=== PATIENT | female | born 2000 | race Caucasian/White ===

== ENCOUNTER 2024-05-23 12:17 | Emergency (ER) | payer SELFPAY ==
[2024-05-23 12:24] VITALS: BP 123/71; PULSE 77; TEMP 36.9; O2SAT 98; BMI 24.8
[2024-05-23 13:23] LABS: Basophils Percent Auto 0.3 % (0.2-2.0); Eosinophils Absolute Auto 0.2 10^3/uL (0.0-0.7); Hematocrit 39.1 % (36.0-48.0); Hemoglobin 13.4 g/dL (12.0-16.0); Immature Granulocytes Abs Auto 0.02 10^3/uL (0.00-0.03); Immature Granulocytes Pct Auto 0.3 % (0.0-0.5); Lymphocytes Absolute Auto 1.6 10^3/uL (1.2-3.8); Lymphocytes Percent Auto 20.7 % (20.5-60.0); Mean Corpuscular HGB Conc 34.3 g/dL (29.9-35.2); Mean Corpuscular Hemoglobin 30.7 pg (26.7-34.0); Mean Corpuscular Volume 89.5 fL (81.0-99.0); Mean Platelet Volume 8.7 fL (9.5-13.5); Monocytes Absolute Auto 0.4 10^3/uL (0.3-0.8); Monocytes Percent Auto 5.7 % (1.7-12.0); Neutrophils Absolute Auto 5.5 10^3/uL (1.4-6.5); Platelet Count 256 10^3/uL (150-450); Red Blood Count 4.37 10^6/uL (4.20-5.40); Red Cell Distribution Width 12.3 % (11.0-15.0); White Blood Count 7.7 10^3/uL (4.0-11.0)
[2024-05-23 13:38] LABS: Alanine Aminotransferase 37 U/L (14-59); Albumin Globulin Ratio 1.2; Alkaline Phosphatase 89 U/L (46-116); Anion Gap 13.3; Aspartate Amino Transferase 18 U/L (15-37); BUN Creatinine Ratio 14.7; Bilirubin Total 0.4 mg/dL (0.2-1.0); Calcium 9.1 mg/dL (8.5-10.1); Carbon Dioxide 26.5 mmol/L (21.0-32.0); Chloride 104 mmol/L (98-107); Estimated GFR (African America >60 (>=60); Estimated GFR (Non-African Ame >60 (>=60); Globulin 3.3 g/dL; Glucose 85 mg/dL (74-106); Potassium 3.8 mmol/L (3.5-5.1); Sodium 140 mmol/L (136-145); Total Protein 7.3 g/dL (6.4-8.2)
[2024-05-23 13:48] VITALS: BP 110/67; PULSE 61; O2SAT 100
[2024-05-23 14:00] LABS: HCG Quantitative 8 mIU/mL
--- NOTE | 2024-05-23 14:55 | ED_ITS ---
HPI - Female Genitourinary General Chief complaint: Vaginal Bleeding Stated complaint: VAGINAL BLEEDING Time Seen by Provider: 05/23/24 12:52 Source: patient Mode of arrival: walk-in History of Present Illness HPI Narrative: The patient is coming to us with vaginal bleeding with concern that she was , she had a test positive at home on Thursday which she 3 days ago and she started having menstrual bleeding today, patient mentioned that her menstrual bleeding is not more than usual, the patient was concerned because she had a positive on Thursday although her last menstruation was April 16 and she have almost 5 days menstrual bleeding. Patient have history of 1 that full-term. She denies any other complaints except for the suprapubic discomfort and cramping Related Data Home Medications ?Medication ?Instructions ?Recorded ?Confirmed No Known Home Medications 05/23/24 05/23/24 Allergies Allergy/AdvReac Type Severity Reaction Status Date / Time No Known Drug Allergies Allergy Verified 05/23/24 12:24 Review of Systems ROS Status of ROS 10 or more systems reviewed and unremark able except as noted in history and below Exam Narrative Exam Narrative: Nurses notes and vital signs reviewed and patient is not hypoxic. General: Well-appearing and in no apparent distress. Skin: Warm, dry, no pallor noted. No rash. Head: Normocephalic, atraumatic. Neck: Supple, non-tender. Eye: Pupils are equal, round and EOMI. No scleral icterus. Ears, Nose, Mouth, and Throat: TM are clear, no nasal mucosal hypertrophy. Oral mucosa is moist, no posterior oropharynx erythema, uvula is mid-line Cardiovascular: Regular Rate and Rhythm without murmur, gallop or rub. Respiratory: No accessory muscle use or respiratory distress. Lungs are clear to auscultation, no wheezing, rales or rhonchi Chest Wall: no tenderness Back: No midline thoracic or lumbar vertebral tenderness. No CVA tenderness Musculoskeletal: normal ROM, no calf or popliteal tenderness, no lower extremity edema/swelling GI: Abdomen is soft, non-distended. Normal bowel sounds. No masses appreciated. Suprapubic discomfort, no rebound, guarding, or rigidity noted. Neurological: A&O x4. No cranial nerve dysfunction observed. No truncal ataxia. Moves all extremities. Sensation intact. Psychiatric: Cooperative and interactive. Normal mood and affect. Constitutional Vital Signs, click to edit/add: Last Vital Signs Temp 98.4 F 05/23/24 12:24 Pulse 61 05/23/24 13:48 Resp 18 05/23/24 13:48 BP 110/67 05/23/24 13:48 Pulse Ox 100 05/23/24 13:48 Course Vital Signs Vital signs: Vital Signs Temperature 98.4 F 05/23/24 12:24 Pulse Rate 77 05/23/24 12:24 Respiratory Rate 18 05/23/24 12:24 Blood Pressure 123/71 05/23/24 12:24 Pulse Oximetry 98 05/23/24 12:24 Temperature 98.4 F 05/23/24 12:24 Pulse Rate 61 05/23/24 13:48 Respiratory Rate 18 05/23/24 13:48 Blood Pressure 110/67 05/23/24 13:48 Pulse Oximetry 100 05/23/24 13:48 MDM - Female Genitourinary MDM Narrative Medical decision making narrative: The patient CBC and chemistry showed no acute pathology and her hCG was 8 Right now I would question that the patient was actually her test is very low that could correlate with mostly a negative more than miscarriage But the patient right now will just follow-up with her [employer] doctor within the next week with the recommended the blood workup to be repeated after 2 to 3 days Patient to monitor her bleeding The patient is to follow up with primary care physician in next 2-3 days or to return to the emergency department should any of the signs or symptoms worsen or new symptoms develop. The patient agrees with the following Diagnosis and Treatment plan and the patient will be discharged home. Lab Data Labs: Lab Results 05/23/24 Range/Units 13:10 WBC 7.7 (4.0-11.0) 10^3/uL RBC 4.37 (4.20-5.40) 10^6/uL Hgb 13.4 (12.0-16.0) g/dL Hct 39.1 (36.0-48.0) % MCV 89.5 (81.0-99.0) fL MCH 30.7 (26.7-34.0) pg MCHC 34.3 (29.9-35.2) g/dL RDW 12.3 (11.0-15.0) % Plt Count 256 (150-450) 10^3/uL MPV 8.7 L (9.5-13.5) fL Neut % (Auto) 71.0 (43.0-75.0) % Lymph % (Auto) 20.7 (20.5-60.0) % [place] % (Auto) 5.7 (1.7-12.0) % Eos % (Auto) 2.0 (0.9-7.0) % Baso % (Auto) 0.3 (0.2-2.0) % Neut # (Auto) 5.5 (1.4-6.5) 10^3/uL Lymph # (Auto) 1.6 (1.2-3.8) 10^3/uL [place] # (Auto) 0.4 (0.3-0.8) 10^3/uL Eos # (Auto) 0.2 (0.0-0.7) 10^3/uL Baso # (Auto) 0.0 (0.0-0.1) 10^3/uL Abs Immat Gran (auto) 0.02 (0.00-0.03) 10^3/uL Imm/Tot Granulo (auto) 0.3 (0.0-0.5) % Sodium 140 (136-145) mmol/L Potassium 3.8 (3.5-5.1) mmol/L Chloride 104 (98-107) mmol/L Carbon Dioxide 26.5 (21.0-32.0) mmol/L Anion Gap 13.3 BUN 10.0 (7.0-18.0) mg/dL Creatinine 0.68 (0.55-1.02) mg/dL Est GFR ( Amer) >60 (>=60) Est GFR (Non-Af Amer) >60 (>=60) BUN/Creatinine Ratio 14.7 Glucose 85 (74-106) mg/dL Calcium 9.1 (8.5-10.1) mg/dL Total Bilirubin 0.4 (0.2-1.0) mg/dL AST 18 (15-37) U/L ALT 37 (14-59) U/L Alkaline Phosphatase 89 (46-116) U/L Total Protein 7.3 (6.4-8.2) g/dL Albumin 4.0 (3.4-5.0) g/dL Globulin 3.3 g/dL Albumin/Globulin Ratio 1.2 HCG, Quant 8 mIU/mL Blood Type A Positive Antibody Screen Negative Discharge Plan Discharge Stand Alone Forms: Work/School Release, Portal Instructions Chief Complaint: Vaginal Bleeding Clinical Impression: Vaginal bleeding Patient Disposition: Home, Self-Care Time of Disposition Decision: 14:44 Condition: Good Prescriptions / Home Meds: No Action No Known Home Medications Print Language: Sri [place] Instructions: Abnormal (Dysfunctional) Uterine Bleeding (ED), Non-Threatening First Trimester Vaginal Bleed (ED) Referrals: Davide Cruz DO [Physician] - 1 week Physician,Non-Staff, [Primary Care Provider] - 1 week Discharge Date/Time: 05/23/24 14:57
== END 2024-05-23 14:57 | disposition home or self-care (01) ==
PROVIDERS: Emergency Provider Emergency Medicine
DX: N93.9 Abnormal uterine and vaginal bleeding, unspecified (principal)
CPT/HCPCS: 36415; 80053; 84702; 85025; 86850; 86900; 86901; 99283

== ENCOUNTER 2024-05-24 15:38 | Outpatient (OUT) | payer SELFPAY ==
[2024-05-24 16:34] LABS: HCG Quantitative 5 mIU/mL
== END 2024-05-24 15:39 | disposition home or self-care (01) ==
LOC: LAB 15:40
PROVIDERS: Visit Provider Obstetrics & Gynecology
DX: O20.9 Hemorrhage in early pregnancy, unspecified (principal)
CPT/HCPCS: 36415; 84702

== ENCOUNTER 2024-05-26 15:34 | Outpatient (OUT) | payer SELFPAY ==
--- OUTSIDE RECORDS SUMMARY | 2024-05-26 15:42 | XMS_ITS | CCD ---
Author Organization [facility] Care Team Providers Care Education Director Name Role Phone AVERY ., DR OLIVAREZ Admitting Unavailable HOY ., DR OLIVAREZ Attending Unavailable MISC, DR CAGLE Primary Care Unavailable ARIA ., DR LOPEZ Admitting Unavailable ARIA ., DR LOPEZ Attending Unavailable MISC, DR CAGLE Primary Care Unavailable ARIA ., DR LOPEZ Consulting Unavailable ARIA ., DR LOPEZ Admitting Unavailable ARIA ., DR LOPEZ Attending Unavailable MISC, DR CAGLE Primary Care Unavailable ARIA ., DR LOPEZ Consulting Unavailable ARIA ., DR LOPEZ Admitting Unavailable ARIA ., DR LOPEZ Attending Unavailable MISC, DR CAGLE Primary Care Unavailable ARIA ., DR LOPEZ Consulting Unavailable OCONNOR, LISA Consulting Unavailable ARIA ., DR LOPEZ Admitting Unavailable ARIA ., DR LOPEZ Attending Unavailable REQUEST, DR HARPER LISTED Primary Care Unavaila ble ARIA ., DR LOPEZ Consulting Unavailable AGUBOSIM, EYAD Consulting Unavailable LONG, PRATIMA Consulting Unavailable ARIA ., DR LOPEZ Admitting Unavailable ARIA ., DR LOPEZ Attending Unavailable MISC, DR CAGLE Primary Care Unavailable Problems Active Problems Problem Classification Problem Date Documented Da te Episodic/Chronic Cancer of cervix (1 source) Atypical squamous cells of undetermined significance on cytologic smear of cervix (ASC-US); Translations: [ASC US ON CYTOLOGIC SMEAR OF CERVIX] Onset: 10-16-2022 Episodic Menstrual disorders (5 sources) Dysmenorrhea, unspecified; Translations: [DYSMENORRHEA UNSPECIFIED] Onset: 12-18-2021 Chronic Other female genital disorders (1 source) Unspecified dyspareunia; Translations: [UNSPECIFIED DYSPAREUNIA] Onset: 12-25-2021 Chronic Unclassified (1 source) CONTACT W/AND (SUSP) EXPOS COVID-19; Translations: [CONTACT W/AND (SUSP) EXPOS COVID-19] Onset: 12-18-2021 Past or Other Problems Problem Classification Problem Date Documented Date Episodic/Chronic Abdominal pain (1 source) Pelvic and perineal pain; Translations: [PELVIC AND PERINEAL PAIN] Onset: 12-25-2021 Episodic Other screening for suspected conditions (not mental disorders or infectious disease) (4 sources) Encounter for screening for malignant neoplasm of cervix; Translations: [ENC SCREENING MALIG NEOPLASM CERV] Onset: 02-12-2022 Episodic Screening and history of mental health and substance abuse codes (1 source) Personal history of nicotine dependence; Translations: [PERSONAL HISTORY OF NICOTINE DEPEND] Onset: 12-25-2021 Episodic Sexually transmitted infections (not HIV or hepatitis) (1 source) Cervical high risk human papillomavirus (HPV) DNA test positive; Translations: [CERVICAL HIGH RISK HPV DNA TEST POS] Onset: 02-13-2022 Episodic Results Test Name Value Interpretation Reference Range Facil ity Pap IG, rfx Aptima HPV, rfx 16/18,45on 10-22-2022 . . Normal [facility] Comment on above: Result Comment: Perf ormed at: WB Performed By: #### P APHR2A #### [facility] [address] [address] [address] Romero Freeman DIAGNOSIS: Comment Normal [facility] Comment on above: Result Comment: NEGA TIVE FOR INTRAEPITHELIAL LESION OR MALIGNANCY. Performed at: WB Performed By: #### P APHR2A #### [facility] [address] [address] [address] Romero Freeman HPV Aptima Positive Abnormal Negative [facility] Comment on above: Result Comment: This nucleic acid amplification test detects fourteen high-risk HPV types (16,18,31,33,35,39,45,51,52,56,58,59,66,68) without differentiation. Performed at: =G Performed By: #### P APHR2A #### [facility] [address] [address] [address] Romero Freeman HPV Genotype 16 Negative Normal Negative [facility] Comment on above: Performed By: #### P APHR2A #### [facility] [address] [place] [address] Dr. Romero Freeman HPV Genotype 18,45 Negative Normal Negative [facility] Comment on above: Performed By: #### P APHR2A #### [facility] [address] [place] [address] Dr. Romero Freeman HPV Genotype Reflex Comment Normal [facility] Comment on above: Result Comment: Roddy fitzgerald, see HPV Genotype results. Performed at: WB Performed By: #### P APHR2A #### [facility] [address] [place] [address] Dr. Romero Freeman Methodology: Comment Normal [facility] Comment on above: Result Comment: This liquid based ThinPrep(R) pap test was screened with the use of an image guided system. Performed at: WB Performed By: #### P APHR2A #### [facility] [address] [place] [address] Dr. Romero Freeman Note: Comment Normal [facility] Comment on above: Result Comment: The Pap smear is a screening test designed to aid in the detection of premalignant and malignant conditions of the uterine cervix. It is not a diagnostic procedure and should not be used as the sole means of detecting cervical cancer. Both false-positive and false-negative reports do occur. . Performed at: WB Performed By: #### P APHR2A #### [facility] [address] [place] [address] Dr. Romero Freeman Performed by: Comment Normal [facility] Comment on above: Result Comment: Wale Hauser Supervisor Road Administrator (ASCP) Performed at: WB Performed By: #### P APHR2A #### [facility] [address] [place] [address] Dr. Romero Freeman Specimen adequacy: Comment Normal [facility] Comment on above: Result Comment: Sati sfactory for evaluation. Endocervical and/or squamous metaplastic cells (endocervical component) are present. Performed at: WB Performed By: #### P APHR2A #### [facility] [address] [place] [address] Dr. Romero Freeman Pap IG,rfx Aptima HPV all pt hon 05-30-2022 . . Normal [facility] Comment on above: Result Comment: Perf ormed at: BA Performed By: #### P [id number] #### [facility] [address] [address] [address] Romero Freeman DIAGNOSIS: Comment Normal [facility] Comment on above: Result Comment: NEGA TIVE FOR INTRAEPITHELIAL LESION OR MALIGNANCY. Performed at: BA Performed By: #### P [id number] #### [facility] [address] [address] [address] Romero Freeman Methodology: Comment [facility] Comment on above: Result Comment: This liquid based ThinPrep(R) pap test was screened with the use of an image guided system. Performed at: WB Performed By: #### P [id number] #### [facility] [address] [place] [address] Dr. Romero Freeman Note: Comment Normal [facility] Comment on above: Result Comment: The Pap smear is a screening test designed to aid in the detection of premalignant and malignant conditions of the uterine cervix. It is not a diagnostic procedure and should not be used as the sole means of detecting cervical cancer. Both false-positive and false-negative reports do occur. . Performed at: WB Performed By: #### P [id number] #### [facility] [address] [place] [address] Dr. Romero Freeman Performed by: Comment Normal [facility] Comment on above: Result Comment: Marisabel Castro, Supervisor Road Administrator (ASCP) Performed at: BA Performed By: #### P [id number] #### [facility] [address] [place] [address] Dr. Romero Freeman Reflex Criteria: Comment [facility] Comment on above: Result Comment: The HPV DNA reflex criteria were not met with this specimen result therefore, no HPV testing was performed. . Performed at: BA Performed By: #### P [id number] #### [facility] [address] [place] [address] Dr. Romero Freeman Specimen adequacy: Comment Normal [facility] Comment on above: Result Comment: Sati sfactory for evaluation. Endocervical and/or squamous metaplastic cells (endocervical component) are present. Performed at: BA Performed By: #### P [id number] #### [facility] [address] [place] [address] Dr. Romero Freeman CBC AUTO DIFFon 12-20-2021 BASO # 0.1 103/ul Normal 0.0-0.1 [facility] Comment on above: Performed By: #### C BC #### [facility] [address] [place] [address] Dr. Romero Freeman Basophils/100 WBC (Bld) 0.6 % Normal 0.2-2.0 [facility] Comment on above: Performed By: #### C BC #### [facility] [address] [place] [address] Dr. Romero Freeman EO # 0.7 103/ul Normal 0.0-0.7 [facility] Comment on above: Performed By: #### C BC #### [facility] [address] [place] [address] Dr. Romero Freeman Eosinophils/100 WBC (Bld) 8.6 % Critically high 0.9-7.0 [facility] Comment on above: Performed By: #### C BC #### [facility] [address] [place] [address] Dr. Romero Freeman Erythrocyte distribution width (RBC) [Ratio] 13.2 % Normal 11.0-15.0 [facility] Comment on above: Performed By: #### C BC #### [facility] [address] [place] [address] Dr. Romero Freeman Hematocrit (Bld) [Volume fraction] 42.2 % Normal 36.0-48.0 [facility] Comment on above: Performed By: #### C BC #### [facility] [address] [place] [address] Dr. Romero Freeman Hemoglobin (Bld) [Mass/Vol] 14.3 g/dL Normal 12.0-16.0 [facility] Comment on above: Performed By: #### C BC #### [facility] [address] [place] [address] Dr. Romero Freeman IG # 0.01 10e3/ul Normal 0.00-0.03 [facility] Comment on above: Performed By: #### C BC #### [facility] [address] [place] [address] Dr. Romero Freeman IG % 0.1 % Normal 0.0-0.5 [facility] Comment on above: Performed By: #### C BC #### [facility] [address] [place] [address] Dr. Romero Freeman LYMPH # 3.3 103/ul Normal 1.2-3.8 [facility] Comment on above: Performed By: #### C BC #### [facility] [address] [place] [address] Dr. Romero Freeman Lymphocytes/100 WBC (Bld) 40.8 % Normal 20.5-60.0 [facility] Comment on above: Performed By: #### C BC #### [facility] [address] [place] [address] Dr. Romero Freeman MANUAL DIFF REQ NO Normal [facility] Comment on above: Performed By: #### C BC #### [facility] [address] [place] [address] Dr. Romero Freeman MCH (RBC) [Entitic mass] 30.2 pg Normal 26.7-34.0 [facility] Comment on above: Performed By: #### C BC #### [facility] [address] [place] [address] Dr. Romero Freeman MCHC (RBC) [Mass/Vol] 33.9 g/dL Normal 29.9-35.2 [facility] Comment on above: Performed By: #### C BC #### [facility] [address] [place] [address] Dr. Romero Freeman MCV (RBC) [Entitic vol] 89.2 fL Normal 81.0-99.0 [facility] Comment on above: Performed By: #### C BC #### [facility] [address] [place] [address] Dr. Romero Freeman MONO # 0.7 103/ul Normal 0.3-0.8 [facility] Comment on above: Performed By: #### C BC #### [facility] [address] [place] [address] Dr. Romero Freeman Monocytes/100 WBC (Bld) 9.0 % Normal 1.7-12.0 [facility] Comment on above: Performed By: #### C BC #### [facility] [address] [place] [address] Dr. Romero Freeman NEUT # 3.3 103/ul Normal 1.4-6.5 [facility] Comment on above: Performed By: #### C BC #### [facility] [address] [place] [address] Dr. Romero Freeman Neutrophils/100 WBC (Bld) 40.9 % Critically low 43.0-75.0 [facility] Comment on above: Performed By: #### C BC #### [facility] [address] [place] [address] Dr. Romero Freeman Platelet mean volume (Bld) [Entitic vol] 8.6 fL Critically low 9.5-13.5 [facility] Comment on above: Performed By: #### C BC #### [facility] [address] [place] [address] Dr. Romero Freeman PLT 289 103/ul Normal 150-450 [facility] Comment on above: Performed By: #### C BC #### [facility] [address] [place] [address] Dr. Romero Freeman RBC 4.73 106/ul Normal 4.20-5.40 [facility] Comment on above: Performed By: #### C BC #### [facility] [address] [place] [address] Dr. Romero Freeman WBC 8.1 103/ul Normal 4.0-11.0 [facility] Comment on above: Performed By: #### C BC #### [facility] [address] [place] [address] Dr. Romero Freeman PREG QUANT HCGon 12-20-2021 HCG QUANT <1 Normal [facility] Comment on above: Performed By: #### P REGQNT #### [facility] [address] [address] [address] Romero Freeman HCG RANGE SEE BELOW Normal [facility] Comment on above: Result Comment: 5-50 0-1 WEEK 40-300 1-2 WEEKS 100-1,000 2-3 WEEKS 500-6,000 3-4 WEEKS 5,000-200,000 1-2 MONTHS 10,000-100,000 2-3 MONTHS 3,000-50,000 2ND TRIMESTER 1,000-50,000 3RD TRIMESTER Performed By: #### P REGQNT #### [facility] [address] [address] [address] Romero Freeman Covid-19 PCR (CVDTBH)on 11-20 SARS-CoV-2 (COVID-19) RNA ABEBE+probe Ql (Unsp spec) Not detected Normal NOT DETECTED [facility] Comment on above: Result Comment: When diagnostic testing is negative, the possibility of a false negative should be considered in the context of a patient's recent exposures and the presence of clinical signs and symptoms consistent with SARS-CoV-2. This test is not yet approved or cleared by the [place] FDA. When there are no FDA-approved or cleared tests available, and other criteria are met, FDA can make tests available under an emergency access mechanism called an Emergency Use Authorization (EUA). The EUA for this test is supported by the Junior Buyer of Health and Human Service's declaration that circumstances exist to justify the emergency use of in vitro diagnostics for the detection and/or diagnosis of the virus that causes COVID-19. This EUA will remain in effect for the duration of the COVID-19 declaration justifying emergency of IVDs, unless it is terminated or revoked by the FDA (after which the test may no longer be used). Performed By: #### C VDTBH #### [facility] [address] [address] [address] Romero rFeeman Encounters Encounter Date Encounter Type Care Provider Facility Start: 10-16-2022 Encounter for cervic al smear to confirm findings of recent normal smear following initial abnormal smear DR JESSICA CRUZ . [facility] Start: 10-15-2022 End: 10-15-[address] JESSICA CRUZ . Facility:[facility] Start: 10-15-2022 End: 10-15-2022 Encounter for cervical smear to confirm findings of recent normal smear following initial abnormal smear DR JESSICA CRUZ . Facility:[facility] Start: 03-18-[address] SHER VARELA . Facili ty:[facility] Start: 02-12-2022 End: 02-12-[address] JESSICA CRUZ . Facility:[facility] Start: 12-20-2021 End: 12-20-[address] JESSICA CRUZ . Facility:[facility] Start: 12-18-2021 Encounter for prepro cedural laboratory examination DR JESSICA CRUZ . [facility] Start: 12-17-[address] JESSICA CRUZ . Facili ty:[facility] Start: 12-13-2021 End: 12-14-[address] JESSICA CRUZ . Facility:[facility] Start: 12-13-2021 End: 12-14-2021 Encounter for preprocedural laboratory examination DR JESSICA CRUZ . Facility:[facility] Payers Date Payer Category Payer Unknown [id number] 2.16.84 [id number] 1998 Unknown [id number] 2.16.84 [id number] 1998 Unknown [id number] 2.16.84 [id number] 1998 Unknown [id number] 2.16.84 [id number] 1998 Unknown [id number] 2.16.84 [id number] 1998 Unknown [id number] 2.16.84 [id number] 1959 Self-pay 1961 Unknown [id number] Clinical Note 12-20-2021 Note Date & Type Note Facility 12-20-2021 Note [facility] [place], [place] NAME: KAREEM CANNON DATE OF : [facility] REC#: [id number] DRILLING PLANT OPERATOR: [id number] [facility], TRANSADMIT DATE: 12/20/2021 06:55:00 RAILROAD MAINTENANCE CLERK DATE: 12/22/2021 01:00 DICTATING PHYSICIAN: JESSICA CRUZ DICTATION DATE: 12/20/2021 09:00 OPERATIVE NOTE PROCEDURE: Diagnostic laparoscopy. PREOPERATIVE DIAGNOSIS: Pelvic pain, dysmenorrhea, dyspareunia. POSTOPERATIVE DIAGNOSIS: Pelvic pain, dysmenorrhea, dyspareunia. ANESTHESIA: General. SURGEON: Jessica Cruz D.O. LEGAL EDITOR: TONI Arrington URINE OUTPUT: Yellow and clear. BLOOD LOSS: 5 mL. FINDINGS: Normal appearing ovaries, uterus and tubes. Normal appearing appendix. Please note, however, there was a slight dense adhesion of the bowel to the posterior side of the ovary, which could not be taken down. However, doubt this is the cause of her pain. SPECIMENS: None. PROCEDURE: The patient was taken back to the Operating Room where she was placed in dorsal lithotomy position after given general anesthesia. The patient was prepped and draped in normal sterile fashion. A sponge stick was placed into the patient's vagina. Attention was turned to the patient's abdomen, where a small umbilical incision was made. The fascia was tented using Susana clamps and the fascia was entered sharply. Confirmation of intraabdominal placement of the 10 mm port was confirmed under direct visualization using a laparoscope. The patient's abdomen was then insufflated using CO2 gas with approximately 4 liters. A second port was placed lt laterally, this was done under direct visualization with a 5 mm port. Survey of the patient's abdomen demonstrated normal liver and gallbladder. Survey of the patient's pelvic anatomy demonstrated normal appearing ovaries and tubes as well as normal appearing uterus. No endometrial implants could be noted, no evidence of any pelvic disease was seen, normal appearing pelvic cavity. Dense bowel adhesion to posterior side of lt ovary which could not easily be taken down. All instruments were removed from the patient's abdomen. The patient's abdomen was insufflated using CO2 gas. The patient tolerated the procedure well. Sponge stick was removed from the patient's vagina. The patient's infraumbilical fascia was closed using #0 Vicryl on a GI needle. The patient's skin was closed lt laterally and infraumbilically using 4-0 Vicryl. The patient tolerated the procedure well. Sponge, lap and needle counts were correct x 2. The patient taken to Recovery Room in stable condition. Electronically Authenticated and Edited by: Jessica Cruz DO on 01/12/2022 09:16 PM EDT IFC Signed and Approved by: DR JESSICA CRUZ . 01/12/2022 21:16:00 [facility] Summary Purpose Family History No Family History Records Found Advance Directives No Advanced Directives Records Found Additional Source Comments INFORMATION SOURCE (unrecogn ized section and content) DATE CREATED AUTHOR 12/04/2022 [facility] FOR RECORDS PERTAINING TO PATIENTS WHO ARE OR HAVE BEEN ENROLLED IN A CHEMICAL DEPENDENCY/SUBSTANCEABUSE PROGRAM, SOME INFORMATION MAY BE OMITTED. This clinical summary was aggregated from multiple sources. Caution should be exercised in using it in the provision of clinical care. This summary normalizes information from multiple sources, and as a consequence, information in this document may materially change the coding, format and clinical context of patient data. In addition, data may be omitted in some cases. CLINICAL DECISIONS SHOULD BE BASED ON THE PRIMARY CLINICAL RECORDS. [facility] [employer] [facility]. provides no warranty or guarantee of the accuracy or completeness of information in this document.
[2024-05-26 17:38] LABS: HCG Quantitative 3 mIU/mL
== END 2024-05-26 15:35 | disposition home or self-care (01) ==
LOC: LAB 15:36
PROVIDERS: Visit Provider Obstetrics & Gynecology
DX: O20.9 Hemorrhage in early pregnancy, unspecified (principal)
CPT/HCPCS: 36415; 84702

== ENCOUNTER 2025-03-22 08:26 | Outpatient (OUT) | payer OTHER, SELFPAY ==
--- OUTSIDE RECORDS SUMMARY | 2016-07-22 20:00 | XMS_ITS | Continuity of Care Document ---
Author Organization [facility] Address [address] [place] [address] Phone Care Team Providers Care Funder Name Role Phone Rosalindasara DO GUZMANJoel Unavailable Unavailable Procedures Procedure Date TB INTRADERMAL TEST Advance Directives Directive Yes / No Effective Date File Name No Information Encounters Encounter Description Practice Location Reason(s) For Visit Diagnoses Date Provider Providers Copied on Encounter [facility], [address] [place] [address], [id number], [place] tel:[phone] [facility] No Information Dayanara River. [address], [place], [id number], [place]. tel:[phone] [facility], [address] [place] [address], [id number], tel:[phone] [facility] No Information Dayanara River. [address] [place] [address], [id number], [place]. tel:[phone] Family History Family Member Type Diagnosis Age [...]
--- OUTSIDE RECORDS SUMMARY | 2025-03-22 08:32 | XMS_ITS | Encounter Summary ---
Author Organization [facility] Address [address] [place] [address] Care Team Providers Care Traveling Electrician Name Role Phone Burton Richardson MD Primary Care Provider [phone] Encounter Details Date Type Department Care Team (Latest Contact Info) Description 03/15/2025 Travel Social History Tobacco Use Types Packs/Day Years Used Date Smoking Tobacco: Never Assessed Comments Unknown Sex and Gender Information Value Date Recorded Sex Assigned at Not on file Legal Sex Female 7:23 PM EDT Gender Identity Not on file Sexual Orientation Not on file documented as of this encounter Plan of Treatment Upcoming Encounters Date Type Department Care Team (Late st Contact Info) Description 03/22/2025 9:00 AM EDT Initial [facility] [address] [place] [address] [place] [address] documented as of this encounter Visit Diagnoses Not on filedocumented in this encounter Care Teams Traveling Electrician Relationship Specialty Start Date End Date Burton Richardson MD PCP - General Family Medicine 04/02/23 documented as of this encounter
--- OUTSIDE RECORDS SUMMARY | 2025-03-22 08:32 | XMS_ITS | Encounter Summary ---
Author Organization [facility] Address [address] [place] [address] Care Team Providers Care Brand Ambassador Promotional Model Name Role Phone Burton Richardson MD Primary Care Provider [phone] Encounter Details Date Type Department Care Team (Late st Contact Info) Description 03/08/2025 Abstract [facility] [address] [place] [address] Davide Cruz, [address] Jostin [place], [place] [id number] Social History Tobacco Use Types Packs/Day Years [...] Description 03/22/2025 9:00 AM EDT Initial [facility] [address] [place] [address] documented as of this encounter Visit Diagnoses Not on filedocumented in this encounter Care Teams Brand Ambassador Promotional Model Relationship Specialty Start Date End Date Burton Richardson MD PCP - General Family Medicine 04/02/23 documented as of this encounter
--- OUTSIDE RECORDS SUMMARY | 2025-03-22 08:32 | XMS_ITS | Encounter Summary ---
Author Organization [facility] Address [address] [place] [address] Care Team Providers Care Sales Designer Name Role Phone Burton Richardson MD Primary Care Provider [phone] Encounter Details Date Type Department Care Team (Late Contact Info) Description 03/08/2025 Orders Only [facility] [address] [place] [address] Davide Cruz, DO [facility] Florin Dolan, [facility]11 Positive urine test ([facility]); Missed menses Social History Tobacco Use Types Packs/Day Years [...] 9:00 AM EDT Initial [facility] [address] [place] [address] Scheduled Orders Name Type Priority Associated Diagnoses Orde r Schedule US OB transvaginal Imaging Routine Positive urine test ([facility]) Missed menses Expected: 03/08/2025, Expires: 06/08/2025 documented as of this encounter Visit Diagnoses Diagnosis Positive urine test ([facility]) Missed menses documented in this encounter Care Teams Sales Designer Relationship Specialty Start Date End Date Burton Richardson MD PCP - General Family Medicine 04/02/23 documented as of this encounter
--- OUTSIDE RECORDS SUMMARY | 2025-03-22 08:32 | XMS_ITS | Clinical Summary ---
Author Organization [facility] Address [address] [place] [address] Care Team Providers Care Shoe Repairman Name Role Phone Burton Richardson MD Primary Care Provider [phone] Allergies No known active allergies Medications medroxyPROGESTE Zay (Depo-Provera) 150 MG/ML injectionIndica tions: control counseling Inject 1 mL (150 mg) into the shoulder, thigh, or buttocks every 3 (three) months. 1 mL 3 02/25/2023 Active Hospital, Clinic, or Other Facility Administered Medication Ordered Dose Route Frequency Start Date End Date Status medroxyPROGESTERone (Depo-Provera) injection 150 mgIndications:Depo-Provera contraceptive status 150 mg IM Once 04/02/2023 Acti ve Active Problems Problem Noted Date Diagnosed Date Positive urine test ([facility]) 03/08/20 25 Cervical motion tenderness 04/01/2023 Dysmenorrhea 04/01/2023 Encounters Date Type Department Care Team Description 03/16/2025 Orders Only [facility] [address] [place] [address] Shanika oCrmier LPN 03/15/2025 Travel 03/08/2025 Abstract [facility] [address] [place] [address] Davide Cruz DO 03/08/2025 Orders Only [facility] [address] [place] [address] Davide Cruz DO Positive urine test ([facility]); Missed menses from Last 3 Months Social History Tobacco Use Types Packs/Day Years Used Date Smoking Tobacco: Never Assessed Comments Unknown Sex and Gender Information Value Date Recorded Sex Assigned at Not on file Legal Sex Female 7:23 PM EDT Gender Identity Not on file Sexual Orientation Not on file Last Filed Vital Signs Vital Sign Reading Time Taken Comments Blood Pressure 118/70 04/02/2023 3:14 PM EDT Pulse - - Temperature - - Respiratory Rate - - Oxygen Saturation - - Inhaled Oxygen Concentration - - Weight 63 kg (139 lb) 04/02/2023 3:14 PM EDT Height 160 cm (5' 3 ) 04/02/2023 3:14 PM EDT Body Mass Index 24.62 04/02/2023 3:14 PM EDT Plan of Treatment Upcoming Encounters Date Type Department Care Team (Late st Contact Info) Description 03/22/2025 9:00 AM EDT Initial [facility] [address] [place] [id number] Insurance [facility] MEDICAID Care Teams Shoe Repairman Relationship Specialty Start Date End Date Burton Richardson MD PCP - General Family Medicine 04/02/23
--- OUTSIDE RECORDS SUMMARY | 2025-03-22 08:32 | XMS_ITS | Encounter Summary ---
Author Organization [facility] Address [address] [facility] [place] [address] Care Team Providers Care Basting Cleaner Name Role Phone Burton Richardson MD Primary Care Provider [phone] Encounter Details Date Type Department Care Team (Late st Contact Info) Description 03/16/2025 Orders Only [facility] [address] [place] [address] Shanika Cormier LPN [address] [place] [id number] Social History Tobacco Use Types Packs/Day Years [...] Description 03/22/2025 9:00 AM EDT Initial [facility] [address] [place] [address] documented as of this encounter Procedures Procedure Name Priority Date/Time Associated Diagnosis Comments PAP SMEAR Routine 10/15/2022 12:00 AM EST documented in this encounter Results * (ABNORMAL) Pap Smear (10/15/2022 12:00 AM EST) Swab Cervical swab / Unknown us Anthony Nurse [facility] CYTOLOGY ORDERABLES Final Result EXTERNAL LAB documented in this encounter Visit Diagnoses Not on filedocumented in this encounter Care Teams Basting Cleaner Relationship Specialty Start Date End Date Burton Richardson MD PCP - General Family Medicine 04/02/23 documented as of this encounter
--- OUTSIDE RECORDS SUMMARY | 2025-03-22 08:32 | XMS_ITS | Clinical Summary ---
Author Organization [facility] Address [id number] [address] [place] [address] Care Team Providers Care Sole Inker Name Role Phone Unavailable Primary Care Provider Unavailabl e Allergies No known active allergies Medications [id number] a-epa-fish oil ( GUMMY) 400 mcg-35 mg -25 mg-5 mg tablet,chewable Chew 1 tablet and swallow daily. Active Active Problems Problem Noted Date Diagnosed Date cardiac anomaly compli cating , antepartum, not applicable or unspecified fetus 09/30/2018 Abn chromsoml and genetic find on antenat screen of mother 09/30/2018 Family History Medical History Relation Name Comments Clotting disorder Maternal Grandfather Be rger disease Hypertension Maternal Grandfather Cancer Maternal Grandmother Hypertension Maternal Grandmother Clotting disorder Mother Pulmonary embolism Mother Asthma Neg Hx Diabetes Neg Hx Heart attack Neg Hx Heart defect Neg Hx High Cholesterol Neg Hx Seizures Neg Hx Stroke Neg Hx Sudden Neg Hx Thyroid Issues Neg Hx Relation Name Status Comments Maternal Grandfather Maternal Grandmother Mother Paternal Grandfather Social History Tobacco Use Types Packs/Day Years Used Date Smoking Tobacco: Former Cigarettes Smokeless Tobacco: Never Alcohol Use Standard Drinks/Week Comments No 0 (1 standard drink = 0.6 oz pur e alcohol) AUDIT-C Answer Date Recorded Frequency of Alcohol Consumption Never 08/17/2018 Average Number of Drinks Not on file 018 Frequency of Binge Drinking Not on file 07/23 Childcare Answer Date Recorded Childcare Unknown 03/02/2019 Employment Answer Date Recorded Employment Unknown 03/02/2019 Purpose - Life Answer Date Recorded Purpose and direction in life Unknown Comments No Sex and Gender Information Value Date Recorded Sex Assigned at Not on file Legal Sex Female 11:59 AM EDT Gender Identity Not on file Sexual Orientation Not on file Last Filed Vital Signs Vital Sign Reading Time Taken Comments Blood Pressure 122/69 11/17/2018 10:54 AM EST Pulse 88 11/17/2018 10:54 AM EST Temperature - - Respiratory Rate 18 08/31/2018 4:20 PM EST Oxygen Saturation 99% 10/19/2018 11: 15 AM EST Inhaled Oxygen Concentration - - Weight 72.5 kg (159 lb 13.3 oz) 019 10:54 AM EST Height 158.2 cm (5' 2.28 ) 11/17/2018 1 0:54 AM EST Body Mass Index 28.97 11/17/2018 10:54 AM EST Plan of Treatment Health Maintenance Due Date Last Done Comments Depression Screening 2010 Tobacco Screening 2010 Adult BMI Screening 2016 DTaP,Tdap and Td Vaccines (1 - Tdap) 2017 Pap Smear 2019 Influenza Vaccine 05/22/2025 Medical Devices Not on file Insurance [employer]
--- OUTSIDE RECORDS SUMMARY | 2025-03-22 08:32 | XMS_ITS | Encounter Summary ---
Author Organization [facility] Address [address] [place] [address] Care Team Providers Care Enameler Name Role Phone Burton Richardson MD Primary Care Provider [phone] Encounter Details Date Type Department Care Team (Late st Contact Info) Description 05/24/2024 Abstract [facility] [address] [place] [address] Davide Cruz, [address] [place], [place] [id number] Social History Tobacco Use Types Packs/Day Years [...] Description 03/22/2025 9:00 AM EDT Initial [facility] [address] [place] [address] documented as of this encounter Visit Diagnoses Not on filedocumented in this encounter Care Teams Enameler Relationship Specialty Start Date End Date Burton Richardson MD PCP - General Family Medicine 04/02/23 documented as of this encounter
--- NOTE | 2025-03-22 08:33 | US_ITS ---
The [address] [address] Patient Name: KAREEM CANNON MRN: [id number] date: 2000 Sex: F Assigned Patient Location: Current Patient Location: LAB Accession/Order Number: [id number] Exam Date: 03/22/2025 10:07 Report Date: 03/22/2025 10:11 At the request of: JESSICA KNAPP DO Procedure: US OB <= 14 weeks fetus FIRST TRIMESTER TRANSVAGINAL OB ULTRASOUND CLINICAL DATA: Positive test. COMPARISON: None A gestational sac is visualized within the uterus. The developing placenta is anterior. A fetus is present with heart rate of 150 bpm. The crown-rump length measurement of 6.6 cm correlates with an ultrasound age of 12 weeks 6 days +/- 1 week 1 day. The estimated date of delivery is September 2025. The cervix is closed with length of 4.6 cm. Both ovaries are visualized. The right measures 3.8 x 1.8 x 2.2 cm. The left ovary measures 5.7 x 3.7 x 2.7 cm. A corpus luteum is seen on the left measuring 1.8 x 1.4 x 2.0 cm. There is documentation of ovarian blood flow. No free fluid is seen. US/US OB <= 14 weeks fetus IMPRESSION: SINGLE LIVE INTRAUTERINE GESTATION WITH ULTRASOUND AGE OF 12 WEEKS 6 DAYS. Impression dictated by: Brooke Blevins M.D. 03/22/2025 10:11 AM Dictation Location: [place] [address] Electronically authenticated by: [id number] Y Date: 03/22/2025 10:11
--- OUTSIDE RECORDS SUMMARY | 2025-03-22 08:49 | XMS_ITS | CCD ---
Author Organization [facility] Care Team Providers Care Switchboard And Control Room Operator Name Role Phone DEBRA ., DR OLIVAREZ Admitting Unavailable HOY ., DR OLIVAREZ Attending Unavailable MISC, DR CAGLE Primary Care Unavailable ANTHONY ., DR LOPEZ Admitting Unavailable ANTHONY ., DR LOPEZ Attending Unavailable MISC, DR CAGLE Primary Care Unavailable ANTHONY ., DR LOPEZ Consulting Unavailable ANTHONY ., DR LOPEZ Admitting Unavailable ANTHONY ., DR LOPEZ Attending Unavailable MISC, DR CAGLE Primary Care Unavailable ANTHONY ., DR LOPEZ Consulting Unavailable ANTHONY ., DR LOPEZ Admitting Unavailable ANTHONY ., DR LOPEZ Attending Unavailable MISC, DR CAGLE Primary Care Unavailable ANTHONY ., DR LOPEZ Consulting Unavailable OCONNOR, LISA Consulting Unavailable ANTHONY ., DR LOPEZ Admitting Unavailable ANTHONY ., DR LOPEZ Attending Unavailable REQUEST, DR HARPER LISTED Primary Care Unavaila ble ANTHONY ., DR LOPEZ Consulting Unavailable AGUBOSIM, EYAD Consulting Unavailable LONG, PRATIMA Consulting Unavailable ANTHONY ., DR LOPEZ Admitting Unavailable ANTHONY ., DR LOPEZ Attending Unavailable MISC, DR CAGLE Primary Care Unavailable Debra SANCHEZ, [place] Primary Care Provider [phone] Medications Current Medications Medication Drug Class(es) Dates Sig (Normalized) Sig (Original) 1 ml medroxyPROGESTERone acetate 150 mg/ml injection (4 sources) Progestin Start: medroxyPROGESTERone (Depo-Provera) injection 150 mg Start: 02-25-2023 medroxyPROGEST ERone (Depo-Provera) 150 MG/ML injection Indications: control counseling Inject 1 mL (150 mg) into the shoulder, thigh, or buttocks every 3 (three) months. 1 mL 3 02/25/2023 Active Problems Active Problems Problem Classification Problem Date Documented Da te Episodic/Chronic Cancer of cervix (1 source) Atypical squamous cells of undetermined significance on cytologic smear of cervix (ASC-US); Translations: [ASC US ON CYTOLOGIC SMEAR OF CERVIX] Onset: 10-16-2022 Episodic Menstrual disorders (7 sources) Dysmenorrhea, unspecified; Translations: [Dysmenorrhea] Onset: 12-18-2021 Chronic Other female genital disorders (1 source) Unspecified dyspareunia; Translations: [UNSPECIFIED DYSPAREUNIA] Onset: 12-25-2021 Chronic Unclassified (1 source) CONTACT W/AND (SUSP) EXPOS COVID-19; Translations: [CONTACT W/AND (SUSP) EXPOS COVID-19] Onset: 12-18-2021 Past or Other Problems Problem Classification Problem Date Documented Date Episodic/Chronic Abdominal pain (1 source) Pelvic and perineal pain; Translations: [PELVIC AND PERINEAL PAIN] Onset: 12-25-2021 Episodic Other female genital disorders (2 sources) Pain on movement of cervix; Translations: [Unspecified condition associated with female genital organs and menstrual cycle] Onset: 04-01-2023 04-01-2023 Episodic Other screening for suspected conditions (not [...] Results Test Name Value Interpretation Reference Range Facility [facility] PREG QUANT HCGon 024 HCG QUANTITATIVE 3 mIU/mL [facility] Comment on above: 5-50 0.2-1 WEEK 50-500 1-2 WEEKS 100-5,000 2-3 WEEKS 500-10,000 3-4 WEEKS 1,000-50,000 4-5 WEEKS 10,000-100,000 5-6 WEEKS 15,000-200,000 6-8 WEEKS 10,000-100,000 2-3 MONTHS [facility] PREG QUANT HCGon 05-24- 024 HCG QUANTITATIVE 5 mIU/mL [facility] Comment on above: 5-50 0.2-1 WEEK 50-500 1-2 WEEKS 100-5,000 2-3 WEEKS 500-10,000 3-4 WEEKS 1,000-50,000 4-5 WEEKS 10,000-100,000 5-6 WEEKS 15,000-200,000 6-8 WEEKS 10,000-100,000 2-3 MONTHS [facility] Pap IG, rfx Aptima HPV, rfx 16/18,45on 10-22-2022 . . Normal [facility] Comment on above: Result Comment: Perf ormed at: WB Performed By: #### P APHR2A #### [facility] [address] [address] [address] Romero Freeman DIAGNOSIS: Comment Normal [facility] Comment on above: Result Comment: NEGA TIVE FOR INTRAEPITHELIAL LESION OR MALIGNANCY. Performed at: WB Performed By: #### P APHR2A #### [facility] [address] [address] [address] Romero Freeman HPV Aptima Positive Abnormal Negative [facility] Comment on above: Result Comment: This nucleic acid amplification test detects fourteen high-risk HPV types (16,18,31,33,35,39,45,51,52,56,58,59,66,68) without differentiation. Performed at: =G Performed By: #### P APHR2A #### [facility] [address] [address] [address] Romero Freeman HPV Genotype 16 Negative Normal Negative [facility] Comment on above: Performed By: #### P APHR2A #### [facility] [address] [address] [address] Romero Freeman HPV Genotype 18,45 Negative Normal Negative [facility] Comment on above: Performed By: #### P APHR2A #### [facility] [address] [address] [address] Romero Freeman HPV Genotype Reflex Comment Normal [facility] Comment on above: Result Comment: Roddy fitzgerald, see HPV Genotype results. Performed at: WB Performed By: #### P APHR2A #### [facility] [address] [place] [address] Dr. Romero Freeman Methodology: Comment [facility] Comment on above: Result Comment: This liquid based ThinPrep(R) pap test was screened with the use of an image guided system. Performed at: WB Performed By: #### P APHR2A #### [facility] [address] [place] [address] Dr. Romero Freeman Note: Comment [facility] Comment on above: Result Comment: The Pap [...] By: #### P APHR2A #### [facility] [address] [place] [address] Dr. Romero Freeman Performed by: Comment Normal [facility] Comment on above: Result Comment: Wale Hauser, Fire Management Specialist (ASCP) Performed at: WB Performed By: #### P APHR2A #### [facility] [address] [place] [address] Dr. Romero Freeman Specimen adequacy: Comment Normal [facility] Comment on above: Result Comment: Sati sfactory for evaluation. Endocervical and/or squamous metaplastic cells (endocervical component) are present. Performed at: WB Performed By: #### P APHR2A #### [facility] [address] [place] [address] Dr. Romero Freeman Pap IG,rfx Aptima HPV all pt hon 02-17-2022 . . Normal [facility] Comment on above: Result Comment: Perf ormed at: BA Performed By: #### P [id number] #### [facility] [address] [place] [address] Dr. Romero Freeman DIAGNOSIS: Comment [facility] Comment on above: Result Comment: NEGA TIVE FOR INTRAEPITHELIAL LESION OR MALIGNANCY. Performed at: BA Performed By: #### P [id number] #### [facility] [address] [place] [address] Dr. Romero Freeman Methodology: Comment [facility] Comment on above: Result Comment: This liquid based ThinPrep(R) pap test was screened with the use of an image guided system. Performed at: WB Performed By: #### P [id number] #### [facility] [address] [place] [address] Dr. Romero Freeman Note: Comment Normal [facility] Comment on above: Result Comment: The Pap [...] By: #### P [id number] #### [facility] [address] [place] [address] Dr. Romero Freeman Performed by: Comment Normal [facility] Comment on above: Result Comment: Marisabel Castro, Fire Management Specialist (ASCP) Performed at: BA Performed By: #### P [id number] #### [facility] [address] [place] [address] Dr. Romero Freeman Reflex Criteria: Comment Normal [facility] Comment on above: Result Comment: The HPV DNA reflex criteria were not met with this specimen result therefore, no HPV testing was performed. . Performed at: BA Performed By: #### P APH11A #### [facility] [address] [place] [address] Dr. Romero Freeman Specimen adequacy: Comment Normal [facility] Comment on above: Result Comment: Sati sfactory for evaluation. Endocervical and/or squamous metaplastic cells (endocervical component) are present. Performed at: BA Performed By: #### P [id number] #### [facility] [address] [place] [address] Dr. Romero Freeman CBC AUTO DIFFon 12-20-2021 BASO # 0.1 103/ul Normal 0.0-0.1 [facility] Comment on above: Performed By: #### C BC #### [facility] [address] [place] [address] Dr. Romero Freeman Basophils/100 WBC (Bld) 0.6 % Normal 0.2-2.0 [facility] Comment on above: Performed By: #### C BC #### [facility] [address] [place] [address] Dr. Romero Freeman EO # 0.7 103/ul Normal 0.0-0.7 The [facility] Comment on above: Performed By: #### C BC #### [facility] [address] [place] [address] Dr. Romero Freeman Eosinophils/100 WBC (Bld) 8.6 % Critically high 0.9-7.0 [facility] Comment on above: Performed By: #### C BC #### [facility] [address] [place] [address] Dr. Romero Freeman Erythrocyte distribution width (RBC) [Ratio] 13.2 % Normal 11.0-15.0 [facility] Comment on above: Performed By: #### C BC #### [facility] [address] [place] [address] Dr. Romero Freeman Hematocrit (Bld) [Volume fraction] 42.2 % Normal 36.0-48.0 [facility] Comment on above: Performed By: #### C BC #### [facility] [address] [place] [address] Dr. Romero Freeman Hemoglobin (Bld) [Mass/Vol] 14.3 g/dL Normal 12.0-16.0 [facility] Comment on above: Performed By: #### C BC #### [facility] [address] [place] [address] Dr. Romero Freeman IG # 0.01 10e3/ul Normal 0.00-0.03 [facility] Comment on above: Performed By: #### C BC #### [facility] [address] [place] [address] Dr. Romero Freeman IG % 0.1 % Normal 0.0-0.5 [facility] Comment on above: Performed By: #### C BC #### [facility] [address] [place] [address] Dr. Romero Freeman LYMPH # 3.3 103/ul Normal 1.2-3.8 [facility] Comment on above: Performed By: #### C BC #### [facility] [address] [place] [address] Dr. Romero Freeman Lymphocytes/100 WBC (Bld) 40.8 % Normal 20.5-60.0 [facility] Comment on above: Performed By: #### C BC #### [facility] [address] [place] [address] Dr. Romero Freeman MANUAL DIFF REQ NO Normal [facility] Comment on above: Performed By: #### C BC #### [facility] [address] [place] [address] Dr. Romero Freeman MCH (RBC) [Entitic mass] 30.2 pg Normal 26.7-34.0 [facility] Comment on above: Performed By: #### C BC #### [facility] [address] [place] [address] Dr. Romero Freeman MCHC (RBC) [Mass/Vol] 33.9 g/dL Normal 29.9-35.2 [facility] Comment on above: Performed By: #### C BC #### [facility] [address] [place] [address] Dr. Romero Freeman MCV (RBC) [Entitic vol] 89.2 fL Normal 81.0-99.0 [facility] Comment on above: Performed By: #### C BC #### [facility] [address] [place] [address] Dr. Romero Freeman MONO # 0.7 103/ul Normal 0.3-0.8 [facility] Comment on above: Performed By: #### C BC #### [facility] [address] [place] [address] Dr. Romero Freeman Monocytes/100 WBC (Bld) 9.0 % Normal 1.7-12.0 [facility] Comment on above: Performed By: #### C BC #### [facility] [address] [place] [address] Dr. Romero Freeman NEUT # 3.3 103/ul Normal 1.4-6.5 [facility] Comment on above: Performed By: #### C BC #### [facility] [address] [place] [address] Dr. Romero Freeman Neutrophils/100 WBC (Bld) 40.9 % Critically low 43.0-75.0 [facility] Comment on above: Performed By: #### C BC #### [facility] [address] [place] [address] Dr. Romero Freeman Platelet mean volume (Bld) [Entitic vol] 8.6 fL Critically low 9.5-13.5 [facility] Comment on above: Performed By: #### C BC #### [facility] [address] [place] [address] Dr. Romero Freeman PLT 289 103/ul Normal 150-450 [facility] Comment on above: Performed By: #### C BC #### [facility] [address] [place] [address] Dr. Romero Freeman RBC 4.73 106/ul Normal 4.20-5.40 [facility] Comment on above: Performed By: #### C BC #### [facility] [address] [place] [address] Dr. Romero Freeman WBC 8.1 103/ul Normal 4.0-11.0 [facility] Comment on above: Performed By: #### C BC #### [facility] [address] [place] [address] Dr. Romero Freeman PREG QUANT HCGon 12-20-2021 HCG QUANT <1 Normal [facility] Comment on above: Performed By: #### P REGQNT #### [facility] [address] [place] [address] Dr. Romero Freeman HCG RANGE SEE BELOW Normal [facility] Comment on above: Result Comment: 5-50 0-1 WEEK 40-300 1-2 WEEKS 100-1,000 2-3 WEEKS 500-6,000 3-4 WEEKS 5,000-200,000 1-2 MONTHS 10,000-100,000 2-3 MONTHS 3,000-50,000 2ND TRIMESTER 1,000-50,000 3RD TRIMESTER Performed By: #### P REGQNT #### [facility] [address] [place], [place] [id number] Dr. Romero Freeman Covid-19 PCR ([facility])on 11-20 SARS-CoV-2 (COVID-19) RNA ABEBE+probe Ql (Unsp spec) Not detected Normal NOT DETECTED [facility] Comment on above: Result Comment: When [...] for this test is supported by the [place] of Health and Human Service's declaration that [...] longer be used). Performed By: #### [facility] #### [facility] [address] [place] [id number] [address] Romero Freeman Encounters Encounter Date Encounter Type Care Provider Facility Start: 05-26-2024 End: 05-26-2024 Clinisync Result Encounter Jessica Anthony DO Work Phone: [facility] Unsolicited Start: 05-26-2024 End: 05-26-2024 [facility] Result Encounter Jessica Anthony DO Work Phone: [facility]solic[facility] Start: 05-24-2024 End: 05-24-2024 Cl[facility] Result Encounter Jessica Anthony DO Work Phone: [facility] Unsolic[facility] Start: 05-24-2024 End: 05-24-2024 [facility] Result Encounter Jessica Anthony DO Work Phone: [facility] Unsolicited Start: 10-16-2022 Encounter for cervic al smear to confirm findings of recent normal smear following initial abnormal smear DR JESSICA CRUZ . [facility] Start: 10-15-2022 End: 10-15-[address] JESSICA CRUZ . Facility:[facility] Start: 10-15-2022 End: 10-15-2022 Encounter for cervical smear to confirm findings of recent normal smear following initial abnormal smear DR JESSICA CRUZ . Facility:[facility] Start: 03-18-[address] SHER RICHARDSON . Facili ty:[facility] Start: 02-12-2022 End: 02-12-[address] JESSICA CRUZ . Facility:[facility] Start: 12-20-2021 End: 12-20-[address] JESSICA CRUZ . Facility:[facility] Start: 12-18-2021 Encounter for preprocedural laboratory examination DR JESSICA CRUZ . [facility] Start: 12-17-[address] JESSICA CRUZ . Facili ty:[facility] Start: 12-13-2021 End: 12-14-[address] JESSICA CRUZ . Facility:[facility] Start: 12-13-2021 End: 12-14-2021 Encounter for preprocedural laboratory examination DR JESSICA CRUZ . Facility: Procedures Date Procedure Procedure Detail Performing Clinician Start: 05-26-2024 [facility] PREG QUANT HCG Core y Anthony DO Work Phone: Start: 05-24-2024 [facility] PREG QUANT HCG Core y Anthony DO Work Phone: Payers Date Payer Category Payer Medicare [facility] [employer] [facility] [id number] 2022-Present [address] [place] [address] [id number] 1998 Unknown [id number] 1998 Unknown [id number] 1998 Unknown [id number] 1998 Unknown [id number] 1998 Unknown [id number] 1998 Unknown [id number] 1959 Self-pay 1961 Unknown [id number] Social History Date Type Detail Facility Tobacco smoking stat [facility] Tobacco smoking consumption unknown [facility] Start: 1998 Sex assigned at Not on file [facility] Gender identity Not [facility] file [facility] Clinical Note 12-20-2021 Note Date & Type Note Facility 12-20-2021 Note [facility] [place] [place] NAME: MIMI BYNUM DATE OF : MEDICAL REC#: [id number] [employer] EXECUTIVE PRODUCER: 160[facility], TRANSADMIT DATE: 12/20/2021 06:55:00 DELIVERY ASSISTANT DATE: 12/22/2021 01:00 DICTATING PHYSICIAN: JESSICA CRUZ DICTATION DATE: 12/20/2021 09:00 OPERATIVE NOTE PROCEDURE: Diagnostic laparoscopy. PREOPERATIVE DIAGNOSIS: Pelvic pain, dysmenorrhea, dyspareunia. POSTOPERATIVE DIAGNOSIS: Pelvic pain, dysmenorrhea, dyspareunia. ANESTHESIA: General. SURGEON: Jessica Cruz D.O. WEAPONS DESIGNER: TONI Arrington URINE OUTPUT: Yellow and clear. [...] by: DR JESSICA CRUZ . 01/12/2022 21:16:00 [facility] Summary Purpose Family History No Family History Records Found Advance Directives No Advanced Directives Records Found Additional Source Comments INFORMATION SOURCE (unrecogn ized section and content) DATE CREATED AUTHOR 12/04/2022 [facility] Teams (unrecognized sec tion and content) Switchboard And Control Room Operator Relationship Specialty Start Date End Date Sher Richardson MD [address] [place] [address] PCP - General Family Medicine 04/02/23 FOR RECORDS PERTAINING TO PATIENTS WHO ARE [...] BE BASED ON THE PRIMARY CLINICAL RECORDS. [facility] [employer] [facility]. provides no warranty or guarantee of the accuracy or completeness of information in this document.
== END 2025-03-22 08:27 | disposition home or self-care (01) ==
LOC: US 08:29
PROVIDERS: Visit Provider Obstetrics & Gynecology
DX: Z34.91 Encounter for supervision of normal pregnancy, unspecified, first trimester (principal); N92.6 Irregular menstruation, unspecified
CPT/HCPCS: 36415; 76801; 80307; 83036; 85025; 86592; 86762; 86803; 86850; 86900; 86901; 87086; 87340; 87389

== ENCOUNTER 2025-03-22 10:04 | Outpatient (OUT) | payer OTHER, SELFPAY ==
[2025-03-22 10:33] LABS: Hematocrit 35.4 % (36.0-48.0); Hemoglobin 12.3 g/dL (12.0-16.0); Immature Granulocytes Abs Auto 0.02 10^3/uL (0.00-0.03); Immature Granulocytes Pct Auto 0.2 % (0.0-0.5); Lymphocytes Absolute Auto 1.6 10^3/uL (1.2-3.8); Mean Corpuscular HGB Conc 34.7 g/dL (29.9-35.2); Mean Corpuscular Hemoglobin 30.8 pg (26.7-34.0); Mean Corpuscular Volume 88.7 fL (81.0-99.0); Platelet Count 242 10^3/uL (150-450); Red Blood Count 3.99 10^6/uL (4.20-5.40); White Blood Count 8.0 10^3/uL (4.0-11.0)
[2025-03-22 10:55] LABS: Cannabinoid Screen Urine NEGATIVE (NEGATIVE); Methamphetamines Screen Urine NEGATIVE (NEGATIVE); Tricyclic Antidepressant Urine NEGATIVE (NEGATIVE)
--- OUTSIDE RECORDS SUMMARY | 2025-03-22 12:42 | XMS_ITS | CCD ---
Author Organization [facility] Care Team Providers Care Residence Life Director Name Role Phone AVERY ., DR OLIVAREZ Admitting Unavailable HOY ., DR OLIVAREZ Attending Unavailable MISC, DR CAGLE Primary Care Unavailable ANTHONY ., DR LOPEZ Admitting Unavailable ANTHONY ., DR LOPEZ Attending Unavailable MISC, DR CALGE Primary Care Unavailable ANTHONY ., DR LOPEZ [...] Unavailable MISC, DR CAGLE Primary Care Unavailable Sher Richardson MD Primary Care Provider [phone] Sher Richardson MD Primary Care Provider [phone] Medications Current Medications Medication Drug Class(es) Dates Sig (Normalized) Sig (Original) Rsj-Zle-LF-Fish Oil ([facility]) 0.4-113.5 MG chewable tablet (2 sources) Cbp-Lir-GE-Fish Oil ([facility]) 0.4-113.5 MG chewable tablet Chew 1 tablet in the morning. Active Completed/Discontinued Medications Medication Drug Class(es) Dates Sig (Normalized) Sig (Original) 1 ml medroxyPROGESTERone acetate 150 mg/ml injection (6 sources) Progestin Start: 3 End: medroxyPROGESTERone (Depo-Provera) injection 150 mg Start: 02-25-2023 End: 03-22-2025 medroxyPROGESTERone (Depo-Pr overa) 150 MG/ML injection Indications: control counseling Inject 1 mL (150 mg) into the shoulder, thigh, or buttocks every 3 (three) months. 1 mL 3 02/25/2023 03/22/2025 Discontinued (Therapy completed) Problems Active Problems Problem Classification Problem Date Documented Da te Episodic/Chronic Cancer of cervix (1 source) Atypical squamous cells of undetermined significance on cytologic smear of cervix (ASC-US); Translations: [ASC US ON CYTOLOGIC SMEAR OF CERVIX] Onset: 10-16-2022 Episodic Menstrual disorders (10 sources) Dysmenorrhea, unspecified; Translations: [Dysmenorrhea] Onset: 12-18-2021 Chronic Other female genital disorders (1 source) Unspecified dyspareunia; Translations: [UNSPECIFIED DYSPAREUNIA] Onset: 12-25-2021 Chronic Other and delivery including normal (5 sources) Urine test positive; Translations: [Encounter for test, result positive] Onset: 03-08-2025 03-22-2025 Episodic Residual codes; unclassified (1 source) Gestation period, 12 weeks; Translations: [12 weeks gestation of ] 03-22-2025 Episodic Unclassified (1 source) CONTACT W/AND (SUSP) EXPOS COVID-19; Translations: [CONTACT W/AND (SUSP) EXPOS COVID-19] Onset: 12-18-2021 Past or Other Problems Problem Classification Problem Date Documented Date Episodic/Chronic Abdominal pain (1 source) Pelvic and perineal pain; Translations: [PELVIC AND PERINEAL PAIN] Onset: 12-25-2021 Episodic Other female genital disorders (4 sources) Pain on movement of cervix; Translations: [...] Test Name Value Interpretation Reference Range Facility HCG ( test) Ql (U)o n 03-22-2025 Interpretation and review of laboratory results Abnormal [facility] P[facility] Test, Ur Positive Negative [facility] Health care [facility] OB L= 14 [place] [address] Ultrasound Report Signed Patient: MIMI BYNUM MR#: [id number] : 2000 Acct:[id number] Age/Sex: 24 / F ADM Date: 03/22/25 Loc: US Attending Dr: Jessica Cruz D.O. Ordering Physician: Jessica Cruz D.O. Date of Service: 03/22/25 Procedure(s): US OB <= 14 weeks fetus Accession Number(s): [id number] cc: Jessica Cruz D.O.; Physician,Non-Staff MDiane The [place] [id number] Patient Name: MIMI BYNUM MRN: [id number] date: 2000 Sex: F Assigned Patient Location: US Current Patient Location: LAB Accession/Order Number: [id number] Exam Date: 03/22/2025 10:07 Report Date: 03/22/2025 10:11 At the request of: JESSICA CRUZ DO Procedure: US OB <= 14 weeks fetus FIRST TRIMESTER TRANSVAGINAL OB ULTRASOUND CLINICAL DATA: Positive test. COMPARISON: None A gestational sac is visualized within the uterus. The developing placenta is anterior. A fetus is present with heart rate of 150 bpm. The crown-rump length measurement of 6.6 cm correlates with an ultrasound age of 12 weeks 6 days +/- 1 week 1 day. The estimated date of delivery is September 2025. The cervix is closed with length of 4.6 cm. Both ovaries are visualized. The right measures 3.8 x 1.8 x 2.2 cm. The left ovary measures 5.7 x 3.7 x 2.7 cm. A corpus luteum is seen on the left measuring 1.8 x 1.4 x 2.0 cm. There is documentation of ovarian blood flow. No free fluid is seen. US/US OB <= 14 weeks fetus IMPRESSION: SINGLE LIVE INTRAUTERINE GESTATION WITH ULTRASOUND AGE OF 12 WEEKS 6 DAYS. Impression dictated by: Brooke Blevins M.D. 03/22/2025 10:11 AM Dictation Location: [place] [address] Electronically authenticated by: [id number] Y Date: 03/22/2025 10:11 Dictated By: Brooke Blevins M.D. Signed By: 03/22/25 1013 DD/ 1011 TD/TT: Furnace Loader: [facility] Radiology, Radiologist, MD - 03/22/2025 [place] [address] Ultrasound Report Signed Patient: MIMI BYNUM MR#: [id number] : 2000 Acct:[id number] Age/Sex: 24 / F ADM Date: 03/22/25 Loc: US Attending Dr: Jessica Cruz D.O. Ordering Physician: Jessica Cruz D.O. Date of Service: 03/22/25 Procedure(s): US OB <= 14 weeks fetus Accession Number(s): [id number] cc: Jessica Cruz D.O.; Physician,Non-Staff [place] The [address] [address] Patient Name: MIMI BYNUM MRN: [facility]:[id number] date: 2000 Sex: F Assigned Patient Location: US Current Patient Location: LAB Accession/Order Number: [id number] Exam Date: 03/22/2025 10:07 Report Date: 03/22/2025 10:11 At the request of: JESSICA CRUZ DO Procedure: US OB <= 14 weeks fetus FIRST TRIMESTER TRANSVAGINAL OB ULTRASOUND CLINICAL DATA: Positive test. COMPARISON: None A gestational sac is visualized within the uterus. The developing placenta is anterior. A fetus is present with heart rate of 150 bpm. The crown-rump length measurement of 6.6 cm correlates with an ultrasound age of 12 weeks 6 days +/- 1 week 1 day. The estimated date of delivery is September 2025. The cervix is closed with length of 4.6 cm. Both ovaries are visualized. The right measures 3.8 x 1.8 x 2.2 cm. The left ovary measures 5.7 x 3.7 x 2.7 cm. A corpus luteum is seen on the left measuring 1.8 x 1.4 x 2.0 cm. There is documentation of ovarian blood flow. No free fluid is seen. US/US OB <= 14 weeks fetus IMPRESSION: SINGLE LIVE INTRAUTERINE GESTATION WITH ULTRASOUND AGE OF 12 WEEKS 6 DAYS. Impression dictated by: Brooke Blevins M.D. 03/22/2025 10:11 AM Dictation Location: [place] [address] Electronically authenticated by: [id number] Y Date: 03/22/2025 10:11 Dictated By: Brooke Blevins M.D. Signed By: 03/22/25 1013 DD/ 1011 TD/TT: Furnace Loader: [facility] Radiology Study observation (narrative) [facility] US OB L= 14 WEEKS FETUSOrder ed By: Radiologist Radiology on 03-22-2025 [facility] [employer] Work Phone: Urinalysis macro (dipstick) panel (U)on 03-22-2025 Bilirubin, UA Negative Negative - 4(70) +++ mg/dL [facility] Blood, UA Positive Negative - 50 Tim/mcL [facility] Comment on above: trace Clarity, UA Clear [facility] [employer] Color, UA Yellow [facility] [employer] [employer] Glucose, UA Negative Negative - 2000(110) ++++ mg/dL [facility] Interpretation and review of laboratory results Abnormal [facility] [employer] Ketones, UA Negative Negative - 160(16) ++++ mg/dL [facility] Leukocytes, UA Positive Negative - 500+++ Genoveva/mcL [facility] Comment on above: large Nitrite, UA Negative Negative - Positive [facility] pH, UA 7 5 - 9 [facility] e Protein, UA Negative Negative - 1999(20) ++++ mg/dL [facility] Spec Grav, UA 1.01 1 - 1.03 [facility] Urobilinogen, UA 0.2 0.2 - 12 mg/dL [facility] PREG QUANT HCGon 024 HCG QUANTITATIVE 3 mIU/mL [facility] ltare Comment on above: 5-50 0.2-1 WEEK 50-500 1-2 WEEKS 100-5,000 2-3 WEEKS 500-10,000 3-4 WEEKS 1,000-50,000 4-5 WEEKS 10,000-100,000 5-6 WEEKS 15,000-200,000 6-8 WEEKS 10,000-100,000 2-[facility] P[facility]ANT HCGon 024 HCG QUANTITATIVE 5 mIU/mL [facility] Comment on above: 5-50 0.2-1 WEEK 50-500 1-2 WEEKS 100-5,000 2-3 WEEKS 500-10,000 3-4 WEEKS 1,000-50,000 4-5 WEEKS 10,000-100,000 5-6 WEEKS 15,000-200,000 6-8 WEEKS 10,000-100,000 2-3 [facility] Pap IG, rfx Aptima HPV, rfx 16/18,45on 10-22-2022 . . Normal [facility] Comment on above: Result Comment: Perf ormed at: WB Performed By: #### P APHR2A #### [facility] [address] [place] [address] [address] Romero Freeman DIAGNOSIS: Comment Normal [facility] Comment on above: Result Comment: NEGA TIVE FOR INTRAEPITHELIAL LESION OR MALIGNANCY. Performed at: WB Performed By: #### P APHR2A #### [facility] [address] [place] [address] [address] Romero Freeman HPV Aptima Positive Abnormal Negative [facility] Comment on above: Result Comment: This nucleic acid amplification test detects fourteen high-risk HPV types (16,18,31,33,35,39,45,51,52,56,58,59,66,68) without differentiation. Performed at: =G Performed By: #### P APHR2A #### [facility] [address] [place] [address] [address] Romero Freeman HPV Genotype 16 Negative Normal Negative [facility] Comment on above: Performed By: #### P APHR2A #### [facility] [address] [place] [address] [address] Romero Freeman HPV Genotype 18,45 Negative Normal Negative [facility] Comment on above: Performed By: #### P APHR2A #### [facility] [address] [address] [address] Romero Freeman HPV Genotype Reflex Comment Normal [facility] Comment on above: Result Comment: Roddy fitzgerald, see HPV Genotype results. Performed at: WB Performed By: #### P APHR2A #### [facility] [address] [address] [address] Romero Freeman Methodology: Comment Normal [facility] Comment on above: Result Comment: This liquid based ThinPrep(R) pap test was screened with the use of an image guided system. Performed at: WB Performed By: #### P APHR2A #### [facility] [address] [address] [address] Romero Freeman Note: Comment Normal [facility] Comment on above: Result Comment: The Pap [...] By: #### P APHR2A #### [facility] [address] [address] [address] Romero Freeman Performed by: Comment Normal [facility] Comment on above: Result Comment: Wale Hauser, Solution Manager (ASCP) Performed at: WB Performed By: #### P APHR2A #### [facility] [address] [place] [address] Dr. Romero Freeman Specimen adequacy: Comment Normal [facility] Comment on above: Result Comment: Sati sfactory for evaluation. Endocervical and/or squamous metaplastic cells (endocervical component) are present. Performed at: WB Performed By: #### P APHR2A #### [facility] [address] [place] [address] Dr. Romero Freeman Pap IG,rfx Aptima HPV all pt hon 02-17-2022 . . Normal [facility] Comment on above: Result Comment: Perf ormed at: BA Performed By: #### P APH11A #### [facility] [address] [place] [address] Dr. Romero Freeman DIAGNOSIS: Comment [facility] Comment on above: Result Comment: NEGA TIVE FOR INTRAEPITHELIAL LESION OR MALIGNANCY. Performed at: BA Performed By: #### P APH11A #### [facility] [address] [place] [address] Dr. Romero Freeman Methodology: Comment [facility] Comment on above: Result Comment: This liquid based ThinPrep(R) pap test was screened with the use of an image guided system. Performed at: WB Performed By: #### P APH11A #### [place] [address] Dr. Romero Freeman Note: Comment [facility] Comment on above: Result Comment: The Pap [...] By: #### P APH11A #### [facility] [address] [place] [address] Dr. Romero Freeman Performed by: Comment Normal [facility] Comment on above: Result Comment: Marisabel Castro, Solution Manager (ASCP) Performed at: BA Performed By: #### P APH11A #### [facility] [address] [place] [address] Dr. Romero Freeman Reflex Criteria: Comment Normal [facility] Comment on above: Result Comment: The HPV DNA reflex criteria were not met with this specimen result therefore, no HPV testing was performed. . Performed at: BA Performed By: #### P APH11A #### [facility] [address] [place] [address] Dr. Romero Freeman Specimen adequacy: Comment Normal [facility] Comment on above: Result Comment: Sati sfactory for evaluation. Endocervical and/or squamous metaplastic cells (endocervical component) are present. Performed at: BA Performed By: #### P APH11A #### [facility] [address] [place] [address] Dr. Romero Freeman CBC AUTO DIFFon 12-20-2021 BASO # 0.1 103/ul Normal 0.0-0.[address] [facility] Comment on above: Performed By: #### C BC #### [facility] [address] [place] [address] Dr. Romero Freeman Basophils/100 WBC (Bld) 0.6 % Normal 0.2-2.[address] [facility] Comment on above: Performed By: #### C BC #### [facility] [address] [place] [address] Dr. Romero Freeman EO # 0.7 103/ul Normal 0.0-0.[address] [facility] Comment on above: Performed By: #### C BC #### [facility] [address] [place] [address] Dr. Romero Freeman Eosinophils/100 WBC (Bld) 8.6 % Critically high 0.9-7.[address] [facility] Comment on above: Performed By: #### C BC #### [facility] [address] [place] [address] Dr. Romero Freeman Erythrocyte distribution width (RBC) [Ratio] 13.2 % Normal 11.0-15.[address] [facility] Comment on above: Performed By: #### C BC #### [facility] [address] [place] [address] Dr. Romero Freeman Hematocrit (Bld) [Volume fraction] 42.2 % Normal 36.0-48.[address] [facility] Comment on above: Performed By: #### C BC #### [facility] [address] [place] [address] Dr. Romero Freeman Hemoglobin (Bld) [Mass/Vol] 14.3 g/dL Normal 12.0-16.[address] [facility] Comment on above: Performed By: #### C BC #### [facility] [address] [place] [address] Dr. Romero Freeman IG # 0.01 10e3/ul Normal 0.00-0.[address] [facility] Comment on above: Performed By: #### C BC #### [facility] [address] [place] [address] Dr. Romero Freeman IG % 0.1 % Normal 0.0-0.[address] [facility] Comment on above: Performed By: #### C BC #### [facility] [address] [place] [address] Dr. Romero Freeman LYMPH # 3.3 103/ul Normal 1.2-3.[address] [facility] Comment on above: Performed By: #### C BC #### [facility] [address] [place] [address] Dr. Romero Freeman Lymphocytes/100 WBC (Bld) 40.8 % Normal 20.5-60.[address] [facility] Comment on above: Performed By: #### C BC #### [facility] [address] [place] [address] Dr. Romero Freeman MANUAL DIFF REQ NO Normal [facility] Comment on above: Performed By: #### C BC #### [facility] [address] [place] [address] Dr. Romero Freeman MCH (RBC) [Entitic mass] 30.2 pg Normal 26.7-34.[address] [facility] Comment on above: Performed By: #### C BC #### [facility] [address] [place] [address] Dr. Romero Freeman MCHC (RBC) [Mass/Vol] 33.9 g/dL Normal 29.9-35.[address] [facility] Comment on above: Performed By: #### C BC #### [facility] [address] [place] [address] [address] Romero Freeman MCV (RBC) [Entitic vol] 89.2 fL Normal 81.0-99.[address] [facility] Comment on above: Performed By: #### C BC #### [facility] [address] [place] [address] [address] Romero Freeman MONO # 0.7 103/ul Normal 0.3-0.[address] [facility] Comment on above: Performed By: #### C BC #### [facility] [address] [place] [address] Dr. Romero Freeman Monocytes/100 WBC (Bld) 9.0 % Normal 1.7-12.[address] [facility] Comment on above: Performed By: #### C BC #### [facility] [address] [place] [address] Dr. Romero Freeman NEUT # 3.3 103/ul Normal 1.4-6.[address] [facility] Comment on above: Performed By: #### C BC #### [facility] [address] [place] [address] Dr. Romero Freeman Neutrophils/100 WBC (Bld) 40.9 % Critically low 43.0-75.[address] [facility] Comment on above: Performed By: #### C BC #### [facility] [address] [place] [address] Dr. Romero Freeman Platelet mean volume (Bld) [Entitic vol] 8.6 fL Critically low 9.5-13.5 [facility] Comment on above: Performed By: #### C BC #### [facility] [address] [place] [address] Dr. Romero Freeman PLT 289 103/ul Normal 150-450 [facility] Comment on above: Performed By: #### C BC #### [facility] [address] [place] [address] Dr. Romero Freeman RBC 4.73 106/ul Normal 4.20-5.40 [facility] Comment on above: Performed By: #### C BC #### [facility] [address] [place] [address] [address] Romero Freeman WBC 8.1 103/ul Normal 4.0-11.[address] [facility] Comment on above: Performed By: #### C BC #### [facility] [address] [address] [address] Romero Freeman PREG QUANT HCGon 12-20-2021 HCG QUANT <1 Normal [facility] Comment on above: Performed By: #### P REGQNT #### [facility] [address] [place] [address] [address] Romero Freeman HCG RANGE SEE BELOW Normal [facility] Comment on above: Result Comment: 5-50 0-1 WEEK 40-300 1-2 WEEKS 100-1,000 2-3 WEEKS 500-6,000 3-4 WEEKS 5,000-200,000 1-2 MONTHS 10,000-100,000 2-3 MONTHS 3,000-50,000 2ND TRIMESTER 1,000-50,000 3RD TRIMESTER Performed By: #### P REGQNT #### [facility] [address] [place] [address] Dr. Romero Freeman Covid-19 PCR ([facility])on 11-20 SARS-CoV-2 (COVID-19) RNA ABEBE+probe Ql (Unsp spec) Not detected Normal NOT DETECTED [facility] Comment on above: Result Comment: When diagnostic [...] for this test is supported by the [place] of [employer] and Human Service's declaration that [...] longer be used). Performed By: #### C VDTB #### [facility] [address] [place] [address] Dr. Romero Freeman Vital Signs Date Time Vital Sign Value Performing Clinician Charlie gary 03-22-2025 09:45-0400 Body mass index (BMI) [Ratio] 25.51 kg/m2 Anthony Ob [facility] 03-22-2025 09:45-0400 Body weight 65.32 kg Anthony Ob [facility] 03-22-2025 09:45-0400 Diastolic blood pressure 70 mm[Hg] Anthony Ob [facility] 03-22-2025 09:45-0400 Systolic blood pressure 118 mm[Hg] Anthony Ob [facility] Encounters Encounter Date Encounter Type Care Provider Facility Start: 03-22-2025 End: 03-22-2025 Clinisync Result Encounter Jessica Anthony DO Work Phone: [facility] Unsolicited Start: 03-22-2025 End: 03-22-2025 Clinisync Result Encounter Jessica Anthony DO Work Phone: [facility] Unsolicited Start: 03-22-2025 End: 03-22-2025 Office outpatient visit 5 minutes Anthony Nurse [facility] Comment on above: GA: 12w6d Start: 05-26-2024 End: 05-26-2024 Clinisync Result Encounter [...] DR JESSICA CRUZ . [facility] Start: 10-15-2022 End: 10-15-[address] JESSICA [...] DR JESSICA CRUZ . [facility] Start: 12-17-[address] JESSICA CRUZ . Facili ty:[facility] Start: 12-13-2021 End: 12-14-[address] JESSICA CRUZ . Facility:[facility] Start: 12-13-2021 End: 12-14-2021 Encounter for preprocedural laboratory examination DR JESSICA CRUZ . Facility: Procedures Date Procedure Procedure Detail Performing Clinician Start: 03-22-2025 US OB L= 14 WEEKS FETUS Jessica Cruz DO Work Phone: Start: 03-22-2025 Urnls dip stick/tabl et rgnt non-auto w/o micrscp Jessica Cruz DO Work Phone: Start: 05-26-2024 [facility] PREG QUANT HCG Core y Anthony DO Work Phone: Start: 05-24-2024 [facility] PREG QUANT HCG Core y Anthony DO Work Phone: Plan of Treatment Date Care Activity Detail Author Start: 04-13-2025 End: 04-13-2025 Patient encounter procedure 04/13/2025 8:30 AM EDT Routine [facility] [address] [place] [id number] Jessica Cruz [address] [place] [address] [facility] OB Start: 03-22-2025 End: 03-22-2026 ABO/Rh ABO/Rh Lab Routine Missed menses , unspecified gestational age ([facility]) Expected: 03/22/2025 (Approximate), Expires: 03/22/2026 [facility] Comment on above: Expected: 03/22/2025 (Approximate), Expires: 03/22/2026 Start: 03-22-2025 End: 03-22-2026 Blood type and Indirect antibody screen panel - Blood Type and screen Lab Routine Missed menses , unspecified gestational age ([facility]) Expected: 03/22/2025 (Approximate), Expires: 03/22/2026 [facility] Comment on above: Expected: 03/22/2025 (Approximate), Expires: 03/22/2026 Start: 03-22-2025 End: 03-22-2026 Drugs of abuse panel - Urine by Screen method Rapid drug screen, urine Lab Routine , unspecified gestational age ([facility]) Encounter for supervision of normal first in first trimester ([facility]) Expected: 03/22/2025 (Approximate), Expires: 03/22/2026 [facility] Comment on above: Expected: 03/22/2025 (Approximate), Expires: 03/22/2026 Start: 03-22-2025 End: 06-22-2025 US for US OB less than 14 weeks early Imaging Routine Missed menses Positive urine test ([facility]) Expected: 03/22/2025, Expires: 06/22/2025 [facility] Work Phone: Comment on above: Expected: 03/22/2025 , Expires: 06/22/2025 Bacteria identified in Urine by Culture Urine culture Microbiology Routine Missed menses Ordered: 03/22/2025 [facility] Comment on above: Ordered: 03/22/2025 CBC W Auto Different ial panel - Blood CBC and differential Lab Routine Missed menses , unspecified gestational age ([facility]) Ordered: 03/22/2025 [facility] Comment on above: Ordered: 03/22/2025 Hemoglobin A1c/Hemoglobin.total in Blood Hemoglobin A1c Lab Routine Missed menses , unspecified gestational age ([facility]) Ordered: 03/22/2025 [facility] Comment on above: Ordered: 03/22/2025 Hepatitis B virus surface Ag [Presence] in Serum or Plasma by Immunoassay Hepatitis B surface antigen Lab Routine Missed menses , unspecified gestational age ([facility]) Ordered: 03/22/2025 [facility] Comment on above: Ordered: 03/22/2025 Hepatitis C virus Ab [Presence] in Serum or Plasma by Immunoassay Hepatitis C antibody Lab Routine Missed menses , unspecified gestational age ([facility]) Ordered: 03/22/2025 [facility] Comment on above: Ordered: 03/22/2025 HIV-1/HIV-2 antigen/antibody combination immunoassay HIV-1 and HIV-2 antibodies Lab Routine Missed menses , unspecified gestational age ([facility]) Ordered: 03/22/2025 [facility] Comment on above: Ordered: 03/22/2025 Reagin Ab [Presence] in Serum by RPR RPR Lab Routine Missed menses , unspecified gestational age ([facility]) Ordered: 03/22/2025 [facility] Comment on above: Ordered: 03/22/2025 Rubella antibody, IgG Rubella an tibody, IgG Lab Routine Missed menses , unspecified gestational age ([facility]) Ordered: 03/22/2025 [facility] Comment on above: Ordered: 03/22/2025 Payers Date Payer Category Payer Private Health Insurance [facility] MEDICAID [id number] 2022 Medicare [employer] [facility] [place] [id number] 2022-Present [address] [place] [address] [id number] 1998 Unknown [id number] 1998 Unknown [id number] 2000 Unknown [id number] 1998 Unknown [id number] 1998 Unknown [id number] 1998 Unknown [id number] 1959 Self-pay 1959 Unknown [id number] Social History Date Type Detail Facility Tobacco smoking stat [facility] Tobacco smoking consumption unknown [facility] Start: 1998 Sex assigned at Not [facility] file [facility] Gender identity Not [facility] Start: 01-05-2025 [facility] History of Present illness Narrative 03-22-2025 Katrin Momin MA - 03/22/2025 9:00 AM EDT Note Date & Type Note Facility 03-22-2025 History of Presen t illness Narrative Reason for Appointment: Patient ID: Mimi Bynum is a 24 y.o. female who presents for Amenorrhea Patient presents today for a Nurse OB Intake appointment. Patient is 12w6d with a Estimated Date of Delivery: 09/28/25. OB History Para Term AB Living 2 1 1 1 SAB IAB Ectopic Multiple Live Births 1 # Outcome Date GA Lbr Alurent/2nd Weight Sex Type Anes PTL Lv 2 Current 1 12/13/18 36w0d 7 lb 10 oz M Vag-Spont Y DELMA Obstetric Comments G1 born w/Down syndrome Current Medications: has a current medication list which includes the following prescription(s): [facility]. Medical History: Active Ambulatory Problems Diagnosis Date Noted Cervical motion tenderness 04/01/2023 Dysmenorrhea 04/01/2023 Positive urine test ([facility]) 03/08/2025 Resolved Ambulatory Problems Diagnosis Date Noted No Resolved Ambulatory Problems No Additional Past Medical History No family history on file. Social History Tobacco Use Smoking status: Not on file Smokeless tobacco: Not on file Substance Use Topics Alcohol use: Not on file Drug use: Not on file History reviewed. No pertinent surgical history. No Known Allergies Vitals: Estimated body mass index is 25.51 kg/m as calculated from the following: Height as of 04/02/23: 5' 3 . Weight as of this encounter: 144 lb. BP: 118/70 Patient's last menstrual period was 01/06/2025. Assessment/Plan Diagnoses and all orders for this visit: Missed menses - US OB less than 14 weeks early; Future - Type and screen; Future - ABO/Rh; Future - CBC and differential - Hemoglobin A1c - RPR - Rubella antibody, IgG - Hepatitis B surface antigen - Hepatitis C antibody - HIV-1 and HIV-2 antibodies - Urine culture - POCT , urine manually resulted - POCT urinalysis dipstick manually resulted Positive urine test ([facility]) - US OB less than 14 weeks early; Future , unspecified gestational age ([facility]) - Type and screen; Future - ABO/Rh; Future - CBC and differential - Hemoglobin A1c - RPR - Rubella antibody, IgG - Hepatitis B surface antigen - Hepatitis C antibody - HIV-1 and HIV-2 antibodies - Rapid drug screen, urine; Future Encounter for supervision of normal first in first trimester ([facility]) - Rapid drug screen, urine; Future 12 weeks gestation of ([facility]) Nurse Note: Pt desires to have [place] to one. Pt first born baby was delivered at 36 weeks and born w/down syndrome. Pt stated she was not aware of it until she was called by M to meet. Pt is wanting to be prepared with this baby. Pt was advised to have both the labs and [place] done at the same time. PVU and having it drawn after nurse visit. Pt is currently 12 weeks and 6 days today and was escorted to the front to schedule for 2-[address] Cruz. Follow Up: Patient is to have labs drawn at directed and return to office for initial OB appointment with provider. Patient may call office as needed with any concerns or questions. Nurse Visit Completed by: Katrin Momin MA documented in this encounter [facility] Clinical Note 12-20-2021 Note Date & Type Note Facility 12-20-2021 Note [facility] [place], [place] NAME: MIMI BYNUM DATE OF : MEDICAL REC#: [id number] FITTER UP: [address], TRANSADMIT DATE: 12/20/2021 06:55:00 CINDER CRANE OPERATOR DATE: 12/22/2021 01:00 DICTATING PHYSICIAN: JESSICA CRUZ DICTATION DATE: 12/20/2021 09:00 OPERATIVE NOTE PROCEDURE: Diagnostic laparoscopy. PREOPERATIVE DIAGNOSIS: Pelvic pain, dysmenorrhea, dyspareunia. POSTOPERATIVE DIAGNOSIS: Pelvic pain, dysmenorrhea, dyspareunia. ANESTHESIA: General. SURGEON: Jessica Cruz D.O. CORPORATE SERVICES MANAGER: TONI Arrington URINE OUTPUT: Yellow and clear. [...] CRUZ . 01/12/2022 21:16:00 [facility] Evaluation note Note Date & Type Note Facility Evaluation note Diagnosis Missed menses Positive urine test ([facility]) , unspecified gestational age ([facility]) Encounter for supervision of normal first in first trimester ([facility]) 12 weeks gestation of ([facility]) documented in this encounter [facility] Summary Purpose Family History No Family History Records Found Advance Directives No Advanced Directives Records Found Additional Source Comments INFORMATION SOURCE (unrecogn ized section and content) DATE CREATED AUTHOR 12/04/2022 [facility] Care Teams (unrecognized sec tion and content) Residence Life Director Relationship Specialty Start Date End Date Sher Richardson MD [address] [place] [address] PCP - General Family Medicine 04/02/23 Residence Life Director Relationship Specialty Start Date End Date Sher Richardson MD [address] [place] [address] PCP - General Family Medicine 04/02/23 Residence Life Director Relationship Specialty Start Date End Date Sher Richardson MD [address] [place] [address] PCP - General Family Medicine 04/02/23 Reason for Visit (unrecogniz ed section and content) Reason Comments Amenorrhea FOR RECORDS PERTAINING TO PATIENTS WHO ARE [...] BE BASED ON THE PRIMARY CLINICAL RECORDS. [facility]. provides no warranty or guarantee of the accuracy or completeness of information in this document.
[2025-03-23 06:08] LABS: Rubella Antibodies, IgG 10.20 index (Immune >0.99)
[2025-03-23 12:09] LABS: Rapid Plasma Reagin, Quant Non Reactive titer (NonRea<1:1)
== END 2025-03-22 10:05 | disposition home or self-care (01) ==
LOC: LAB 10:04
PROVIDERS: Visit Provider Obstetrics & Gynecology
DX: Z34.90 Encounter for supervision of normal pregnancy, unspecified, unspecified trimester (principal); N92.6 Irregular menstruation, unspecified
CPT/HCPCS: 36415; 80307; 83036; 85025; 86592; 86762; 86803; 86850; 86900; 86901; 87086; 87340; 87389

== ENCOUNTER 2025-04-13 09:17 | Outpatient (OUT) | payer OTHER, SELFPAY ==
--- OUTSIDE RECORDS SUMMARY | 2016-07-22 20:00 | XMS_ITS | Continuity of Care Document ---
Author Organization [facility] Address [address] [place] [address] Phone Care Team Providers Care Price Checker Name Role Phone Dayanara SNOWJoel Unavailable Unavailable Procedures Procedure Date TB INTRADERMAL TEST Advance Directives Directive Yes / No Effective Date File Name No Information Encounters Encounter Description Practice Location Reason(s) For Visit Diagnoses Date Provider Providers Copied on Encounter [facility], [address] [place] [address], [id number], [place] tel:[phone] [facility] No Information Dayanara Joel. [address], [place], [id number], [place]. tel:[phone] [facility], [address] [place] [address], [id number], tel:[phone] [facility] No Information Dayanara River. [address] [place] [address], [id number], [place]. tel:[phone] Family History Family Member Type Diagnosis Age At Onset No Information Payers Payer name Insurance type Covered republican ID Authoriza tion(s) No Information Social History Type Description Quantity Date Captured Comments Sex Female Smoking Status No Information Chief Complaint And Reason For Visit No Information Reason For Referral Reason For Referral No Information History Of Present Illness Encounter Date Complaint History Of Prese nt Illness No Information Functional Status Date Functional Assessmen t No Information Instructions Date Instruction Additional Infor mation No Information Assessments Type Assessment Date No Information Patient Care Teams Name Effective Dates (start - stop) Status Members No Information
--- OUTSIDE RECORDS SUMMARY | 2025-04-13 08:30 | XMS_ITS | Encounter Summary ---
Author Organization [facility] Address [address] [place] [address] Care Team Providers Care Log Sorter Name Role Phone Burton Richardson MD Primary Care Provider [phone] Reason for Visit * Reason Comments Routine Visit Encounter Details Date Type Department Care Team (Late Contact Info) Description 04/13/2025 8:30 AM EDT Routine [facility] [address] [place] [place] [id number] Davide Cruz, DO [address] [place] [address] Dr Jost[address] [place], [place] [id number] 16 weeks gestation of ([facility]); Second trimester ([facility]); Screening, , for anatomic survey ([facility]) Social History Tobacco Use Types Packs/Day Years Used Date Smoking Tobacco: Never Assessed Estimated Date of Delivery Comme nts Yes 09/28/2025 Based on Ultraso und Sex and Gender Information Value Date Recorded Sex Assigned at Not on file Legal Sex Female 7:23 PM EDT Gender Identity Not on file Sexual Orientation Not on file documented as of this encounter Last Filed Vital Signs Vital Sign Reading Time Taken Comments Blood Pressure 120/64 04/13/2025 8:27 AM EDT Pulse - - Temperature - - Respiratory Rate - - Oxygen Saturation - - Inhaled Oxygen Concentration - - Weight 67.3 kg (148 lb 6.4 oz) 04/13/2025 8:27 A M EDT Height - - Body Mass Index 26.29 04/02/2023 3:14 PM EDT documented in this encounter Plan of Treatment Upcoming Encounters Date Type Department Care Team (Late st Contact Info) Description 05/15/2025 9:00 AM EDT Ancillary Procedure [facility] [address] [facility] [address] [place] [address] 05/15/2025 10:00 AM EDT Routine [facility] [address] [facility] [place] [address] Jaz Tobin PA [address] [place] [address] Scheduled Orders Name Type Priority Associated Diagnoses Orde r Schedule Alpha fetoprotein, maternal Lab Routine 16 weeks gestation of ([facility]) Second trimester ([facility]) Expected: 04/13/2025 (Approximate), Expires: 06/14/2025 OB 14+ weeks anatomy scan Imaging Routine 16 weeks gestation of ([facility]) Second trimester ([facility]) Screening, , for anatomic survey ([facility]) Expected: 04/13/2025, Expires: 07/14/2025 documented as of this encounter Procedures Procedure Name Priority Date/Time Associated Diagnosis Comments POCT URINALYSIS DIPSTICK Routine 04/13/2025 8:35 AM EDT 16 weeks gestation of ([facility]) Second trimester ([facility]) documented in this encounter Results * (ABNORMAL) POCT urinalysis dipstick manually resulted (04/13/2025 8:35 AM EDT) Color, UA Yellow Clarity, UA Clear Glucose, UA Negative Negative - 1999(110) ++++ mg/dL Bilirubin, UA Negative Negative - 4(70) +++ mg/dL Ketones, UA Negative Negative - 160(16) ++++ mg/dL Spec Grav, UA 1.020 1 - 1.03 Blood, UA Negative Negative - 50 Tim/mcL pH, UA 6.0 5 - 9 Protein, UA Trace Negative - 1999(20) ++++ mg/dL Urobilinogen, UA 1.0 0.2 - 12 mg/dL Leukocytes, UA Moderate Negative - 500+++ Genoveva/mcL Nitrite, UA Negative Negative - Positive Urine 04/13/2025 8:35 AM EDT [facility] POINT OF CARE TEST ENTER/EDIT OR DERABLES Final Result documented in this encounter Visit Diagnoses Diagnosis 16 weeks gestation of ([facility]) Second trimester ([facility]) state, incidental Screening, , for anatomic survey ([facility]) Encounter for anatomic survey documented in this encounter Care Teams Log Sorter Relationship Specialty Start Date End Date Burton Richardson MD [address] [place] [address] PCP - General Family Medicine 04/02/23 documented as of this encounter
--- OUTSIDE RECORDS SUMMARY | 2025-04-13 09:20 | XMS_ITS | Encounter Summary ---
Author Organization [facility] Address [address] [place] [address] Care Team Providers Care Pizza Delivery Name Role Phone Burton Richardson MD Primary Care Provider [phone] Encounter Details Date Type Department Care Team (Late st Contact Info) Description 03/29/2025 Abstract [facility] [address] [place] [address] Nikki Rayo MA Social History Tobacco Use Types Packs/Day Years [...] 05/15/2025 9:00 AM EDT Ancillary Procedure [facility] [place] [address] 05/15/2025 10:00 AM EDT Routine [facility] [address] [place] [address] Jaz Tobin PA [address] [facility] [place] documented as of this encounter Visit Diagnoses Not on filedocumented in this encounter Care Teams Pizza Delivery Relationship Specialty Start Date End Date Burton Richardson MD [address] [place] [phone] PCP - General Family Medicine 04/02/23 documented as of this encounter
--- OUTSIDE RECORDS SUMMARY | 2025-04-13 09:20 | XMS_ITS | Encounter Summary ---
Author Organization [facility] Address [address] [place] [address] Care Team Providers Care Drier Attendant Name Role Phone Burton Richardson MD Primary Care Provider [phone] Encounter Details Date Type Department Care Team (Late st Contact Info) Description 03/08/2025 Orders Only [facility] [address] [place] [address] Davide Cruz DO [address] [place] [address] [address] Jost[address] [place], [place] [id number] Positive urine test ([facility]); Missed menses Social History Tobacco Use Types [...] AM EDT Ancillary Procedure [facility] [address] [place] [address] 05/15/2025 10:00 AM EDT Routine [facility] [address] [place] [address] Jaz Tobin PA [address] [place] [address] Scheduled Orders Name Type Priority Associated Diagnoses Orde r Schedule US OB transvaginal Imaging Routine Positive urine test ([facility]) Missed menses Expected: 03/08/2025, Expires: 06/08/2025 documented as of this encounter Visit Diagnoses Diagnosis Positive urine test ([facility]) Missed menses documented in this encounter Care Teams Drier Attendant Relationship Specialty Start Date End Date Burton Richardson MD [address] [place] [address] PCP - General Family Medicine 04/02/23 documented as of this encounter
--- OUTSIDE RECORDS SUMMARY | 2025-04-13 09:20 | XMS_ITS | Encounter Summary ---
Author Organization [facility] Address [address] [place] [address] Care Team Providers Care Chief Service Dispatcher Name Role Phone Burton Richardson MD Primary Care Provider [phone] Encounter Details Date Type Department Care Team (Late st Contact Info) Description 03/16/2025 Orders Only [facility] [address] [place] [address] Shanika Cormier LPN [address] [id number] Social History Tobacco Use Types Packs/Day Years [...] AM EDT Ancillary Procedure [facility] [address] [place] [address] [place] [address] 05/15/2025 10:00 AM EDT Routine [facility] [address] [place] [address] [place] [address] Jaz Tobin PA [address] [facility] [place] [address] documented as of this encounter Procedures Procedure [...] on filedocumented in this encounter Care Teams Chief Service Dispatcher Relationship Specialty Start Date End Date Burton Richardson MD [address] [place] [address] PCP - General Family Medicine 04/02/23 documented as of this encounter
--- OUTSIDE RECORDS SUMMARY | 2025-04-13 09:20 | XMS_ITS | Clinical Summary ---
Author Organization [facility] Address [address] [place] [address] Care Team Providers Care Oil Painter Name Role Phone Burton Richardson MD Primary Care Provider [phone] Allergies No known active allergies Medications Sxi-Vcy-LT-Fish Oil ([facility] Gummy) 0.4-113.5 MG chewable tablet Chew 1 tablet in the morning. Active medroxyPROGESTE Zay (Depo-Provera) 150 MG/ML injectionIndica tions: control counseling Inject 1 mL (150 mg) into the shoulder, thigh, or buttocks every 3 (three) months. 1 mL 3 3 03/22/20 25 Discontinu ed(Therapy completed) Hospital, Clinic, or Other Facility Administered Medication Ordered Dose Route Frequency Start Date End Date Status medroxyPROGESTERone (Depo-Provera) injection 150 mgIndications:Depo-Pr overa contraceptive status 150 mg IM Once 04/02/2023 03/22/2025 Discontinued Active Problems Problem Noted Date Diagnosed Date Positive urine test ([facility]) 03/08/20 25 Cervical motion tenderness 04/01/2023 Dysmenorrhea 04/01/2023 Estimated Date of Delivery Comme nts Yes 09/28/2025 Based on Ultraso und Encounters Date Type Department Care Team Description 04/13/2025 8:30 AM EDT Routine [facility] [address] [place] [address] [place] [address] Jessica Cruz DO 16 weeks gestation of ([facility]); Second trimester ([facility]); Screening, , for anatomic survey ([facility]) 04/13/2025 Bamboo flowsheet [facility] [address] [place] [address] Jessica Cruz, 04/06/2025 Travel 03/30/2025 Abstract [facility] [address] [place] [address] Nikki Rayo [place] 03/29/2025 Abstract [facility] OB [address] [place] [address] [place] [address] Nikki Rayo, [place] 03/22/2025 9:00 AM EDT Initial [facility] [address] [place] [address] [place]: 12w6d 03/22/2025 Clinisync Result Encounter [facility] External Department Unsolicited Jessica Cruz, 03/16/2025 Orders Only [facility] [address] [place] [address] Shanika Cormier LPN 03/15/2025 Travel 03/08/2025 Abstract [facility] [address] [place] [address] Jessica Cruz, 03/08/2025 Orders Only [facility] [address] [place] [address] Jessica Cruz, Positive urine test ([facility]); Missed menses from Last 3 Months Social [...] oz) 04/13/2025 8:27 A M EDT Height 160 cm (5' 3 ) 04/02/2023 3:14 PM EDT Body Mass Index 26.29 04/02/2023 3:14 PM EDT Plan of Treatment Upcoming Encounters Date Type Department Care Team (Late st Contact Info) Description 05/15/2025 9:00 AM EDT Ancillary Procedure [facility] [address] [facility] [place] [address] 05/15/2025 10:00 AM EDT Routine [facility] OB [address] [facility] [place] [address] Jaz Tobin PA [address] [facility] [address] [place], [place] [id number] Procedures Procedure Name Priority Date/Time Associated Diagnosis Comments POCT URINALYSIS DIPSTICK Routine 04/13/2025 8:35 AM EDT 16 weeks gestation of ([facility]) Second trimester ([facility]) CULTURE, URINE, ROUTINE Routine 04/10/2025 8:34 AM EDT Missed menses HBSAG SCREEN Routine 03/22/2025 10:16 AM EDT RAPID PLASMA REAGIN, QUANT Routine 03/22/2025 10:16 AM EDT HCV ANTIBODY RFX TO QUANT PCR Routine 03/22/2025 10:16 AM EDT ALL RUBELLA IGG AB Routine 03/22/2025 10 :16 AM EDT HIV AB/P24 AG WITH REFLEX Routine 03/22/2025 10:16 AM EDT ALL TYPE AND SCREEN Routine 03/22/2025 1 0:16 AM EDT MLR HEMOGLOBIN A1C Routine 03/22/2025 10 :16 AM EDT ALL CBC WITH AUTO DIFF Routine 03/22/2025 10:16 AM EDT BOX TEST Routine 03/22/2025 10:16 AM EDT US OB L= 14 WEEKS FETUS 03/22/2025 10:11 AM EDT TB[facility] DRUG SCREEN RAPID (URINE) Routine 03/22/2025 10:01 AM EDT POCT URINALYSIS DIPSTICK Routine 03/22/2025 9:52 AM EDT Missed menses POCT , URINE Routine 03/22/2025 9:52 AM EDT Missed menses from Last 3 Months Results * (ABNORMAL) POCT urinalysis dipstick manually resulted (04/13/2025 8:35 AM EDT) Only the most recent of2 resultswithin the time period is included. Color, UA Yellow Clarity, UA Clear Glucose, UA Negative Negative - 2000(110) ++++ mg/dL Bilirubin, UA Negative Negative - 4(70) +++ mg/dL Ketones, UA Negative Negative - 160(16) ++++ mg/dL Spec Grav, UA 1.020 1 - 1.03 Blood, UA Negative Negative - 50 Tim/mcL pH, UA 6.0 5 - 9 Protein, UA Trace Negative - 2000(20) ++++ mg/dL Urobilinogen, UA 1.0 0.2 - 12 mg/dL Leukocytes, UA Moderate Negative - 500+++ Genoveva/mcL Nitrite, UA Negative Negative - Positive Urine 04/13/2025 8:35 AM EDT Jessica Cruz DO POINT OF CARE TEST ENTER/EDIT OR DERABLES Final Result * Urine culture (04/10/2025 8:34 AM EDT) Urine Urine specimen obtained by clean catch procedure / Unknown Jessica Anthony DO LAB MICROBIOLOGY - GENERAL ORDER SHAHNAZ Final Result Performing Organization Address City/[facility]/ZIP Co de Phone Number EXTERNAL LAB * BOX TEST (03/22/2025 10:16 AM EDT) Pathologist [facility] BOX TEST SENT OUT [facility] [address]1 [facility] [address]2 03/22/25 [facility] 03/22/2025 10:1 6 AM EDT 03/22/2025 10:24 AM EDT Narrative CLINISYAZ - 03/22/2025 10:32 AM EDT [facility] LAB BLOOD ORDERABLES Final Resul t Performing Organization Address [facility] de Phone Number [facility] * HBSAG SCREEN (03/22/2025 10:16 AM EDT) Pathologist [facility] HBSAG SCREEN Negative Negative [facility] Comment: Performed at: [facility] Lab[address] [id number] Steam Power[employer] Supervisor: Willis Diane PhD, Phone: [phone] 03/22/2025 10:1 6 AM EDT 03/22/2025 10:24 AM EDT Narrative CLINISYAZ - 03/23/2025 12:09 PM EDT [facility] BLOOD ORDERABLES Final Resul t Performing Organization Address [facility] Co de Phone Number [facility] * RAPID PLASMA REAGIN, QUANT (03/22/2025 10:16 AM EDT) [facility] RAPID PLASMA REAGIN, QUANT Non Reactive NonRea<1: 1 titer [facility] Comment: Please Note: This test does not meet current guidelines for screening and diagnosis of syphilis. This test is intended for following treatment response in patients being treated for syphilis infection. To screen for syphilis infection, a reflex cascade that includes both RPR and a treponema-specific assay should be utilized, such as Treponema pallidum (Syphilis) Screening Archer (380369) or Rapid Plasma Reagin (RPR) Test With Reflex to Quantitative RPR and Confirmatory Treponema pallidum Antibodies (599286). Performed at: [address] [id number] [employer] Supervisor: Willis Diane PhD, Phone: [phone] 03/22/2025 10:1 6 AM EDT 03/22/2025 10:24 AM EDT Narrative CLINISYNC - 03/23/2025 12:09 PM EDT Kihon Anthony DO LAB BLOOD ORDERABLES Final Resul t Performing Organization Address [facility] Co de Phone Number [facility] * HIV AB/P24 AG WITH REFLEX (03/22/2025 10:16 AM EDT) Pathologist [facility] HIV AB/P24 AG SCREEN Non Reactive Non Reactive [facility] Comment: HIV-1/HIV-2 antibodies and HIV-1 p24 antigen were NOT detected. There is no laboratory evidence of HIV infection. HIV Negative Performed at: [address] [id number] [employer] Supervisor: Willis Diane PhD, Phone: [phone] 03/22/2025 10:1 6 AM EDT 03/22/2025 10:24 AM EDT Narrative CLINISYNC - 03/23/2025 5:08 AM EDT us Anygmao DO LAB BLOOD ORDERABLES Final Resul t Performing Organization Address [facility]/ZIP Co de Phone Number [facility] * HCV ANTIBODY RFX TO QUANT PCR (03/22/2025 10:16 AM EDT) Pathologist [facility] HCV AB Non Reactive Non Reactive [facility] INTERPRETATION: Comment . TB Comment: Not infected with HCV unless early or acute infection is suspected (which may be delayed in an immunocompromised individual), or other evidence exists to indicate HCV infection. 03/22/2025 10:1 6 AM EDT 03/22/2025 10:24 AM EDT Narrative CLINISYNC - 03/23/2025 6:08 AM EDT [facility] Anthony DO LAB BLOOD ORDERABLES Final Resul t Performing Organization Address [facility] Co de Phone Number [facility] * MLR HEMOGLOBIN A1C (03/22/2025 10:16 AM EDT) [facility] GLYCOHEMOGLOBIN A1C 5.2 4.5 - 6.2 % [facility] Comment: ADA RECOMMENDED LIMIT 4.0 - 6.0 ADA THERAPEUTIC TARGET < 7.0 ACTION SUGGESTED > 7.0 ESTIMATED AVERAGE GLUCOSE 103 mg/dL TB 03/22/2025 10:1 6 AM EDT 03/22/2025 10:24 AM EDT Narrative CLINISYNC - 03/22/2025 11:01 AM EDT [facility] Anthony DO CLINISYNC Final Result Performing Organization Address [facility] de Phone Number [facility] * ALL TYPE AND SCREEN (03/22/2025 10:16 AM EDT) [facility] BLOOD TYPE A Positive [facility] ANTIBODY SCREEN NEGATIVE TB 03/22/2025 10:1 6 AM EDT 03/22/2025 10:24 AM EDT Narrative CLINISYNC - 03/22/2025 11:28 AM EDT [facility] , Jessica Anthony DO CLINISYNC Final Result Performing Organization Address [facility] de Phone Number [facility] * ALL RUBELLA IGG AB (03/22/2025 10:16 AM EDT) [facility] RUBELLA ANTIBODIES, IGG 10.20 Immune >0.99 index [facility] Comment: Non-immune <0.90 Equivocal 0.90 - 0.99 Immune >0.99 Performed at: - Lab[address] [id number] [employer] Supervisor: Willis Diane PhD, Phone: [phone] 03/22/2025 10:1 6 AM EDT 03/22/2025 10:24 AM EDT Narrative CURRYISYNC - 03/23/2025 6:08 AM EDT us Jessica Anthony DO CLINISYNC Final Result CLINISYNC TB * (ABNORMAL) ALL CBC WITH AUTO DIFF (03/22/2025 10:16 AM EDT) TB WBC 8.0 4.0 - 11.0 10 3/uL TBH TBH RBC 3.99(L) 4.20 - 5.40 10 6/uL TBH TBH HGB 12.3 12.0 - 16.0 g/dL TBH TBH HCT 35.4(L) 36.0 - 48.0 % TBH TBH MCV 88.7 81.0 - 99.0 fL TBH TBH MCH 30.8 26.7 - 34.0 pg TBH TBH MCHC 34.7 29.9 - 35.2 g/dL TBH TBH RDW 12.6 11.0 - 15.0 % TBH TBH PLT 242 150 - 450 10 3/uL TBH TBH MPV 8.7(L) 9.5 - 13.5 fL TBH NEUTROPHILS PERCENT AUTO 71.0 43.0 - 75.0 % TBH LYMPHOCYTES PERCENT AUTO 19.4(L) 20.5 - 60.0 % TBH MONOCYTES PERCENT AUTO 6.7 1.7 - 12.0 % TBH TBH EO % 2.5 0.9 - 7.0 % TBH BASOPHILS PERCENT AUTO 0.2 0.2 - 2.0 % TBH IMMATURE GRANULOCYTES PCT AUTO 0.2 0.0 - 0.5 % TBH NEUTROPHILS ABSOLUTE AUTO 5.7 1.4 - 6.5 10 3/uL TBH LYMPHOCYTES ABSOLUTE AUTO 1.6 1.2 - 3.8 10 3/uL TBH MONOCYTES ABSOLUTE AUTO 0.5 0.3 - 0.8 10 3/uL TBH TBH EO # 0.2 0.0 - 0.7 10 3/uL TBH BASOPHILS ABSOLUTE AUTO 0.0 0.0 - 0.1 10 3/uL TBH IMMATURE GRANULOCYTES ABS AUTO 0.02 0.00 - 0.03 10 3/uL TBH 03/22/2025 10:1 6 AM EDT 03/22/2025 10:24 AM EDT Narrative CLINISYNC - 03/22/2025 10:37 AM EDT us Jessica Cruz DO CLINISYNC Final Result [facility] * US OB L= 14 WEEKS FETUS (03/22/2025 10:11 AM EDT) Anatomical Region Laterality Modality Other 03/22/2025 10:1 1 AM EDT Narrative 03/22/2025 10:13 [place] [address] Ultrasound Report Signed Patient: MIMI CANNON MR#: [id number] : 2000 Acct:[id number] Age/Sex: 24 / F ADM Date: 03/22/25 Loc: US Attending Dr: Jessica Cruz D.O. Ordering Physician: Jessica Cruz D.O. Date of Service: 03/22/25 Procedure(s): US OB <= 14 weeks fetus Accession Number(s): [id number] cc: Jessica Cruz D.O.; Physician,Non-Staff M.DTanisha [address] [address] Patient Name: MIMI CANNON MRN: TBH:[id number] date: 2000 Sex: F Assigned Patient Location: US Current Patient Location: LAB Accession/Order Number: [id number] Exam Date: 03/22/2025 10:07 Report Date: 03/22/2025 [...] Blevins M.D. 03/22/2025 10:11 AM Dictation Location: [place] [address] Electronically authenticated by: [id number] Y Date: 03/22/2025 10:11 Dictated By: Brooke Blevins M.D. Signed By: 03/22/25 1013 DD/ 1011 TD/TT: Tong Setter: Procedure Note Radiology, Radiologist, - 03/22/2025 [place] [address] Ultrasound Report Signed Patient: MIMI CANNON [facility]#: [id number] : 2000Acct:[id number] Age/Sex: 24 / FADM Date: 03/22/25 Loc: US Attending Dr: Jessica Cruz D.O. Ordering Physician: Jessica Cruz D.O. Date of Service: 03/22/25 Procedure(s): US OB <= 14 weeks fetus Accession Number(s): [id number] cc: Jessica Cruz D.O.; Physician,Non-Staff [place] [address] Patient Name: MIMI CANNON MRN: [facility]:[id number] date: 2000 Sex: F Assigned Patient Location: Current Patient Location: LAB Accession/Order Number: [id number] Exam Date: 03/22/2025 10:07 Report Date: 03/22/2025 10:11 At the request of: JESSICA CRUZ DO Procedure: US OB <= 14 weeks fetus FIRST TRIMESTER TRANSVAGINAL OB ULTRASOUND CLINICAL DATA: Positive test. COMPARISON: None A gestational sac is visualized within the uterus. The developingplacenta is anterior. A fetus is present with heart rate of 150 bpm. The crown-rump length measurement of 6.6 cm correlates with an ultrasound ageof 12 weeks 6 days +/- 1 week 1 day. The estimated date of delivery isSeptember 2025. The cervix is closed with length of 4.6 cm. Both ovaries are visualized. The right measures 3.8 x 1.8 x 2.2 cm. Theleft ovary measures 5.7 x 3.7 x 2.7 cm. A corpus luteum is seen on the left measuring 1.8 x 1.4 x 2.0 cm. There is documentation of ovarian bloodflow. No free fluid is seen. US/US OB <= 14 weeks fetus IMPRESSION: SINGLE LIVE INTRAUTERINE GESTATION WITH ULTRASOUND AGE OF 12 WEEKS 6 DAYS. Impression dictated by: Brooke Blevins M.D. 03/22/2025 10:11 AM Dictation Location: [place] [address] Electronically authenticated by: [id number] Y Date: 0:11 Dictated By: Brooke Blevins M.D. Signed By:03/22/25 1013 DD/ 1011 TD/TT: Tong Setter: Jessica Cruz DO CLINISYNC IMAGING Final Result * TBH DRUG SCREEN RAPID (URINE) (03/22/2025 10:01 AM EDT) CANNABINOID SCREEN URINE NEGATIVE NEGATIVE TBH PHENCYCLIDINE SCREEN URINE NEGATIVE NEGATIVE TBH COCAINE SCREEN URINE NEGATIVE NEGATIVE TBH METHAMPHETAMINES SCREEN URINE NEGATIVE NEGATIVE TBH OPIATE SCREEN URINE NEGATIVE NEGATIVE TBH AMPHETAMINE SCREEN URINE NEGATIVE NEGATIVE TBH BENZODIAZEPINES SCREEN URINE NEGATIVE NEGATIVE TBH TRICYCLIC ANTIDEPRESSANT URINE NEGATIVE NEGATIVE TBH METHADONE SCREEN URINE NEGATIVE NEGATIVE TBH BARBITURATES SCREEN URINE NEGATIVE NEGATIVE TBH OXYCODONE SCREEN URINE NEGATIVE NEGATIVE TBH BUPRENORPHINE SCREEN URINE NEGATIVE NEGATIVE TBH Comment: DRUG CLASS TEST SYSTEM CUT-OFF CONCENTRATIONS ARE FOLLOWS: AMP (Amphetamine): 500 ng/mL BAR (Barbiturates): 200 ng/mL BZO (Benzodiazepines): 150 ng/mL BUP (Buprenorphine): 10 ng/mL YADIRA (Cocaine): 150 ng/mL mAMP (Methamphetamine): 500 ng/mL MTD (Methadone): 200 ng/mL OPI (Opiates): 100 ng/mL OXY (Oxycodone): 100 ng/mL PCP (Phencyclidine): 25 ng/mL THC (Cannabinoids): 50 ng/mL TCA (Trycyclic Antidepressants): 300 ng/mL 03/22/2025 10:0 1 AM EDT 03/22/2025 10:24 AM EDT Narrative CLINISYNC - 03/22/2025 10:55 AM EDT [facility] Anthony DO CLINISYNC Final Result [facility] * (ABNORMAL) POCT , urine manually resulted (03/22/2025 9:52 AM EDT) Preg Test, Ur Positive Negative Urine 03/22/2025 9:52 AM EDT Jessica Anthony DO POINT OF CARE TEST ENTER/EDIT OR DERABLES Final Result from Last 3 Months Insurance [facility] MEDICAID Care Teams Oil Painter Relationship Specialty Start Date End Date Burton Richardson MD [address] [place] [address] PCP - General Family Medicine 04/02/23
--- OUTSIDE RECORDS SUMMARY | 2025-04-13 09:20 | XMS_ITS | Encounter Summary ---
Author Organization [facility] Address [address] [place] [address] Care Team Providers Care Animal Care Assistant Name Role Phone Burton Richardson MD Primary Care Provider [phone] Encounter Details Date Type Department Care Team (Late st Contact Info) Description 04/13/2025 Bamboo flowsheet [facility] OB [address] [place] [address] [place] [address] Davide Cruz DO [address] [place] [address] Dr Jostin Dolan, [facility]11 Social History Tobacco Use Types Packs/Day Years [...] 05/15/2025 9:00 AM EDT Ancillary Procedure [facility] OB [facility] [place] [address] 05/15/2025 10:00 AM EDT Routine [facility] OB [address] [place], [place] [address] [address] Jaz Tobin PA [address] [place] [address] documented as of this encounter Visit Diagnoses Not on filedocumented in this encounter Care Teams Animal Care Assistant Relationship Specialty Start Date End Date Burton Richardson MD [address] [facility] [place] [address] PCP - General Family Medicine 04/02/23 documented as of this encounter
--- OUTSIDE RECORDS SUMMARY | 2025-04-13 09:20 | XMS_ITS | Encounter Summary ---
Author Organization [facility] Address [address] [place] [address] Care Team Providers Care Counter Tender Name Role Phone Burton Richardson MD Primary Care Provider [phone] Encounter Details Date Type Department Care Team (Late st Contact Info) Description 05/24/2024 Abstract [facility] OB [address] [facility] [place] [address] Davide Cruz DO [address] [place] [address] Dr Jostin Dolan, [facility]11 Social History Tobacco Use Types Packs/Day Years [...] 05/15/2025 9:00 AM EDT Ancillary Procedure [facility] OB [facility] [place] [address] 05/15/2025 10:00 AM EDT Routine [facility] OB [facility] [place] [address] Jaz Tobin PA [address] [place] [address] documented as of this encounter Visit Diagnoses Not on filedocumented in this encounter Care Teams Counter Tender Relationship Specialty Start Date End Date Burton Richardson MD [address] [place] [address] PCP - General Family Medicine 04/02/23 documented as of this encounter
--- OUTSIDE RECORDS SUMMARY | 2025-04-13 09:20 | XMS_ITS | Clinical Summary ---
Author Organization [employer] tem Address [id number] [address] [place] [address] Care Team Providers Care Senior Payroll Administrator Name Role Phone Unavailable Primary Care Provider Unavailabl e Allergies No known active allergies Medications [id number] a-epa-fish oil ( GUMMY) 400 mcg-35 mg [...]
--- OUTSIDE RECORDS SUMMARY | 2025-04-13 09:20 | XMS_ITS | Encounter Summary ---
Author Organization [facility] Address [address] [place] [address] Care Team Providers Care Front Desk Admin Name Role Phone Burton Richardson MD Primary Care Provider [phone] Encounter Details Date Type Department Care Team (Late st Contact Info) Description 03/30/2025 Abstract [facility] OB [address] [facility] [address] Nikki Rayo MA Social History Tobacco [...] AM EDT Ancillary Procedure [facility] OB [facility] [place] [address] 05/15/2025 10:00 AM EDT Routine [facility] OB [address] [place] [address] Jaz Tobin PA [address] [facility] [address] [place], [facility]11 documented as of this encounter Visit Diagnoses Not on filedocumented in this encounter Care Teams Front Desk Admin Relationship Specialty Start Date End Date Burton Richardson MD [address] [place] [address] PCP - General Family Medicine 04/02/23 documented as of this encounter
--- OUTSIDE RECORDS SUMMARY | 2025-04-13 09:20 | XMS_ITS | Encounter Summary ---
Author Organization [facility] Address [address] [place] [address] Care Team Providers Care Hydraulics Engineer Name Role Phone Burton Richardson MD Primary Care Provider [phone] Encounter Details Date Type Department Care Team (Late st Contact Info) Description 03/08/2025 Abstract [facility] OB [address] [facility] [place] [address] Davide Cruz DO [address] [place] [address] Dr Jostin Dolan, [facility]11 Social History Tobacco Use Types Packs/Day Years [...] 05/15/2025 9:00 AM EDT Ancillary Procedure [facility] OB [facility] [place] [address] 05/15/2025 10:00 AM EDT Routine [facility] OB [facility] [place] [address] Jaz Tobin PA [address] [place] [address] documented as of this encounter Visit Diagnoses Not on filedocumented in this encounter Care Teams Hydraulics Engineer Relationship Specialty Start Date End Date Burton Richardson MD [address] [place] [address] PCP - General Family Medicine 04/02/23 documented as of this encounter"
--- OUTSIDE RECORDS SUMMARY | 2025-04-13 09:20 | XMS_ITS | Encounter Summary ---
Author Organization [facility] Address [address] [place] [address] Care Team Providers Care Chief Communications Officer Name Role Phone Burton Richardson MD Primary Care Provider [phone] Encounter Details Date Type Department Care Team (Latest Contact Info) Description 04/06/2025 Travel Social History Tobacco Use Types Packs/Day [...] EDT Ancillary Procedure [facility] OB [address] [place] [address] 05/15/2025 10:00 AM EDT Routine [facility] [address] [facility] [address] Jaz Tobin PA [address] [facility] [address] [place], [place] [address] documented as of this encounter Visit Diagnoses Not on filedocumented in this encounter Care Teams Chief Communications Officer Relationship Specialty Start Date End Date Burton Richardson MD [address] [place] [address] PCP - General Family Medicine 04/02/23 documented as of this encounter
== END 2025-04-13 09:18 | disposition home or self-care (01) ==
LOC: LAB 09:19
PROVIDERS: Visit Provider Obstetrics & Gynecology
DX: Z34.92 Encounter for supervision of normal pregnancy, unspecified, second trimester (principal); Z3A.16 16 weeks gestation of pregnancy
CPT/HCPCS: 36415; 82105

== ENCOUNTER 2025-05-15 09:23 | Outpatient (OUT) | payer OTHER, SELFPAY ==
--- NOTE | 2025-05-15 09:25 | US_ITS ---
The [address] [address] Patient Name: KAREEM CANNON MRN: [id number] date: 2000 Sex: F Assigned Patient Location: Current Patient Location: Accession/Order Number: [id number] Exam Date: 05/15/2025 09:37 Report Date: 05/15/2025 11:07 At the request of: JESSICA KNAPP DO Procedure: US OB anatomy CLINICAL DATA: OB anatomy survey COMPARISON: 03/22/2025 ULTRASOUND OB ANATOMY There is a single live intrauterine gestation in cephalic presentation. The amniotic fluid volume is subjectively normal. The placenta is anterior. There is a suspected venous silva measuring 3.2 x 1.1 x 3.0 cm in size within the placenta inferiorly. There is cardiac and somatic activity with heart rate of 148 bpm. The neural axis and all 4 extremities were surveyed by the sales expert and no abnormalities were detected. The stomach, bladder, three-vessel cord with insertion, kidneys, diaphragm, facial features, four-chamber heart with right and left ventricular outflow tracts and female anatomy are seen. The following measurements were obtained: Biparietal diameter 5.0 cm 21 weeks 1 day 71% Head circumference 19.4 cm 20 weeks 5 days 50% Abdominal circumference 16.1 cm 21 weeks 1 day 64% Femur length 3.5 cm 21 weeks 0 days 56% The composite ultrasound age based on these measurements is 21 weeks 0 days +/- 1 week 3 days. US/US OB cervical length IMPRESSION: SINGLE LIVE INTRAUTERINE GESTATION WITH ULTRASOUND AGE OF 21 WEEKS 0 DAYS. SUSPECTED PLACENTAL VENOUS SILVA. UNREMARKABLE ANATOMY SURVEY. ULTRASOUND OB CERVICAL LENGTH The cervix was evaluated with a transvaginal probe. The placenta is anterior and approximately 7 cm from the internal cervical os. The cervix is closed with estimated length of 5 cm. IMPRESSION: CLOSED CERVIX. Impression dictated by: Brooke Blevins M.D. 05/15/2025 11:07 AM Dictation Location: [employer] Electronically authenticated by: [id number] Y Date: 05/15/2025 11:07
--- NOTE | 2025-05-15 09:25 | US_ITS ---
The [address] [address] Patient Name: KAREEM CANNON MRN: [id number] date: 2000 Sex: F Assigned Patient Location: Current Patient Location: Accession/Order Number: [id number] Exam Date: 05/15/2025 09:37 Report Date: 05/15/2025 11:07 At the request of: JESSICA KNAPP DO Procedure: US OB anatomy CLINICAL DATA: OB anatomy survey COMPARISON: 03/22/2025 ULTRASOUND OB ANATOMY There is a single live intrauterine gestation in cephalic presentation. The amniotic fluid volume is subjectively normal. The placenta is anterior. There is a suspected venous silva measuring 3.2 x 1.1 x 3.0 cm in size within the placenta inferiorly. There is cardiac and somatic activity with heart rate of 148 bpm. The neural axis and all 4 extremities were surveyed by the paper cleaner and no abnormalities were detected. The stomach, bladder, three-vessel cord with insertion, kidneys, diaphragm, facial features, four-chamber heart with right and left ventricular outflow tracts and female anatomy are seen. The following measurements were obtained: Biparietal diameter 5.0 cm 21 weeks 1 day 71% Head circumference 19.4 cm 20 weeks 5 days 50% Abdominal circumference 16.1 cm 21 weeks 1 day 64% Femur length 3.5 cm 21 weeks 0 days 56% The composite ultrasound age based on these measurements is 21 weeks 0 days +/- 1 week 3 days. US/US OB anatomy IMPRESSION: SINGLE LIVE INTRAUTERINE GESTATION WITH ULTRASOUND AGE OF 21 WEEKS 0 DAYS. SUSPECTED PLACENTAL VENOUS SILVA. UNREMARKABLE ANATOMY SURVEY. ULTRASOUND OB CERVICAL LENGTH The cervix was evaluated with a transvaginal probe. The placenta is anterior and approximately 7 cm from the internal cervical os. The cervix is closed with estimated length of 5 cm. IMPRESSION: CLOSED CERVIX. Impression dictated by: Brooke Blevins M.D. 05/15/2025 11:07 AM Dictation Location: [employer] [email or web address] Electronically authenticated by: [id number] Y Date: 05/15/2025 11:07
--- OUTSIDE RECORDS SUMMARY | 2025-05-15 09:29 | XMS_ITS | CCD ---
Author Organization [facility] Care Team Providers Care Financial Systems Manager Name Role Phone AVERY ., DR OLIVAREZ [...] Unavailable Sher Richardson MD Primary Care Provider [phone] Sher Richardson MD Primary Care Provider [phone] JESSICA CRUZ Attending Unavailable Medications Current Medications Medication Drug Class(es) Dates Sig (Normalized) Sig (Original) Dth-Pbs-JU-Fish Oil ([facility]) 0.4-113.5 MG chewable tablet (6 sources) Vvl-Ezh-TA-Fish Oil ([facility]) 0.4-113.5 MG chewable tablet [...] OF CERVIX] Onset: 10-16-2022 Episodic Menstrual disorders (14 sources) Dysmenorrhea, unspecified; Translations: [Dysmenorrhea] Onset: 12-18-2021 Chronic Other female genital disorders (1 source) Unspecified dyspareunia; Translations: [UNSPECIFIED DYSPAREUNIA] Onset: 12-25-2021 Chronic Other and delivery including normal (11 sources) Urine test positive; Translations: [Encounter for test, result positive] Onset: 03-08-2025 03-22-2025 Episodic Other screening for suspected conditions (not mental disorders or infectious disease) (6 sources) Encounter for screening for malignant neoplasm of cervix; Translations: [Patient encounter status] Onset: 02-12-2022 Episodic Residual codes; unclassified (1 source) Gestation period, 12 weeks; Translations: [12 weeks gestation of ] 03-22-2025 Episodic Residual codes; unclassified (2 sources) Gestation period, 16 weeks; Translations: [16 weeks gestation of ] 04-13-2025 Episodic Unclassified (1 source) CONTACT W/AND (SUSP) EXPOS COVID-19; Translations: [CONTACT W/AND (SUSP) EXPOS COVID-19] Onset: 12-18-2021 Past or Other Problems Problem Classification Problem Date Documented Date Episodic/Chronic Abdominal pain (1 source) Pelvic and perineal pain; Translations: [PELVIC AND PERINEAL PAIN] Onset: 04-06-2022 Episodic Other female genital disorders (8 sources) Pain on movement of cervix; Translations: [Unspecified condition associated with female genital organs and menstrual cycle] Onset: 04-01-2023 04-01-2023 Episodic Screening and history of mental health [...] Test Name Value Interpretation Reference Range Facility AFP, SERUM, OPEN SPINA BIFID Aon 04-15-2025 AFP MOM 0.76 . [facility] Cell [facility] AFP VALUE 25.3 ng/mL . [facility] COMMENT: Comment . [facility] Comment on above: Kanika Mancia , Ph.D., [facility] Director References: Available Upon Request. Multiples Of Median Cutoffs For AFP Elevations Dangelo 2.5 Black 2.8 IDD 2.0 Twins 4.5 Abbreviation Definitions IDD - Insulin Dep Diabetes OSBR - Open Spina Bifida Risk For further inquiries contact [facility] at [phone]. This test was developed and its performance characteristics determined by [employer]. It has not been cleared or approved by the Food and Drug Administration. Performed at: [address] [id number] Forensic Identification Specialist: Goldy Meyers [facility], Phone: [phone] GEST. AGE ON COLLECTION DATE 16.0 . weeks [facility] GESTAT. AGE BASED ON Ultrasound . [facility] Comment on above: 16.0 on 04/13/2025 Recalculations are not recommended when gestational dating by LMP and ultrasound are within 10 days. INSULIN DEP DIABETES No . [facility] Healthcare INTERPRETATION Comment . [facility] Ryland soto Comment on above: Interpretation: Scre en Negative This result is screen negative for OSB. The AFP MoM calculated is based on the gestational age provided. MS-AFP can identify up to 80% of open neural tube defects. Closed neural tube defects and some open defects may not be detected by this test. This test does not screen for Down Syndrome or Trisomy 18. If screening for Down Syndrome or Trisomy 18 is desired, contact [facility] to discuss available options. The [place] [employer] recommends amniocentesis be offered to women age 35 and older. [age] [facility] MULTIPLE GESTATION No . [facility] [place] [phone] . [facility] RACE . [facility] Health[facility] e RESULTS Report . [facility] TEST RESULTS: Negative . [facility] WEIGHT 148 . lbs [facility] Health[facility] N N ULTRASOUND [id number] N 1 Y 148 N N Y N N White/ [facility] Health[facility] Urinalysis macro (dipstick) panel (U)on 04-13-2025 Bilirubin, UA Negative Negative - 4(70) +++ mg/dL [facility] Blood, UA Negative Negative - 50 Tim/mcL [facility] Clarity, UA Clear [facility] Health[facility] re Color, UA Yellow [facility] Glucose, UA Negative Negative - 1999(110) ++++ mg/dL [facility] Interpretation and review of laboratory results Abnormal [facility] re Ketones, UA Negative Negative - 160(16) ++++ mg/dL [facility] Leukocytes, UA Moderate Negative - 500+++ Genoveva/mcL [facility] Nitrite, UA Negative Negative - Positive [facility] pH, UA 6 5 - [address] [facility] e Protein, UA Trace Negative - 1999(20) ++++ mg/dL [facility] Spec Grav, UA 1.02 1 - 1.03 [facility] Urobilinogen, UA 1.0 0.2 - 12 mg/dL [facility] Healthcar e HCG ( test) Ql (U)o n 03-22-2025 Interpretation and review of laboratory results Abnormal [facility] Healthca re Preg Test, Ur Positive Negative [facility] US OB L= 14 WEEKS FETUSon [facility] [address] [place] [address] Ultrasound Report Signed Patient: MIMI BYNUM MR#: [id number] : 2000 Acct:[id number] Age/Sex: 24 / F ADM Date: 03/22/25 Loc: US Attending Dr: Jessica Cruz D.O. Ordering Physician: Jessica Cruz D.O. Date of Service: 03/22/25 Procedure(s): US OB <= 14 weeks fetus Accession Number(s): [id number] cc: Jessica Cruz D.O.; Physician,Non-Staff [place] [id number] Patient Name: MIMI BYNUM MRN: [facility]:[id number] date: 2000 Sex: F Assigned Patient Location: US Current Patient Location: LAB Accession/Order Number: [id number] Exam Date: 03/22/2025 10:07 Report Date: 03/22/2025 [...] Blevins M.D. 03/22/2025 10:11 AM Dictation Location: [place] [address] Electronically authenticated by: [id number] Y Date: 03/22/2025 10:11 Dictated By: Brooke Blevins M.D. Signed By: 03/22/25 1013 DD/ 1011 TD/TT: Curator Herbarium: [facility] Radiology, Radiologist, - 03/22/2025 [place] [address] Ultrasound Report Signed Patient: MIMI BYNUM MR#: [id number] : 2000 Acct:[id number] Age/Sex: 24 / F ADM Date: 03/22/25 Loc: US Attending Dr: Jessica Cruz D.O. Ordering Physician: Jessica Cruz D.O. Date of Service: 03/22/25 Procedure(s): US OB <= 14 weeks fetus Accession Number(s): [id number] cc: Jessica Cruz D.O.; Physician,Non-Staff [place] [id number] Patient Name: MIMI BYNUM MRN: [id number] date: 2000 Sex: F Assigned Patient Location: US Current Patient Location: LAB Accession/Order Number: [id number] Exam Date: 03/22/2025 10:07 Report Date: 03/22/2025 [...] Blevins M.D. 03/22/2025 10:11 AM Dictation Location: [place] [address] Electronically authenticated by: [id number] Y Date: 03/22/2025 10:11 Dictated By: Brooke Blevins M.D. Signed By: 03/22/25 1013 DD/ 1011 TD/TT: Curator Herbarium: [facility] Radiology Study observation (narrative) [facility] US OB L= 14 WEEKS FETUSOrder ed By: Radiologist Radiology on 03-22-2025 [facility] Cell [employer] Work Phone: Urinalysis macro (dipstick) panel (U)on 03-22-2025 Bilirubin, UA Negative Negative - 4(70) +++ mg/dL [facility] Blood, UA Positive Negative - 50 Tim/mcL [facility] Comment on above: trace Clarity, UA Clear [facility] Cell [facility] re Color, UA Yellow [facility] Glucose, UA Negative Negative - 1999(110) ++++ mg/dL [facility] Interpretation and review of laboratory results Abnormal [facility] re Ketones, UA Negative Negative - 160(16) ++++ mg/dL [facility] Leukocytes, UA Positive Negative - 500+++ Genoveva/mcL [facility] Comment on above: large Nitrite, UA Negative Negative - Positive [facility] pH, UA 7 5 - 9 [facility] Protein, UA Negative Negative - 1999(20) ++++ mg/dL [facility] Spec Grav, UA 1.01 1 - 1.03 [facility] Urobilinogen, UA 0.2 0.2 - 12 mg/dL [facility] PREG QUANT HCGon 024 HCG QUANTITATIVE 3 mIU/mL [facility] lthcare Comment on above: 5-50 0.2-1 WEEK 50-500 1-2 WEEKS 100-5,000 2-3 WEEKS 500-10,000 3-4 WEEKS 1,000-50,000 4-5 WEEKS 10,000-100,000 5-6 WEEKS 15,000-200,000 6-8 WEEKS 10,000-100,000 2-3 MONTHS [facility] Healthcar e [facility] PREG QUANT HCGon 024 HCG QUANTITATIVE 5 mIU/mL [facility] Comment on above: 5-50 0.2-1 WEEK 50-500 1-2 WEEKS 100-5,000 2-3 WEEKS 500-10,000 3-4 WEEKS 1,000-50,000 4-5 WEEKS 10,000-100,000 5-6 WEEKS 15,000-200,000 6-8 WEEKS 10,000-100,000 2-3 MONTHS [facility] Pap IG, rfx Aptima HPV, rfx 16/18,45on 10-22-2022 . . Normal [facility] Comment on above: Result Comment: Perf ormed at: WB Performed By: #### P APHR2A #### [facility] [address] [place] [address] [address] Romero Freeman DIAGNOSIS: Comment Normal [facility] Comment on above: Result Comment: NEGA TIVE FOR INTRAEPITHELIAL LESION OR MALIGNANCY. Performed at: WB Performed By: #### P APHR2A #### [facility] [address] [place] [address] [address] Romero Freeman HPV Aptima Positive Abnormal Negative [facility] Comment on above: Result Comment: This nucleic acid amplification test detects fourteen high-risk HPV types (16,18,31,33,35,39,45,51,52,56,58,59,66,68) without differentiation. Performed at: =G Performed By: #### P APHR2A #### [facility] [address] [place] [address] [address] Romero Freeman HPV Genotype 16 Negative Normal Negative [facility] Comment on above: Performed By: #### P APHR2A #### [facility] [address] [place] [address] [address] Romero Freeman HPV Genotype 18,45 Negative Normal Negative [facility] Comment on above: Performed By: #### P APHR2A #### [facility] [address] [place] [address] [address] Romero Freeman HPV Genotype Reflex Comment Normal [facility] Comment on above: Result Comment: Roddy fitzgerald, see HPV Genotype results. Performed at: WB Performed By: #### P APHR2A #### [facility] [address] [place] [address] Dr. Romero Freeman Methodology: Comment [facility] Comment on above: Result Comment: This liquid based ThinPrep(R) pap test was screened with the use of an image guided system. Performed at: WB Performed By: #### P APHR2A #### [facility] [address] [place] [address] Dr. Romero Freeman Note: Comment [facility] Comment on above: Result Comment: The [...] WB Performed By: #### P APHR2A #### [facility] [address] [place] [address] Dr. Romero Freeman Performed by: Comment Normal [facility] Comment on above: Result Comment: Wale Hauser, Battalion Chief (ASCP) Performed at: WB Performed By: #### P APHR2A #### [facility] [address] [place] [address] Dr. Romero Freeman Specimen adequacy: Comment Normal [facility] Comment on above: Result Comment: Sati sfactory for evaluation. Endocervical and/or squamous metaplastic cells (endocervical component) are present. Performed at: WB Performed By: #### P APHR2A #### [facility] [address] [place] [address] Dr. Romero Freeman Pap IG,rfx Aptima HPV all pt hon 02-17-2022 . . Normal [facility] Comment on above: Result Comment: Perf ormed at: BA Performed By: #### P [id number] #### [facility] [address] [place] [address] Dr. Romero Freeman DIAGNOSIS: Comment [facility] Comment on above: Result Comment: NEGA TIVE FOR INTRAEPITHELIAL LESION OR MALIGNANCY. Performed at: BA Performed By: #### P APH11A #### [facility] [address] [place] [address] Dr. Romero Freeman Methodology: Comment Normal [facility] Comment on above: Result Comment: This liquid based ThinPrep(R) pap test was screened with the use of an image guided system. Performed at: WB Performed By: #### P APH11A #### [facility] [address] [place] [address] Dr. Romero Freeman Note: Comment Normal [facility] Comment on above: Result Comment: The Pap smear is a screening test designed to aid in the detection of premalignant and malignant conditions of the uterine cervix. It is not a diagnostic procedure and should not be used as the sole means of detecting cervical cancer. Both false-positive and false-negative reports do occur. . Performed at: WB Performed By: #### P APH11A #### [facility] [address] [place] [address] Dr. Romero Freeman Performed by: Comment Normal [facility] Comment on above: Result Comment: Marisabel Castro, Battalion Chief (ASCP) Performed at: BA Performed By: #### P APH11A #### [facility] [address] [place] [address] Dr. Romero Freeman Reflex Criteria: Comment Normal [facility] Comment on above: Result Comment: The HPV DNA reflex criteria were not met with this specimen result therefore, no HPV testing was performed. . Performed at: BA Performed By: #### P APH11A #### [facility] [address] [place] [address] Dr. Romero Freeman Specimen adequacy: Comment Normal [facility] Comment on above: Result Comment: Sati sfactory for evaluation. Endocervical and/or squamous metaplastic cells (endocervical component) are present. Performed at: BA Performed By: #### P APH11A #### [facility] [address] [place] [address] Dr. Romero Freeman CBC AUTO DIFFon 12-20-2021 BASO # 0.1 103/ul Normal 0.0-0.1 [facility] Comment on above: Performed By: #### C BC #### [facility] [address] [place] [address] Dr. Romero Freeman Basophils/100 WBC (Bld) 0.6 % Normal 0.2-2.0 [facility] Comment on above: Performed By: #### C BC #### [facility] [address] [place] [address] Dr. Romero Freeman EO # 0.7 103/ul Normal 0.0-0.7 [facility] Comment on above: Performed By: #### C BC #### [facility] [address] [place] [address] Dr. Romero Freeman Eosinophils/100 WBC (Bld) 8.6 % Critically high 0.9-7.0 [facility] Comment on above: Performed By: #### C BC #### [facility] [address] [place] [address] Dr. Romero Freeman Erythrocyte distribution width (RBC) [Ratio] 13.2 % Normal 11.0-15.0 [facility] Comment on above: Performed By: #### C BC #### [facility] [address] [place] [address] Dr. Romero Freeman Hematocrit (Bld) [Volume fraction] 42.2 % Normal 36.0-48.0 [facility] Comment on above: Performed By: #### C BC #### [facility] [address] [place] [address] Dr. Romero Freeman Hemoglobin (Bld) [Mass/Vol] 14.3 g/dL Normal 12.0-16.0 [facility] Comment on above: Performed By: #### C BC #### [facility] [address] [place] [address] Dr. Romero Freeman IG # 0.01 10e3/ul Normal 0.00-0.03 [facility] Comment on above: Performed By: #### C BC #### [facility] [address] [place] [address] Dr. Romero Freeman IG % 0.1 % Normal 0.0-0.5 [facility] Comment on above: Performed By: #### C BC #### [facility] [address] [place] [address] Dr. Romero Freeman LYMPH # 3.3 103/ul Normal 1.2-3.8 [facility] Comment on above: Performed By: #### C BC #### [facility] [address] [place] [address] Dr. Romero Freeman Lymphocytes/100 WBC (Bld) 40.8 % Normal 20.5-60.0 [facility] Comment on above: Performed By: #### C BC #### [facility] [address] [place] [address] Dr. Romero Freeman MANUAL DIFF REQ NO Normal [facility] Comment on above: Performed By: #### C BC #### [facility] [address] [place] [address] Dr. Romero Freeman MCH (RBC) [Entitic mass] 30.2 pg Normal 26.7-34.0 [facility] Comment on above: Performed By: #### C BC #### [facility] [address] [place] [address] Dr. Romero Freeman MCHC (RBC) [Mass/Vol] 33.9 g/dL Normal 29.9-35.2 [facility] Comment on above: Performed By: #### C BC #### [facility] [address] [place] [address] Dr. Romero Freeman MCV (RBC) [Entitic vol] 89.2 fL Normal 81.0-99.0 [facility] Comment on above: Performed By: #### C BC #### [facility] [address] [place] [address] Dr. Romero Freeman MONO # 0.7 103/ul Normal 0.3-0.8 [facility] Comment on above: Performed By: #### C BC #### [facility] [address] [place] [address] Dr. Romero Freeman Monocytes/100 WBC (Bld) 9.0 % Normal 1.7-12.0 [facility] Comment on above: Performed By: #### C BC #### [facility] [address] [place] [address] Dr. Romero Freeman NEUT # 3.3 103/ul Normal 1.4-6.5 [facility] Comment on above: Performed By: #### C BC #### [facility] [address] [place] [address] [address] Romero Freeman Neutrophils/100 WBC (Bld) 40.9 % Critically low 43.0-75.0 [facility] Comment on above: Performed By: #### C BC #### [facility] [address] [place] [address] [address] Romero Freeman Platelet mean volume (Bld) [Entitic vol] 8.6 fL Critically low 9.5-13.5 [facility] Comment on above: Performed By: #### C BC #### [facility] [address] [place] [address] [address] Romero Freeman PLT 289 103/ul Normal 150-450 [facility] Comment on above: Performed By: #### C BC #### [facility] [address] [place] [address] Dr. Romero Freeman RBC 4.73 106/ul Normal 4.20-5.40 [facility] Comment on above: Performed By: #### C BC #### [facility] [address] [place] [address] [address] Romero Freeman WBC 8.1 103/ul Normal 4.0-11.0 [facility] Comment on above: Performed By: #### C BC #### [facility] [address] [place] [address] Dr. Romero Freeman PREG QUANT HCGon 12-20-2021 HCG QUANT <1 Normal [facility] Comment on above: Performed By: #### P REGQNT #### [facility] [address] [place] [address] Dr. Romero Freeman HCG RANGE SEE BELOW Normal [facility] Comment on above: Result Comment: 5-50 0-1 WEEK 40-300 1-2 WEEKS 100-1,000 2-3 WEEKS 500-6,000 3-4 WEEKS 5,000-200,000 1-2 MONTHS 10,000-100,000 2-3 MONTHS 3,000-50,000 2ND TRIMESTER 1,000-50,000 3RD TRIMESTER Performed By: #### P REGQNT #### [facility] [address] [place], [place] [address] Dr. Romero Freeman [facility]on [facility]20 SARS-CoV-2 (COVID-19) RNA ABEBE+probe Ql (Unsp spec) Not detected Normal NOT DETECTED [facility] Comment on above: Result Comment: When diagnostic [...] for this test is supported by the [place] [employer] and Human Service's declaration that [...] used). Performed By: #### C VDTB #### [facility] [address] [place], [place] [id number] Dr. Romero Freeman Vital Signs Date Time Vital Sign Value Performing Clinician Charlie gary 04-13-2025 08:27-0400 Body mass index (BMI) [Ratio] 26.29 kg/m2 [employer] DO Work Phone: [facility] 04-13-2025 08:27-0400 Body weight 67.31 kg Jessica Anthony DO Work Phone: [facility] 04-13-2025 08:27-0400 Diastolic blood pressure 64 mm[Hg] [employer] Work Phone: [facility] 04-13-2025 08:27-0400 Systolic blood pressure 120 mm[Hg] [employer] Work Phone: [facility] 03-22-2025 09:45-0400 Body mass index (BMI) [Ratio] 25.51 kg/m2 Anthony Ob [facility] 03-22-2025 09:45-0400 Body weight 65.32 kg Anthony Ob [facility] 03-22-2025 09:45-0400 Diastolic blood pressure 70 mm[Hg] Anthony Ob [facility] 03-22-2025 09:45-0400 Systolic blood pressure 118 mm[Hg] Anthony Ob [facility] Encounters Encounter Date Encounter Type Care Provider Facility Start: 04-13-2025 End: 04-13-2025 Bamboo flowsheet Jessica Anthony DO Work Phone: [facility] Start: 04-13-2025 End: 04-15-2025 Bamboo flowsheet Jessica Anthony DO Work Phone: [facility] Start: 04-13-2025 End: 04-15-2025 Clinisync Result Encounter Jessica Anthony DO Work Phone: [facility] Unsolicited Start: 04-13-2025 End: 04-13-2025 Office outpatient visit 15 minutes Jessica Anthony DO Work Phone: [facility] Comment on above: 16 weeks gestation o f ([facility]); Second trimester ([facility]); Screening, , for anatomic survey ([facility]) Start: 04-13-2025 End: 04-13-2025 ambulatory JESSICA ANTHONY Not Available Start: 03-22-2025 End: 03-22-2025 Clinisync Result Encounter Jessica Anthony DO Work Phone: [facility] Unsolicited Start: 03-22-2025 End: 03-22-2025 Clinisync Result Encounter Jessica Anthony DO Work Phone: [facility] Unsolicited Start: 03-22-2025 End: 03-22-2025 ambulatory JESSICA ANTHONY Not Available Start: 03-22-2025 End: 03-22-2025 Office outpatient visit [...] abnormal smear DR JESSICA CRUZ . [facility] Start: 10-15-2022 End: 10-15-[address] JESSICA [...] laboratory examination DR JESSICA CRUZ . [facility] Start: 12-17-[address] JESSICA CRUZ . Facili ty:[facility] Start: 12-13-2021 End: 12-14-[address] JESSICA CRUZ . Facility:[facility] Start: 12-13-2021 End: 12-14-2021 Encounter for preprocedural laboratory examination DR JESSICA CRUZ . Facility: Procedures Date Procedure Procedure Detail Performing Clinician Start: 04-13-2025 AFP, SERUM, OPEN SPI NA BIFIDA Jessica Anthony DO Work Phone: Start: 04-13-2025 Urnls dip stick/tabl et rgnt non-auto w/o micrscp Jessica Anthony DO Work Phone: Start: 03-22-2025 US OB L= 14 WEEKS FETUS Jessica Anthony DO Work Phone: Start: 03-22-2025 Urnls dip stick/tabl et rgnt non-auto w/o micrscp Jessica Anthony DO Work Phone: Start: 05-26-2024 [facility] PREG QUANT HCG Core y Anthony DO Work Phone: Start: 05-24-2024 [facility] PREG QUANT HCG Core y Anthony DO Work Phone: Plan of Treatment Date Care Activity Detail Author Start: 05-15-2025 End: 05-15-2025 Patient encounter procedure [facility] Start: 05-15-2025 End: 05-15-2025 Professional / ancillary services management [facility] Start: 04-13-2025 End: 06-14-2025 Alpha fetoprotein, maternal Alpha fetoprotein, maternal Lab Routine 16 weeks gestation of ([facility]) Second trimester ([facility]) Expected: 04/13/2025 (Approximate), Expires: 06/14/2025 [facility] Work Phone: Comment on above: Expected: 04/13/2025 (Approximate), Expires: 06/14/2025 Start: 04-13-2025 End: 07-14-2025 US for US OB 14+ weeks anatomy scan Imaging Routine 16 weeks gestation of ([facility]) Second trimester ([facility]) Screening, , for anatomic survey ([facility]) Expected: 04/13/2025, Expires: 07/14/2025 [facility] Comment on above: Expected: 04/13/2025 , Expires: 07/14/2025 Start: 04-13-2025 End: 04-13-2025 Patient encounter procedure [facility] Comment on above: Arrived Start: 03-22-2025 End: 03-22-2026 ABO/Rh ABO/Rh Lab Routine Missed menses , unspecified gestational age ([facility]) Expected: 03/22/2025 (Approximate), Expires: 03/22/2026 [facility] Healthcare Comment on above: Expected: 03/22/2025 (Approximate), Expires: 03/22/2026 Start: 03-22-2025 End: 03-22-2026 Blood type and Indirect antibody screen panel - Blood Type and screen Lab Routine Missed menses , unspecified gestational age ([facility]) Expected: 03/22/2025 (Approximate), Expires: 03/22/2026 [facility] Comment on above: Expected: 03/22/2025 (Approximate), Expires: 03/22/2026 Start: 03-22-2025 End: 03-22-2026 Drugs of abuse panel - Urine by Screen method Rapid drug screen, urine Lab Routine , unspecified gestational age ([facility]) Encounter for supervision of normal first in first trimester ([facility]) Expected: 03/22/2025 (Approximate), Expires: 03/22/2026 [facility] Comment on above: Expected: 03/22/2025 (Approximate), Expires: 03/22/2026 Start: 03-22-2025 End: 06-22-2025 US for US OB less than 14 weeks early Imaging Routine Missed menses Positive urine test ([facility]) Expected: 03/22/2025, Expires: 06/22/2025 [facility] Work Phone: Comment on above: Expected: 03/22/2025 , Expires: 06/22/2025 Bacteria identified in Urine by Culture Urine culture Microbiology Routine Missed menses Ordered: 03/22/2025 [facility] Comment on above: Ordered: 03/22/2025 CBC W Auto Different ial panel - Blood CBC and differential Lab Routine Missed menses , unspecified gestational age ([facility]) Ordered: 03/22/2025 [facility] Comment on above: Ordered: 03/22/2025 Hemoglobin A1c/Hemoglobin.total in Blood Hemoglobin A1c Lab Routine Missed menses , unspecified gestational age ([facility]) Ordered: 03/22/2025 [facility] Healthcare Comment on above: Ordered: 03/22/2025 Hepatitis B virus surface Ag [Presence] in Serum or Plasma by Immunoassay Hepatitis B surface antigen Lab Routine Missed menses , unspecified gestational age ([facility]) Ordered: 03/22/2025 [facility] Comment on above: Ordered: 03/22/2025 Hepatitis C virus Ab [Presence] in Serum or Plasma by Immunoassay Hepatitis C antibody Lab Routine Missed menses , unspecified gestational age ([facility]) Ordered: 03/22/2025 [facility] Comment on above: Ordered: 03/22/2025 HIV-1/HIV-2 antigen/antibody combination immunoassay HIV-1 and HIV-2 antibodies Lab Routine Missed menses , unspecified gestational age ([facility]) Ordered: 03/22/2025 [facility] Comment on above: Ordered: 03/22/2025 Reagin Ab [Presence] in Serum by RPR RPR Lab Routine Missed menses , unspecified gestational age ([facility]) Ordered: 03/22/2025 [facility] Comment on above: Ordered: 03/22/2025 Rubella antibody, IgG Rubella an tibody, IgG Lab Routine Missed menses , unspecified gestational age ([facility]) Ordered: 03/22/2025 [facility] Comment on above: Ordered: 03/22/2025 Payers Date Payer Category Payer Private Health Insurance [facility] MEDICAID [id number] 2025 Medicaid [id number] 2022 Medicare [employer] [facility] [id number] 2022-Present [address] [place] [address] [id number] 1998 Unknown [id number]. 593 1998 Unknown [id number]. 593 1998 Unknown [id number] [id number]. 593 1998 Unknown [id number] [id number]. 593 1998 Unknown [id number] 2.16.840.1.108303.3.579.2. 593 1998 Unknown [id number] 2.16.840.1.617073.3.579.2. 593 1998 Unknown [id number] [id number]. 1259 1998 Unknown [id number] [id number]. 1259 1959 Self-pay 1961 Unknown [id number] Social History Date Type Detail Facility Tobacco smoking stat [facility] Tobacco smoking consumption unknown [facility] Start: 1998 Sex assigned at Not on file [facility] Gender identity Not on file [facility] Start: 01-05-2025 [facility] History of Present illness Narrative 04-13-2025 Kendal Sahni LPN - 04/13/2025 8:30 AM EDT Note Date & Type Note Facility 04-13-2025 History of Presen t illness Narrative Reason for Appointment: Patient ID: Mimi Bynum is a 24 y.o. female who presents for Routine Visit Patient presents today for Return OB appointment. MEDICATIONS Current Outpatient Medications Medication Instructions Uwm-Ozu-IY-Fish Oil ([facility]) 0.4-113.5 MG chewable tablet 1 tablet, Daily RT ALLERGIES No Known Allergies PROBLEMS Active Ambulatory Problems Diagnosis Date Noted Cervical motion tenderness 04/01/2023 Dysmenorrhea 04/01/2023 Positive urine test ([facility]) 03/08/2025 Resolved Ambulatory Problems Diagnosis Date Noted No Resolved Ambulatory Problems No Additional Past Medical History HISTORY PAST MEDICAL HISTORY SOCIAL HISTORY History reviewed. No pertinent past medical history. Social History Tobacco Use Smoking status: Not on file Smokeless tobacco: Not on file Substance Use Topics Alcohol use: Not on file Drug use: Not on file FAMILY HISTORY No family history on file. SURGICAL HISTORY History reviewed. No pertinent surgical history. REVIEW OF SYSTEMS Review of Systems: Review of Systems Constitutional: Negative. HENT: Negative. Eyes: Negative. Respiratory: Negative. Cardiovascular: Negative. Gastrointestinal: Negative. Genitourinary: Negative. Musculoskeletal: Negative. Skin: Negative. Neurological: Negative. All other systems reviewed and are negative. Hematological: Negative. Endocrine: Negative. Allergic/Immunologic: Negative. OBJECTIVE Objective: Physical Exam Constitutional: Appearance: Normal appearance. She is well-developed. Cardiovascular: Rate and Rhythm: Normal rate and regular rhythm. Pulmonary: Effort: Pulmonary effort is normal. Breath sounds: Normal breath sounds. Abdominal: General: Bowel sounds are normal. There is no distension. Palpations: Abdomen is soft. Tenderness: There is no abdominal tenderness. There is no guarding or rebound. Musculoskeletal: General: No swelling. Normal range of motion. Right lower leg: No edema. Left lower leg: No edema. Neurological: Mental Status: She is alert and oriented to person, place, and time. Skin: General: Skin is warm and dry. Psychiatric: Mood and Affect: Mood normal. Behavior: Behavior normal. Vitals and nursing note reviewed. Exam conducted with a pl sql developer present. Vitals: Estimated body mass index is 26.29 kg/m as calculated from the following: Height as of 04/02/23: 5' 3 . Weight as of this encounter: 148 lb 6.4 oz. BP: 120/64 Patient's last menstrual period was 01/06/2025. ASSESSMENT & PLAN ICD-10-CM 1. 16 weeks gestation of ([facility]) Z3A.16 POCT urinalysis dipstick manually resulted Alpha fetoprotein, maternal Alpha fetoprotein, maternal 2. Second trimester ([facility]) Z34.92 POCT urinalysis dipstick manually resulted Alpha fetoprotein, maternal Alpha fetoprotein, maternal 3. Screening, , for anatomic survey ([facility]) Z36.89 US OB 14+ weeks anatomy scan New OB: Patient presents today for 1st time obstetrics appointment with provider. Patient is currently 16w0d . Patients history has been reviewed in great detail including any potential risks. Patient stated she currently has no complaints. Expectations throughout regarding labs, ultrasounds, and appointments have been discussed with the patient in detail. It was reiterated that the patient is to drink 6-8 glasses of water a day, eat 6 small meals a day, do not consume raw or undercooked meat, and stay away from [facility]. Patient has been consulted regarding any further do's and don'ts of . Patient voiced understanding and all questions and concerns were answered. Orders Placed This Encounter Procedures US OB 14+ weeks anatomy scan Alpha fetoprotein, maternal POCT urinalysis dipstick manually resulted Follow Up: Patient is to return in 4 weeks for Anatomy Scan & routine OB appointment. --Patient will not have PAP at next visit due to having US obtained, but will have it at 24 week visit. Documented by Kendal Sahni LPN on behalf of: Jessica Cruz DO documented in this encounter [facility] History of Present illness Narrative 03-22-2025 Katrin [...] Births 1 # Outcome Date GA Lbr Laurent/2nd Weight Sex Type Anes PTL Lv 2 Current 1 [birth year]/18 36w0d 7 lb 10 oz M Vag-Spont Y DELMA Obstetric Comments G1 born w/Down syndrome Current Medications: has a current medication list which includes the following prescription(s): [facility]. Medical History: Active Ambulatory Problems Diagnosis Date Noted Cervical motion tenderness 04/01/2023 Dysmenorrhea 04/01/2023 Positive urine test ([facility]) 03/08/2025 Resolved Ambulatory Problems Diagnosis Date Noted [...] urinalysis dipstick manually resulted Positive urine test ([facility]) - US OB less than 14 weeks early; Future , unspecified gestational age ([facility]) - Type and screen; Future - ABO/Rh; Future - CBC and differential - Hemoglobin A1c - RPR - Rubella antibody, IgG - Hepatitis B surface antigen - Hepatitis C antibody - HIV-1 and HIV-2 antibodies - Rapid drug screen, urine; Future Encounter for supervision of normal first in first trimester ([facility]) - Rapid drug screen, urine; Future 12 weeks gestation of ([facility]) Nurse Note: Pt desires to have [employer]st [employer] to one. Pt first born baby was delivered at 36 weeks and born w/down syndrome. Pt stated she was not aware of it until she was called by [facility] to meet. Pt is wanting to be prepared with this baby. Pt was advised to have both the labs and Hurst done at the same time. PVU and [...] Katrin Momin MA documented in this encounter [facility] Clinical Note 12-20-2021 Note Date & Type Note Facility 12-20-2021 Note [place], [place] NAME: MIMI BYNUM DATE OF : MEDICAL REC#: [id number] RECEIVING WEIGHER: [id number] [facility], TRANSADMIT DATE: 12/20/2021 06:55:00 ELECTRICAL MANUFACTURING TECHNICIAN DATE: 12/22/2021 01:00 DICTATING PHYSICIAN: JESSICA CRUZ DICTATION DATE: 12/20/2021 09:00 OPERATIVE NOTE PROCEDURE: Diagnostic laparoscopy. PREOPERATIVE DIAGNOSIS: Pelvic pain, dysmenorrhea, dyspareunia. POSTOPERATIVE DIAGNOSIS: Pelvic pain, dysmenorrhea, dyspareunia. ANESTHESIA: General. SURGEON: Jessica Cruz D.O. COOKER LOADER: TONI Arrington URINE OUTPUT: Yellow and clear. [...] DR JESSICA CRUZ . 01/12/2022 21:16:00 [facility] Evaluation note Note Date & Type Note Facility Evaluation note Diagnosis Missed menses Positive urine test ([facility]) , unspecified gestational age ([facility]) Encounter for supervision of normal first in first trimester ([facility]) 12 weeks gestation of ([facility]) documented in this encounter [facility] Evaluation note Note Date & Type Note Facility Evaluation note Diagnosis 16 weeks gestation of ([facility]) Second trimester ([facility]) state, incidental Screening, , for anatomic survey ([facility]) Encounter for anatomic survey documented in this encounter [facility] Summary Purpose Family History No Family History Records FoundNo Family History Records Found Advance Directives No Advanced Directives Records FoundNo Advanced Directives Records Found Additional Source Comments INFORMATION SOURCE (unrecogn ized section and content) DATE CREATED AUTHOR 12/04/[address] [facility] p[facility] DATE CREATED AUTHOR AUTHOR'S ORGANIZ ATION 04/14/2025 [facility] Specialists [facility] Care Teams (unrecognized sec tion and content) Financial Systems Manager Relationship Specialty Start Date End Date Sher Richardson MD [address] [place] [address] PCP - General Family Medicine 04/02/23 Financial Systems Manager Relationship Specialty Start Date End Date Sher Richardson MD [address] [place] [address] PCP - General Family Medicine 04/02/23 Financial Systems Manager Relationship Specialty Start Date End Date Sher Richardson MD [address] [place] [address] PCP - General [facility] Medicine 04/02/23 Financial Systems Manager Relationship Specialty Start Date End Date Sher Richardson MD [address] [place] [id number] [phone] PCP - General Family Medicine 04/02/23 Reason for Visit (unrecogniz ed section and content) Reason Comments Amenorrhea Reason Comments Routine Visit FOR RECORDS PERTAINING TO PATIENTS WHO ARE [...] ON THE PRIMARY CLINICAL RECORDS. [facility]. provides no warranty or guarantee of the accuracy or completeness of information in this document.
== END 2025-05-15 09:24 | disposition home or self-care (01) ==
LOC: US 09:23
PROVIDERS: Visit Provider Obstetrics & Gynecology
DX: Z34.92 Encounter for supervision of normal pregnancy, unspecified, second trimester (principal); Z36.89 Encounter for other specified antenatal screening; Z3A.21 21 weeks gestation of pregnancy
CPT/HCPCS: 76805; 76817

== ENCOUNTER 2025-06-13 12:18 | Outpatient (REF) | payer OTHER, SELFPAY ==
--- OUTSIDE RECORDS SUMMARY | 2016-07-22 20:00 | XMS_ITS | Continuity of Care Document ---
Author Organization [facility] Address [address] [place] [address] Phone Care Team Providers Care Handle And Vent Machine Operator Name Role Phone Dayanara SNOWJoel Unavailable Unavailable Procedures Procedure Date TB INTRADERMAL TEST Advance Directives Directive Yes / No Effective Date File Name No Information Encounters Encounter Description Practice Location Reason(s) For Visit Diagnoses Date Provider Providers Copied on Encounter [facility], [address] [place] [address], [id number], [place] tel:[phone] [facility] No Information Dayanara Joel. [address] [place], [place], [id number], [place]. tel:[phone] [facility], [address] [place] [address], [id number], tel:[phone] [facility] No Information Dayanara River. [address] [place] [address], [id number], [place]. tel:[phone] Family History Family Member Type Diagnosis Age At Onset No Information Payers Payer name Insurance type Covered alliance party ID Authoriza tion(s) No Information Social History [...]
--- OUTSIDE RECORDS SUMMARY | 2025-06-13 09:40 | XMS_ITS | Encounter Summary ---
Author Organization [facility] Address [address] [place] [address] Care Team Providers Care Bender Hand Name Role Phone Burton Richardson MD Primary Care Provider [phone] Reason for Visit * Reason Comments Routine Visit Gynecologic Exam Encounter Details Date Type Department Care Team (Latest Contact Info) Description 06/13/2025 9:40 AM EDT Routine [facility] [address] [place] [phone] Davide Cruz DO [address] [place] Dolan, [place] [id number] Well woman exam with routine gynecological exam; care in second trimester, unspecified ([facility]); 24 weeks gestation of ([facility]); Diabetes mellitus screening Social History Tobacco Use Types Packs/Day Years [...] Sign Reading Time Taken Comments Blood Pressure 114/74 06/13/2025 9:55 AM EDT Pulse - - Temperature - - Respiratory Rate - - Oxygen Saturation - - Inhaled Oxygen Concentration - - Weight 72.2 kg (159 lb 1.9 oz) 06/13/2025 9:55 A M EDT Height - - Body Mass Index 28.19 04/02/2023 3:14 PM EDT documented in this encounter Progress Notes * Brooke Sosa, COMMUNICATION COORDINATOR - 06/13/2025 9:40 AM EDT Reason for Appointment: Patient ID: Mimi Bynum is a 24 y.o. female who presents for Routine Visit and Gynecologic Exam Patient presents today for Annual Exam., STD Check., and Return OB appointment. MEDICATIONS Current Outpatient Medications Medication Instructions Wmc-Yqs-TP-Fish Oil ([facility]) 0.4-113.5 MG chewable tablet 1 tablet, Daily RT ALLERGIES No Known Allergies PROBLEMS Active Ambulatory Problems Diagnosis Date Noted Cervical motion tenderness 04/01/2023 Dysmenorrhea 04/01/2023 Positive urine test ([facility]) 03/08/2025 Well woman exam with routine gynecological exam 06/13/2025 care in second trimester ([facility]) 06/13/2025 24 weeks gestation of ([facility]) 06/13/2025 Resolved Ambulatory Problems Diagnosis Date Noted No Resolved Ambulatory Problems No Additional Past Medical History HISTORY PAST MEDICAL HISTORY SOCIAL HISTORY No past medical history on file. Social History Tobacco Use Smoking status: Not on file Smokeless tobacco: Not on file Substance Use Topics Alcohol use: Not on file Drug use: Not on file FAMILY HISTORY No family history on file. SURGICAL HISTORY No past surgical history on file. REVIEW OF SYSTEMS Review of Systems: Review of Systems Constitutional: Negative. HENT: Negative. Eyes: Negative. Respiratory: Negative. Cardiovascular: Negative. Gastrointestinal: Negative. Genitourinary: Negative. Musculoskeletal: Negative. Skin: Negative. Neurological: Negative. All other systems reviewed and are negative. Hematological: Negative. Endocrine: Negative. Allergic/Immunologic: Negative. OBJECTIVE Objective: Physical Exam Constitutional: Appearance: Normal appearance. She is well-developed. Genitourinary: Vulva normal. Breasts: Breasts are soft. Right: Normal. Left: Normal. Cardiovascular: Rate and Rhythm: Normal rate and [...] nursing note reviewed. Exam conducted with a national van owner operator present. Vitals: Estimated body mass index is 28.19 kg/m?? as calculated from the following: Height as of 04/02/23: 5' 3 . Weight as of this encounter: 159 lb 1.9 oz. BP: 114/74 Patient's last menstrual period was 01/06/2025. ASSESSMENT & PLAN ICD-10-CM 1. Well woman exam with routine gynecological exam Z01.419 Pap Smear POCT urinalysis dipstick manually resulted SURESWAB(R) ADVANCED VAGINITIS PLUS, TMA CHLAMYDIA TRACHOMATIS (GENITO/STI) Neisseria gonorrhea DNA probe, direct Alpha fetoprotein, maternal Alpha fetoprotein, maternal 2. care in second trimester, unspecified ([facility]) Z34.92 Pap Smear POCT urinalysis dipstick manually resulted SURESWAB(R) ADVANCED VAGINITIS PLUS, TMA CHLAMYDIA TRACHOMATIS (GENITO/STI) Neisseria gonorrhea DNA probe, direct Alpha fetoprotein, maternal Alpha fetoprotein, maternal 3. 24 weeks gestation of ([facility]) Z3A.24 Pap Smear POCT urinalysis dipstick manually resulted SURESWAB(R) ADVANCED VAGINITIS PLUS, TMA CHLAMYDIA TRACHOMATIS (GENITO/STI) Neisseria gonorrhea DNA probe, direct Alpha fetoprotein, maternal Alpha fetoprotein, maternal Return OB/Annual Exam: Patient presents today for a annual exam/routine obstetrics appointment. Patient is currently 32. Patient states she is doing well but has complaints of nausea in the morning. Pap and cultures was obtained without difficulty and patient was given orders for glucola and msAFP to be obtained. Orders Placed This Encounter Procedures CHLAMYDIA TRACHOMATIS (GENITO/STI) Neisseria gonorrhea DNA probe, direct Alpha fetoprotein, maternal POCT urinalysis dipstick manually resulted Follow Up: Patient is to schedule annual exam for next year and return to office in 4 weeks for OB appointment. Documented by Brooke Sosa LPN on behalf of: Davide Cruz DO documented in this encounter Plan of Treatment Upcoming Encounters Date Type Department Care Team (Late st Contact Info) Description 07/11/2025 11:20 AM EDT Routine [facility] [address] [place] [phone] Jaz Tobin PA [address] [place] [address] Scheduled Orders Name Type Priority Associated Diagnoses Orde r Schedule Pap Smear Pathology and Cytology Routine Well woman exam with routine gynecological exam care in second trimester, unspecified ([facility]) 24 weeks gestation of ([facility]) Ordered: 06/13/2025 SURESWAB(R) ADVANCED VAGINITIS PLUS, TMA Pathology and Cytology Routine Well woman exam with routine gynecological exam care in second trimester, unspecified ([facility]) 24 weeks gestation of ([facility]) Ordered: 06/13/2025 CHLAMYDIA TRACHOMATIS (GENITO/STI) Lab Routine Well woman exam with routine gynecological exam care in second trimester, unspecified ([facility]) 24 weeks gestation of ([facility]) Ordered: 06/13/2025 Neisseria gonorrhea DNA probe, direct Lab Routine Well woman exam with routine gynecological exam care in second trimester, unspecified ([facility]) 24 weeks gestation of ([facility]) Ordered: 06/13/2025 Alpha fetoprotein, maternal Lab Routine Well woman exam with routine gynecological exam care in second trimester, unspecified ([facility]) 24 weeks gestation of ([facility]) Expected: 06/13/2025 (Approximate), Expires: 09/12/2025 CBC Lab Routine Diabetes mellitus screening Expected: 06/13/2025 (Approximate), Expires: 06/13/2026 Glucose tolerance, 1 hour Lab Routine Diabetes mellitus screening Expected: 06/13/2025 (Approximate), Expires: 06/13/2026 documented as of this encounter Procedures Procedure Name Priority Date/Time Associated Diagnosis Comments POCT URINALYSIS DIPSTICK Routine 06/13/2025 10:30 AM EDT Well woman exam with routine gynecological exam care in second trimester, unspecified ([facility]) 24 weeks gestation of ([facility]) documented in this encounter Results * (ABNORMAL) POCT urinalysis dipstick manually resulted (06/13/2025 10:30 AM EDT) Color, UA Yellow Clarity, UA Clear Glucose, UA Negative Negative - 2000(110) ++++ mg/dL Bilirubin, UA Negative Negative - 4(70) +++ mg/dL Ketones, UA Negative Negative - 160(16) ++++ mg/dL Spec Grav, UA 1.015 1 - 1.03 Blood, UA Negative Negative - 50 Tim/mcL pH, UA 6.5 5 - 9 Protein, UA Trace Negative - 2000(20) ++++ mg/dL Urobilinogen, UA 0.2 0.2 - 12 mg/dL Leukocytes, UA 3+ Negative - 500+++ Genoveva/mcL Nitrite, UA Negative Negative - Positive Urine 06/13/2025 10:3 0 AM EDT Result [facility] Davide Cruz DO POINT OF CARE TEST ENTER/EDIT OR DERABLES Final Result documented in this encounter Visit Diagnoses Diagnosis Well woman exam with routine gynecological exam Routine gynecological examination care in second trimester, unspecified ([facility]) 24 weeks gestation of ([facility]) Diabetes mellitus screening Screening for diabetes mellitus documented in this encounter Care Teams Bender Hand Relationship Specialty Start Date End Date Burton Richardson MD [address] [place] [phone] PCP - General Family Medicine 04/02/23 documented as of this encounter
--- OUTSIDE RECORDS SUMMARY | 2025-06-13 12:21 | XMS_ITS | Encounter Summary ---
Author Organization [facility] Address [address] [place] [address] Care Team Providers Care Dry Talc Racker Name Role Phone Burton Richardson MD Primary Care Provider [phone] Encounter Details Date Type Department Care Team (Late st Contact Info) Description 06/13/2025 Bamboo flowsheet [facility] [address] [place] [address] Davide Cruz DO [address] [place], [facility] Social History Tobacco Use Types Packs/Day Years [...] Info) Description 07/11/2025 11:20 AM EDT Routine [facility] [address] [place] [address] Jaz Tobin PA [address] [place], [facility]11 documented as of this encounter Visit Diagnoses Not on filedocumented in this encounter Care Teams Dry Talc Racker Relationship Specialty Start Date End Date Burton Richardson MD [address] [place] [phone] PCP - General Family Medicine 04/02/23 documented as of this encounter
--- OUTSIDE RECORDS SUMMARY | 2025-06-13 12:21 | XMS_ITS | Encounter Summary ---
Author Organization [facility] Address [address] [place] [address] Care Team Providers Care Assistant Food Service Manager Name Role Phone Burton Richardson MD Primary Care Provider [phone] Encounter Details Date Type Department Care Team (Late Contact Info) Description 03/29/2025 Abstract [facility] [address] [place] [phone] Nikki Rayo MA Social History Tobacco Use [...] Encounters Date Type Department Care Team (Late Contact Info) Description 07/11/2025 11:20 AM EDT Routine [facility] [address] [facility] [place] [phone] Jaz Tobin PA [address] [place] [address] documented as of this encounter Visit Diagnoses Not on filedocumented in this encounter Care Teams Assistant Food Service Manager Relationship Specialty Start Date End Date Burton Richardson MD [address] [place] [address] PCP - General Family Medicine 04/02/23 documented as of this encounter
--- OUTSIDE RECORDS SUMMARY | 2025-06-13 12:21 | XMS_ITS | Encounter Summary ---
Author Organization [facility] Address [address] [place] [address] Care Team Providers Care Epic Interface Analyst Name Role Phone Burton Richardson MD Primary Care Provider [phone] Encounter Details Date Type Department Care Team (Late st Contact Info) Description 03/08/2025 Orders Only [facility] [address] [place] [address] Davide Cruz DO [address] [place], [facility]11 Positive urine test ([facility] Missed menses Social History Tobacco Use Types [...] AM EDT Routine [facility] [address] [place] [address] Jaz Tobin PA [address] [place], [facility]11 Scheduled Orders Name Type Priority Associated Diagnoses Orde r Schedule US OB transvaginal Imaging Routine Positive urine test ([facility]) Missed menses Expected: 03/08/2025, Expires: 06/08/2025 documented as of this encounter Visit Diagnoses Diagnosis Positive urine test ([facility]) Missed menses documented in this encounter Care Teams Epic Interface Analyst Relationship Specialty Start Date End Date Burton Richardson MD [address] [place] [phone] PCP - General Family Medicine 04/02/23 documented as of this encounter
--- OUTSIDE RECORDS SUMMARY | 2025-06-13 12:21 | XMS_ITS | Clinical Summary ---
Author Organization [employer] Address [id number] [address] [place] [address] Care Team Providers Care Insole Coverer Name Role Phone Unavailable Primary Care Provider Unavailabl e Allergies No known active allergies Medications [id number]-yw a-epa-fish oil ( GUMMY) 400 mcg-35 mg [...]
--- OUTSIDE RECORDS SUMMARY | 2025-06-13 12:21 | XMS_ITS | Encounter Summary ---
Author Organization [facility] Address [address] [place] [address] Care Team Providers Care Career Development Engineer Name Role Phone Burton Richardson MD Primary Care Provider [phone] Encounter Details Date Type Department Care Team (Late st Contact Info) Description 03/22/2025 Abstract [facility] [address] [place] [phone] Davide Cruz DO [address] [place], [id number] Social History Tobacco Use Types Packs/Day Years [...] Info) Description 07/11/2025 11:20 AM EDT Routine [facility] [address] [place] [address] Jaz Tobin PA [address] [place], [id number] documented as of this encounter Visit Diagnoses Not on filedocumented in this encounter Care Teams Career Development Engineer Relationship Specialty Start Date End Date Burton Richardson MD [address] [place] [phone] PCP - General Family Medicine 04/02/23 documented as of this encounter
--- OUTSIDE RECORDS SUMMARY | 2025-06-13 12:21 | XMS_ITS | Clinical Summary ---
Author Organization [facility] Address [address] [place] [address] Care Team Providers Care Deep Fryer Assembler Name Role Phone Burton Richardson MD Primary Care Provider [phone] Allergies No known active allergies Medications Vvv-Iej-YL-Fish Oil ([facility]) 0.4-113.5 MG chewable tablet Chew 1 tablet in the morning. Active Active Problems Problem Noted Date Diagnosed Date Well woman exam with routine gynecological exam 06/13/2025 care in second trimester ([facility]) 05/23 24 weeks gestation of ([facility]) 2024 Positive urine test ([facility]) 03/08/20 25 Cervical motion tenderness 04/01/2023 Dysmenorrhea 04/01/2023 Estimated Date of Delivery Comme nts Yes 09/28/2025 Based on Ultraso und Encounters Date Type Department Care Team Description 06/13/2025 9:40 AM EDT Routine [facility] [address] [place], [place] [address] [phone] Jessica Cruz, DO Well woman exam with routine gynecological exam; care in second trimester, unspecified ([facility]); 24 weeks gestation of ([facility]); Diabetes mellitus screening 06/13/2025 Bamboo flowsheet [facility] [address] [facility] [place] [address] Jessica Cruz, DO 06/06/2025 Travel 05/15/2025 10:00 AM EDT Routine [facility] [address] [place] [address] Jaz Tobin, PA Second trimester ([facility]); 20 weeks gestation of ([facility]) 05/15/2025 Clinisync Result Encounter [facility] External Department Unsolicited Jessica Cruz, DO 05/15/2025 Clinisync Result Encounter [facility]OM[facility] External Department Unsolicited Jessica Cruz, DO 05/15/2025 Bamboo flowsheet [facility] [address] [place] [address] Jaz Tobin, PA 05/08/2025 Travel 04/13/2025 8:30 AM EDT Routine [facility] [address] [place] [address] Jessica Cruz, DO 16 weeks gestation of ([facility]); Second trimester ([facility]); Screening, , for anatomic survey ([facility]) 04/13/2025 Clinisync Result Encounter [facility]OM[facility] External Department Unsolicited Jessica Cruz, DO 04/13/2025 Bamboo flowsheet [facility] [address] [place] [address] Jessica Cruz, DO 04/06/2025 Travel 03/30/2025 Abstract [facility] [address] [place] [address] Nikki Rayo MA 03/29/2025 Abstract [facility] [address] [place] [address] Nikki Rayo MA 03/22/2025 9:00 AM EDT Initial [facility] [place] [address] [place]: 12w6d 03/22/2025 Abstract [facility] [address] [place] [phone] Anthony Jessica, DO 03/22/2025 Clinisync Result Encounter [facility]OM[facility] External Department Unsolicited Jessica Cruz, DO 03/16/2025 Orders Only [facility] [address] [facility] [place] [phone] Shanika Cormier LPN 03/15/2025 Travel from Last 3 Months Social History Tobacco [...] oz) 06/13/2025 9:55 A M EDT Height 160 cm (5' 3 ) 04/02/2023 3:14 PM EDT Body Mass Index 28.19 04/02/2023 3:14 PM EDT Plan of Treatment Upcoming Encounters Date Type Department Care Team (Late st Contact Info) Description 07/11/2025 11:20 AM EDT Routine [facility] [address] [facility] [place] [phone] Jaz Tobin PA [address] [place] [address] Procedures Procedure Name Priority Date/Time Associated Diagnosis Comments POCT URINALYSIS DIPSTICK Routine 06/13/2025 10:30 AM EDT Well woman exam with routine gynecological exam care in second trimester, unspecified ([facility]) 24 weeks gestation of ([facility]) US OB ANATOMY 05/15/2025 11:07 AM EDT US OB CERVICAL LENGTH 05/15/2025 11:07 AM EDT POCT URINALYSIS DIPSTICK Routine 05/15/2025 10:57 AM EDT Second trimester ([facility]) AFP, SERUM, OPEN SPINA BIFIDA Routine 04/13/2025 9:46 AM EDT POCT URINALYSIS DIPSTICK Routine 04/13/2025 8:35 AM EDT 16 weeks gestation of ([facility]) Second trimester ([facility]) CULTURE, URINE, ROUTINE Routine 04/10/2025 8:34 AM [...] dipstick manually resulted (06/13/2025 10:30 AM EDT) Only the most recent of4 resultswithin the time period is included. Color, [...] Positive Urine 06/13/2025 10:3 0 AM EDT us Jessica Cruz DO POINT OF CARE TEST ENTER/EDIT OR DERABLES Final Result * US OB CERVICAL LENGTH (05/15/2025 11:07 AM EDT) Anatomical Region Laterality Modality Other 05/15/2025 11:0 7 AM EDT Narrative 05/15/2025 11:10 AM EDT [address] [address] Ultrasound Report Signed Patient: MIMI BYNUM MR#: [id number] : 2000 Acct:[id number] Age/Sex: 24 / F ADM Date: 05/15/25 Loc: US Attending Dr: Jessica Cruz D.O. Ordering Physician: Jessica Cruz D.O. Date of Service: 05/15/25 Procedure(s): US OB cervical length Accession Number(s): [id number] cc: Jessica Cruz D.O.; Physician,Non-Staff [place] [id number] Patient Name: MIMI BYNUM MRN: [id number] date: 2000 Sex: F Assigned Patient Location: US Current Patient Location: US Accession/Order Number: [id number] Exam Date: 05/15/2025 09:37 Report Date: 05/15/2025 11:07 At the request of: JESSICA CRUZ DO Procedure: US OB anatomy CLINICAL DATA: OB anatomy survey COMPARISON: 03/22/2025 ULTRASOUND OB ANATOMY There is a single live intrauterine gestation in cephalic presentation. The amniotic fluid volume is subjectively normal. The placenta is anterior. There is a suspected venous silva measuring 3.2 x 1.1 x 3.0 cm in size within the placenta inferiorly. There is cardiac and somatic activity with heart rate of 148 bpm. The neural axis and all 4 extremities were surveyed by the territory sales executive and no abnormalities were detected. The stomach, bladder, three-vessel cord with insertion, kidneys, diaphragm, facial features, four-chamber heart with right and left ventricular outflow tracts and female anatomy are seen. The following measurements were obtained: Biparietal diameter 5.0 cm 21 weeks 1 day 71% Head circumference 19.4 cm 20 weeks 5 days 50% Abdominal circumference 16.1 cm 21 weeks 1 day 64% Femur length 3.5 cm 21 weeks 0 days 56% The composite ultrasound age based on these measurements is 21 weeks 0 days +/- 1 week 3 days. US/US OB cervical length IMPRESSION: SINGLE LIVE INTRAUTERINE GESTATION WITH ULTRASOUND AGE OF 21 WEEKS 0 DAYS. SUSPECTED PLACENTAL VENOUS SILVA. UNREMARKABLE ANATOMY SURVEY. ULTRASOUND OB CERVICAL LENGTH The cervix was evaluated with a transvaginal probe. The placenta is anterior and approximately 7 cm from the internal cervical os. The cervix is closed with estimated length of 5 cm. IMPRESSION: CLOSED CERVIX. Impression dictated by: Brooke Blevins M.D. 05/15/2025 11:07 AM Dictation Location: [place] [address] Electronically authenticated by: [id number] Y Date: 05/15/2025 11:07 Dictated By: Brooke Blevins M.D. Signed By: 05/15/25 1110 DD/ 1107 TD/TT: Tapper Bit: Procedure Note Radiology, Radiologist, MD - 05/15/2025 [place] [address] Ultrasound Report Signed Patient: MIMI BYNUM NMR#: [id number] : 2000Acct:[id number] Age/Sex: 24 / FADM Date: 05/15/25 Loc: US Attending Dr: Jessica Cruz D.O. Ordering Physician: Jessica Cruz D.O. Date of Service: 05/15/25 Procedure(s): US OB cervical length Accession Number(s): [id number] cc: Jessica Cruz D.O.; Physician,Non-Staff [place] [id number] Patient Name: MIMI BYNUM MRN: [id number] date: 2000 Sex: F Assigned Patient Location: US Current Patient Location: US Accession/Order Number: [id number] Exam Date: 05/15/2025 09:37 Report Date: 05/15/2025 11:07 At the request of: JESSICA CRUZ DO Procedure: US OB anatomy CLINICAL DATA: OB anatomy survey COMPARISON: 03/22/2025 ULTRASOUND OB ANATOMY There is a single live intrauterine gestation in cephalic presentation.The amniotic fluid volume is subjectively normal. The placenta is anterior. There is a suspected venous silva measuring 3.2 x 1.1 x 3.0 cm in sizewithin the placenta inferiorly. There is cardiac and somatic activity with heart rate of 148 bpm. The neural axis and all 4 extremities weresurveyed by the territory sales executive and no abnormalities were detected. The stomach, bladder, three-vessel cord with insertion, kidneys, diaphragm, facial features, four-chamber heart with right and left ventricular outflowtracts and female anatomy are seen. The following measurements were obtained: Biparietal diameter 5.0 cm 21 weeks 1 day 71% Head circumference 19.4 cm 20 weeks 5 days 50% Abdominal circumference 16.1 cm 21 weeks 1 day 64% Femur length 3.5 cm 21 weeks 0 days 56% The composite ultrasound age based on these measurements is 21 weeks 0days +/- 1 week 3 days. US/US OB cervical length IMPRESSION: SINGLE LIVE INTRAUTERINE GESTATION WITH ULTRASOUND AGE OF 21 WEEKS 0 DAYS. SUSPECTED PLACENTAL VENOUS SILVA. UNREMARKABLE ANATOMY SURVEY. ULTRASOUND OB CERVICAL LENGTH The cervix was evaluated with a transvaginal probe. The placenta isanterior and approximately 7 cm from the internal cervical os. The cervix isclosed with estimated length of 5 cm. IMPRESSION: CLOSED CERVIX. Impression dictated by: Brooke Blevins M.D. 05/15/2025 11:07 AM Dictation Location: [place] Electronically authenticated by: [id number] Y Date: 1:07 Dictated By: Brooke Blevins M.D. Signed By:05/15/25 1110 DD/ 1107 TD/TT: Tapper Bit: us Jessica Cruz DO CLINISYNC IMAGING Final Result * US OB ANATOMY (05/15/2025 11:07 AM EDT) Anatomical Region Laterality Modality Other 05/15/2025 11:0 7 AM EDT Narrative 05/15/2025 11:10 [place] [address] Ultrasound Report Signed Patient: MIMI BYNUM MR#: [id number] : 2000 Acct:[id number] Age/Sex: 24 / F ADM Date: 05/15/25 Loc: US Attending Dr: Jessica Cruz D.O. Ordering Physician: Jessica Cruz D.O. Date of Service: 05/15/25 Procedure(s): US OB anatomy Accession Number(s): [id number] cc: Jessica Cruz D.O.; Physician,Non-Staff [place] [address] Patient Name: MIMI BYNUM MRN: [id number] date: 2000 Sex: F Assigned Patient Location: US Current Patient Location: US Accession/Order Number: [id number] Exam Date: 05/15/2025 09:37 Report Date: 05/15/2025 11:07 At the request of: JESSICA CRUZ DO Procedure: US OB anatomy CLINICAL DATA: OB anatomy survey COMPARISON: 03/22/2025 ULTRASOUND OB ANATOMY There is a single live intrauterine gestation in cephalic presentation. The amniotic fluid volume is subjectively normal. The placenta is anterior. There is a suspected venous silva measuring 3.2 x 1.1 x 3.0 cm in size within the placenta inferiorly. There is cardiac and somatic activity with heart rate of 148 bpm. The neural axis and all 4 extremities were surveyed by the territory sales executive and no abnormalities were detected. The stomach, bladder, three-vessel cord with insertion, kidneys, diaphragm, facial features, four-chamber heart with right and left ventricular outflow tracts and female anatomy are seen. The following measurements were obtained: Biparietal diameter 5.0 cm 21 weeks 1 day 71% Head circumference 19.4 cm 20 weeks 5 days 50% Abdominal circumference 16.1 cm 21 weeks 1 day 64% Femur length 3.5 cm 21 weeks 0 days 56% The composite ultrasound age based on these measurements is 21 weeks 0 days +/- 1 week 3 days. US/US OB anatomy IMPRESSION: SINGLE LIVE INTRAUTERINE GESTATION WITH ULTRASOUND AGE OF 21 WEEKS 0 DAYS. SUSPECTED PLACENTAL VENOUS SILVA. UNREMARKABLE ANATOMY SURVEY. ULTRASOUND OB CERVICAL LENGTH The cervix was evaluated with a transvaginal probe. The placenta is anterior and approximately 7 cm from the internal cervical os. The cervix is closed with estimated length of 5 cm. IMPRESSION: CLOSED CERVIX. Impression dictated by: Brooke Blevins M.D. 05/15/2025 11:07 AM Dictation Location: [place] Electronically authenticated by: [id number] Y Date: 05/15/2025 11:07 Dictated By: Brooke Blevins M.D. Signed By: 05/15/25 1110 DD/ 1107 TD/TT: Tapper Bit: Procedure Note Radiology, Radiologist, - 05/15/2025 [place] [address] Ultrasound Report Signed Patient: MIMI BYNUM [facility]#: [id number] : 2000Acct:[id number] Age/Sex: 24 / FADM Date: 05/15/25 Loc: US Attending Dr: Jessica Cruz D.O. Ordering Physician: Jessica Cruz D.O. Date of Service: 05/15/25 Procedure(s): US OB anatomy Accession Number(s): [id number] cc: Jessica Cruz D.O.; Physician,Non-Staff [place] [facility] [place] [id number] Patient Name: MIMI BYNUM MRN: [id number] date: 2000 Sex: F Assigned Patient Location: US Current Patient Location: US Accession/Order Number: [id number] Exam Date: 05/15/2025 09:37 Report Date: 05/15/2025 11:07 At the request of: JESSICA CRUZ DO Procedure: US OB anatomy CLINICAL DATA: OB anatomy survey COMPARISON: 03/22/2025 ULTRASOUND OB ANATOMY There is a single live intrauterine gestation in cephalic presentation.The amniotic fluid volume is subjectively normal. The placenta is anterior. There is a suspected venous silva measuring 3.2 x 1.1 x 3.0 cm in sizewithin the placenta inferiorly. There is cardiac and somatic activity with heart rate of 148 bpm. The neural axis and all 4 extremities weresurveyed by the territory sales executive and no abnormalities were detected. The stomach, bladder, three-vessel cord with insertion, kidneys, diaphragm, facial features, four-chamber heart with right and left ventricular outflowtracts and female anatomy are seen. The following measurements were obtained: Biparietal diameter 5.0 cm 21 weeks 1 day 71% Head circumference 19.4 cm 20 weeks 5 days 50% Abdominal circumference 16.1 cm 21 weeks 1 day 64% Femur length 3.5 cm 21 weeks 0 days 56% The composite ultrasound age based on these measurements is 21 weeks 0days +/- 1 week 3 days. US/US OB anatomy IMPRESSION: SINGLE LIVE INTRAUTERINE GESTATION WITH ULTRASOUND AGE OF 21 WEEKS 0 DAYS. SUSPECTED PLACENTAL VENOUS SILVA. UNREMARKABLE ANATOMY SURVEY. ULTRASOUND OB CERVICAL LENGTH The cervix was evaluated with a transvaginal probe. The placenta isanterior and approximately 7 cm from the internal cervical os. The cervix isclosed with estimated length of 5 cm. IMPRESSION: CLOSED CERVIX. Impression dictated by: Brooke Blevins M.D. 05/15/2025 11:07 AM Dictation Location: [place] Electronically authenticated by: [id number] Y Date: 1:07 Dictated By: Brooke Blevins M.D. Signed By:05/15/25 1110 DD/ 1107 TD/TT: Tapper Bit: [facility] Anthony DO CLINISYNC IMAGING Final Result * AFP, SERUM, OPEN SPINA BIFIDA (04/13/2025 9:46 AM EDT) RESULTS Report . [facility] TEST RESULTS: *Screen Negative* . [facility] GEST. AGE ON COLLECTION DATE 16.0 . weeks [facility] GESTAT. AGE BASED ON Ultrasound . [facility] Comment: 16.0 on 04/13/2025 Recalculations are not recommended when gestational dating by LMP and ultrasound are within 10 days. [age] [facility] RACE . [facility] WEIGHT 148 . lbs [facility] INSULIN DEP DIABETES No . [facility] MULTIPLE GESTATION No . [facility] AFP VALUE 25.3 . ng/mL [facility] AFP MOM 0.76 . [facility] [place] [address] [place] [address] . [facility] INTERPRETATION Comment . [facility] Comment: Interpretation: Screen Negative This result is screen negative for [...] Customer Services to discuss available options. The [employer] recommends amniocentesis be offered to women age 35 and older. COMMENT: Comment . [facility] Comment: Kanika Mancia, Ph.D., [facility] Director References: Available Upon Request. Multiples Of Median Cutoffs For AFP Elevations Dangelo 2.5 Black 2.8 IDD 2.0 Twins 4.5 Abbreviation Definitions IDD - Insulin Dep Diabetes OSBR - Open Spina Bifida Risk For further inquiries contact [facility] at [phone]. This test was developed and its performance characteristics determined by [employer]. It has not been cleared or approved by the Food and Drug Administration. Performed at: [facility] [address] [id number] Raw Silk Grader: Goldy Meyers [facility], Phone: [phone] 04/13/2025 9:46 AM EDT 04/13/2025 9:58 AM EDT Narrative CLINISYNC - 04/15/2025 1:09 AM EDT N N ULTRASOUND [id number] 16 N 1 Y 148 N N Y N N White/ Jessica Anthony DO LAB BLOOD ORDERABLES Final Resul t [facility] * Urine culture (04/10/2025 8:34 AM EDT) Urine Urine specimen obtained by clean catch procedure / Unknown Jessica Anthony DO LAB MICROBIOLOGY - GENERAL ORDER SHAHNAZ Final Result EXTERNAL LAB * BOX TEST (03/22/2025 10:16 AM EDT) BOX TEST SENT OUT [facility] BOX1 [facility] BOX2 03/22/25 TB 03/22/2025 10:1 6 AM EDT 03/22/2025 10:24 AM EDT Narrative CLINISYNC - 03/22/2025 10:32 AM EDT us Jessica Anthony DO LAB BLOOD ORDERABLES Final Resul t Performing Organization Address City/[facility]/ZIP Co de Phone Number [facility] * HBSAG SCREEN (03/22/2025 10:16 AM EDT) Pathologist [facility] HBSAG SCREEN Negative Negative [facility] Comment: Performed at: [address] [id number] Raw Silk Grader: Willis Diane PhD, Phone: [phone] 03/22/2025 10:1 6 AM EDT 03/22/2025 10:24 AM EDT Narrative CLINISYNC - 03/23/2025 12:09 PM EDT us Jessica Anthony DO LAB BLOOD ORDERABLES Final Resul t Performing Organization Address [facility] de Phone Number [facility] * RAPID PLASMA REAGIN, QUANT (03/22/2025 10:16 AM EDT) [facility] RAPID PLASMA REAGIN, QUANT Non Reactive NonRea<1: 1 titer [facility] Comment: Please Note: This test does not meet current guidelines for screening and diagnosis of syphilis. This test is intended for following treatment response in patients being treated for syphilis infection. To screen for syphilis infection, a reflex cascade that includes both RPR and a treponema-specific assay should be utilized, such as Treponema pallidum (Syphilis) Screening [place] (317679) or Rapid Plasma Reagin (RPR) Test With Reflex to Quantitative RPR and Confirmatory Treponema pallidum Antibodies (928070). Performed at: [address] [id number] Raw Silk Grader: Willis Diane PhD, Phone: [phone] 03/22/2025 10:1 6 AM EDT 03/22/2025 10:24 AM EDT Narrative CLINISYNC - 03/23/2025 12:09 PM EDT us Jessica Anthony DO LAB BLOOD ORDERABLES Final Resul t Performing Organization Address [facility] Co de Phone Number [facility] * HIV AB/P24 AG WITH REFLEX (03/22/2025 10:16 AM EDT) Pathologist [facility] HIV AB/P24 AG SCREEN Non Reactive Non Reactive [facility] Comment: HIV-1/HIV-2 antibodies and HIV-1 p24 antigen were NOT detected. There is no laboratory evidence of HIV infection. HIV Negative Performed at: [facility] [address] [id number] Raw Silk Grader: Willis Diane PhD, Phone: [phone] 03/22/2025 10:1 6 AM EDT 03/22/2025 10:24 AM EDT Narrative [facility] - 03/23/2025 5:08 AM EDT Jessica Anthony DO LAB BLOOD ORDERABLES Final Resul t Performing Organization Address [facility] de Phone Number [facility] * HCV ANTIBODY RFX TO QUANT PCR (03/22/2025 10:16 AM EDT) Pathologist [facility] HCV AB Non Reactive Non Reactive [facility] INTERPRETATION: Comment . [facility] Comment: Not infected with HCV unless early or acute infection is suspected (which may be delayed in an immunocompromised individual), or other evidence exists to indicate HCV infection. 03/22/2025 10:1 6 AM EDT 03/22/2025 10:24 AM EDT [facility]ative [facility] - 03/23/2025 6:08 AM EDT us Jessica Anthony DO LAB BLOOD ORDERABLES Final Resul t Performing Organization Address [facility] Co de Phone Number [facility] * MLR HEMOGLOBIN A1C (03/22/2025 10:16 AM EDT) [facility] GLYCOHEMOGLOBIN A1C 5.2 4.5 - 6.2 % [facility] Comment: ADA RECOMMENDED LIMIT 4.0 - 6.0 ADA THERAPEUTIC TARGET < 7.0 ACTION SUGGESTED > 7.0 ESTIMATED AVERAGE GLUCOSE 103 mg/dL [facility] 03/22/2025 10:1 6 AM EDT 03/22/2025 10:24 AM EDT Narrative CLINISYNC - 03/22/2025 11:01 AM EDT Jessica Anthony DO CLINISYNC Final Result Performing Organization Address [facility]/ZIP Co de Phone Number [facility] * ALL TYPE AND SCREEN (03/22/2025 10:16 AM EDT) Pathologist [facility] BLOOD TYPE A Positive [facility] ANTIBODY SCREEN NEGATIVE [facility] 03/22/2025 10:1 6 AM EDT 03/22/2025 10:24 AM EDT Narrative CLINISYNC - 03/22/2025 11:28 AM EDT [facility] , Jessica Anthony DO CLINISYNC Final Result Performing Organization Address [facility] Co hi Phone Number [facility] * ALL RUBELLA IGG AB (03/22/2025 10:16 AM EDT) Pathologist [facility] RUBELLA ANTIBODIES, IGG 10.20 Immune >0.99 index [facility] Comment: Non-immune <0.90 Equivocal 0.90 - 0.99 Immune >0.99 Performed at: - [address] [id number] Raw Silk Grader: Willis Diane PhD, Phone: [phone] 03/22/2025 10:1 6 AM EDT 03/22/2025 10:24 AM EDT Narrative CLINISYNC - 03/23/2025 6:08 AM EDT Jessica Anthony DO CLINISYNC Final Result Performing Organization Address [facility] Co de Phone Number [facility] * (ABNORMAL) ALL CBC WITH AUTO DIFF (03/22/2025 10:16 AM EDT) Pathologist [facility] WBC 8.0 4.0 - 11.0 10 3/uL [facility] TB RBC 3.99(L) 4.20 - 5.40 10 6/uL [...] - 03/22/2025 10:37 AM EDT us Jessica Rappo DO CLINISYNC Final Result CLINISYNC [facility] * US OB L= 14 WEEKS FETUS (03/22/2025 10:11 AM EDT) Anatomical Region Laterality Modality Other 03/22/2025 10:1 1 AM EDT Narrative 03/22/2025 10:13 [place] [address] Ultrasound Report Signed Patient: MIMI BYNUM MR#: [id number] : 2000 Acct:[id number] Age/Sex: 24 / F ADM Date: 03/22/25 Loc: US Attending Dr: Jessica Cruz D.O. Ordering Physician: Jessica Cruz D.O. Date of Service: 03/22/25 Procedure(s): US OB <= 14 weeks fetus Accession Number(s): [id number] cc: Jessica Cruz D.O.; Physician,Non-Staff MDiane [facility] [place] [id number] Patient Name: MIMI BYNUM MRN: [facility]:[id number] date: 2000 Sex: F Assigned Patient Location: US Current Patient Location: LAB Accession/Order Number: [id number] Exam Date: 03/22/2025 10:07 Report Date: 03/22/2025 [...] Blevins M.D. 03/22/2025 10:11 AM Dictation Location: [place] [address] Electronically authenticated by: [id number] Y Date: 03/22/2025 10:11 Dictated By: Brooke Blevins M.D. Signed By: 03/22/25 1013 DD/ 1011 TD/TT: Tapper Bit: Procedure Note Radiology, Radiologist, MD - 03/22/2025 [place] [address] Ultrasound Report Signed Patient: MIMI BYNUM NMR#: [id number] : 2000Acct:[id number] Age/Sex: 24 / FADM Date: 03/22/25 Loc: US Attending Dr: Jessica Cruz D.O. Ordering Physician: Jessica Cruz D.O. Date of Service: 03/22/25 Procedure(s): US OB <= 14 weeks fetus Accession Number(s): [id number] cc: Jessica Cruz D.O.; Physician,Non-Staff [place] [address] Patient Name: MIMI BYNUM MRN: [id number] date: 2000 Sex: F Assigned Patient Location: US Current Patient Location: LAB Accession/Order Number: [id number] Exam Date: 03/22/2025 10:07 Report Date: 03/22/2025 [...] Blevins M.D. 03/22/2025 10:11 AM Dictation Location: [place] [address] Electronically authenticated by: [id number] Y Date: 0:11 Dictated By: Brooke Blevins M.D. Signed By:03/22/25 1013 DD/ 1011 TD/TT: Tapper Bit: us Jessica Anthony DO [facility] Final Result * TB DRUG SCREEN RAPID (URINE) (03/22/2025 10:01 AM [...] Narrative [facility] - 03/22/2025 10:55 AM EDT Jessica Rappo DO [facility] Final Result [facility] * (ABNORMAL) POCT , urine manually resulted (03/22/2025 9:52 AM EDT) Preg Test, Ur Positive Negative Urine 03/22/2025 9:52 AM EDT Jessica Cruz DO POINT OF CARE TEST ENTER/EDIT OR DERABLES Final Result from Last 3 Months Insurance [employer] Care Teams Deep Fryer Assembler Relationship Specialty Start Date End Date Burton Richardson MD [address] [place] [address] PCP - General Family Medicine 04/02/23
--- OUTSIDE RECORDS SUMMARY | 2025-06-13 12:21 | XMS_ITS | Encounter Summary ---
Author Organization [facility] Address [address] [place] [address] Care Team Providers Care Driver'S License Reviewing Officer Name Role Phone Burton Richardson MD Primary Care Provider [phone] Encounter Details Date Type Department Care Team (Late Contact Info) Description 05/24/2024 Abstract [facility] [address] [facility] [phone] Davide Cruz DO [address] [facility] [address] Jostin Dolan, [id number] Social History Tobacco Use Types Packs/Day Years [...] 07/11/2025 11:20 AM EDT Routine [facility] [address] [place] [address] [place] [address] Jaz Tobin PA [address] [facility] [address] [place], [place] [id number] documented as of this encounter Visit Diagnoses Not on filedocumented in this encounter Care Teams Driver'S License Reviewing Officer Relationship Specialty Start Date End Date Burton Richardson MD [address] [place] [phone] PCP - General Family Medicine 04/02/23 documented as of this encounter
--- OUTSIDE RECORDS SUMMARY | 2025-06-13 12:21 | XMS_ITS | Encounter Summary ---
Author Organization [facility] Address [address] [place] [address] Care Team Providers Care Visitor Services Information Assistant Name Role Phone Burton Richardson MD Primary Care Provider [phone] Encounter Details Date Type Department Care Team (Late Contact Info) Description 03/08/2025 Abstract [facility] [address] [place] [address] [place] [phone] Davide Cruz DO [address] [facility] [address] Jostin Dolan, [facility]11 Social History Tobacco Use Types Packs/Day [...] 07/11/2025 11:20 AM EDT Routine [facility] [address] [place] [address] [place] [address] Jaz Tobin PA [address] [facility] [address] [place], [place] [id number] documented as of this encounter Visit Diagnoses Not on filedocumented in this encounter Care Teams Visitor Services Information Assistant Relationship Specialty Start Date End Date Burton Richardson MD [address] [place] [phone] PCP - General Family Medicine 04/02/23 documented as of this encounter
--- OUTSIDE RECORDS SUMMARY | 2025-06-13 12:21 | XMS_ITS | Encounter Summary ---
Author Organization [facility] Address [address] [place] [address] Care Team Providers Care Health Insurance Specialist Name Role Phone Burton Richardson MD Primary Care Provider [phone] Encounter Details Date Type Department Care Team (Late Contact Info) Description 03/16/2025 Orders Only [facility] [address] [phone] Shaniak Cormier LPN [address] [facility]11 Social History Tobacco Use Types Packs/Day Years [...] Description 07/11/2025 11:20 AM EDT Routine [facility] [address] [address] Jaz Tobin PA [address] [place], [place] [id number] documented as of this encounter Procedures Procedure Name Priority Date/Time Associated Diagnosis Comments PAP SMEAR Routine 10/15/2022 12:00 AM EST documented in this encounter Results * (ABNORMAL) Pap Smear (10/15/2022 12:00 AM EST) Swab Cervical swab / Unknown Anthony Nurse [facility] CYTOLOGY ORDERABLES Final Result EXTERNAL LAB documented in this encounter Visit Diagnoses Not on filedocumented in this encounter Care Teams Health Insurance Specialist Relationship Specialty Start Date End Date Burton Richardson MD [address] [place] [address] PCP - General Family Medicine 04/02/23 documented as of this encounter
--- OUTSIDE RECORDS SUMMARY | 2025-06-13 12:21 | XMS_ITS | Encounter Summary ---
Author Organization [facility] Address [address] [facility] [place] [address] Care Team Providers Care Wine And Spirits Clerk Name Role Phone Burton Richardson MD Primary Care Provider [phone] Encounter Details Date Type Department Care Team (Late Contact Info) Description 03/30/2025 Abstract [facility] [address] [facility] [phone] Nikki Rayo MA Social History Tobacco Use [...] 11:20 AM EDT Routine [facility] [address] [place] [phone] Jaz Tobin PA [address] [place] [address] documented as of this encounter Visit Diagnoses Not on filedocumented in this encounter Care Teams Wine And Spirits Clerk Relationship Specialty Start Date End Date Burton Richardson MD [address] [place] [address] PCP - General Family Medicine 04/02/23 documented as of this encounter
--- OUTSIDE RECORDS SUMMARY | 2025-06-13 12:22 | XMS_ITS | Encounter Summary ---
Author Organization [facility] Address [address] [place] [address] Care Team Providers Care Director Of Integrated Marketing Name Role Phone Burton Richardson MD Primary Care Provider [phone] Encounter Details Date Type Department Care Team (Latest Contact Info) Description 06/06/2025 Travel Social History Tobacco Use Types Packs/Day [...] 07/11/2025 11:20 AM EDT Routine [facility] [address] [facility] [place] [phone] Jaz Tobin PA [address] [facility] [address] [place], [facility]11 documented as of this encounter Visit Diagnoses Not on filedocumented in this encounter Care Teams Director Of Integrated Marketing Relationship Specialty Start Date End Date Burton Richardson MD [address] [facility] [place] [address] PCP - General Family Medicine 04/02/23 documented as of this encounter
--- OUTSIDE RECORDS SUMMARY | 2025-06-13 12:24 | XMS_ITS | CCD ---
Author Organization [facility] Care Team Providers Care Elevator Mechanic Name Role Phone AVERY ., DR OLIVAREZ Admitting Unavailable HOY ., DR OLIVAREZ Attending Unavailable MISC, DR CAGLE Primary Care Unavailable ANTHONY ., DR LOPEZ Admitting Unavailable ANTHONY ., DR LPOEZ Attending Unavailable MISC, DR CAGLE Primary Care [...] Unavailable Sher Richardson MD Primary Care Provider [phone] Sher Richardson MD Primary Care Provider [phone] JESSICA CRUZ Attending Unavailable WOLFJAZ SINCLAIR Attending Unavailable Medications Current Medications Medication Drug Class(es) Dates Sig (Normalized) Sig (Original) Vve-Hzk-FO-Fish Oil ([facility]) 0.4-113.5 MG chewable tablet (14 sources) Enh-Mhr-PF-Fish Oil ([facility]) 0.4-113.5 MG chewable tablet Chew 1 tablet in the morning. Active Completed/Discontinued Medications Medication Drug Class(es) Dates Sig (Normalized) Sig (Original) 1 ml medroxyPROGESTERone acetate 150 mg/ml injection (6 sources) Progestin Start: 3 End: 5 medroxyPROGESTERone (Depo-Provera) injection 150 mg Start: 02-25-2023 [...] OF CERVIX] Onset: 10-16-2022 Episodic Menstrual disorders (20 sources) Dysmenorrhea, unspecified; Translations: [Dysmenorrhea] Onset: 12-18-2021 Chronic Other female genital disorders (1 source) Unspecified dyspareunia; Translations: [UNSPECIFIED DYSPAREUNIA] Onset: 12-25-2021 Chronic Other and delivery including normal (20 sources) Urine test positive; Translations: [Encounter for test, result positive] Onset: 03-08-2025 03-22-2025 Episodic Other screening for suspected conditions (not mental disorders or infectious disease) (8 sources) Encounter for screening for malignant neoplasm of cervix; Translations: [Patient encounter status] Onset: 02-12-2022 Episodic Residual codes; unclassified (1 source) Gestation period, 12 weeks; Translations: [12 weeks gestation of ] 03-22-2025 Episodic Residual codes; unclassified (2 sources) Gestation period, 16 weeks; Translations: [16 weeks gestation of ] 04-13-2025 Episodic Residual codes; unclassified (2 sources) Gestation period, 20 weeks; Translations: [20 weeks gestation of ] 05-15-2025 Episodic Residual codes; unclassified (4 sources) Gestation period, 24 weeks; Translations: [24 weeks gestation of ] Onset: 06-13-2025 06-13-2025 Episodic Unclassified (1 source) CONTACT W/AND (SUSP) EXPOS COVID-19; Translations: [CONTACT W/AND (SUSP) EXPOS COVID-19] Onset: 12-18-2021 Past or Other Problems Problem Classification Problem Date Documented Date Episodic/Chronic Abdominal pain (1 source) Pelvic and perineal pain; Translations: [PELVIC AND PERINEAL PAIN] Onset: 12-25-2021 Episodic Other female genital disorders (16 sources) Pain on movement of cervix; Translations: [...] Test Name Value Interpretation Reference Range Facility Urinalysis macro (dipstick) panel (U)on 06-13-2025 Bilirubin, UA Negative Negative - 4(70) +++ mg/dL [facility] Blood, UA Negative Negative - 50 Tim/mcL [facility] Clarity, UA Clear [facility] Color, UA Yellow [facility] Glucose, UA Negative Negative - 1999(110) ++++ mg/dL [facility] Interpretation and review of laboratory results Abnormal [facility] Ketones, UA Negative Negative - 160(16) ++++ mg/dL [facility] Leukocytes, UA 3+ Negative - 500+++ Genoveva/mcL [facility] Nitrite, UA Negative Negative - Positive [facility] pH, UA 6.5 5 - 9 [facility] Protein, UA Trace Negative - 1999(20) ++++ mg/dL [facility] Spec Grav, UA 1.015 1 - 1.03 [facility] Urobilinogen, UA 0.2 0.2 - 12 mg/dL [facility] No Panel InformationOrdered By: Radiologist Radiology on 05-15-2025 [facility] Work Phone: No Panel Informationon 05-15 Radiology Study observation (narrative) [facility] US OB ANATOMYon 05-15-[address] [address] Ultrasound Report Signed Patient: MIMI BYNUM MR#: [id number] : 2000 Acct:[id number] Age/Sex: 24 / F ADM Date: 05/15/25 Loc: US Attending Dr: Jessica Cruz D.O. Ordering Physician: Jessica Cruz D.O. Date of Service: 05/15/25 Procedure(s): US OB anatomy Accession Number(s): [id number] cc: Jessica Cruz D.O.; Physician,Non-Staff M.DTanisha [place] [address] Patient Name: MIMI BYNUM MRN: [id number] date: 2000 Sex: F Assigned Patient Location: US Current Patient Location: US Accession/Order Number: [id number] Exam Date: 05/15/2025 09:37 Report Date: 05/15/2025 [...] all 4 extremities were surveyed by the post graduate internship and no abnormalities were detected. The stomach, [...] Blevins M.D. 05/15/2025 11:07 AM Dictation Location: [place] [address] Electronically authenticated by: [id number] Y Date: 05/15/2025 11:07 Dictated By: Brooke Blevins M.D. Signed By: 05/15/25 1110 DD/ 1107 TD/TT: Electronic Parts Designer: [facility] Radiology, Radiologist, MD - 05/15/2025 [place] [address] Ultrasound Report Signed Patient: MIMI BYNUM MR#: [id number] : 2000 Acct:[id number] Age/Sex: 24 / F ADM Date: 05/15/25 Loc: US Attending Dr: Jessica Cruz D.O. Ordering Physician: Jessica Cruz D.O. Date of Service: 05/15/25 Procedure(s): US OB anatomy Accession Number(s): [id number] cc: Jessica Cruz D.O.; Physician,Non-Staff [facility] The [address] [id number] Patient Name: MIMI BYNUM MRN: [facility]:[id number] date: 2000 Sex: F Assigned Patient Location: US Current Patient Location: US Accession/Order Number: [id number] Exam Date: 05/15/2025 09:37 Report Date: 05/15/2025 [...] all 4 extremities were surveyed by the post graduate internship and no abnormalities were detected. The stomach, [...] Blevins M.D. 05/15/2025 11:07 AM Dictation Location: [employer] Electronically authenticated by: [id number] Y Date: 05/15/2025 11:07 Dictated By: Brooke Blevins M.D. Signed By: 05/15/25 1110 DD/ 1107 TD/TT: Electronic Parts Designer: [facility] CERVICAL LENGTHon 04-22 [place] [address] Ultrasound Report Signed Patient: MIMI BYNUM MR#: [id number] : 2000 Acct:[id number] Age/Sex: 24 / F ADM Date: 05/15/25 Loc: US Attending Dr: Jessica Cruz D.O. Ordering Physician: Jessica Cruz D.O. Date of Service: 05/15/25 Procedure(s): US OB cervical length Accession Number(s): [id number] cc: Jessica Cruz D.O.; Physician,Non-Staff MDiane [place] [id number] Patient Name: MIMI BYNUM MRN: [facility]:[id number] date: 2000 Sex: F Assigned Patient Location: US Current Patient Location: Accession/Order Number: [id number] Exam Date: 05/15/2025 09:37 Report Date: 05/15/2025 [...] all 4 extremities were surveyed by the post graduate internship and no abnormalities were detected. The stomach, [...] Blevins M.D. 05/15/2025 11:07 AM Dictation Location: [facility] Electronically authenticated by: [id number] Y Date: 05/15/2025 11:07 Dictated By: Brooke Blevins M.D. Signed By: 05/15/25 1110 DD/ 1107 TD/TT: Electronic Parts Designer: [facility] Radiology, Radiologist, MD - 05/15/2025 [place] [address] Ultrasound Report Signed Patient: MIMI BYNUM MR#: [id number] : 2000 Acct:[id number] Age/Sex: 24 / F ADM Date: 05/15/25 Loc: US Attending Dr: Jessica Cruz D.O. Ordering Physician: Jessica Cruz D.O. Date of Service: 05/15/25 Procedure(s): US OB cervical length Accession Number(s): [id number] cc: Jessica Cruz D.O.; Physician,Non-Staff [facility] [address] [address] Patient Name: MIMI BYNUM MRN: [facility]:[id number] date: 2000 Sex: F Assigned Patient Location: US Current Patient Location: US Accession/Order Number: [id number] Exam Date: 05/15/2025 09:37 Report Date: 05/15/2025 [...] all 4 extremities were surveyed by the post graduate internship and no abnormalities were detected. The stomach, [...] Blevins M.D. 05/15/2025 11:07 AM Dictation Location: [employer] Electronically authenticated by: [id number] Y Date: 05/15/2025 11:07 Dictated By: Brooke Blevins M.D. Signed By: 05/15/25 1110 DD/ 1107 TD/TT: Electronic Parts Designer: [facility] Urinalysis macro (dipstick) panel (U)on 05-15-2025 Bilirubin, UA Negative Negative - 4(70) +++ mg/dL [facility] Blood, UA Negative Negative - 50 Tim/mcL [facility] Clarity, UA Clear [facility] Color, UA Yellow [facility] Glucose, UA Negative Negative - 1999(110) ++++ mg/dL [facility] Interpretation and review of laboratory results Abnormal [facility] Ketones, UA Negative Negative - 160(16) ++++ mg/dL [facility] Leukocytes, UA Positive Negative - 500+++ Genoveva/mcL [facility] Comment on above: 3+ Nitrite, UA Negative Negative - Positive [facility] pH, UA 7.5 5 - 9 [facility] Protein, UA Negative Negative - 1999(20) ++++ mg/dL [facility] Spec Grav, UA 1.01 1 - 1.03 [facility] Urobilinogen, UA 0.2 0.2 - 12 mg/dL [facility] AFP, SERUM, OPEN SPINA BIFID Aon 04-15-2025 AFP MOM 0.76 . [facility] AFP VALUE 25.3 ng/mL . [facility] COMMENT: Comment . [facility] Comment on above: Kanika Mancia , Ph.D., [facility] Director References: Available Upon Request. Multiples Of Median Cutoffs For AFP Elevations Dangelo 2.5 Black 2.8 IDD 2.0 Twins 4.5 Abbreviation Definitions IDD - Insulin Dep Diabetes OSBR - Open Spina Bifida Risk For further inquiries contact [employer] at [phone]. This test was developed and its performance characteristics determined by [facility]. It has not been cleared or approved by the Food and Drug Administration. Performed at: [facility] [address] [place], [place] [id number] Tank Pumper Panelboard: Goldy Meyers [facility], Phone: [phone] GEST. AGE ON COLLECTION DATE 16.0 . weeks [facility] GESTAT. AGE BASED ON Ultrasound . [facility] Comment on above: 16.0 on 04/13/2025 Recalculations are not recommended when gestational dating by LMP and ultrasound are within 10 days. INSULIN DEP DIABETES No . [facility] INTERPRETATION Comment . [facility] Comment on above: Interpretation: Scre en Negative [...] Customer Services to discuss available options. The [employer] recommends amniocentesis be offered to women age 35 and older. [age] [facility] MULTIPLE GESTATION No . [facility] OSBR RISK 1 [place] [address] . [facility] RACE . [facility] RESULTS Report . [facility] TEST RESULTS: Negative . [facility] WEIGHT 148 . lbs [facility] N N ULTRASOUND [id number] 16 N 1 Y 148 N N Y N N White/ [facility] Urinalysis macro (dipstick) panel (U)on 04-13-2025 Bilirubin, UA Negative Negative - 4(70) +++ mg/dL [facility] Blood, UA Negative Negative - 50 Tim/mcL [facility] Clarity, UA Clear [facility] Color, UA Yellow [facility] Glucose, UA Negative Negative - 2000(110) ++++ mg/dL [facility] Interpretation and review of laboratory results Abnormal [facility] Ketones, UA Negative Negative - 160(16) ++++ mg/dL [facility] Leukocytes, UA Moderate Negative - 500+++ Genoveva/mcL [facility] Nitrite, UA Negative Negative - Positive [facility] pH, UA 6 5 - 9 [facility] Protein, UA Trace Negative - 2000(20) ++++ mg/dL [facility] Spec Grav, UA 1.02 1 - 1.03 [facility] Urobilinogen, UA 1.0 0.2 - 12 mg/dL [facility] HCG ( test) Ql (U)o n 03-22-2025 Interpretation and review of laboratory results Abnormal [facility] Preg Test, Ur Positive Negative [facility] US OB L= 14 [place] [address] Ultrasound Report Signed Patient: MIMI BYNUM MR#: [id number] : 2000 Acct:[id number] Age/Sex: 24 / F ADM Date: 03/22/25 Loc: US Attending Dr: Jessica Cruz D.O. Ordering Physician: Jessica Cruz D.O. Date of Service: 03/22/25 Procedure(s): US OB <= 14 weeks fetus Accession Number(s): [id number] cc: Jessica Cruz D.O.; Physician,Non-Staff [facility] [address] [address] Patient Name: MIMI BYNUM MRN: [id number] date: 2000 Sex: F Assigned Patient Location: US Current Patient Location: LAB Accession/Order Number: [id number] Exam Date: 03/22/2025 10:07 Report Date: 03/22/2025 [...] Blevins M.D. 03/22/2025 10:11 AM Dictation Location: [place] [address] Electronically authenticated by: [id number] Y Date: 03/22/2025 10:11 Dictated By: Brooke Blevins M.D. Signed By: 03/22/25 1013 DD/ 1011 TD/TT: Electronic Parts Designer: [facility] Radiology, Radiologist, MD - 03/22/2025 [place] [address] Ultrasound Report Signed Patient: MIMI BYNUM MR#: [id number] : 2000 Acct:[id number] Age/Sex: 24 / F ADM Date: 03/22/25 Loc: US Attending Dr: Jessica Cruz D.O. Ordering Physician: Jessica Cruz D.O. Date of Service: 03/22/25 Procedure(s): US OB <= 14 weeks fetus Accession Number(s): [id number] cc: Jessica Cruz D.O.; Physician,Non-Staff [facility] The [place] [id number] Patient Name: MIMI BYNUM MRN: [facility]:[id number] date: 2000 Sex: F Assigned Patient Location: US Current Patient Location: LAB Accession/Order Number: [id number] Exam Date: 03/22/2025 10:07 Report Date: 03/22/2025 10:11 At the request of: JESSICA ANTHONY DO Procedure: US OB <= 14 weeks [...] Blevins M.D. 03/22/2025 10:11 AM Dictation Location: [place] [address] Electronically authenticated by: [id number] Y Date: 03/22/2025 10:11 Dictated By: Brooke Blevins M.D. Signed By: 03/22/25 1013 DD/ 1011 TD/TT: Electronic Parts Designer: [facility] Radiology Study observation (narrative) [facility] US OB L= 14 WEEKS FETUSOrder ed By: Radiologist Radiology on 03-22-2025 [facility] Work Phone: Urinalysis macro (dipstick) panel (U)on 03-22-2025 Bilirubin, UA Negative Negative - 4(70) +++ mg/dL [facility] Blood, UA Positive Negative - 50 Tim/mcL [facility] Comment on above: trace Clarity, UA Clear [facility] Color, UA Yellow [facility] Glucose, UA Negative Negative - 2000(110) ++++ mg/dL [facility] Interpretation and review of laboratory results Abnormal [facility] Ketones, UA Negative Negative - 160(16) ++++ mg/dL [facility] Leukocytes, UA Positive Negative - 500+++ Genoveva/mcL [facility] Comment on above: large Nitrite, UA Negative Negative - Positive [facility] pH, UA 7 5 - 9 [facility] Protein, UA Negative Negative - 2000(20) ++++ mg/dL [facility] Spec Grav, UA 1.01 1 - 1.03 [facility] Urobilinogen, UA 0.2 0.2 - 12 mg/dL [facility] PREG QUANT HCGon 024 HCG QUANTITATIVE 3 mIU/mL [facility] Comment on above: 5-50 0.2-1 WEEK 50-500 1-2 WEEKS 100-5,000 2-3 WEEKS 500-10,000 3-4 WEEKS 1,000-50,000 4-5 WEEKS 10,000-100,000 5-6 WEEKS 15,000-200,000 6-8 WEEKS 10,000-100,000 2[facility]on 024 HCG QUANTITATIVE 5 mIU/mL [facility] Comment on above: 5-50 0.2-1 WEEK 50-500 1-2 WEEKS 100-5,000 2-3 WEEKS 500-10,000 3-4 WEEKS 1,000-50,000 4-5 WEEKS 10,000-100,000 5-6 WEEKS 15,000-200,000 6-8 WEEKS 10,000-100,000 2[facility]fx Aptima HPV, rfx 16/18,45on 10-22-2022 . . Normal [facility] Comment on above: Result Comment: Perf ormed at: WB Performed By: #### P APHR2A #### [facility] [address] [place] [address] Dr. Romero Freeman DIAGNOSIS: Comment Normal [facility] Comment on above: Result Comment: NEGA TIVE FOR INTRAEPITHELIAL LESION OR MALIGNANCY. Performed at: WB Performed By: #### P APHR2A #### [facility] [address] [place] [address] Dr. Romero Freeman HPV Aptima Positive Abnormal Negative [facility] Comment on above: Result Comment: This nucleic acid amplification test detects fourteen high-risk HPV types (16,18,31,33,35,39,45,51,52,56,58,59,66,68) without differentiation. Performed at: =G Performed By: #### P APHR2A #### [facility] [address] [place] [address] [address] Romero Freeman HPV Genotype 16 Negative Normal Negative [facility] Comment on above: Performed By: #### P APHR2A #### [facility] [address] [place] [address] [address] Romero Freeman HPV Genotype 18,45 Negative Normal Negative [facility] Comment on above: Performed By: #### P APHR2A #### [facility] [address] [place] [address] [address] Romero Freeman HPV Genotype Reflex Comment Normal [facility] Comment on above: Result Comment: Roddy fitzgerald, see HPV Genotype results. Performed at: WB Performed By: #### P APHR2A #### [facility] [address] [place] [address] Dr. Romero Freeman Methodology: Comment Normal [facility] Comment on above: Result Comment: This liquid based ThinPrep(R) pap test was screened with the use of an image guided system. Performed at: WB Performed By: #### P APHR2A #### [facility] [address] [place] [address] Dr. Romero Freeman Note: Comment Normal [facility] Comment on above: Result Comment: [...] WB Performed By: #### P APHR2A #### [facility] [address] [place] [address] [address] Romero Freeman Performed by: Comment Normal [facility] Comment on above: Result Comment: Wale Hauser Front End Loader Operator (ASCP) Performed at: WB Performed By: #### P APHR2A #### [facility] [address] [place] [address] [address] Romero Freeman Specimen adequacy: Comment Normal [facility] Comment on above: Result Comment: Sati sfactory for evaluation. Endocervical and/or squamous metaplastic cells (endocervical component) are present. Performed at: WB Performed By: #### P APHR2A #### [facility] [address] [place] [address] [address] Romero Freeman Pap IG,rfx Aptima HPV all pt hon 02-17-2022 . . Normal [facility] Comment on above: Result Comment: Perf ormed at: BA Performed By: #### P APH11A #### [facility] [address] [place] [address] [address] Romero Freeman DIAGNOSIS: Comment Normal [facility] Comment on above: Result Comment: NEGA TIVE FOR INTRAEPITHELIAL LESION OR MALIGNANCY. Performed at: BA Performed By: #### P APH11A #### [facility] [address] [place] [address] Dr. Romero Freeman Methodology: Comment [facility] Comment on above: Result Comment: This liquid based ThinPrep(R) pap test was screened with the use of an image guided system. Performed at: WB Performed By: #### P APH11A #### [facility] [address] [place] [address] Dr. Romero Freeman Note: Comment [facility] Comment on above: Result Comment: The Pap smear is a screening test designed to aid in the detection of premalignant and malignant conditions of the uterine cervix. It is not a diagnostic procedure and should not be used as the sole means of detecting cervical cancer. Both false-positive and false-negative reports do occur. . Performed at: WB Performed By: #### P APH11A #### [facility] [address] [place] [address] Dr. Romero Freeman Performed by: Comment Normal [facility] Comment on above: Result Comment: Marisabel Castro, Front End Loader Operator (ASCP) Performed at: BA Performed By: #### P APH11A #### [facility] [address] [place] [address] Dr. Romero Freeman Reflex Criteria: Comment [facility] Comment on above: Result Comment: The HPV DNA reflex criteria were not met with this specimen result therefore, no HPV testing was performed. . Performed at: BA Performed By: #### P APH11A #### [facility] [address] [place] [address] Dr. Romero Freeman Specimen adequacy: Comment Normal [facility] Comment on above: Result Comment: Sati sfactory for evaluation. Endocervical and/or squamous metaplastic cells (endocervical component) are present. Performed at: BA Performed By: #### P APH11A #### [facility] [address] [place] [address] Dr. Romero Freeman CBC AUTO DIFFon 12-20-2021 BASO # 0.1 103/ul Normal 0.0-0.1 [facility] Comment on above: Performed By: #### C BC #### [facility] [address] [place] [address] Dr. Romero Freeman Basophils/100 WBC (Bld) 0.6 % Normal 0.2-2.0 [facility] Comment on above: Performed By: #### C BC #### [facility] [address] [place] [address] Dr. Romero Freeman EO # 0.7 103/ul Normal 0.0-0.7 [facility] Comment on above: Performed By: #### C BC #### [facility] [address] [place] [address] Dr. Romero Freeman Eosinophils/100 WBC (Bld) 8.6 % Critically high 0.9-7.0 [facility] Comment on above: Performed By: #### C BC #### [facility] [address] [place] [address] Dr. Romero Freeman Erythrocyte distribution width (RBC) [Ratio] 13.2 % Normal 11.0-15.0 [facility] Comment on above: Performed By: #### C BC #### [facility] [address] [place] [address] Dr. Romero Freeman Hematocrit (Bld) [Volume fraction] 42.2 % Normal 36.0-48.0 [facility] Comment on above: Performed By: #### C BC #### [facility] [address] [place] [address] Dr. Romero Freeman Hemoglobin (Bld) [Mass/Vol] 14.3 g/dL Normal 12.0-16.0 [facility] Comment on above: Performed By: #### C BC #### [facility] [address] [place] [address] Dr. Romero Freeman IG # 0.01 10e3/ul Normal 0.00-0.03 [facility] Comment on above: Performed By: #### C BC #### [facility] [address] [place] [address] Dr. Romero Freeman IG % 0.1 % Normal 0.0-0.5 [facility] Comment on above: Performed By: #### C BC #### [facility] [address] [place] [address] Dr. Romero Freeman LYMPH # 3.3 103/ul Normal 1.2-3.8 [facility] Comment on above: Performed By: #### C BC #### [facility] [address] [place] [address] Dr. Romero Freeman Lymphocytes/100 WBC (Bld) 40.8 % Normal 20.5-60.0 [facility] Comment on above: Performed By: #### C BC #### [facility] [address] [place] [address] Dr. Romero Freeman MANUAL DIFF REQ NO Normal [facility] Comment on above: Performed By: #### C BC #### [facility] [address] [place] [address] Dr. Romero Freeman MCH (RBC) [Entitic mass] 30.2 pg Normal 26.7-34.0 [facility] Comment on above: Performed By: #### C BC #### [facility] [address] [place] [address] Dr. Romero Freeman MCHC (RBC) [Mass/Vol] 33.9 g/dL Normal 29.9-35.2 [facility] Comment on above: Performed By: #### C BC #### [facility] [address] [place] [address] Dr. Romero Freeman MCV (RBC) [Entitic vol] 89.2 fL Normal 81.0-99.0 [facility] Comment on above: Performed By: #### C BC #### [facility] [address] [place] [address] Dr. Romero Freeman MONO # 0.7 103/ul Normal 0.3-0.8 [facility] Comment on above: Performed By: #### C BC #### [facility] [address] [place] [address] Dr. Romero Freeman Monocytes/100 WBC (Bld) 9.0 % Normal 1.7-12.0 [facility] Comment on above: Performed By: #### C BC #### [facility] [address] [place] [address] Dr. Romero Freeman NEUT # 3.3 103/ul Normal 1.4-6.5 [facility] Comment on above: Performed By: #### C BC #### [facility] [address] [place] [address] Dr. Romero Freeman Neutrophils/100 WBC (Bld) 40.9 % Critically low 43.0-75.0 [facility] Comment on above: Performed By: #### C BC #### [facility] [address] [place] [address] Dr. Romero Freeman Platelet mean volume (Bld) [Entitic vol] 8.6 fL Critically low 9.5-13.5 [facility] Comment on above: Performed By: #### C BC #### [facility] [address] [place] [address] Dr. Romero Freeman PLT 289 103/ul Normal 150-450 [facility] Comment on above: Performed By: #### C BC #### [facility] [address] [place] [address] Dr. Romero Freeman RBC 4.73 106/ul Normal 4.20-5.40 [facility] Comment on above: Performed By: #### C BC #### [facility] [address] [place] [address] Dr. Romero Freeman WBC 8.1 103/ul Normal 4.0-11.0 [facility] Comment on above: Performed By: #### C BC #### [facility] [address] [address] [address] Romero Freeman PREG QUANT HCGon 12-20-2021 HCG QUANT <1 Normal [facility] Comment on above: Performed By: #### P REGQNT #### [facility] [address] [address] [address] Romero Freeman HCG RANGE SEE BELOW Normal [facility] Comment on above: Result Comment: 5-50 0-1 WEEK 40-300 1-2 WEEKS 100-1,000 2-3 WEEKS 500-6,000 3-4 WEEKS 5,000-200,000 1-2 MONTHS 10,000-100,000 2-3 MONTHS 3,000-50,000 2ND TRIMESTER 1,000-50,000 3RD TRIMESTER Performed By: #### P REGQNT #### [facility] [address] [place] [address] Dr. Romero Freeman Covid-19 PCR (CVDTBH)on 11-20 SARS-CoV-2 (COVID-19) RNA ABEBE+probe Ql (Unsp spec) Not detected Normal NOT DETECTED [facility] Comment on above: Result Comment: When [...] for this test is supported by the Traffic Court Referee of Health and Human Service's declaration that [...] used). Performed By: #### C VDTBH #### [facility] [address] [address] [address] Romero Freeman Vital Signs Date Time Vital Sign Value Performing Clinician Charlie gary 06-13-2025 09:55-0400 Body mass index (BMI) [Ratio] 28.19 kg/m2 Jessica Anthony DO Work Phone: [facility] 06-13-2025 09:55-0400 Body weight 72.18 kg Jessica Anthony DO Work Phone: [facility] 06-13-2025 09:55-0400 Diastolic blood pressure 74 mm[Hg] Jessica Anthony DO Work Phone: [facility] 06-13-2025 09:55-0400 Systolic blood pressure 114 mm[Hg] Jessica Anthony DO Work Phone: [facility] 05-15-2025 10:52-0400 Body mass index (BMI) [Ratio] 27.1 kg/m2 Jaz BEARDEN Work Phone: [facility] 05-15-2025 10:52-0400 Body weight 69.4 kg Jaz BEARDEN Work Phone: [facility] 05-15-2025 10:52-0400 Diastolic blood pressure 70 mm[Hg] Jaz BEARDEN Work Phone: [facility] 05-15-2025 10:52-0400 Systolic blood pressure 122 mm[Hg] Jaz BEARDEN Work Phone: [facility] 04-13-2025 08:27-0400 Body mass index (BMI) [Ratio] 26.29 kg/m2 Jessica Anthony DO Work Phone: [facility] 04-13-2025 08:27-0400 Body weight 67.31 kg Jessica Anthony DO Work Phone: [facility] 04-13-2025 08:27-0400 Diastolic blood pressure 64 mm[Hg] Jsesica Anthony DO Work Phone: [facility] 04-13-2025 08:27-0400 Systolic blood pressure 120 mm[Hg] Jessica Anthony DO Work Phone: [facility] 03-22-2025 09:45-0400 Body mass index (BMI) [Ratio] 25.51 kg/m2 Anthony Ob [facility] 03-22-2025 09:45-0400 Body weight 65.32 kg Anthony Ob [facility] 03-22-2025 09:45-0400 Diastolic blood pressure 70 mm[Hg] Anthony Ob [facility] 03-22-2025 09:45-0400 Systolic blood pressure 118 mm[Hg] Anthony Ob [facility] Encounters Encounter Date Encounter Type Care Provider Facility Start: 06-13-2025 End: 06-13-2025 Bamboo flowsheet Jessica Anthony DO Work Phone: [facility] Start: 06-13-2025 End: 06-13-2025 Bamboo flowsheet Jessica Anthony DO Work Phone: [facility] Start: 06-13-2025 End: 06-13-2025 Patient encounter procedure Jessica Anthony DO Work Phone: [facility] Start: 06-13-2025 End: 06-13-2025 Periodic preventive med est patient 18-39 yrs Jessica Anthony DO Work Phone: [facility] Comment on above: Well woman exam with routine gynecological exam; care in second trimester, unspecified ([facility]); 24 weeks gestation of ([facility]); Diabetes mellitus screening Start: 05-15-2025 End: 05-15-2025 Bamboo flowsheet Jaz BEARDEN Work Phone: [facility] Start: 05-15-2025 End: 05-15-2025 Bamboo flowsheet Jaz BEARDEN Work Phone: [facility] Start: 05-15-2025 End: 05-15-2025 Clinisync Result Encounter Jessica Anthony DO Work Phone: [facility] External Department Unsolicited Start: 05-15-2025 End: 05-15-2025 ambulatory JAZ WOLF Not Available Start: 05-15-2025 End: 05-15-2025 Office outpatient visit 15 minutes Jaz Tobin PA Work Phone: [facility] Comment on above: Second trimester pre gnancy ([facility]); 20 weeks gestation of ([facility]) Start: 04-13-2025 End: 04-13-2025 Bamboo flowsheet Jessica [...] on above: 16 weeks gestation o f ([facility]); Second trimester ([facility]); Screening, , for anatomic survey ([facility]) Start: 04-13-2025 End: 04-13-2025 ambulatory JESSICA [...] 05-26-2024 End: 05-26-2024 Clinisync Result Encounter Jessica Rappo DO Work Phone: [facility] Unsolicited Start: 05-24-2024 End: 05-24-2024 Clinisync Result Encounter Jessica Rappo DO Work Phone: [facility] External Department Unsolicited Start: 05-24-2024 End: 05-24-2024 Clinisync Result Encounter Jessica Anthony DO Work Phone: [facility] External Department Unsolicited Start: 10-16-2022 Encounter for cervic al smear to confirm findings of recent normal smear following initial abnormal smear DR JESSICA CRUZ . [facility] Start: 10-15-2022 End: 10-15-[address] JESSICA CRUZ . Facility: Start: 10-15-2022 End: 10-15-2022 Encounter for cervical [...] laboratory examination DR JESSICA CRUZ . [facility] Start: 12-17-[address] JESSICA CRUZ . Facili ty:[facility] Start: 12-13-2021 End: 12-14-[address] JESSICA CRUZ . Facility:[facility] Start: 12-13-2021 End: 12-14-2021 Encounter for preprocedural laboratory examination DR JESSICA CRUZ . Facility:[facility] Procedures Date Procedure Procedure Detail Performing Clinician Start: 06-13-2025 Urnls dip stick/tabl et rgnt non-auto w/o micrscp Jessica Cruz DO Work Phone: Start: 05-15-2025 US OB ANATOMY Jessica Marianne io DO Work Phone: Start: 05-15-2025 US OB CERVICAL LENGTH C orey Anthony DO Work Phone: Start: 05-15-2025 Urnls dip stick/tabl et rgnt non-auto w/o micrscp Jaz BEARDEN Work Phone: Start: 04-13-2025 AFP, SERUM, OPEN SPI NA [...] Treatment Date Care Activity Detail Author Start: 07-11-2025 End: 07-11-2025 Patient encounter procedure 07/11/2025 11:20 AM EDT Routine [facility] [address] [address] Jaz Tobin PA [address] [place] [address] [facility] Start: 06-13-2025 End: 09-12-2025 Alpha fetoprotein, maternal Alpha fetoprotein, maternal Lab Routine Well woman exam with routine gynecological exam care in second trimester, unspecified ([facility]) 24 weeks gestation of ([facility]) Expected: 06/13/2025 (Approximate), Expires: 09/12/2025 [facility] Comment on above: Expected: 06/13/2025 (Approximate), Expires: 09/12/2025 Start: 06-13-2025 End: 06-13-2026 CBC panel - Blood by Automated count CBC Lab Routine Diabetes mellitus screening Expected: 06/13/2025 (Approximate), Expires: 06/13/2026 [facility] Comment on above: Expected: 06/13/2025 (Approximate), Expires: 06/13/2026 Start: 06-13-2025 End: 06-13-2026 Measurement of glucose 1 hour after glucose challenge for glucose tolerance test Glucose tolerance, 1 hour Lab Routine Diabetes mellitus screening Expected: 06/13/2025 (Approximate), Expires: 06/13/2026 [facility] Comment on above: Expected: 06/13/2025 (Approximate), Expires: 06/13/2026 Start: 06-13-2025 End: 06-13-2025 Patient encounter procedure [facility] Comment on above: Arrived Start: 05-15-2025 End: 05-15-2025 Patient encounter procedure [facility] Comment on above: Arrived Start: 05-15-2025 End: 05-15-2025 Professional / ancillary services management [facility] Start: 04-13-2025 End: 06-14-2025 Alpha fetoprotein, maternal Alpha fetoprotein, maternal Lab Routine 16 weeks gestation of ([facility]) Second trimester ([facility]) Expected: 04/13/2025 (Approximate), Expires: 06/14/2025 [facility] Work Phone: Comment on above: Expected: 04/13/2025 (Approximate), Expires: 06/14/2025 Start: 04-13-2025 End: 07-14-2025 US for US OB 14+ weeks anatomy scan Imaging Routine 16 weeks gestation of ([facility]) Second trimester ([facility]) Screening, , for anatomic survey ([facility]) Expected: 04/13/2025, Expires: 07/14/2025 [facility] Comment on above: Expected: 04/13/2025 , Expires: 07/14/2025 Start: 04-13-2025 End: 04-13-2025 Patient encounter procedure [facility] Comment on above: Arrived Start: 03-22-2025 End: 03-22-2026 ABO/Rh ABO/Rh Lab Routine Missed menses , unspecified gestational age ([facility]) Expected: 03/22/2025 (Approximate), Expires: 03/22/2026 [facility] Comment on above: Expected: 03/22/2025 (Approximate), Expires: 03/22/2026 Start: 03-22-2025 End: 03-22-2026 Blood type and Indirect antibody screen panel - Blood Type and screen Lab Routine Missed menses , unspecified gestational age ([facility]) Expected: 03/22/2025 (Approximate), Expires: 03/22/2026 [facility] Comment on above: Expected: 03/22/2025 (Approximate), Expires: 03/22/2026 Start: 03-22-2025 End: 03-22-2026 Drugs of abuse panel - Urine by Screen method Rapid drug screen, urine Lab Routine , unspecified gestational age ([facility]) Encounter for supervision of normal first in first trimester ([facility]) Expected: 03/22/2025 (Approximate), Expires: 03/22/2026 [facility] Comment on above: Expected: 03/22/2025 (Approximate), Expires: 03/22/2026 Start: 03-22-2025 End: 06-22-2025 US for US OB less than 14 weeks early Imaging Routine Missed menses Positive urine test ([facility]) Expected: 03/22/2025, Expires: 06/22/2025 [facility] Work Phone: Comment on above: Expected: 03/22/2025 , Expires: 06/22/2025 Bacteria identified in Urine by Culture Urine culture Microbiology Routine Missed menses Ordered: 03/22/2025 [facility] Comment on above: Ordered: 03/22/2025 CBC W Auto Different ial panel - Blood CBC and differential Lab Routine Missed menses , unspecified gestational age ([facility]) Ordered: 03/22/2025 [facility] Comment on above: Ordered: 03/22/2025 CHLAMYDIA TRACHOMATI S (GENITO/STI) CHLAMYDIA TRACHOMATIS (GENITO/STI) Lab Routine Well woman exam with routine gynecological exam care in second trimester, unspecified ([facility]) 24 weeks gestation of ([facility]) Ordered: 06/13/2025 [facility] Comment on above: Ordered: 06/13/2025 Cytology Cervical or vaginal smear or scraping study Pap Smear Pathology and Cytology Routine Well woman exam with routine gynecological exam care in second trimester, unspecified ([facility]) 24 weeks gestation of ([facility]) Ordered: 06/13/2025 [facility] Work Phone: Comment on above: Ordered: 06/13/2025 Hemoglobin A1c/Hemoglobin.total in Blood Hemoglobin A1c Lab Routine Missed menses , unspecified gestational age ([facility]) Ordered: 03/22/2025 [facility] Comment on above: Ordered: 03/22/2025 Hepatitis B virus surface Ag [Presence] in Serum or Plasma by Immunoassay Hepatitis B surface antigen Lab Routine Missed menses , unspecified gestational age ([facility]) Ordered: 03/22/2025 [facility] Comment on above: Ordered: 03/22/2025 Hepatitis C virus Ab [Presence] in Serum or Plasma by Immunoassay Hepatitis C antibody Lab Routine Missed menses , unspecified gestational age ([facility]) Ordered: 03/22/2025 [facility] Comment on above: Ordered: 03/22/2025 HIV-1/HIV-2 antigen/antibody combination immunoassay HIV-1 and HIV-2 antibodies Lab Routine Missed menses , unspecified gestational age ([facility]) Ordered: 03/22/2025 [facility] Comment on above: Ordered: 03/22/2025 Neisseria gonorrhoea e DNA [Presence] in Unspecified specimen by ABEBE with probe detection Neisseria gonorrhea DNA probe, direct Lab Routine Well woman exam with routine gynecological exam care in second trimester, unspecified ([facility]) 24 weeks gestation of ([facility]) Ordered: 06/13/2025 [facility] Comment on above: Ordered: 06/13/2025 Reagin Ab [Presence] in Serum by RPR RPR Lab Routine Missed menses , unspecified gestational age ([facility]) Ordered: 03/22/2025 [facility] Comment on above: Ordered: 03/22/2025 Rubella antibody, IgG Rubella an tibody, IgG Lab Routine Missed menses , unspecified gestational age ([facility]) Ordered: 03/22/2025 [facility] Comment on above: Ordered: 03/22/2025 SURESWAB(R) ADVANCED VAGINITIS PLUS, TMA SURESWAB(R) ADVANCED VAGINITIS PLUS, TMA Pathology and Cytology Routine Well woman exam with routine gynecological exam care in second trimester, unspecified ([facility]) 24 weeks gestation of ([facility]) Ordered: 06/13/2025 [facility] Comment on above: Ordered: 06/13/2025 Payers Date Payer Category Payer Private Health Insurance [facility] MEDICAID [id number] 2025 Medicaid [id number] 2022 Medicare [employer] [facility] [place] [id number] 2022-Present [address] [place] [address] [id number] 1998 Unknown [id number] 1998 Unknown [id number] 593 1998 Unknown [id number] 593 1998 Unknown [id number] 593 1998 Unknown [id number] 593 1998 Unknown [id number] 593 1998 Unknown [id number] 1259 1998 Unknown [id number]. 1259 1998 Unknown [id number] 1259 1959 Self-pay 1961 Unknown [id number] Social History Date Type Detail Facility Tobacco smoking stat [facility] Tobacco smoking consumption unknown [facility] Start: 1998 Sex assigned at Not on file [facility] Gender identity Not on file [facility] Start: 01-05-2025 [facility] History of Present illness Narrative 06-13-2025 Brooke Sosa LPN - 06/13/2025 9:40 AM EDT Note Date & Type Note Facility 06-13-2025 History of Presen t illness Narrative Reason for Appointment: Patient ID: Mimi Bynum is a 24 y.o. female who presents for Routine Visit and Gynecologic Exam Patient presents today for Annual Exam., STD Check., and Return OB appointment. MEDICATIONS Current Outpatient Medications Medication Instructions Ehd-Mjm-UT-Fish Oil ([facility]) 0.4-113.5 MG chewable tablet 1 tablet, Daily RT ALLERGIES No Known Allergies PROBLEMS Active Ambulatory Problems Diagnosis Date Noted Cervical motion tenderness 04/01/2023 Dysmenorrhea 04/01/2023 Positive urine test ([facility]) 03/08/2025 Well woman exam with routine gynecological exam 06/13/2025 care in second trimester ([facility]) 06/13/2025 24 weeks gestation of ([facility]) 06/13/2025 Resolved Ambulatory Problems Diagnosis Date [...] nursing note reviewed. Exam conducted with a ethics manager present. Vitals: Estimated body mass index is 28.19 kg/m as calculated from the following: Height [...] maternal 2. care in second trimester, unspecified ([facility]) Z34.92 Pap Smear POCT urinalysis dipstick manually resulted SURESWAB(R) ADVANCED VAGINITIS PLUS, TMA CHLAMYDIA TRACHOMATIS (GENITO/STI) Neisseria gonorrhea DNA probe, direct Alpha fetoprotein, maternal Alpha fetoprotein, maternal 3. 24 weeks gestation of ([facility]) Z3A.24 Pap Smear POCT urinalysis dipstick manually resulted SURESWAB(R) ADVANCED VAGINITIS PLUS, TMA CHLAMYDIA TRACHOMATIS (GENITO/STI) Neisseria gonorrhea DNA probe, direct Alpha fetoprotein, maternal Alpha fetoprotein, maternal Return OB/Annual Exam: Patient presents today for a annual exam/routine obstetrics appointment. Patient is currently 24w5d . Patient states she is doing well but [...] by Brooke Sosa LPN on behalf of: Jessica Cruz DO documented in this encounter [facility] History of Present illness Narrative 05-15-2025 MONISHA Maciel - 05/15/2025 10:00 AM EDT Note Date & Type Note Facility 05-15-2025 History of Presen t illness Narrative Reason for Appointment: Patient ID: Mimi Bynum is a 24 y.o. female who presents for Routine Visit Patient presents today for Return OB appointment. MEDICATIONS Current Outpatient Medications Medication Instructions Qpm-Kbz-ON-Fish Oil ([facility]) 0.4-113.5 MG chewable tablet 1 tablet, Daily RT ALLERGIES No Known Allergies PROBLEMS Active Ambulatory Problems Diagnosis Date Noted Cervical motion tenderness 04/01/2023 Dysmenorrhea 04/01/2023 Positive urine test ([facility]) 03/08/2025 Resolved Ambulatory Problems Diagnosis Date [...] Exam Constitutional: Appearance: Normal appearance. She is normal weight. HENT: Head: Normocephalic. Cardiovascular: Rate and Rhythm: Normal rate. Pulses: Normal pulses. Pulmonary: Effort: Pulmonary effort is normal. Breath sounds: Normal breath sounds. Abdominal: Palpations: Abdomen is soft. Musculoskeletal: General: Normal range of motion. Neurological: General: No focal deficit present. Mental Status: She is alert and oriented to person, place, and time. Psychiatric: Mood and Affect: Mood normal. Behavior: Behavior normal. Thought Content: Thought content normal. Judgment: Judgment normal. Vitals and nursing note reviewed. Vitals: Estimated body mass index is 27.1 kg/m as calculated from the following: Height as of 04/02/23: 5' 3 . Weight as of this encounter: 153 lb. BP: 122/70 Patient's last menstrual period was 01/06/2025. ASSESSMENT & PLAN ICD-10-CM 1. Second trimester ([facility]) Z34.92 POCT urinalysis dipstick manually resulted 2. 20 weeks gestation of ([facility]) Z3A.20 Return OB: Patient presents today for a routine obstetrics appointment. Patient is currently 20w4d . Patient states she is doing well but has complaints of being tired due to current . Patient has verbalizes frequent movement. Orders Placed This Encounter Procedures POCT urinalysis dipstick manually resulted Follow Up: Patient is to return to office in4 week for routine OB appointment. Documented by MONISHA Maciel on behalf of: MONISHA Maciel documented in this encounter [facility] History of Present illness Narrative 04-13-2025 Kendal Sahni LPN - 04/13/2025 8:30 AM EDT Note Date & Type Note Facility 04-13-2025 History of Presen t illness Narrative Reason for Appointment: Patient ID: Mimi Bynum is a 24 y.o. female who presents for Routine Visit Patient presents today for Return OB appointment. MEDICATIONS Current Outpatient Medications Medication Instructions Ysn-Ezc-TI-Fish Oil ([facility]) 0.4-113.5 MG chewable tablet 1 tablet, Daily RT ALLERGIES No Known Allergies PROBLEMS Active Ambulatory Problems Diagnosis Date Noted Cervical motion tenderness 04/01/2023 Dysmenorrhea 04/01/2023 Positive urine test ([facility]) 03/08/2025 Resolved Ambulatory Problems Diagnosis Date [...] nursing note reviewed. Exam conducted with a ethics manager present. Vitals: Estimated body mass index is 26.29 kg/m as calculated from the following: Height as of 04/02/23: 5' 3 . Weight as of this encounter: 148 lb 6.4 oz. BP: 120/64 Patient's last menstrual period was 01/06/2025. ASSESSMENT & PLAN ICD-10-CM 1. 16 weeks gestation of ([facility]) Z3A.16 POCT urinalysis dipstick manually resulted Alpha fetoprotein, maternal Alpha fetoprotein, maternal 2. Second trimester ([facility]) Z34.92 POCT urinalysis dipstick manually resulted Alpha fetoprotein, maternal Alpha fetoprotein, maternal 3. Screening, , for anatomic survey ([facility]) Z36.89 US OB 14+ weeks anatomy [...] or undercooked meat, and stay away from [facility]. Patient has been consulted regarding any [...] tenderness 04/01/2023 Dysmenorrhea 04/01/2023 Positive urine test ([facility]) 03/08/2025 Resolved Ambulatory Problems Diagnosis Date Noted [...] urinalysis dipstick manually resulted Positive urine test ([facility]) - US OB less than 14 weeks early; Future , unspecified gestational age ([facility]) - Type and screen; Future - ABO/Rh; Future - CBC and differential - Hemoglobin A1c - RPR - Rubella antibody, IgG - Hepatitis B surface antigen - Hepatitis C antibody - HIV-1 and HIV-2 antibodies - Rapid drug screen, urine; Future Encounter for supervision of normal first in first trimester ([facility]) - Rapid drug screen, urine; Future 12 weeks gestation of ([facility]) Nurse Note: Pt desires to have Hobgood Billion to one. Pt first born baby was delivered at 36 weeks and born w/down syndrome. Pt stated she was not aware of it until she was called by [facility] to meet. Pt is wanting to be prepared with this baby. Pt was advised to have both the labs and Hobgood done at the same time. 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 PREOPERATIVE DIAGNOSIS: Pelvic pain, dysmenorrhea, dyspareunia. POSTOPERATIVE DIAGNOSIS: Pelvic pain, dysmenorrhea, dyspareunia. ANESTHESIA: General. SURGEON: Jessica Cruz D.O. GENERAL OPERATIONS MANAGER: TONI Arrington URINE OUTPUT: Yellow and [...] Cruz DO on 01/12/2022 09:16 PM EDT [facility] Signed and Approved by: DR JESSICA CRUZ . 01/12/2022 21:16:00 [facility] Evaluation note Note Date & Type Note Facility Evaluation note Diagnosis Missed menses Positive urine test ([facility]) , unspecified gestational age ([facility]) Encounter for supervision of normal first in first trimester ([facility]) 12 weeks gestation of ([facility]) documented in this encounter [facility] Evaluation note Note Date & Type Note Facility Evaluation note Diagnosis 16 weeks gestation of ([facility]) Second trimester ([facility]) state, incidental Screening, , for anatomic survey ([facility]) Encounter for anatomic survey documented in this encounter [facility] Evaluation note Note Date & Type Note Facility Evaluation note Diagnosis Second trimester ([facility]) state, incidental 20 weeks gestation of ([facility]) documented in this encounter [facility] Evaluation note Note Date & Type Note Facility Evaluation note Diagnosis Well woman exam with routine gynecological exam Routine gynecological examination care in second trimester, unspecified ([facility]) 24 weeks gestation of ([facility]) Diabetes mellitus screening Screening for diabetes mellitus documented in this encounter [facility] Summary Purpose Family History No Family History Records FoundNo Family History Records Found Advance Directives No Advanced Directives Records FoundNo Advanced Directives Records Found Additional Source Comments INFORMATION SOURCE (unrecogn ized section and content) DATE CREATED AUTHOR 12/04/2022 [facility] DATE CREATED AUTHOR AUTHOR'S ORGANIZ ATION 05/16/2025 [facility] Care Teams (unrecognized sec tion and content) Elevator Mechanic Relationship Specialty Start Date End Date Sher Richardson MD [address] [place] [address] PCP - General Family Medicine 04/02/23 Elevator Mechanic Relationship Specialty Start Date End Date Sher Richardson MD [address] [place] [address] PCP - General Family Medicine 04/02/23 Elevator Mechanic Relationship Specialty Start Date End Date Sher Richardson MD [address] [place] [address] PCP - General Family Medicine 04/02/23 Elevator Mechanic Relationship Specialty Start Date End Date Sher Richardson MD [address] [place] [address] PCP - General Family Medicine 04/02/23 Elevator Mechanic Relationship Specialty Start Date End Date Sher Richardson MD [address] [place] [address] PCP - General Family Medicine 04/02/23 Elevator Mechanic Relationship Specialty Start Date End Date Sher Richardson MD [address] [place] [address] PCP - General Family Medicine 04/02/23 Reason for Visit (unrecogniz ed section and content) Reason Comments Amenorrhea Reason Comments Routine Visit Reason Comments Routine Visit Gynecologic Exam FOR RECORDS PERTAINING TO PATIENTS WHO ARE [...] BE BASED ON THE PRIMARY CLINICAL RECORDS. [facility] [employer] [facility]. provides no warranty or guarantee of the accuracy or completeness of information in this document.
[2025-06-19 11:08] LABS: Age Gdln ACOG Testing Note (.); IGP, rfx Aptima HPV ASCU Note (.)
== END 2025-06-13 12:19 | disposition home or self-care (01) ==
LOC: LAB 12:18
PROVIDERS: Visit Provider Obstetrics & Gynecology
DX: Z01.419 Encounter for gynecological examination (general) (routine) without abnormal findings (principal); Z3A.24 24 weeks gestation of pregnancy
CPT/HCPCS: 87624; 88175

== ENCOUNTER 2025-06-20 08:31 | Outpatient (OUT) | payer OTHER, SELFPAY ==
--- OUTSIDE RECORDS SUMMARY | 2025-06-13 09:26 | XMS_ITS ---
Author Name Auto Generated Organization [facility] Care Team Providers Care Bake Room Worker Name Role Phone JESSICA KNAPP Attending Unavailable SON BLOOM Attending Unavailable JESSICA KNAPP Attending Unavailable PROBLEMS No Problem Records Found PROCEDURES No Procedure Records Found RESULTS No Result Records Found ALLERGIES No Allergies Records Found ENCOUNTERS ADMIT/DISCHARGE ACCOUNT NUMBER ADMITTING ENCOUNTER CLASS LOCATION SOURCE 06/13/2025/ 5 [id number] Ambulatory Building:[facility] 05/15/2025/ 5 [id number] Ambulatory Building:[facility] 04/13/2025/ 5 [id number] Ambulatory Building:[facility] 03/22/2025/ [id number] Ambulatory Building:[facility] PAYERS ENCOUNTER GUARANTOR PAYER SUBSCRIBER SOURCE 06/13/2025 KAREEM N SPENCERDOB: [address], [place] [address]Ogu: (HP) Primary Insurance:[facility] MEDICAIDPolicy Number: [id number] Date:2025-02-19 KAREEM N SPENCERDOB: [id number], [place] [address] [facility] 05/15/2025 KAREEM N SPENCERDOB: [address], [place] [address]Ecd: (HP) Primary Insurance:[employer] MEDICAIDPolicy Number: [id number] Date:2025-02-19 KAREEM N SPENCERDOB: 1910, [place] [address] [facility] 04/13/2025 KAREEM N SPENCERDOB: [id number] [address], [place] [address]Emw: (HP) Primary Insurance:[employer] MEDICAIDPolicy Number: [id number] Date:2025-02-19 KAREEM N SPENCERDOB: [id number], [place] [address] [facility] 03/22/2025 KAREEM N SPENCERDOB: [id number] [address], [place] [address]Sqm: (HP) Primary Insurance:[employer] MEDICAIDPolicy Number: [id number] Date:2025-02-19 KAREEM N SPENCERDOB: [id number], [place] [address] [facility]
[2025-06-20 10:01] LABS: Hematocrit 34.2 % (36.0-48.0); Hemoglobin 11.9 g/dL (12.0-16.0); Immature Granulocytes Abs Auto 0.02 10^3/uL (0.00-0.03); Immature Granulocytes Pct Auto 0.3 % (0.0-0.5); Lymphocytes Absolute Auto 1.6 10^3/uL (1.2-3.8); Mean Corpuscular HGB Conc 34.8 g/dL (29.9-35.2); Mean Corpuscular Hemoglobin 31.6 pg (26.7-34.0); Mean Corpuscular Volume 90.7 fL (81.0-99.0); Platelet Count 253 10^3/uL (150-450); Red Blood Count 3.77 10^6/uL (4.20-5.40); White Blood Count 7.3 10^3/uL (4.0-11.0)
[2025-06-20 10:22] LABS: Glucose 1 Hour 127 mg/dL (<130)
== END 2025-06-20 08:32 | disposition home or self-care (01) ==
PROVIDERS: Visit Provider Obstetrics & Gynecology
DX: Z34.92 Encounter for supervision of normal pregnancy, unspecified, second trimester (principal)
CPT/HCPCS: 36415; 82105; 82950; 85025

== ENCOUNTER 2025-08-28 19:31 | Outpatient (REF) | payer OTHER, SELFPAY ==
--- OUTSIDE RECORDS SUMMARY | 2025-08-28 19:34 | XMS_ITS | CCD ---
Author Organization [facility] CliniSyne Care Team Providers Care Tableau Report Developer Name Role Phone AVERY ., DR OLIVAREZ [...] Unavailable Sher Richardson MD Primary Care Provider [phone] Sher Richardson MD Primary Care Provider [phone] Sher Richardson MD Primary Care Provider [phone] JESSICA CRUZ Attending Unavailable JAZ BLOOM Attending Unavailable ANTHONYJESSICA HAAS Attending Unavailable JAZ BLOOM Attending Unavailable JAZ BLOOM Referring Unavailable JAZ BLOOM Attending Unavailable JESSICA CRUZ Attending Unavailable Medications Current Medications MedicationDrug Class(es)DatesSig (Normalized)Sig (Original)metroNIDAZOLE 500 mg oral tablet (3 sources)Nitroimidazole AntimicrobialStart: 07-03-2025 End: 24-69-1131oirg 1 tablet by mouth in the morningmetroNIDAZOLE (Flagyl) 500 MG tablet Indications: BV (bacterial vaginosis) Take 1 tablet (500 mg) by mouth in the morning and 1 tablet (500 mg) before bedtime. Do all this for 7 days. Do not drink alcohol while taking this medication. 14 tablet 07/03/2025 07/11/2025 Discontinued (Therapy completed)Start: 06-14-2025 End: 62-88-0737xszc 1 tablet by mouth in the morningmetroNIDAZOLE (Flagyl) 500 MG tablet Indications: BV (bacterial vaginosis) Take 1 tablet (500 mg) by mouth in the morning and 1 tablet (500 mg) before bedtime. Do all this for 7 days. Do not drink alcohol while taking this medication. 14 tablet 06/14/2025 06/21/2025 ActivePrenatal Vhi-Elx-RU-Fish Oil ([facility] Gummy) 0.4-113.5 MG chewable tablet (20 sources) Okr-Ivk-CG-Fish Oil ([facility] G[facility]) 0.4-113.5 MG chewable tablet Chew 1 tablet in themorning. Active Completed/Discontinued Medications MedicationDrug Class(es)DatesSig (Normalized)Sig (Original)1 ml medroxyPROGESTERone acetate 150 mg/ml injection (6 sources)ProgestinStart: 04-02-2023 End: 46-05-0869mvcnxjoLDSZNHGATdlm (Depo-Provera) injection 150 mgStart: 02-25-2023 End: 33-21-6345vgynfkpOGVHTGQXFwit (Depo-Provera) 150 MG/ML injection Indications: control counseling Inject1 mL (150 mg) into the shoulder, thigh, or buttocks every 3 (three) months. 1 mL 3 02/25/2023 03/22/2025 Discontinued (Therapy completed) Problems Active Problems Problem ClassificationProblemDateDocumented DateEpisodic/ChronicBacterial infection; unspecified site (8 sources)Chlamydial infection; Translations: [Chlamydial infection, unspecified]Onset: 204908-96-5697HwiqnrmuVcfitv of cervix (1 source)Atypical squamous cells of undetermined significance on cytologic smear of cervix (ASC-US); Translations: [ASC US ON CYTOLOGIC SMEAR OF CERVIX] Onset: 65-57-1420GbbrpagzPxpqsvqxk disorders (20 sources)Dysmenorrhea, unspecified; Translations: [Dysmenorrhea]Onset: 87-58-7643EtkpctjVbtex complications of (2 sources) size does not accord with dates; Translations: [Uterine size- date discrepancy, unspecified trimester]30-94-4629NcpgzgcaYcins female genital disorders (1 source)Unspecified dyspareunia; Translations: [UNSPECIFIED DYSPAREUNIA]Onset: 44-14-5826YwxmxjkMslet and delivery including normal (20 sources)Urine test positive; Translations: [Encounter for test, result positive]Onset: 162310-54-5315FxpoummzBwkfz screening for suspected conditions (not mental disorders or infectious disease) (8 sources)Encounter for screening for malignant neoplasm of cervix; Translations: [Patient encounter status]Onset: 57-26-2938NxeqalakWrfswfqn codes; unclassified (1 source)Gestation period, 12 weeks; Translations: [12 weeks gestation of ]98-18-4002AnfulmvoLhqgohdc codes; unclassified (2 sources)Gestation period, 16 weeks; Translations: [16 weeks gestation of ]52-70-2741QcgmodsmOsoduxry codes; unclassified (2 sources)Gestation period, 20 weeks; Translations: [20 weeks gestation of ]02-37-6315MorsnlmwByzuiyof codes; unclassified (15 sources)Gestation period, 24 weeks; Translations: [24 weeks gestation of ]Onset: 691554-36-7564QgozdbwhPshjhauo codes; unclassified (2 sources)Gestation period, 27 weeks; Translations: [27 weeks gestation of ]73-96-0879RseavmbvEqqewywy codes; unclassified (2 sources)Gestation period, 28 weeks; Translations: [28 weeks gestation of ]46-25-7444YbehoewwZlhuzner codes; unclassified (2 sources)Gestation period, 30 weeks; Translations: [30 weeks gestation of ]93-62-7144NkeuiixjCokemtkk transmitted infections (not HIV or hepatitis) (3 sources)Cervical high risk human papillomavirus (HPV) DNA test positive; Translations: [Chlamydia trachomatis infection]Onset: EpisodicUnclassified (1 source)CONTACT W/AND (SUSP) EXPOS COVID-19; Translations: [CONTACT W/AND (SUSP) EXPOS COVID-19]Onset: 12-18-2021 Past or Other Problems Problem ClassificationProblemDateDocumented DateEpisodic/ChronicAbdominal pain (1 source)Pelvic and perineal pain; Translations: [PELVIC AND PERINEAL PAIN] Onset: 77-67-8548HrgpvkccQbkny female genital disorders (20 sources)Pain on movement of cervix; Translations: [Unspecified condition associated with female genital organs and menstrual cycle]Onset: 04-01-2023 72-00-8145MxgjxiwaLroaexphm and history of mental health and substance abuse codes (1 source)Personal history of nicotine dependence; Translations: [PERSONAL HISTORY OF NICOTINE DEPEND]Onset: 85-73-0837Vqaatvgt Results Test NameValueInterpretationReference RangeFacilityUrinalysis macro (dipstick) panel (U)on 69-29-0620Nmtrwedoy, UANegativeNegative - 4(70) +++ mg/dLNOMS HealthcareBlood, UANegativeNegative - 50 Tim/mcLNOMS HealthcareClarity, UAClear NOMS HealthcareColor, UAYellowNOMS HealthcareGlucose, UANegativeNegative - 2000(110) ++++ mg/dLNOMS HealthcareInterpretation and review of laboratory resultsNormalNOMS HealthcareKetones, UANegativeNegative - 160(16) ++++ mg/dLNOMS HealthcareLeukocytes, UA1+Negative - 500+++ Genoveva/mcLNOMS HealthcareNitrite, UA NegativeNegative - PositiveNOMS HealthcarepH, UA6.05 - 9NOMS HealthcareProtein, UANegativeNegative - 2000(20) ++++ mg/dLNOMS HealthcareSpec Grav, UA1.0101 - 1.03NOMS HealthcareUrobilinogen, UA1.00.2 - 12 mg/dLNOMS HealthcareNOMS HealthcareUS OB FOLLOW UP TRANSABDOMINAL APPROACHon 55-83-5199PN OB FOLLOW UP TRANSABDOMINAL APPROACHFINDINGS: Comparison made with prior exam May 15, 2025. A single, live intrauterine is present with normal cardiac rate of 134 beats per minute. Normal activity and amniotic fluid volume. Amniotic fluid index is 15 cm. Morphology is grossly normal. The placenta is anterior, not associated with the cervical os. The current sonographic age is 29 weeks and 2 days, based on the following measurements: BPD 7.2 cm (28 weeks, 5 days) Head Circumference 27.0 cm (29 weeks, 3 days) Abdominal Circumference 25.2 cm (29 weeks, 2 days) Femur Length 5.6 cm (29 weeks, 4 days) Presentation Cephalic Placenta Anterior Weight (g) by Percentile 63.3 % * (prior 72.4%) These measurements result in an estimated date of delivery of September 24, 2025. The current estimated weight is 1387 grams (3 pounds, 1 ounce). IMPRESSION: Single, live intrauterine , current sonographic age of 29 weeks and 2 days, with an estimated date of delivery of September 24, 2025 (prior SHERITA September 25, 2025). * Estimated Weight (g) by Percentile is based upon an accurate estimated age based on last menstrual period. TRANSCRIBED BY: ELECTRONICALLY SIGNED BY: Demar Ruiz AvailableComment on above:Order Comment: US OB SCAN FOR GROWTH Estimated Date of Delivery: 09/28/25 Gestational Age as of 06/30/2025: 96b4kHbpfscffdo macro (dipstick) panel (U)on 55-20-8793Nxwfzswcx, UANegativeNegative - 4(70) +++ mg/dLNOMS HealthcareBlood, UANegativeNegative - 50 Tim/mcLNOMS HealthcareClarity, UAClearNOMS Healthcare Color, UAYellowNOMS HealthcareGlucose, UANegativeNegative - 2000(110) ++++ mg/dL NOMS HealthcareInterpretation and review of laboratory resultsAbnormalNOMS HealthcareKetones, UANegativeNegative - 160(16) ++++ mg/dLNOMS Healthcare Leukocytes, UA3+Negative - 500+++ Genoveva/mcLNOMS HealthcareNitrite, UANegative Negative - PositiveNOMS HealthcarepH, UA6.05 - 9NOMS HealthcareProtein, UA NegativeNegative - 2000(20) ++++ mg/dLNOMS HealthcareSpec Grav, UA1.0101 - 1.03 NOMS HealthcareUrobilinogen, UA1.00.2 - 12 mg/dLNOWV HealthcareNOWV Healthcare Urinalysis macro (dipstick) panel (U)on 76-56-2911Yrxxaccfz, UANegativeNegative - 4(70) +++ mg/dLNOWV HealthcareBlood, UANegativeNegative - 50 Tim/mcLNOWV HealthcareClarity, UAClearNOWV HealthcareColor, UAYellowNOWV HealthcareGlucose, UANegativeNegative - 2000(110) ++++ mg/dLNOWV HealthcareInterpretation and review of laboratory resultsNormalNOWV HealthcareKetones, UANegativeNegative - 160(16) ++++ mg/dLNOWV HealthcareLeukocytes, UAPositiveNegative - 500+++ Genoveva/mcL [facility] HealthcareNitrite, UANegativeNegative - PositiveNOMS HealthcarepH, UA6.55 - 9NOMS HealthcareProtein, UAPositiveNegative - 2000(20) ++++ mg/dLNOWV Healthcare Spec Grav, UA1.0151 - 1.03NOWV HealthcareUrobilinogen, UA1.00.2 - 12 mg/dLNOWV HealthcareNOMS HealthcareALL CBC WITH AUTO DIFFon 86-87-0237EJLHGGWOI ABSOLUTE RFJN7RQJA HealthcareBasophils/100 WBC (Bld)0.4 %0.2 - 2.0 %[facility]OMSaint [facility] Eosinophils/100 WBC (Bld)2 %0.9 - 7.0 %[facility] HospitalErythrocyte distribution width (RBC) [Ratio]13.2 %11.0 - 15.0 %NOM HealthcareHematocrit (Bld) [Volume fraction]34.2 %Low36.0 - 48.0 %NOMSaint Luke'S North Hospital–SmithvilleHemoglobin (Bld) [Mass/Vol]11.9 g/dLLow12.0 - 16.0 g/dLNONorthwest Medical CenterIMMATURE GRANULOCYTES ABS AUTO0.02NONorthwest Medical CenterImmature granulocytes/100 WBC (Bld)0.3 %0.0 - 0.5 %NOMS Healthcare Interpretation and review of laboratory resultsAbnormalSullivan County Memorial Hospital LYMPHOCYTES ABSOLUTE AUTO1.6NOMS Uc HealthLymphocytes/100 WBC (Bld)21.6 %20.5 - 60.0 %[facility] (RBC) [Entitic mass]31.6 pg26.7 - 34.0 pgRipley County Memorial HospitalHC (RBC) [Mass/Vol]34.8 g/dL29.9 - 35.2 g/dLRipley County Memorial HospitalV (RBC) [Entitic vol]90.7 fL81.0 - 99.0 fLSullivan County Memorial HospitalMONOCYTES ABSOLUTE AUTO0.5NOMS HealthcareMonocytes/100 WBC (Bld)6.8 %1.7 - 12.0 %[facility] HospitalNEUTROPHILS ABSOLUTE AYKX5CYRM HealthcareNeutrophils/100 WBC (Bld)68.9 %43.0 - 75.0 %[facility] HospitalPlatelet mean volume (Bld) [Entitic vol]8.7 fLLow9.5 - 13.5 fLSullivan County Memorial HospitalTB EO #0.2NOMS Uc HealthTB GPK914LLTA [facility] RBC3.77LowNOUniversity of Missouri Children's Hospital WBC7.3NONorthwest Medical CenterCLINISYNCNPURCELL M[facility] HealthcareIGP,APTIMA HPV,AGE GDLNon 35-44-1057RYW GDLN ACOG TESTINGNote.[facility] HealthcareComment on above:TESTS RESULT FLAG UNITS REF RANGE LAB Clinician Provided Cytology Information Source.............Cervix Other.............. No. of containers..01 ThinPrep Vial Age Algo ACOG Wen... FLAG LEGEND: L-Low Normal,H-High Normal,LL-Alert Low,HH-Alert High <-Panic Low,>-Panic High,A-Abnormal,AA-Critical Abnormal Performed at: 01 =[facility] [place] [address] Jeimy Abebe MD, IGP, RFX APTIMA HPV ASCUNote.NOMS HealthcareComment on above:TESTS RESULT FLAG UNITS REF RANGE LAB DIAGNOSIS: 02 NEGATIVE FOR INTRAEPITHELIAL LESION OR MALIGNANCY. Specimen adequacy: 02 Satisfactory for evaluation. No endocervical component is identified. Performed by: 02 James Beaver, Bobbin Dumper (ASC) . 02 Note: Note 02 The Pap smear is a screening test designed to aid in the detection of premalignant and malignant conditions of the uterine cervix. It is not a diagnostic procedure and should not be used as the sole means of detecting cervical cancer. Both false-positive and false-negative reports do occur. Test Methodology: Note 02 This liquid based ThinPrep(R) pap test was screened with the use of an image guided system. . 02 The HPV DNA reflex criteria were not met with this specimen result therefore, no HPV testing was performed. FLAG LEGEND: L-Low Normal,H-High Normal,LL-Alert Low,HH-Alert High <-Panic Low,>-Panic High,A-Abnormal,AA-Critical Abnormal Performed at: [address] [address] Jeimy Abebe MD, Performed at: = - [facility] [id number] Photographic Platemaker: Jeimy Abebe MD, Phone: [phone] Performed at: [address] [id number] Photographic Platemaker: Jeimy Abebe MD, Phone: [phone] SPATULA-ALONE CERVIX CLINISYNCNOMS HealthcareRECURRENT VAGINITIS (HTRX)on 40-81-2618ICVHYJADS VAGINAE 17.619AbnormalNOMS HealthcareATOPOBIUM VAGINAEDetectedAbnormalNOMS Healthcare BVAB 2,3 (BACTERIAL VAGINOSIS ASSOCIATED BACTERIA 2, 3); MOBILUNCUS GLD4UTEU HealthcareBVAB 2,3 (BACTERIAL VAGINOSIS ASSOCIATED BACTERIA 2, 3); MOBILUNCUS SPPNot detectedNOMS HealthcareCANDIDA ALBICANS, PARAPSILOSIS, TKYMSDQEEB9XPVR HealthcareCANDIDA ALBICANS, PARAPSILOSIS, TROPICALISNot detectedNOMS Healthcare YO TEIRRTAK9MHQW HealthcareCANDIDA GLABRATANot detectedNOMS Healthcare YO BMZLWN2LYAP HealthcareCANDIDA KRUSEINot detectedNOMS HealthcareCHLAMYDIA JDQMLIZYJNU75.658AbnormalNOMS HealthcareCHLAMYDIA TRACHOMATISDetectedAbnormal NOMS HealthcareERMB, C; MEFA20.155AbnormalNOMS HealthcareERMB, C; MEFADetected AbnormalNOMS HealthcareGARDNERELLA DFESIHZUL36.47AbnormalNOMS Healthcare GARDNERELLA VAGINALISDetectedAbnormalNOMS HealthcareInterpretation and review of laboratory resultsAbnormalNOMS HealthcareMEGASPHAERA (TYPES 1, 2)17.726Abnormal NOMS HealthcareMEGASPHAERA (TYPES 1, 2)DetectedAbnormalNOMS HealthcareMYCOPLASMA ZBZDLLDVNU6AJRS HealthcareMYCOPLASMA GENITALIUMNot detectedNOMS Healthcare NEISSERIA AJKSYBNHMTY9HVRU HealthcareNEISSERIA GONORRHOEAENot detectedNOMS HealthcareTET B, TET M20.809AbnormalNOMS HealthcareTET B, TET MDetectedAbnormal NOMS HealthcareTRICHOMONAS SKTLGHOLM8RKPT HealthcareTRICHOMONAS VAGINALISNot detectedNOMS HealthcareNOMS HealthcareUrinalysis macro (dipstick) panel (U)on 97-45-6386Jcubgxhqr, UANegativeNegative - 4(70) +++ mg/dLNOMS HealthcareBlood, UANegativeNegative - 50 Tim/mcLNOMS HealthcareClarity, UAClearNOMS Healthcare Color, UAYellowNOMS HealthcareGlucose, UANegativeNegative - 2000(110) ++++ mg/dL NOMS HealthcareInterpretation and review of laboratory resultsAbnormalNOMS HealthcareKetones, UANegativeNegative - 160(16) ++++ mg/dLNOMS Healthcare Leukocytes, UA3+Negative - 500+++ Genoveva/mcLNOMS HealthcareNitrite, UANegative Negative - PositiveNOMS HealthcarepH, UA6.55 - 9NOMS HealthcareProtein, UATrace Negative - 2000(20) ++++ mg/dLNOMS HealthcareSpec Grav, UA1.0151 - 1.03NOMS HealthcareUrobilinogen, UA0.20.2 - 12 mg/dLNOMS HealthcareNOMS HealthcareNo Panel InformationOrdered By: Radiologist Radiology on 14-31-2732YFBV Healthcare Work Phone: No Panel Informationon 58-20-7712Jigaszlko Study observation (narrative)NOMS HealthcareUS OB ANATOMYon 64-70-0731[place] [address] Ultrasound Report Signed Patient: MIMI BYNUM MR#: [id number] : 2000 Acct:[id number] Age/Sex: 24 / F ADM Date: 05/15/25 Loc: US Attending Dr: Jessica Cruz D.O. Ordering Physician: Jessica Cruz D.O. Date of Service: 05/15/25 Procedure(s): US OB anatomy Accession Number(s): [id number] cc: Jessica Cruz D.O.; Physician,Non-Staff M.DTanisha [address] [address] Patient Name: MIMI BYNUM MRN: [id number] date: 2000 Sex: F Assigned Patient Location: Current Patient Location: Accession/Order Number: [id number] Exam Date: 05/15/2025 09:37 Report Date: 05/15/2025 [...] all 4 extremities were surveyed by the underground bolting machine operator and no abnormalities were detected. The stomach, [...] Blevins M.D. 05/15/2025 11:07 AM Dictation Location: [facility]mpST[facility] CENTERNanoSteel Electronically authenticated by: [id number] Y Date: 05/15/2025 11:07 Dictated By: Brooke Blevins M.D. Signed By: 05/15/25 1110 DD/ 1107 TD/TT: Petroleum Laboratory Technician:ANEUDYadiology, Radiologist, - 05/15/[address] [address] Ultrasound Report Signed Patient: MIMI BYNUM MR#: [id number] : 2000 Acct:[id number] Age/Sex: 24 / F ADM Date: 05/15/25 Loc: US Attending Dr: Jessica Cruz D.O. Ordering Physician: Jessica Cruz D.O. Date of Service: 05/15/25 Procedure(s): US OB anatomy Accession Number(s): [id number] cc: Jessica Cruz D.O.; Physician,Non-Staff Venessa The [address] [address] Patient Name: MIMI BYNUM MRN: [facility]:[id number] date: 2000 Sex: F Assigned Patient Location: US Current Patient Location: US Accession/Order Number: [id number] Exam Date: 05/15/2025 09:37 Report Date: 05/15/2025 [...] all 4 extremities were surveyed by the underground bolting machine operator and no abnormalities were detected. The stomach, [...] Blevins M.D. 05/15/2025 11:07 AM Dictation Location: [employer] Electronically authenticated by: [id number] Y Date: 05/15/2025 11:07 Dictated By: Brooke Blevins M.D. Signed By: 05/15/25 1110 DD/ 1107 TD/TT: Petroleum Laboratory Technician: NUBIA Sarabia OB CERVICAL LENGTHon 96-48-1160VmaH[place] [address] Ultrasound Report Signed Patient: MIMI BYNUM MR#: [id number] : 2000 Acct:[id number] Age/Sex: 24 / F ADM Date: 05/15/25 Loc: US Attending Dr: Jessica Cruz D.O. Ordering Physician: Jessica Cruz D.O. Date of Service: 05/15/25 Procedure(s): US OB cervical length Accession Number(s): [id number] cc: Jessica Cruz D.O.; Physician,Non-Staff Venessa The [place] [id number] Patient Name: MIMI BYNUM MRN: [id number] date: 2000 Sex: F Assigned Patient Location: US Current Patient Location: US Accession/Order Number: [id number] Exam Date: 05/15/2025 09:37 Report Date: 05/15/2025 [...] all 4 extremities were surveyed by the underground bolting machine operator and no abnormalities were detected. The stomach, [...] Blevins M.D. 05/15/2025 11:07 AM Dictation Location: [place] [address] Electronically authenticated by: [id number] Y Date: 05/15/2025 11:07 Dictated By: Brooke Blevins M.D. Signed By: 05/15/25 1110 DD/ 1107 TD/TT: Petroleum Laboratory Technician:TBHRadiology, Radiologist, - 05/15/2025 [place] [address] Ultrasound Report Signed Patient: MIMI BYNUM MR#: [id number] : 2000 Acct:[id number] Age/Sex: 24 / F ADM Date: 05/15/25 Loc: US Attending Dr: Jessica Cruz D.O. Ordering Physician: Jessica Cruz D.O. Date of Service: 05/15/25 Procedure(s): US OB cervical length Accession Number(s): [id number] cc: Jessica Cruz D.O.; Physician,Non-Staff Venessa [address] [address] Patient Name: MIMI BYNUM MRN: [id number] date: 2000 Sex: F Assigned Patient Location: US Current Patient Location: US Accession/Order Number: [id number] Exam Date: 05/15/2025 09:37 Report Date: 05/15/2025 [...] all 4 extremities were surveyed by the underground bolting machine operator and no abnormalities were detected. The stomach, [...] Blevins M.D. 05/15/2025 11:07 AM Dictation Location: [facility]OSPITALFunCaptcha Electronically authenticated by: [id number] Y Date: 05/15/2025 11:07 Dictated By: Brooke Blevins M.D. Signed By: 05/15/25 1110 DD/ 1107 TD/TT: Petroleum Laboratory Technician: [facility] HospitalUrinalysis macro (dipstick) panel (U)on 53-19-8138Qshedbkaf, UA NegativeNegative - 4(70) +++ mg/dLNOMS HealthcareBlood, UANegativeNegative - 50 Tim/mcLNOMS HealthcareClarity, UAClearNOMS HealthcareColor, UAYellowNOMS HealthcareGlucose, UANegativeNegative - 2000(110) ++++ mg/dLNOMS Healthcare Interpretation and review of laboratory resultsAbnormalNOMS HealthcareKetones, UANegativeNegative - 160(16) ++++ mg/dLNOMS HealthcareLeukocytes, UAPositive Negative - 500+++ Genoveva/mcLNOMS HealthcareComment on above:3+Nitrite, UANegative Negative - PositiveNOMS HealthcarepH, UA7.55 - 9NOMS HealthcareProtein, UA NegativeNegative - 2000(20) ++++ mg/dLNOMS HealthcareSpec Grav, UA1.011 - 1.03 NOM HealthcareUrobilinogen, UA0.20.2 - 12 mg/dLNOMS HealthcareNOMS Healthcare AFP, SERUM, OPEN SPINA BIFIDAon 68-77-6790VIB MOM0.76.[facility] HealthcareAFP VALUE 25.3 ng/mL.[facility] HealthcareCOMMENT:Comment.[facility] HealthcareComment on above:Kanika Mancia, Ph.D., [facility] Director References: Available Upon Request. Multiples Of Median Cutoffs For AFP Elevations Dangelo 2.5 Black 2.8 IDD 2.0 Twins 4.5 Abbreviation Definitions IDD - Insulin Dep Diabetes OSBR - Open Spina Bifida Risk For further inquiries contact [employer] at [phone]. This test was developed and its performance characteristics determined by [facility]. It has not been cleared or approved by the Food and Drug Administration. Performed at: [facility] [address] [facility], [place], [place] [id number] Photographic Platemaker: Goldy Meyers [facility], Phone: [phone] GEST. AGE ON COLLECTION DATE16.0. weeksBL[facility] MOUNTAIN [facility]OSPITAL, INC. HealthcareGESTAT. AGE BASED ON Ultrasound.[facility] HospitalComment on above:16.0 on 04/13/2025 Recalculations are not recommended when gestational dating by LMP and ultrasound are within 10 days. INSULIN DEP DIABETESNo.[facility] HealthcareINTERPRETATIONComment.[facility] Comment on above:Interpretation: Screen Negative This result is screen negative [...] Customer Services to discuss available options. The [employer] recommends amniocentesis be offered to women age 35 and older. MATERNAL AGE AT EDD27.1. yrBLUE MOUNTAIN HOSPITAL, INC. HealthcareMULTIPLE GESTATIONNo.[facility] OSBR RISK 1 [id number].[facility] HospitalRACECaucasian.[facility] HospitalRESULTSReport. [facility] HospitalTEST RESULTS:Negative.[facility] HospitalZlxzhwpdrsYOVRCZ673. lbsNOWV HealthcarePREGNANCY N N ULTRASOUND [id number] 16 N 1 Y 148 N N Y N N White/ CLINISYNCSullivan County Memorial HospitalUrinalysis macro (dipstick) panel (U)on 04-13-2025 Bilirubin, UANegativeNegative - 4(70) +++ mg/dLNOWV HealthcareBlood, UANegative Negative - 50 Tim/mcLNOWV HealthcareClarity, UAClearNOWV HealthcareColor, UA YellowNOWV HealthcareGlucose, UANegativeNegative - 2000(110) ++++ mg/dLNOWV HealthcareInterpretation and review of laboratory resultsAbnormalSullivan County Memorial Hospital Ketones, UANegativeNegative - 160(16) ++++ mg/dLBLUE MOUNTAIN HOSPITAL, INC. HealthcareLeukocytes, UA ModerateNegative - 500+++ Genoveva/mcLNOMS HealthcareNitrite, UANegativeNegative - PositiveNOWV HealthcarepH, UA65 - 9NOWV HealthcareProtein, UATraceNegative - 2000(20) ++++ mg/dLNOWV HealthcareSpec Grav, UA1.021 - 1.03NOWV Healthcare Urobilinogen, UA1.00.2 - 12 mg/dLAshe Memorial HospitalHCG ( test) Ql (U)on 58-27-6390Pbknkcdrqbrnsx and review of laboratory resultsAbnormal NOMS HealthcarePreg Test, UrPositiveNegativeNOBlack River Memorial HospitalUS OB L= 14 WEEKS FETUSon 29-81-0438Rte[place] [address] Ultrasound Report Signed Patient: MIMI BYNUM MR#: [id number] : 2000 Acct:[id number] Age/Sex: 24 / F ADM Date: 03/22/25 Loc: US Attending Dr: Jessica Cruz D.O. Ordering Physician: Jessica Cruz D.O. Date of Service: 03/22/25 Procedure(s): US OB <= 14 weeks fetus Accession Number(s): [id number] cc: Jessica Cruz D.O.; Physician,Non-Staff M.DTanisha The [address] [address] Patient Name: MIMI BYNUM MRN: [id number] date: 2000 Sex: F Assigned Patient Location: US Current Patient Location: LAB Accession/Order Number: [id number] Exam Date: 03/22/2025 10:07 Report Date: 03/22/2025 [...] Blevins M.D. 03/22/2025 10:11 AM Dictation Location: [place] [address] Electronically authenticated by: [id number] Y Date: 03/22/2025 10:11 Dictated By: Brooke Blevins M.D. Signed By: 03/22/25 1013 DD/ 1011 TD/TT: Petroleum Laboratory Technician:TBHRadiology, Radiologist, MD - 03/22/2025 [place] [address] Ultrasound Report Signed Patient: MIMI BYNUM MR#: [id number] : 2000 Acct:[id number] Age/Sex: 24 / F ADM Date: 03/22/25 Loc: US Attending Dr: Jessica Cruz D.O. Ordering Physician: Jessica Cruz D.O. Date of Service: 03/22/25 Procedure(s): US OB <= 14 weeks fetus Accession Number(s): [id number] cc: Jessica Cruz D.O.; Physician,Non-Staff Venessa The [place] [id number] Patient Name: MIMI BYNUM MRN: [id number] date: 2000 Sex: F Assigned Patient Location: US Current Patient Location: LAB Accession/Order Number: [id number] Exam Date: 03/22/2025 10:07 Report Date: 03/22/2025 [...] Blevins M.D. 03/22/2025 10:11 AM Dictation Location: [place] [address] Electronically authenticated by: [id number] Y Date: 03/22/2025 10:11 Dictated By: Brooke Blevins M.D. Signed By: 03/22/25 1013 DD/ 1011 TD/TT: Petroleum Laboratory Technician: [facility] HealthcareRadiology Study observation (narrative)[facility] HealthcareUS OB L= 14 WEEKS FETUSOrdered By: Radiologist Radiology on 04-61-1406EWBP Healthcare Work Phone: Urinalysis macro (dipstick) panel (U)on 03-22-2025 Bilirubin, UANegativeNegative - 4(70) +++ mg/dLNOMS HealthcareBlood, UAPositive Negative - 50 Tim/mcLNOMS HealthcareComment on above:traceClarity, UAClearNOMS HealthcareColor, UAYellowNOMS HealthcareGlucose, UANegativeNegative - 1999(110) ++++ mg/dLNOMS HealthcareInterpretation and review of laboratory resultsAbnormal [facility] HealthcareKetones, UANegativeNegative - 160(16) ++++ mg/dLNOMS Healthcare Leukocytes, UAPositiveNegative - 500+++ Genoveva/mcLNOMS HealthcareComment on above: largeNitrite, UANegativeNegative - PositiveNOMS HealthcarepH, UA75 - 9NOMS HealthcareProtein, UANegativeNegative - 2000(20) ++++ mg/dLNOMS HealthcareSpec Grav, UA1.011 - 1.03NOWV HealthcareUrobilinogen, UA0.20.2 - 12 mg/dLNONorthwest Medical CenterNONorthwest Medical CenterTB PREG QUANT HCGon [id number] JFBYZNIPILBK2sEP/mL [facility] HealthcareComment on above:5-50 0.2-1 WEEK 50-500 1-2 WEEKS 100-5,000 2-3 WEEKS 500-10,000 3-4 WEEKS 1,000-50,000 4-5 WEEKS 10,000-100,000 5-6 WEEKS 15,000-200,000 6-8 WEEKS 10,000-100,000 2-[facility] PREG QUANT HCGon 23-42-7201OYS GZQKWNHLRABT7xGH/mL [facility] HealthcareComment on above:5-50 0.2-1 WEEK 50-500 1-2 WEEKS 100-5,000 2-3 WEEKS 500-10,000 3-4 WEEKS 1,000-50,000 4-5 WEEKS 10,000-100,000 5-6 WEEKS 15,000-200,000 6-8 WEEKS 10,000-100,000 2-3 MONTHS CLINSSM [facility]habPa IG, rfx Aptima HPV, rfx 16/18,45on 10-22-2022.. NormalThe [facility]uffton HospitalComment on above:Result Comment: Performed at: WB Performed By: #### [id number] #### [facility] [address] [place] [address] Dr. Romero FreemanDIAGNOSIS:CommentNormalThe Bluffton HospitalComment on above: Result Comment: NEGATIVE FOR INTRAEPITHELIAL LESION OR MALIGNANCY. Performed at: WBPerformed By: #### [id number] #### [facility] [address] [place] [address] Dr. Romero FreemanHPV AptimaPositiveAbnormalNegativeSalem City HospitalComcorewell health ludington hospital on above:Result Comment: This nucleic acid amplification test detects fourteen high-risk HPV types (16,18,31,33,35,39,45,51,52,56,58,59,66,68) without differentiation. Performed at: =GPerformed By: #### [id number] #### [facility] [address] [address] [address] Romero FreemanHPV Genotype 16NegativeNormalNegativeSalem City HospitalComment on above:Performed By: #### [id number] #### [facility] [address] [place] [address] Dr. Romero EarlyV Genotype 18,45NegativeNormalNegativeSalem City Hospital Comment on above:Performed By: #### [id number] #### [facility] [address] [place] [address] Dr. Romero FreemanHPV Genotype ReflexCommentNoAdena Health SystemComment on above:Result Comment: Criteria met, see HPV Genotype results. Performed at: WBPerformed By: #### [id number] #### [facility] [address] [place] [address] Dr. Romero FreemanMethodology:CommentTrinity Health System West Campus on above: Result Comment: This liquid based ThinPrep(R) pap test was screened with the use of an image guided system. Performed at: WBPerformed By: #### [id number] #### [facility] [address] [place] [address] Dr. Romero FreemanNote:CommentNoTrinity Health System on above:Result Comment: The Pap smear is a screening test designed to aid in the detection of premalignant and malignant conditions of the uterine cervix. It is not a diagnostic procedure and should not be used as the sole means of detecting cervical cancer. Both false-positive and false-negative reports do occur. . Performed at: WBPerformed By: #### [id number] #### [facility] [address] [place] [address] Dr. Romero FreemanPerformed by:CommentNoTrinity Health System on above: Result Comment: Wale Hauser Animal Control Officer (ASCP) Performed at: WBPerformed By: #### [id number] #### [facility] [address] [place] [address] Dr. Romero FreemanSpecimen adequacy:CommentTrinity Health System West Campus on above:Result Comment: Satisfactory for evaluation. Endocervical and/or squamous metaplastic cells (endocervical component) are present. Performed at: Performed By: #### [id number] #### [facility] [address] [place] [address] Dr. Romero FreemanPap IG,rfx Aptima HPV all pthon 02-17-2022..NormalBethesda North Hospital on above:Result Comment: Performed at: BAPerformed By: #### [id number] #### [facility] [address] [place] [address] Dr. Romero FreemanDIAGNOSIS:CommentNoTrinity Health System on above: Result Comment: NEGATIVE FOR INTRAEPITHELIAL LESION OR MALIGNANCY. Performed at: [facility]PITALerformed By: #### [id number] #### [facility] [address] [place] [address] Dr. Romero FreemanMethodology:CommentTrinity Health System West Campus on above: Result Comment: This liquid based ThinPrep(R) pap test was screened with the use of an image guided system. Performed at: Performed By: #### [id number] #### [facility] [address] [place] [address] Dr. Romero FreemanNote:CommentNoTrinity Health System on above:Result Comment: The Pap smear is a screening test designed to aid in the detection of premalignant and malignant conditions of the uterine cervix. It is not a diagnostic procedure and should not be used as the sole means of detecting cervical cancer. Both false-positive and false-negative reports do occur. . Performed at: WBPerformed By: #### [id number] #### [facility] [address] [place] [address] Dr. Romero FreemanPerformed by:CommentNoTrinity Health System on above: Result Comment: Marisabel Castro, Animal Control Officer (ASCP) Performed at: BAPerformed By: #### [id number] #### [facility] [address] [place] [address] Dr. Romero FreemanReflex Criteria:CommentTrinity Health System West Campus on above:Result Comment: The HPV DNA reflex criteria were not met with this specimen result therefore, no HPV testing was performed. . Performed at: BAPerformed By: #### [id number] #### [facility] [address] [place] [address] Dr. Romero Cope adequacy:CommentNormalThMemorial Hospital on above:Result Comment: Satisfactory for evaluation. Endocervical and/or squamous metaplastic cells (endocervical component) are present. Performed at: BAPerformed By: #### [id number] #### [facility] [address] [place] [address] Dr. Romero Hunter AUTO DIFFon 29-90-5532UYWO #0.1 103/ulNormal0.0-0.1The [facility] Health West Hospitalment on above:Performed By: #### CBC #### [facility] [address] [place] [address] Dr. Romero FreemanBasophils/100 WBC (Bld)0.6 %Normal0.2-2.0[facility] Comment on above:Performed By: #### CBC #### [facility] [address] [place] [address] Dr. Romero Yoo #0.7 103/ulNormal0.0-0.7The [facility] HospitalComment on above: Performed By: #### CBC #### [facility] [address] [place] [address] Dr. Romero Ramososinophils/100 WBC (Bld)8.6 %Critically high0.9-7.0The [facility] HospitalComment on above:Performed By: #### CBC #### [facility] [address] [place] [address] Dr. Romero Ramosrythrocyte distribution width (RBC) [Ratio]13.2 %Bkmpqt80.0-15.0 The [facility] HospitalComment on above:Performed By: #### CBC #### [facility] [address] [place] [address] Dr. Romero FreemanHematocrit (Bld) [Volume fraction]42.2 %Eghhke14.0-48.0The [facility] HospitalComment on above:Performed By: #### CBC #### [facility] [address] [place] [address] Dr. Romero FreemanHemoglobin (Bld) [Mass/Vol]14.3 g/wVXsfmol22.0-16.0The [facility] HospitalComment on above:Performed By: #### CBC #### [facility] [address] [place] [address] Dr. Romero Dumas #0.01 10e3/ulNormal0.00-0.03The [facility] HospitalComment on above:Performed By: #### CBC #### [facility] [address] [place] [address] Dr. Romero Dumas %0.1 %Normal0.0-0.5The [facility] HospitalComment on above: Performed By: #### CBC #### [facility] [address] [place] [address] Dr. Romero Medrano #3.3 103/ulNormal1.2-3.8The [facility] HospitalComment on above:Performed By: #### CBC #### [facility] [address] [place] [address] Dr. Romero Pughhocytes/100 WBC (Bld)40.8 %Rlxlfy48.5-60.0The [facility] HospitalComment on above:Performed By: #### CBC #### [facility] [address] [place] [address] Dr. Romero WymanUAL DIFF REQNONormalThe [facility]uffton HospitalComment on above: Performed By: #### CBC #### [facility] [address] [place] [address] Dr. Romero Woodward (RBC) [Entitic mass]30.2 iuDzjkch90.7-34.0The [facility] HospitalComment on above:Performed By: #### CBC #### [facility] [address] [place] [address] Dr. Romero Woodward (RBC) [Mass/Vol]33.9 g/zVDymwxv54.9-35.2The [facility] HospitalComment on above:Performed By: #### CBC #### [facility] [address] [place] [address] Dr. Romero Bolaños (RBC) [Entitic vol]89.2 tTObrmju56.0-99.0The [facility] HospitalComment on above:Performed By: #### CBC #### [facility] [address] [place] [address] Dr. Romero Larsen #0.7 103/ulNormal0.3-0.8The [facility] HospitalComment on above:Performed By: #### CBC #### [facility] [address] [place] [address] Dr. Romero Worthingtonocytes/100 WBC (Bld)9.0 %Normal1.7-12.0[facility] Comment on above:Performed By: #### CBC #### [facility] [address] [place] [address] Dr. Romero Dewey #3.3 103/ulNormal1.4-6.5The [facility] HospitalComment on above:Performed By: #### CBC #### [facility] [address] [place] [address] Dr. Romero Shepardutrophils/100 WBC (Bld)40.9 %Critically low43.0-75.0The [facility] HospitalComment on above:Performed By: #### CBC #### [facility] [address] [place] [address] Dr. Romero Lugolet mean volume (Bld) [Entitic vol]8.6 fLCritically low 9.5-13.5The [facility] HospitalComment on above:Performed By: #### CBC #### [facility] [address] [place] [address] Dr. Romero RecioT289 103/hxWsvfgw290-072Bur [facility] HospitalComment on above: Performed By: #### CBC #### [facility] [address] [place] [address] Dr. Romero FreemanRBC4.73 106/ulNormal4.20-5.40Sal[facility] City HospitalComment on above:Performed By: #### CBC #### [facility] [address] [place] [address] Dr. Romero FreemanWBC8.1 103/ulNormal4.0-11.0Sal[facility] City HospitalComment on above: Performed By: #### CBC #### [facility] [address] [place] [address] Dr. Romero FreemanPRECathy QUANT HCGon 44-12-2449ABB QUANT<1NormalThe [facility] Comment on above:Performed By: #### PREGQNT #### [facility] [address] [place] [address] Dr. Romero Cobb RANGESEE BELOWDelaware County HospitalComment on above: Result Comment: 5-50 0-1 WEEK 40-300 1-2 WEEKS 100-1,000 2-3 WEEKS 500-6,000 3-4 WEEKS 5,000-200,000 1-2 MONTHS 10,000-100,000 2-3 MONTHS 3,000-50,000 2ND TRIMESTER 1,000-50,000 3RD TRIMESTERPerformed By: #### PREGQNT #### [facility] [address] [place] [address] Dr. Romero FreemanCovid-19 PCR ([facility])on 50-35-1354GKLT-CoV-2 (COVID-19) RNA ABEBE+probe Ql (Unsp spec)Not detectedNormalNOT DETECTEDSalem City Hospital Comment on above:Result Comment: When diagnostic testing is negative, the [...] for this test is supported by the Arabic Linguist of Health and Human Service's declaration that circumstances exist to justify the emergency use of in vitro diagnostics for the detection and/or diagnosis of the virus that causes COVID-19. This EUA will remain in effect for the duration of the COVID-19 declaration justifying emergency of IVDs, unless it is terminated or revoked by the FDA (after which the test may no longer be used).Performed By: #### CVDTBH #### [facility] [address] [place] [address] Dr. Romero Freeman Vital Signs Date TimeVital SignValuePerforming VzqogtqztPnhtzuuh11-80-4766 09:14-0500Body mass index (BMI) [Ratio]29.94 kg/r0Bstls Anthony DO Work Phone: [phone] [place], [place] [address]Ohnrpxrtju34-26-8550 09:14-0500Body gruvot13.66 kgCorey Anthony DO Work Phone: [phone] [place], [place] [address]Ricmnwxqjs10-44-2899 09:14-0500Diastolic blood tkuqzxag34 mm[Hg]Jessica Anthony DO Work Phone: [phone] [place], [place] [address]Kqdydmvzet19-66-0339 09:14-0500Systolic blood sfqyzyjy012 mm[Hg]Jessica Anthony DO Work Phone: [phone] [place], [place] [address]Jurhdtikkp89-01-2238 09:31-0400Body mass index (BMI) [Ratio]29.41 kg/m2Amy Mahad PA Work Phone: [phone] [place], [place] [address]Xmpbzulbfn96-59-4208 09:31-0400Body umtahm23.3 kg Jaz Bloom PA Work Phone: [phone])[facility] [place], [place] [address]Zminibhssm41-08-9215 09:31-0400Diastolic blood sbwatiuy00 mm[Hg]Jaz Bloom PA Work Phone: [phone])[facility] [place], [place] [address]Zimlkbzicq49-26-3618 09:31-0400Systolic blood cvgdfkaa013 mm[Hg]Jaz Bloom PA Work Phone: [phone])[facility] [place], [place] [address]Wbpfyshupr16-24-0349 09:42-0400Body mass index (BMI) [Ratio]28.66 kg/m2Jaz Bloom PA Work Phone: [phone])[facility] [place], [place] [address]Gdhpszxxlw60-02-2933 09:42-0400Body yxvccs38.39 kgJaz Bloom PA Work Phone: [facility] HospitalBzblkcwkej83-37-6835 09:42-0400Diastolic blood vdlxagke32 mm[Hg]Jaz BEARDEN Work Phone: [facility] HospitalSdqgphplmr89-40-7766 09:42-0400Systolic blood mm[Hg]Jaz Bloom PA Work Phone: [facility] HospitalTmuycgjxjq58-90-1879 09:55-0400Body mass index (BMI) [Ratio]28.19 kg/n1Wnycv Anthony DO Work Phone: [facility] HospitalMrmnisaizv86-43-5678 09:55-0400Body .18 kgCorey Anthony DO Work Phone: [facility] HospitalHardbogorn60-37-9705 09:55-0400Diastolic blood bceivqpx95 mm[Hg]Jessica Anthony DO Work Phone: [facility] HospitalUagncendgx27-68-7022 09:55-0400Systolic blood zlozchwg782 mm[Hg]Jessica Anthony DO Work Phone: [phone] [place] [address] [place], [place] [address]Ojsbnrdltw12-40-7790 10:52-0400Body mass index (BMI) [Ratio]27.1 kg/m2Jaz BEARDEN Work Phone: [facility] HospitalDdoytfbhyj62-95-5495 10:52-0400Body epsfrl88.4 kg Jaz BEARDEN Work Phone: [facility] HospitalNmmjmwpaaf52-83-4410 10:52-0400Diastolic blood mm[Hg]Jaz Bloom PA Work Phone: 1(299)292-[address] [place], [place] [address]Ovxijzndkt76-21-2314 10:52-0400Systolic blood fomoxchx877 mm[Hg]Jaz BEARDEN Work Phone: [facility] HospitalUdbelkbbrc24-64-8963 08:27-0400Body mass index (BMI) [Ratio]26.29 kg/u6Xwvlg Anthony DO Work Phone: [facility] HospitalEaccgoadph53-77-3171 08:27-0400Body lmttha91.31 kgCorey Anthony DO Work Phone: NONorth[facility] Medical CenterImctmexlvk78-20-4434 08:27-0400Diastolic blood oxwlhayo25 mm[Hg]Jessica Anthony DO Work Phone: [facility] CenterWgtdypvayg59-85-2908 08:27-0400Systolic blood djtmoevr209 mm[Hg]Jessica Anthony DO Work Phone: [facility] HospitalNqqtpbnrwx71-02-1635 09:45-0400Body mass index (BMI) [Ratio]25.51 kg/x9PfyibBellevue Hospital07-02-2025 09:45-0400Body weight 65.32 kgBellevue Hospital07-02-2025 09:45-0400Diastolic blood jgequdsr67 mm[Hg][facility]07-02-2025 09:45-0400Systolic blood xoszlmzb167 mm[Hg][facility] Encounters Encounter DateEncounter TypeCare ProviderFacilityStart: 07-25-2025 End: 35-00-8870Lrlack flowsheetCorey Anthony DO Work Phone: [place] [facility]BGYNStart: 07-25-2025 End: 37-83-4006Koysxg flowsheetCorey Anthony DO Work Phone: [facility] [place] [facility]BGYNStart: 07-25-2025 End: 00-87-3664Dslgoz outpatient visit 15 minutesCorey Anthony DO Work Phone: [facility] [place] OBGYNComment on above:Third trimester ([facility]); 30 weeks gestation of ([facility])Start: 07-25-2025 End: 00-42-4311xyramsrvuyAWTYE FAZIONot AvailableStart: 07-11-2025 End: 05-58-3483Yvnumr outpatient visit 15 minutesJaz BEARDEN Work Phone: [facility] [place] OBGYNComment on above:Third trimester ([facility]); 28 weeks gestation of ([facility])Start: 07-11-2025 End: 14-22-2178ofdqudrxvvZZA RAMEYNot AvailableStart: 06-30-2025 End: 30-59-7453Busrsi flowsEvelyn BEARDEN Work Phone: [facility]BGYNStart: 06-30-2025 End: 19-02-5697Hfxaay flowsEvelyn BEARDEN Work Phone: [facility]BGYNStart: 06-30-2025 End: 37-82-2994Grptdd outpatient visit 15 minutesJaz BEARDEN Work Phone: [phone] OBGYNComment on above:27 weeks gestation of ([facility]); Chlamydia trachomatis infection; Second trimester ([facility]); size inconsistent with dates ([facility])Start: 06-30-2025 End: 57-25-7748tldlnsiyehWAE RAMEYNot AvailableStart: 06-20-2025 End: 47-96-4615Xqhozmihh Result EncounterCorey Anthony DO Work Phone: [facility] External Department UnsolicitedStart: 06-20-2025 End: 67-59-3717Tupeuinij Result EncounterCorey Anthony DO Work Phone: [facility] External Department UnsolicitedStart: 06-13-2025 End: 26-21-4579Vvjznf flowsheetCorey Anthony DO Work Phone: [facility]BGYNStart: 06-13-2025 End: 32-24-9534Zsnmnc flowsheetCorey Anthony DO Work Phone: [facility] [place] [facility]BGYNStart: 06-13-2025 End: 86-94-7544Boawqzwfl Result EncounterCorey Anthony DO Work Phone: [facility] External Department UnsolicitedStart: 06-13-2025 End: 29-66-9553Efwanyqr Result EncounterCorey Anthony DO Work Phone: [facility] External Department UnsolicitedStart: 06-13-2025 End: 07-10-7188Dhixvyg encounter procedureCorey Anthony DO Work Phone: NO HealthcareStart: 06-13-2025 End: 32-94-4308Xiintbhy preventive med est patient 18-39 yrsCorey Anthony DO Work Phone: [facility] OBGYNComment on above:Well woman exam with routine gynecological exam; care in second trimester, unspecified ([facility]); 24 weeks gestation of ([facility]); Diabetes mellitus screeningStart: 06-13-2025 End: 63-16-4469hmscpcmgdtAMUKZ FAZIONot AvailableStart: 05-15-2025 End: 72-07-3741Qmwzxc Enrike BEARDEN Work Phone: [facility]BGYNStart: 05-15-2025 End: 38-75-7815Qkjvlx Enrike BEARDEN Work Phone: [facility]BGYNStart: 05-15-2025 End: 29-68-8129Gyhkikxgh Result EncounterCorey Anthony DO Work Phone: [facility] External Department UnsolicitedStart: 05-15-2025 End: 45-91-3106urigikyulhALL RAMEYNot AvailableStart: 05-15-2025 End: 28-30-3986Xzlxsf outpatient visit 15 minutesJaz BEARDEN Work Phone: NOLW [facility] OBGYNComment on above:Second trimester ([facility]); 20 weeks gestation of ([facility])Start: 04-13-2025 End: 75-79-8478Jvxgvd flowsheetCorey Anthony DO Work Phone: [facility] BCP OBStart: 04-13-2025 End: 02-56-4675Ntlowb flowsheetCorey Anthony DO Work Phone: [facility] OBStart: 04-13-2025 End: 22-70-0814Qjzsnmkyp Result EncounterCorey Anthony DO Work Phone: [facility] External Department UnsolicitedStart: 04-13-2025 End: 43-28-9955Msqbjt outpatient visit 15 minutesCorey Anthony DO Work Phone: noms BCP OBComment on above:16 weeks gestation of ([facility]); Second trimester ([facility]); Screening, , for anatomic survey ([facility])Start: 04-13-2025 End: 06-57-9150cqyyrgcilgNZCLK FAZIONot AvailableStart: 03-22-2025 End: 27-81-3962Ukwzwvakg Result EncounterCorey Anthony DO Work Phone: noms External Department UnsolicitedStart: 03-22-2025 End: 99-36-1257Agnvrtiah Result EncounterCorey Anthony DO Work Phone: noms External Department UnsolicitedStart: 03-22-2025 End: 31-42-1928yayqwbtomhPQJTA FAZIONot AvailableStart: 03-22-2025 End: 10-32-9212Xfrqff outpatient visit 5 minutesFazio Nurse Noms Bcp ObNOMS BCP OBComment on above:GA: 40g3kEzbyf: 05-26-2024 End: 26-38-8482Rpmrhhcgx Result EncounterCorey Anthony DO Work Phone: noms External Department UnsolicitedStart: 05-26-2024 End: 13-03-1983Fdohluovq Result EncounterCorey Anthony DO Work Phone: noms External Department UnsolicitedStart: 05-24-2024 End: 72-27-4385Wnrrwnstw Result EncounterCorey Anthony DO Work Phone: noms External Department UnsolicitedStart: 05-24-2024 End: 29-18-9203Wqsracxwl Result EncounterCorey Anthony DO Work Phone: noms External Department UnsolicitedStart: 10-16-2022 Encounter for cervical smear to confirm findings of recent normal smear following initial abnormal smearDR JESSICA CRUZ .[facility] HospitalStart: 10-15-2022 End: 25-31-5849gucbrklkhgEO JESSICA ANTHONY .Facility:U3Bskat: 10-15-2022 End: 69-34-9856Wmnpjexdg for cervical smear to confirm findings of recent normal smear following initial abnormal smearDR JESSICA ANTHONY .Facility:Y9Jxpju: 84-45-4605klxhdlarysEL SHER RICHARDSON .Facility:Z9Pewjp: 02-12-2022 End: 56-23-6350cevxwjhvzlPB JESSICA ANTHONY .Facility:V0Buvji: 12-20-2021 End: 64-62-4864izbvzajekdSS JESSICA ANTHONY .Facility:R9Vykii: 42-09-7315Ttjusmzrw for preprocedural laboratory examinationDR JESSICA ANTHONY .[facility] Start: 41-15-1542uhratueeztMV JESSICA ANTHONY .Facility:C5Qilkp: 12-13-2021 End: 98-19-6424ztohtaezheXM JESSICA ANTHONY .Facility:W9Wzdqm: 12-13-2021 End: 32-56-7316Fvynusfhz for preprocedural laboratory examinationDR JESSICA ANTHONY .Facility: Procedures DateProcedureProcedure DetailPerforming ClinicianStart: 94-81-8028Kumnq dip stick/tablet rgnt non-auto w/o micrscpCorey Anthony DO Work Phone: Start: 01-24-4154Sjkjp dip stick/tablet rgnt non-auto w/o micrscpAmy Mahad BEARDEN Work Phone: Start: 33-04-2163Dbjcf dip stick/tablet rgnt non-auto w/o micrscpAmy Mahad PA Work Phone: Start: 71-32-8190SNS CBC WITH AUTO DIFFCorey Anthony DO Work Phone: Start: 12-89-7905DFDEPIDFO VAGINITIS (HTRX)Jessica Anthony DO Work Phone: Start: 71-72-6912Eyctv dip stick/tablet rgnt non-auto w/o micrscpCorey Anthony DO Work Phone: Start: 42-98-8069QFZ,APTIMA HPV,AGE GDLNCorey Anthony DO Work Phone: Start: 98-27-4530IO OB ANATOMYCorey Anthony DO Work Phone: Start: 91-41-4682FI OB CERVICAL LENGTHCorey Anthony DO Work Phone: Start: 52-93-5643Rdcvg dip stick/tablet rgnt non-auto w/o micrscpAmy Mahad [place]ARDEN Work Phone: Start: 47-57-6278VXR, SERUM, OPEN SPINA BIFIDACorey Anthony DO Work Phone: Start: 61-80-3404Cbjnp dip stick/tablet rgnt non-auto w/o micrscpCorey Anthony DO Work Phone: Start: 50-34-1148MA OB L= 14 WEEKS FETUSCorey Anthony DO Work Phone: Start: 32-54-1617Kzplj dip stick/tablet rgnt non-auto w/o micrscpCorey Anthony DO Work Phone: Start: 25-96-8593PYC PREG QUANT HCGCorey Anthony DO Work Phone: Start: 04-26-7755SCB PREG QUANT HCGCorey Anthony DO Work Phone: Plan of Treatment DateCare ActivityDetailAuthorStart: 08-08-2025 End: 09-48-3675Sakllfs encounter kijfgqxld68/18/2025 11:20 AM EST Routine [facility] [address] [id number] Jaz Bloom PA [address] [place] [address] [facility] OBGYNStart: 07-25-2025 End: 41-22-1408Tdczjkm encounter procedureNOMS [place] OBGYNComment on above: ArrivedStart: 07-11-2025 End: 77-82-5398Nidepsi encounter procedureNOMS Dolan OBGYNStart: 07-11-2025 End: 53-62-1276Mdueaarhildp / ancillary services njmkpkczyq64/21/2025 9:00 AM EDT Ancillary Procedure [facility] [address] [place] [address] VXDX Kelsi OBGYNStart: 06-30-2025 End: 45-55-4291VQ for pregnancyUS OB follow up transabdominal approach Imaging Routine size inconsistent with dates ([facility]) Expected: 06/30/2025, Expires: 10/31/2025NOWV HealthcareComment on above:Expected: 06/30/2025, Expires: 10/31/2025Start: 06-30-2025 End: 60-66-9048Rbqrmaj encounter procedureNOMS Dolan OBGYNComment on above: ArrivedStart: 06-13-2025 End: 54-89-4474Augel fetoprotein, maternalAlpha fetoprotein, maternal Lab Routine Well woman exam with routine gynecological exam care in second trimester, unspecified ([facility]) 24 weeks gestation of ([facility]) Expected: 06/13/2025 (Approximate), Expires: 09/12/2025[facility] Comment on above:Expected: 06/13/2025 (Approximate), Expires: 09/12/2025Start: 06-13-2025 End: 88-96-9748HQD panel - Blood by Automated countCBC Lab Routine Diabetes mellitus screening Expected: 06/13/2025 (Approximate), Expires: 06/13/2026[facility] HealthcareComment on above:Expected: 06/13/2025 (Approximate), Expires: 06/13/2026Start: 06-13-2025 End: 77-44-4424Gegaadwzsva of glucose 1 hour after glucose challenge for glucose tolerance testGlucose tolerance, 1 hour Lab Routine Diabetes mellitus screening Expected: 06/13/2025 (Approximate), Expires: 06/13/2026[facility] HealthcareComment on above:Expected: 06/13/2025 (Approximate), Expires: 06/13/2026Start: 06-13-2025 End: 03-54-6753Mkflmux encounter procedureNOMS [place] OBGYNComment on above: ArrivedStart: 05-15-2025 End: 18-13-7097Astnuiu encounter procedureNOMS BCP OBComment on above:Arrived Start: 05-15-2025 End: 67-28-8208Gxerpjgjnhmu / ancillary services managementNOMS BCP OBStart: 04-13-2025 End: 96-02-6400Xqxvt fetoprotein, maternalAlpha fetoprotein, maternal Lab Routine 16 weeks gestation of ([facility]) Second trimester ([facility]) Expected: 04/13/2025 (Approximate), Expires: 06/14/2025[facility] Work Phone: comment on above:Expected: 04/13/2025 (Approximate), Expires: 06/14/2025Start: 04-13-2025 End: 66-76-0270MP for pregnancyUS OB 14+ weeks anatomy scan Imaging Routine 16 weeks gestation of ([facility]) Second trimester ([facility]) Screening, , for anatomic survey ([facility]) Expected: 04/13/2025, Expires: 07/14/2025[facility] HealthcareComment on above:Expected: 04/13/2025, Expires: 07/14/2025Start: 04-13-2025 End: 66-64-6803Aawmbwi encounter procedureNOMS BCP OBComment on above:Arrived Start: 03-22-2025 End: 68-44-9470WWC/RhABO/Rh Lab Routine Missed menses , unspecified gestational age ([facility]) Expected: 03/22/2025 (Approximate), Expires: 03/22/2026[facility] HealthcareComment on above:Expected: 03/22/2025 (Approximate), Expires: 03/22/2026Start: 03-22-2025 End: 31-47-7022Mscfz type and Indirect antibody screen panel - BloodType and screen Lab Routine Missed menses , unspecified gestational age ([facility]) Expected: 03/22/2025 (Approximate), Expires: 03/22/2026[facility] Comment on above:Expected: 03/22/2025 (Approximate), Expires: 03/22/2026Start: 03-22-2025 End: 97-21-3527Mnhmn of abuse panel - Urine by Screen methodRapid drug screen, urine Lab Routine , unspecified gestational age ([facility]) Encounter for supervision of normal first in first trimester ([facility]) Expected: 03/22/2025 (Approximate), Expires: 03/22/2026[facility] HealthcareComment on above: Expected: 03/22/2025 (Approximate), Expires: 03/22/2026Start: 03-22-2025 End: 57-99-5763DX for pregnancyUS OB less than 14 weeks early Imaging Routine Missed menses Positive urine test ([facility]) Expected: 03/22/2025, Expires: 06/22/2025[facility] Work Phone: comment on above:Expected: 03/22/2025, Expires: 06/22/2025acteria identified in Urine by CultureUrine culture Microbiology Routine Missed menses Ordered: 03/22/2025[facility] HealthcareComment on above: Ordered: 5CBC W Auto Differential panel - BloodCBC and differential Lab Routine Missed menses , unspecified gestational age ([facility]) Ordered: 03/22/2025[facility] HealthcareComment on above:Ordered: 03/22/2025HLAMYDIA TRACHOMATIS (GENITO/STI)CHLAMYDIA TRACHOMATIS (GENITO/STI) Lab Routine Well woman exam with routine gynecological exam care in second trimester, unspecified ([facility]) 24 weeks gestation of ([facility]) Ordered: 06/13/2025[facility] HealthcareComment on above:Ordered: 06/13/2025HLAMYDIA TRACHOMATIS (GENITO/STI)CHLAMYDIA TRACHOMATIS (GENITO/STI) Lab Routine Chlamydia trachomatis infection Ordered: 06/30/2025[facility] HealthcareComment on above: Ordered: 06/30/2025ytology Cervical or vaginal smear or scraping studyPap Smear Pathology and Cytology Routine Well woman exam with routine gynecological exam care in second trimester, unspecified ([facility]) 24 weeks gestation of ([facility]) Ordered: 06/13/2025[facility] Work Phone: comment on above:Ordered: 06/13/2025Hemoglobin A1c/Hemoglobin.total in BloodHemoglobin A1c Lab Routine Missed menses , unspecified gestational age ([facility]) Ordered: 03/22/2025[facility] HealthcareComment on above:Ordered: 03/22/2025Hepatitis B virus surface Ag [Presence] in Serum or Plasma by ImmunoassayHepatitis B surface antigen Lab Routine Missed menses , unspecified gestational age ([facility]) Ordered: 03/22/2025[facility] HealthcareComment on above:Ordered: 03/22/2025Hepatitis C virus Ab [Presence] in Serum or Plasma by ImmunoassayHepatitis C antibody Lab Routine Missed menses , unspecified gestational age ([facility]) Ordered: 03/22/2025[facility] HealthcareComment on above:Ordered: 03/22/2025HIV-1/HIV-2 antigen/antibody combination immunoassayHIV-1 and HIV-2 antibodies Lab Routine Missed menses , unspecified gestational age ([facility]) Ordered: 03/22/2025[facility] HealthcareComment on above:Ordered: 03/22/2025Neisseria gonorrhoeae DNA [Presence] in Unspecified specimen by ABEBE with probe detectionNeisseria gonorrhea DNA probe, direct Lab Routine Well woman exam with routine gynecological exam care in second trimester, unspecified ([facility]) 24 weeks gestation of ([facility]) Ordered: 06/13/2025[facility] HealthcareComment on above:Ordered: 06/13/2025Neisseria gonorrhoeae DNA [Presence] in Unspecified specimen by ABEBE with probe detectionNeisseria gonorrhea DNA probe, direct Lab Routine Chlamydia trachomatis infection Ordered: 06/30/2025[facility] HealthcareComment on above:Ordered: 06/30/2025Reagin Ab [Presence] in Serum by RPRRPR Lab Routine Missed menses , unspecified gestational age ([facility]) Ordered: 03/22/2025[facility] HealthcareComment on above: Ordered: 03/22/2025Rubella antibody, IgGRubella antibody, IgG Lab Routine Missed menses , unspecified gestational age ([facility]) Ordered: 03/22/2025[facility] HealthcareComment on above:Ordered: 03/22/2025SURESWAB(R) ADVANCED VAGINITIS PLUS, TMASURESWAB(R) ADVANCED VAGINITIS PLUS, TMA Pathology and Cytology Routine Well woman exam with routine gynecological exam care in second trimester, unspecified ([facility]) 24 weeks gestation of ([facility]) Ordered: 06/13/2025[facility] HealthcareComment on above:Ordered: 06/13/2025 SURESWAB(R) ADVANCED VAGINITIS PLUS, TMASURESWAB(R) ADVANCED VAGINITIS PLUS, TMA Pathology and Cytology Routine Chlamydia trachomatis infection Ordered: 06/30/2025[facility] i-nex[employer] Work Phone: comment on above:Ordered: 06/30/2025 Payers DatePayer CategoryPayerPolicy [id number] Health InsuranceCARESOURCE MEDICAID [id number] [id number] 2022MedicareCARESOURCEMedicareCARESOURCE MEDICARE CARESOURCE [facility] [place] [id number] 2022-Present [address] [place] [address] [id number] 2.840.1.916736.3.57[id number] 2.840.1.664595.3.57[id number] 2.16.840.1.479017.3.57[id number] 2.16.840.1.848853.3.57[id number] 2.16.840.1.528208.3.57[id number] 2.16.840.1.145803.3.57[id number] 2.16.840.1.795446.3.57[id number] 2.16.840.1.996740.3.57[id number] 2.840.1.449638.3.57[id number] 2.16.840.1.803307.3.57[id number] 2.16.840.1.084465.3.57[id number] 2.16.840.1.233696.3.57[id number] 2.840.1.882808.3.57[id number] 2.16840.1.469315.3.579.2.903883-30-6522Efuc-[id number] Social History DateTypeDetailFacilityTobacco smoking status NHISTobacco smoking consumption unknownNOWV HealthcareStart: 25-50-2974Zum assigned at birthNot on fileBLUE MOUNTAIN HOSPITAL, INC. HealthcareGender identityNot on fileBLUE MOUNTAIN HOSPITAL, INC. HealthcareStart: 32-48-6334Fyektaksl NOMS HealthcareStart: 95-55-5309NgsDmdpocACNXPrisma [facility] Clinical Notes 12-20-2021 to 07-25-2025 Note Date & TtkrTellBcyigvtt16-41-7530 History of Present illness Narrative* Katrin MominLALO - 07/25/2025 9:00 AM EST Reason for Appointment: Patient ID: Mimi Bynum is a 24 y.o. female who presents for Routine Visit Patient presents today for Return OB appointment. MEDICATIONS Current Outpatient Medications Medication Instructions Cid-Apa-BJ-Fish Oil ([facility]) 0.4-113.5 MG chewable tablet 1 tablet, Daily RT ALLERGIES No Known Allergies PROBLEMS Active Ambulatory Problems Diagnosis Date Noted Cervical motion tenderness 04/01/2023 Dysmenorrhea 04/01/2023 Positive urine test ([facility]) 03/08/2025 Well woman exam with routine gynecological exam 06/13/2025 care in second trimester ([facility]) 06/13/2025 24 weeks gestation of ([facility]) 06/13/2025 Chlamydia 06/13/2025 Resolved Ambulatory Problems Diagnosis Date Noted No Resolved Ambulatory Problems No Additional Past Medical History HISTORY PAST MEDICAL HISTORY SOCIAL HISTORY Past Medical History: Diagnosis Date Chlamydia 06/13/2025 Social History Tobacco Use Smoking status: Not [...] reviewed. Vitals: Estimated body mass index is 29.94 kg/m as calculated from the following: Height as of 04/02/23: 5' 3 . Weight as of this encounter: 169 lb. BP: 118/74 Patient's last menstrual period was 01/06/2025. Assessment/Plan ICD-10-CM 1. Third trimester ([facility]) Z34.93 POCT urinalysis dipstick manually resulted 2. 30 weeks gestation of ([facility]) Z3A.30 Return OB: Patient presents today for a routine obstetrics appointment. Patient is currently 30w5d . Patient states she is doing well but has complaints of being tired due to current . Patient has verbalizes frequent movement. labor precautions was discussed/given and patient was instructed to perform kick counts three times a day. Orders Placed This Encounter Procedures POCT urinalysis dipstick manually resulted Follow Up: Patient is to return to office in 2 week for routine OB appointment. Documented by Katrin Momin MA on behalf of: Jessica Cruz DO documented in this encounterSullivan County Memorial HospitalAdysrdhqgx06-85-5787 History of Present illness Narrative* MONISHA Maciel - 07/11/2025 10:20 AM EDT Reason for Appointment: Patient ID: Mimi Bynum is a 24 y.o. female who presents for Routine Visit Patient presents today for Return OB appointment. MEDICATIONS Current Outpatient Medications Medication Instructions Mye-Pff-BR-Fish Oil ([facility]) 0.4-113.5 MG chewable tablet 1 tablet, Daily RT ALLERGIES No Known Allergies PROBLEMS Active Ambulatory Problems Diagnosis Date Noted Cervical motion tenderness 04/01/2023 Dysmenorrhea 04/01/2023 Positive urine test ([facility]) 03/08/2025 Well woman exam with routine gynecological exam 06/13/2025 care in second trimester ([facility]) 06/13/2025 24 weeks gestation of ([facility]) 06/13/2025 Chlamydia 06/13/2025 Resolved Ambulatory Problems Diagnosis Date Noted No Resolved Ambulatory Problems No Additional Past Medical History HISTORY PAST MEDICAL HISTORY SOCIAL HISTORY Past Medical History: Diagnosis Date Chlamydia 06/13/2025 Social History Tobacco Use Smoking status: Not [...] reviewed. Vitals: Estimated body mass index is 28.66 kg/m as calculated from the following: Height as of 04/02/23: 5' 3 . Weight as of 06/30/25: 161 lb 12.8 oz. BP: Patient's last menstrual period was 01/06/2025. Assessment/Plan ICD-10-CM 1. Third trimester ([facility]) Z34.93 POCT urinalysis dipstick manually resulted 2. 28 weeks gestation of ([facility]) Z3A.28 Return OB: Patient presents today for a routine obstetrics appointment. Patient is currently 28w5d . Patient states she is doing well but has complaints of being tired due to current . Patient has verbalizes frequent movement. labor precautions was discussed/given and patient was instructed to perform kick counts three times a day. Orders Placed This Encounter Procedures POCT urinalysis dipstick manually resulted Follow Up: Patient is to return to office in 2 week for routine OB appointment. Documented by Katrin Momin MA on behalf of: MONISHA Maciel documented in this encounterSullivan County Memorial HospitalZvgoszerfh77-10-1972 History of Present illness Narrative* MONISHA Maciel - 06/30/2025 9:30 AM EDT Reason for Appointment: Patient ID: Mimi Bynum is a 24 y.o. female who presents for Routine Visit and STI Screening Patient presents today for Return OB appointment. MEDICATIONS Current Outpatient Medications Medication Instructions Bfe-Bcp-OI-Fish Oil ([facility]) 0.4-113.5 MG chewable tablet 1 tablet, Daily RT ALLERGIES No Known Allergies PROBLEMS Active Ambulatory Problems Diagnosis Date Noted Cervical motion tenderness 04/01/2023 Dysmenorrhea 04/01/2023 Positive urine test ([facility]) 03/08/2025 Well woman exam with routine gynecological exam 06/13/2025 care in second trimester ([facility]) 06/13/2025 24 weeks gestation of ([facility]) 06/13/2025 Chlamydia 06/13/2025 Resolved Ambulatory Problems Diagnosis Date Noted No Resolved Ambulatory Problems No Additional Past Medical History HISTORY PAST MEDICAL HISTORY SOCIAL HISTORY Past Medical History: Diagnosis Date Chlamydia 06/13/2025 Social History Tobacco Use Smoking status: Not on file Smokeless tobacco: Not on file Substance Use Topics Alcohol use: Not on file Drug use: Not on file FAMILY HISTORY No family history on file. SURGICAL HISTORY History reviewed. No pertinent surgical history. REVIEW OF SYSTEMS Review of Systems: Review of Systems All other systems reviewed and are negative. OBJECTIVE Objective: Physical Exam Constitutional: Appearance: Normal [...] nursing note reviewed. Exam conducted with a continuous towel roller present. Vitals: Estimated body mass index is 28.66 kg/m as calculated from the following: Height as of 04/02/23: 5' 3 . Weight as of this encounter: 161 lb 12.8 oz. BP: 120/70 Patient's last menstrual period was 01/06/2025. ASSESSMENT & PLAN ICD-10-CM 1. 27 weeks gestation of ([facility]) Z3A.27 POCT urinalysis dipstick manually resulted 2. Chlamydia trachomatis infection A56.8 SURESWAB(R) ADVANCED VAGINITIS PLUS, TMA CHLAMYDIA TRACHOMATIS (GENITO/STI) Neisseria gonorrhea DNA probe, direct 3. Second trimester ([facility]) Z34.92 POCT urinalysis dipstick manually resulted Return OB: Patient presents today for a routine obstetrics appointment. Patient is currently 27w1d . Patient states she is doing well but has complaints of being tired due to current . Patient has verbalizes frequent movement. labor precautions was discussed/given and patient was instructed to perform kick counts three times a day. Patient presents today for VICTORIANO, Cultures obtained without difficulty. Orders Placed This Encounter Procedures CHLAMYDIA TRACHOMATIS (GENITO/STI) Neisseria gonorrhea DNA probe, direct POCT urinalysis dipstick manually resulted Follow Up: Patient is to return to office in 2 week for routine OB appointment. Documented by Shanika Cormier LPN on behalf of: MONISHA Maciel documented in this encounterSullivan County Memorial [id number] History of Present illness Narrative* Brooke Sosa LPN - 06/13/2025 9:40 AM EDT Reason for Appointment: Patient ID: Mimi Bynum is a 24 y.o. female who presents for Routine Visit and Gynecologic Exam Patient presents today for Annual Exam., STD Check., and Return OB appointment. MEDICATIONS Current Outpatient Medications Medication Instructions Vhx-Nbf-KN-Fish Oil ([facility]) 0.4-113.5 MG chewable tablet 1 tablet, Daily RT ALLERGIES No Known Allergies PROBLEMS Active Ambulatory Problems Diagnosis Date Noted Cervical motion tenderness 04/01/2023 Dysmenorrhea 04/01/2023 Positive urine test ([facility]) 03/08/2025 Well woman exam with routine gynecological exam 06/13/2025 care in second trimester ([facility]) 06/13/2025 24 weeks gestation of ([facility]) 06/13/2025 Resolved Ambulatory Problems Diagnosis Date [...] nursing note reviewed. Exam conducted with a continuous towel roller present. Vitals: Estimated body mass index is [...] maternal 2. care in second trimester, unspecified ([facility]) Z34.92 Pap Smear POCT urinalysis dipstick manually resulted SURESWAB(R) ADVANCED VAGINITIS PLUS, TMA CHLAMYDIA TRACHOMATIS (GENITO/STI) Neisseria gonorrhea DNA probe, direct Alpha fetoprotein, maternal Alpha fetoprotein, maternal 3. 24 weeks gestation of ([facility]) Z3A.24 Pap Smear POCT urinalysis dipstick manually resulted SURESWAB(R) ADVANCED VAGINITIS PLUS, TMA CHLAMYDIA TRACHOMATIS (GENITO/STI) Neisseria gonorrhea DNA probe, direct Alpha fetoprotein, maternal Alpha fetoprotein, maternal Return OB/Annual Exam: Patient presents today for a annual exam/routine obstetrics appointment. Patient is currently 48r2oyngbviyy. Patient states she is doing well but [...] of: Jessica Cruz DO documented in this encounterSullivan County Memorial [id number] History of Present illness Narrative* MONISHA Maciel - 05/15/2025 10:00 AM EDT Reason for Appointment: Patient ID: Mimi Bynum is a 24 y.o. female who presents for Routine Visit Patient presents today for Return OB appointment. MEDICATIONS Current Outpatient Medications Medication Instructions Fij-Ijb-FU-Fish Oil ([facility]) 0.4-113.5 MG chewable tablet 1 tablet, Daily RT ALLERGIES No Known Allergies PROBLEMS Active Ambulatory Problems Diagnosis Date Noted Cervical motion tenderness 04/01/2023 Dysmenorrhea 04/01/2023 Positive urine test ([facility]) 03/08/2025 Resolved Ambulatory Problems Diagnosis Date [...] ASSESSMENT & PLAN ICD-10-CM 1. Second trimester ([facility]) Z34.92 POCT urinalysis dipstick manually resulted 2. 20 weeks gestation of ([facility]) Z3A.20 Return OB: Patient presents today for [...] behalf of: MONISHA Maciel documented in this encounterSullivan County Memorial [id number] History of Present illness Narrative* Kendal Sahni LPN - 04/13/2025 8:30 AM EDT Reason for Appointment: Patient ID: Mimi Bynum is a 24 y.o. female who presents for Routine Visit Patient presents today for Return OB appointment. MEDICATIONS Current Outpatient Medications Medication Instructions Xqd-Ntz-QA-Fish Oil ([facility]) 0.4-113.5 MG chewable tablet 1 tablet, Daily RT ALLERGIES No Known Allergies PROBLEMS Active Ambulatory Problems Diagnosis Date Noted Cervical motion tenderness 04/01/2023 Dysmenorrhea 04/01/2023 Positive urine test ([facility]) 03/08/2025 Resolved Ambulatory Problems Diagnosis Date [...] nursing note reviewed. Exam conducted with a continuous towel roller present. Vitals: Estimated body mass index is 26.29 kg/m as calculated from the following: Height as of 23: 5' 3 . Weight as of this encounter: 148 lb 6.4 oz. BP: 120/64 Patient's last menstrual period was 01/06/2025. ASSESSMENT & PLAN ICD-10-CM 1. 16 weeks gestation of ([facility]) Z3A.16 POCT urinalysis dipstick manually resulted Alpha fetoprotein, maternal Alpha fetoprotein, maternal 2. Second trimester ([facility]) Z34.92 POCT urinalysis dipstick manually resulted Alpha fetoprotein, maternal Alpha fetoprotein, maternal 3. Screening, , for anatomic survey ([facility]) Z36.89 US OB 14+ weeks anatomy [...] or undercooked meat, and [facility] Patient has been consulted regarding any further do's and don'tsof . Patient voiced understanding and all questions [...] of: Jessica Cruz DO documented in this encounterNOMS [id number] History of Present illness Narrative* Katrin Momin, LALO - 03/22/2025 9:00 AM EDT Reason for Appointment: Patient ID: Mimi Bynum is a 24 y.o. female who presents for Amenorrhea Patient presents today for a Nurse OB Intake appointment. Patient is 12w6d with a Estimated Date ofDelivery: 09/28/25. OB History Para Term AB Living [...] tenderness 04/01/2023 Dysmenorrhea 04/01/2023 Positive urine test ([facility]) 03/08/2025 Resolved Ambulatory Problems Diagnosis Date [...] urinalysis dipstick manually resulted Positive urine test ([facility]) - US OB less than 14 weeks early; Future , unspecified gestational age ([facility]) - Type and screen; Future - ABO/Rh; Future - CBC and differential - Hemoglobin A1c - RPR - Rubella antibody, IgG - Hepatitis B surface antigen - Hepatitis C antibody - HIV-1 and HIV-2 antibodies - Rapid drug screen, urine; Future Encounter for supervision of normal first in first trimester ([facility]) - Rapid drug screen, urine; Future 12 weeks gestation of ([facility]) Nurse Note: Pt desires to have Maramec Billion to one. Pt first born baby was delivered at 36 weeks and born w/down syndrome. Pt stated she was not aware of it until she was called by [facility] to meet. Pt is wanting mary kay prepared with this baby. Pt was advised to have both the labs and Maramec done at the same time. [facility] and [...] by: Katrin Momin MA documented in this encounterSullivan County Memorial HospitalSohslkwnae38-54-2754 NoteThe [place], [place] NAME: MIMI BYNUM DATE OF : MEDICAL REC#: [id number] MEDICAL LEADER: [id number] [facility] [place], TRANSADMIT DATE: 12/20/2021 06:55:00 SIZING MACHINE TENDER DATE: 12/22/2021 01:00 DICTATING PHYSICIAN: JESSICA CRUZ DICTATION DATE: 12/20/2021 09:00 OPERATIVE NOTE PROCEDURE: Diagnostic laparoscopy. PREOPERATIVE DIAGNOSIS: Pelvic pain, dysmenorrhea, dyspareunia. POSTOPERATIVE DIAGNOSIS: Pelvic pain, dysmenorrhea, dyspareunia. ANESTHESIA: General. SURGEON: Jessica Cruz D.O. AQUARIST: TONI Arrington URINE OUTPUT: Yellow and clear. [...] Cruz DO on 01/12/2022 09:16 PM EDT [facility] Signed and Approved by: DR JESSICA CRUZ . 01/12/2022 21:16:00[facility] Missed menses Positive urine test ([facility]) , unspecified gestational age ([facility]) Encounter for supervision of normal first in first trimester ([facility]) 12 weeks gestation of ([facility]) [facility] Diagnosis 16 weeks gestation of ([facility]) Second trimester ([facility]) state, incidental Screening, , for anatomic survey ([facility]) Encounter for anatomic survey [facility] Diagnosis Second trimester ([facility]) state, incidental 20 weeks gestation of ([facility]) [facility] Diagnosis Well woman exam with routine gynecological exam Routine gynecological examination care in second trimester, unspecified ([facility]) 24 weeks gestation of ([facility]) Diabetes mellitus screening Screening for diabetes mellitus [facility] Diagnosis 27 weeks gestation of ([facility]) Chlamydia trachomatis infection Chlamydia trachomatis infection of unspecified site Second trimester ([facility]) state, incidental size inconsistent with dates ([facility]) [facility] Diagnosis Third trimester ([facility]) state, incidental 28 weeks gestation of ([facility]) [facility] Diagnosis Third trimester ([facility]) state, incidental 30 weeks gestation of ([facility]) documented in this encounter [facility] Summary Purpose Family History No Family History Records FoundNo Family History Records Found Advance Directives No Advanced Directives Records FoundNo Advanced Directives Records Found Additional Source Comments INFORMATION SOURCE (unrecogn ized section and content) DATE CREATED AUTHOR 12/04/2022 [facility] DATE CREATED AUTHOR AUTHOR'S ORGANIZ ATION 07/26/2025 [facility] EPIC Care Teams (unrecognized sec tion and content) Team MemberRelationshipSpecialtyStart DateEnd Date Sher Richardson MD [address] [place] [address] PCP - GeneralFamily Medicine04/02/23Team MemberRelationshipSpecialtyStart DateEnd Date Sher Richardson MD [address] [place] [address] PCP - GeneralFamily Medicine04/02/23Team MemberRelationshipSpecialtyStart DateEnd Date Sher Richardson MD [address] [place] [facility] [address] PCP - GeneralFamily Medicine04/02/23Team MemberRelationshipSpecialtyStart DateEnd Date Sher Richardson MD [address] [place] [facility] [place] [address] PCP - GeneralFamily Medicine04/02/23Team MemberRelationshipSpecialtyStart DateEnd Date Sher Richardson MD [address] [place] [facility] [place] [address] PCP - GeneralFamily Medicine04/02/23Team MemberRelationshipSpecialtyStart DateEnd Date Sher Richardson MD [address] [place] [facility] [place] [address] PCP - GeneralFamily Medicine04/02/23Team MemberRelationshipSpecialtyStart DateEnd Date Sher Richardson MD [address] [place] [facility] [place] [address] PCP - GeneralFamily Medicine04/02/23Team MemberRelationshipSpecialtyStart DateEnd Date Sher Richardson MD [address] [place] [facility] [place] [address] PCP - GeneralFamily Medicine04/02/23Team MemberRelationshipSpecialtyStart DateEnd Date Sher Richardson MD [address] [place] [facility] [place] [address] PCP - GeneralFamily Medicine04/02/23Team MemberRelationshipSpecialtyStart DateEnd Date Sher Richardson MD [address] [place] [address] PCP - [facility]04/02/23Team MemberRelationshipSpecialtyStart DateEnd Sher Richardson MD [address] [place] [address] PCP - [facility]04/02/23 Reason for Visit (unrecogniz ed section and content) ReasonCommentsAmenorrheaReasonCommentsRoutine VisitReasonComments Routine VisitGynecologic ExamReasonCommentsRoutine VisitSTI Screening FOR RECORDS PERTAINING TO PATIENTS WHO ARE [...] THE PRIMARY CLINICAL RECORDS. [facility] [employer], [facility]. provides no warranty or guarantee of the accuracy or completeness of information in this document.
== END 2025-08-28 19:32 | disposition home or self-care (01) ==
LOC: LAB 19:31
PROVIDERS: Visit Provider Obstetrics & Gynecology
DX: Z34.93 Encounter for supervision of normal pregnancy, unspecified, third trimester (principal)
CPT/HCPCS: 87081

== ENCOUNTER 2025-09-11 09:32 | Inpatient (IN) | payer OTHER, SELFPAY ==
--- OUTSIDE RECORDS SUMMARY | 2025-08-28 14:00 | XMS_ITS | Encounter Summary ---
Author Organization [facility] Address [address] [place] [address] Care Team Providers Care Tab Card Press Operator Name Role Phone Burton Richardson MD Primary Care Provider [phone] Encounter Details DateTypeDepartmentCare Team (Latest Contact Info)Iodwhmduxpy38/08/2025 2:00 PM ESTAncillary Procedure [facility] [address] [place] [address] [place] [id number] Excessive growth affecting management of , antepartum, single or unspecified fetus ([facility]) Social History Tobacco UseTypesPacks/DayYears UsedDateSmoking Tobacco: NeverSmokeless Tobacco: NeverAlcohol UseStandard Drinks/WeekCommentsNot Currently0 (1 standard drink = 0.6 oz pure alcohol)Estimated Date of GtsjijloWuewooneXol44/08/2026ased on UltrasoundSex and Gender InformationValueDate RecordedSex Assigned at Not on fileLegal PlhOkgjoi81/15/2023 7:23 PM EDTGender IdentityNot on fileSexual OrientationNot on filedocumented as of this encounter Plan of Treatment Not on file documented as of this encounter Procedures Procedure NamePriorityDate/TimeAssociated DiagnosisCommentsUS OB FOLLOW UP TRANSABDOMINAL WIMIDEDDKzejakc62/08/2025 2:20 PM EST Excessive growth affecting management of , antepartum, single or unspecified fetus ([facility]) documented in this encounter Results * US OB follow up transabdominal approach (08/28/2025 2:20 PM EST)Anatomical RegionLateralityModalityBodyUltrasoundSpecimen (Source)Anatomical Location / LateralityCollection Method / VolumeCollection TimeReceived Time09/07/2025 4:45 PM EST Impressions 09/07/2025 4:52 PM EST SINGLE LIVE INTRAUTERINE CORRESPONDING TO APPROXIMATELY 35 WEEKS 4 DAYS WITH AN EXPECTED DUE DATE OF SEPTEMBER 28, 2025. NO GROSS ABNORMALITIES IDENTIFIED, WITHIN THE LIMITS OF THE STUDY. ELECTRONICALLY SIGNED BY: Nandini Hess DO Narrative 09/07/2025 4:52 PM EST US OB FOLLOW UP TRANSABDOMINAL APPROACH : 08/28/2025 1:57 PM CLINICAL HISTORY: lga. COMPARISON: July 11, 2025. TECHNIQUE: Transabdominal ultrasound of the gravid uterus was performed. FINDINGS: A single live intrauterine is noted in cephalic presentation. cardiac activity measures approximately 119 beats per minute. The GISLE measures 13.79 cm. The following measurements were obtained: BPD 8.49 cm, HC 31.07 cm, AC 32.83 cm, FL 7.18 cm, which corresponds to an aggregate gestational age of 35 weeks 4 days with an expected due date of September 28, 2025. Estimated weight is 2883+/-432.45 g. This fetus is in the 68.2 percentile.. Procedure Note Nandini Hess DO - 09/07/2025 US OB FOLLOW UP TRANSABDOMINAL APPROACH : 08/28/2025 1:57 PM CLINICAL HISTORY: lga. COMPARISON: July 11, 2025. TECHNIQUE: Transabdominal ultrasound of the gravid uterus was performed. FINDINGS: A single live intrauterine is noted in cephalic presentation. cardiac activity measures approximately 119 beats per minute. The GISEL measures 13.79 cm. The following measurements were obtained: BPD 8.49 cm, HC 31.07 cm, AC32.83 cm, FL 7.18 cm, which corresponds to an aggregate gestational age of35 weeks 4 days with an expected due date of September 28, 2025. Estimated weight is 2883+/-432.45 g. This fetus is in the 68.2percentile.. IMPRESSION: SINGLE LIVE INTRAUTERINE CORRESPONDING TO APPROXIMATELY 35 WEEKS4 DAYS WITH AN EXPECTED DUE DATE OF SEPTEMBER 28, 2025. NO GROSS ABNORMALITIES IDENTIFIED, WITHIN THE LIMITS OF THE STUDY. ELECTRONICALLY SIGNED BY: Nandini Hess DO Authorizing ProviderResult TypeResult StatusCorey Anthony [facility] OB US PROCEDURES Final Result documented in this encounter Visit Diagnoses Diagnosis Excessive growth affecting management of , antepartum, single or unspecified fetus ([facility]) documented in this encounter Care Teams Team MemberRelationshipSpecialtyStart DateEnd Date Burton Richardson MD [address] [place] [address] PCP - GeneralFamily Medicine04/02/23documented as of this encounter
--- OUTSIDE RECORDS SUMMARY | 2025-08-28 14:40 | XMS_ITS | Encounter Summary ---
Author Organization [facility] Address [address] [place] [address] Care Team Providers Care Devops Name Role Phone Burton Richardson MD Primary Care Provider [phone] Reason for Visit * ReasonCommentsRoutine Visit Encounter Details DateTypeDepartmentCare Team (Latest Contact Info)Heipqlfynmn72/08/2025 2:40 PM ESTRoutine [facility] [address] [address] Davide Cruz DO [address] [place] [phone] Third trimester ([facility]); 35 weeks gestation of ([facility]) Social History Tobacco UseTypesPacks/DayYears UsedDateSmoking Tobacco: NeverSmokeless Tobacco: NeverAlcohol UseStandard Drinks/WeekCommentsNot Currently0 (1 standard drink = 0.6 oz pure alcohol)Estimated Date of ZiaaeewrXoytnxwyBic85/08/2026ased on UltrasoundSex and Gender InformationValueDate RecordedSex Assigned at Not on fileLegal DvoBgmtnz38/15/2023 7:23 PM EDTGender IdentityNot on fileSexual OrientationNot on filedocumented as of this encounter Last Filed Vital Signs Vital SignReadingTime TakenCommentsBlood Vtouycxi514/6208/28/2025 3:11 PM EST Pulse--Temperature--Respiratory Rate--Oxygen Saturation--Inhaled Oxygen Concentration--Eyqpiq73.8 kg (176 lb)08/28/2025 3:11 PM ESTHeight--Body Mass Index31.1807 3:14 PM EDTdocumented in this encounter Progress Notes * Katarzyna Shipman NP - 08/28/2025 2:40 PM EST Reason for Appointment: Patient ID: Mimi Bynum is a 25 y.o. female who presents for Routine Visit Patient presents today for Return OB appointment. MEDICATIONS Current Outpatient Medications Medication Instructions Hix-Pla-GA-Fish Oil ([facility]) 0.4-113.5 MG chewable tablet 1 tablet, Daily RT ALLERGIES No Known Allergies PROBLEMS Active Ambulatory Problems Diagnosis Date Noted Cervical motion tenderness 04/01/2023 Dysmenorrhea 04/01/2023 Positive urine test ([facility]) 03/08/2025 Well woman exam with routine gynecological exam 06/13/2025 care in second trimester ([facility]) 06/13/2025 24 weeks gestation of ([facility]) 06/13/2025 Chlamydia 06/13/2025 Resolved Ambulatory Problems Diagnosis Date Noted No Resolved Ambulatory Problems Past Medical History: Diagnosis Date Abnormal Pap smear of cervix Endometriosis Ovarian cyst HISTORY PAST MEDICAL HISTORY SOCIAL HISTORY Past Medical History: Diagnosis Date Abnormal Pap smear of cervix Chlamydia 06/13/2025 Dysmenorrhea Endometriosis Ovarian cyst Social History Tobacco Use Smoking status: Never Smokeless tobacco: Never Substance Use Topics Alcohol use: Not Currently Drug use: Never FAMILY HISTORY Family History Problem Relation Name Age of Onset Down syndrome Son Diabetes Maternal Grandfather Shamir Price/ Joel Price Asthma Maternal Grandmother Pat chloe/ Kim Vines Breast cancer Maternal Grandmother Pat chloe/ [place] Vines Heart failure Maternal Grandmother Pat chloe/ Kim Vines Ovarian cancer Maternal Grandmother Pat chloe/ Kim Vines SURGICAL HISTORY Past Surgical History: Procedure Laterality Date ABDOMINAL SURGERY ENDOMETRIAL ABLATION REVIEW OF SYSTEMS Review of Systems: Review [...] nursing note reviewed. Exam conducted with a lead assistant manager present. Vitals: Estimated body mass index is 31.18 kg/m?? as calculated from the following: Height as of 04/02/23: 5' 3 . Weight as of this encounter: 176 lb. BP: 108/62 Patient's last menstrual period was 01/06/2025. Assessment/Plan ICD-10-CM 1. Third trimester ([facility]) Z34.93 CULTURE, GROUP B STREP WITH SUSCEPTIBLITY 2. 35 weeks gestation of ([facility]) Z3A.35 POCT urinalysis dipstick manually resulted Assessment/Plan Return OB: Patient presents today for a routine obstetrics appointment. Patient is currently 35w4d . Patient states she is doing well but has complaints of being tired due to current . Patient has verbalizes frequent movement. labor precautions was discussed/given and patient was instructed to perform kick counts three times a day. Orders Placed This Encounter Procedures CULTURE, GROUP B STREP WITH SUSCEPTIBLITY POCT urinalysis dipstick manually resulted Follow Up: Patient is to return to office in 1 week for routine OB appointment. Documented by Katarzyna Shipman NP on behalf of: Davide Cruz DO documented in this encounter Plan of Treatment NameTypePriorityAssociated DiagnosesOrder ScheduleCULTURE, GROUP B STREP WITH SUSCEPTIBLITYLabRoutine Third trimester ([facility]) Expected: 08/28/2025, Expires: 08/28/2026documented as of this encounter Procedures Procedure NamePriorityDate/TimeAssociated DiagnosisCommentsPOCT URINALYSIS ZPCDWHXXXqktwep35/08/2025 3:15 PM EST 35 weeks gestation of ([facility]) documented in this encounter Results * (ABNORMAL) POCT urinalysis dipstick manually resulted (08/28/2025 3:15 PM EST) ComponentValueRef RangeTest MethodAnalysis TimePerformed AtPathologist SignatureColor, UAYellowClarity, UAClearGlucose, UANegativeNegative - 2000(110) ++++ mg/dLBilirubin, UANegativeNegative - 4(70) +++ mg/dLKetones, UA NegativeNegative - 160(16) ++++ mg/dLSpec Grav, UA1.0101 - 1.03Blood, UA NegativeNegative - 50 Tim/mcLpH, UA6.55 - 9Protein, UANegativeNegative - 2000(20) ++++ mg/dLUrobilinogen, UA1.00.2 - 12 mg/dLLeukocytes, UA3+Negative - 500+++ Genoveva/mcLNitrite, UANegativeNegative - PositiveSpecimen (Source) Anatomical Location / LateralityCollection Method / VolumeCollection Time Received InrhVtqkp66/08/2025 3:15 PM EST Narrative Authorizing ProviderResult TypeResult StatusCorey Anthony DOPOINT OF CARE TEST ENTER/EDIT ORDERABLESFinal Result documented in this encounter Visit Diagnoses Diagnosis Third trimester ([facility]) state, incidental 35 weeks gestation of ([facility]) documented in this encounter Care Teams Team MemberRelationshipSpecialtyStart DateEnd Date Burton Richardson MD [address] [place] [address] PCP - GeneralFamily Medicine04/02/23documented as of this encounter
--- OUTSIDE RECORDS SUMMARY | 2025-09-04 09:30 | XMS_ITS | Encounter Summary ---
Author Organization [facility] Address [address] [place] [address] Care Team Providers Care Business Controller Name Role Phone Burton Richardson MD Primary Care Provider [phone] Reason for Visit * ReasonCommentsRoutine Visit Encounter Details DateTypeDepartmentCare Team (Latest Contact Info)Rrxfbopuurr02/15/2025 9:30 AM ESTRoutine [facility] [address] [place] [address] Jaz Tobin PA [address] [place] [id number] Third trimester ([facility]); 36 weeks gestation of ([facility]); Down syndrome in child of prior , currently ([facility]) Social History Tobacco UseTypesPacks/DayYears UsedDateSmoking Tobacco: NeverSmokeless Tobacco: NeverAlcohol UseStandard Drinks/WeekCommentsNot Currently0 (1 standard drink = 0.6 oz pure alcohol)Estimated Date of OgwdxsmxNfjgunmsBeq13/08/2026Based on UltrasoundSex and Gender InformationValueDate RecordedSex Assigned at Not on fileLegal IbfVnstqx36/15/2023 7:23 PM EDTGender IdentityNot on fileSexual OrientationNot on filedocumented as of this encounter Last Filed Vital Signs Vital SignReadingTime TakenCommentsBlood Yywcgley496/725 9:17 AM EST Pulse--Temperature--Respiratory Rate--Oxygen Saturation--Inhaled Oxygen Concentration--Qrchay72.7 kg (178 lb)09/04/2025 9:17 AM ESTHeight--Body Mass Index31.5307 3:14 PM EDTdocumented in this encounter Progress Notes * MONISHA Maciel - 09/04/2025 9:30 AM EST Reason for Appointment: Patient ID: Mimi Bynum is a 25 y.o. female who presents for Routine Visit Patient presents today for Return OB appointment. MEDICATIONS Current Outpatient Medications Medication Instructions Nid-Swd-SD-Fish Oil ([facility]) 0.4-113.5 MG chewable tablet 1 tablet, Daily RT ALLERGIES No Known Allergies PROBLEMS Active Ambulatory Problems Diagnosis Date Noted Cervical motion tenderness 04/01/2023 Dysmenorrhea 04/01/2023 Positive urine test ([facility]) 03/08/2025 Well woman exam with routine gynecological exam 06/13/2025 care in second trimester ([facility]) 06/13/2025 24 weeks gestation of ([facility]) 06/13/2025 Chlamydia 06/13/2025 Down syndrome in child of prior , currently ([facility]) 09/04/2025 Resolved Ambulatory Problems Diagnosis Date Noted No [...] [place] Breast cancer Maternal Grandmother Pat chloe/ [place] Heart failure Maternal Grandmother Pat chloe/ [place] Ovarian cancer Maternal Grandmother Pat chloe/ [place] SURGICAL HISTORY Past Surgical History: Procedure [...] reviewed. Vitals: Estimated body mass index is 31.18 kg/m?? as calculated from the following: Height as of 04/02/23: 5' 3 . Weight as of 08/28/25: 176 lb. BP: Patient's last menstrual period was 01/06/2025. Assessment/Plan ICD-10-CM 1. Third trimester ([facility]) Z34.93 2. 36 weeks gestation of ([facility]) Z3A.36 3. Down syndrome in child of prior , currently ([facility]) O09.299 Assessment/Plan Return OB: Patient presents today for a routine obstetrics appointment. Patient is currently 36w4d . Patient states she is doing well but has complaints of being tired due to current w/lots ofvaginal pressure. Pt states she has been having more leg cramping now and w/the pressure feels likeshe is urinating on herself. Patient has verbalizes frequent movement. labor precautions was discussed/given and patient was instructed to perform kick counts three times a day. No orders of the defined types were placed in this encounter. Follow Up: Patient is to return to office in 1 week for routine OB appointment. Documented by Katrin Momin MA on behalf of: MONISHA Maciel documented in this encounter Plan of Treatment Not on file documented as of this encounter Procedures Procedure NamePriorityDate/TimeAssociated DiagnosisCommentsPOCT URINALYSIS VHHUJEIHMgnqkhq59/15/2025 9:21 AM EST Third trimester ([facility]) documented in this encounter Results * POCT urinalysis dipstick manually resulted (09/04/2025 9:21 AM EST)Component ValueRef RangeTest MethodAnalysis TimePerformed AtPathologist SignatureColor, UAYellowClarity, UAClearGlucose, UANegativeNegative - 2000(110) ++++ mg/dL Bilirubin, UANegativeNegative - 4(70) +++ mg/dLKetones, UANegativeNegative - 160(16) ++++ mg/dLSpec Grav, UA1.0101 - 1.03Blood, UANegativeNegative - 50 Tim/mcLpH, UA6.05 - 9Protein, UANegativeNegative - 2000(20) ++++ mg/dL Urobilinogen, UA1.00.2 - 12 mg/dLLeukocytes, UANegativeNegative - 500+++ Genoveva/mcLNitrite, UANegativeNegative - PositiveSpecimen (Source)Anatomical Location / LateralityCollection Method / VolumeCollection TimeReceived Time Urine09/04/2025 9:21 AM EST Narrative Authorizing ProviderResult TypeResult StatusSentara [facility] TEST ENTER/EDIT ORDERABLESFinal Result documented in this encounter Visit Diagnoses Diagnosis Third trimester ([facility]) state, incidental 36 weeks gestation of ([facility]) Down syndrome in child of prior , currently ([facility]) Supervision of other high-risk documented in this encounter Care Teams Team MemberRelationshipSpecialtyStart DateEnd Date Burton Richardson MD [address] [place] [address] PCP - GeneralFamily Medicine04/02/23documented as of this encounter
[2025-09-11] VITALS (27 sets, daily range): BP systolic 99–156; BP diastolic 48–95; PULSE 65–110; TEMP 36–36.8
--- OUTSIDE RECORDS SUMMARY | 2025-09-11 08:50 | XMS_ITS | Encounter Summary ---
Author Organization [facility] Address [address] [address] Care Team Providers Care Senior Control Systems Engineer Name Role Phone Burton Richardson MD Primary Care Provider [phone] Reason for Visit * ReasonCommentsRoutine Visit Encounter Details DateTypeDepartmentCare Team (Latest Contact Info)Ajhnonndpxb61/22/2025 8:50 AM ESTRoutine [facility] [address] [address] Davide Cruz DO [address] [place], [place] [phone] Third trimester ([facility]); 37 weeks gestation of ([facility]) Social History Tobacco UseTypesPacks/DayYears UsedDateSmoking Tobacco: NeverSmokeless Tobacco: NeverAlcohol UseStandard Drinks/WeekCommentsNot Currently0 (1 standard drink = 0.6 oz pure alcohol)Estimated Date of GzinxdktNtudjrkjFfl45/08/2026ased on UltrasoundSex and Gender InformationValueDate RecordedSex Assigned at Not on fileLegal AqjVsmoac54/15/2023 7:23 PM EDTGender IdentityNot on fileSexual OrientationNot on filedocumented as of this encounter Last Filed Vital Signs Vital SignReadingTime TakenCommentsBlood Gyyjnvrh989/8409/11/2025 8:51 AM EST Pulse--Temperature--Respiratory Rate--Oxygen Saturation--Inhaled Oxygen Concentration--Vfjecu15.6 kg (182 lb)09/11/2025 8:51 AM ESTHeight--Body Mass Index32.2407 3:14 PM EDTdocumented in this encounter Plan of Treatment Not on file documented as of this encounter Procedures Procedure NamePriorityDate/TimeAssociated DiagnosisCommentsPOCT URINALYSIS WNRYRZCHDxnibfm20/22/2025 8:56 AM EST Third trimester ([facility]) 37 weeks gestation of ([facility]) documented in this encounter Results * (ABNORMAL) POCT urinalysis dipstick manually resulted (09/11/2025 8:56 AM EST) ComponentValueRef RangeTest MethodAnalysis TimePerformed AtPathologist SignatureColor, UAYellowClarity, UAClearGlucose, UANegativeNegative - 2000(110) ++++ mg/dLBilirubin, UANegativeNegative - 4(70) +++ mg/dLKetones, UA NegativeNegative - 160(16) ++++ mg/dLSpec Grav, UA1.0251 - 1.03Blood, UA NegativeNegative - 50 Tim/mcLpH, UA6.05 - 9Protein, UATraceNegative - 2000(20) ++++ mg/dLUrobilinogen, UA1.00.2 - 12 mg/dLLeukocytes, UAPositiveNegative - 500+++ Genoveva/mcLNitrite, UANegativeNegative - PositiveSpecimen (Source) Anatomical Location / LateralityCollection Method / VolumeCollection Time Received BcvhOiufy52/22/2025 8:56 AM EST Narrative Authorizing ProviderResult TypeResult StatusCorey Anthony DOPOINT OF CARE TEST ENTER/EDIT ORDERABLESFinal Result documented in this encounter Visit Diagnoses Diagnosis Third trimester ([facility]) state, incidental 37 weeks gestation of ([facility]) documented in this encounter Care Teams Team MemberRelationshipSpecialtyStart DateEnd Date Burton Richardson MD [address] [place] [address] PCP - GeneralFamily Medicine04/02/23documented as of this encounter
--- OUTSIDE RECORDS SUMMARY | 2025-09-11 09:37 | XMS_ITS | Clinical Summary ---
Author Organization [facility] Address [address] [place] [address] Care Team Providers Care Duck Bill Operator Name Role Phone Burton Richardson MD Primary Care Provider [phone] Allergies No known active allergies Medications MedicationSigDispense QuantityRefillsLast FilledStart DateEnd DateStatus Iod-Iyx-LN-Fish Oil ([facility]) 0.4-113.5 MG chewable tablet Chew 1 tablet in the morning.Active Active Problems ProblemNoted DateDiagnosed DateDown syndrome in child of prior , currently ([facility])09/04/2025Well woman exam with routine gynecological exam06/13/2025Prenatal care in second trimester ([facility])4 weeks gestation of ([facility])8482Nxgoxsolh18/23/2025Positive urine test ([facility])5Cervical motion hyuvyohvaa06/12/2023 Fnipjknigjka77/12/2023Estimated Date of OzqvoyckGxqedvfeKsr49/08/2026 Based on Ultrasound Encounters DateTypeDepartmentCare IhrlRvrqrukubsa76/22/2025 8:50 AM ESTRoutine [facility] [address] [place] [address] [place] [phone] Davide Cruz DO Third trimester ([facility]); 37 weeks gestation of ([facility])12/22/2025Bamboo flowsheet [facility] [address] [place] [address] Davide Cruz, 09/10/20256580Yyyhbu99/18/2025Telephone [facility] [address] [place] [address] Davide Cruz, 09/05/20254873Sooyzz90/15/2025 9:30 AM ESTRoutine [facility] [address] [place] [address] Jaz Tobin PA Third trimester ([facility]); 36 weeks gestation of ([facility]); Down syndrome in child of prior , currently ([facility]) 09/04/2025amboo flowsheet [facility] [address] [place] [address] Jaz Tobin PA 09/03/20250017Rwguip46/09/1850Vikfrz08/08/2025 2:40 PM ESTRoutine [facility] [address] [place] [address] Davide Cruz, Third trimester ([facility]); 35 weeks gestation of ([facility])08/28/2025 2:00 PM ESTAncillary Procedure [facility] [place] [address] [phone] Excessive growth affecting management of , antepartum, single or unspecified fetus ([facility])5Clinisync Result Encounter [facility] External Department Unsolicited Davide Cruz, 08/23/20258049Dcwwco22/02/2025 10:00 AM ESTRoutine [facility] [address] [place] [address] Davide Cruz, Third trimester ([facility]); 34 weeks gestation of ([facility]); Excessive growth affecting management of , antepartum, single or unspecified fetus ([facility])5Bamboo flowsheet [facility] [place] [address] Davide Cruz DO 08/15/20256857Mynwqj27/18/2025 11:20 AM ESTRoutine [facility] [place] [address] Jaz Tobin PA 32 weeks gestation of ([facility]); Third trimester ([facility])08/08/2025amboo flowsheet [facility] [place] [address] Jza Tobin PA 08/08/20254329Llejlx01/17/4690Jnwilj23/04/2025 9:00 AM ESTRoutine [facility] [place] [address] Davide Cruz DO Third trimester ([facility]); 30 weeks gestation of ([facility])07/25/2025amboo flowsheet [facility] [place] [address] Davide Cruz DO 07/18/2025bstract [facility] [address] [place] [address] Jaz Franks LPN 07/14/2025Patient Outreach [facility] [address] [place] [address] Jaz Franks LPN 07/11/2025 10:20 AM EDTRoutine [facility] [place] [address] Jaz Tobin PA Third trimester ([facility]); 28 weeks gestation of ([facility])07/11/2025 9:00 AM EDTAncillary Procedure [facility] [address] [place] [address] size inconsistent with dates ([facility])07/11/20254811Ogccqf71/13/2025Telephone [facility] [address] [place] [address] Jaz Tobin PA 06/30/2025 9:30 AM EDTOffice Visit [facility] [address] [place] [address] Jaz Tobin PA 27 weeks gestation of ([facility]); Chlamydia trachomatis infection; Second trimester ([facility]); size inconsistent with dates ([facility])06/30/2025amboo flowsheet [facility] [address] [place] [address] Jaz Tobin PA 06/29/20255625Nqoivu29/07/2025Orders Only [facility] [address] [place] [address] Katrin Momin MA 06/20/2025linisync Result Encounter [facility] External Department Unsolicited Davide Cruz, DO 06/15/2025Telephone [facility] [address] [place] [address] Davide Cruz, DO 06/14/2025Telephone [facility] [address] [place] [address] Davide Cruz, DO 06/13/2025 9:40 AM EDTRoutine [facility] [address] [place] [address] Davide Cruz, DO Well woman exam with routine gynecological exam; care in second trimester, unspecified ([facility]); 24 weeks gestation of ([facility]); Diabetes mellitus lsqlmneou10/23/2025Clinisync Result Encounter [facility] External Department Unsolicited Davide Cruz, DO 06/13/2025External Result Encounter [facility] External Department Unsolicited Davide Cruz, DO 06/13/2025amboo flowsheet [facility] [address] [place] [address] Davide Cruz, DO from Last 3 Months Family History Medical HistoryRelationNameCommentsDiabetesMaternal GrandfatherDavid Chloe/ Joel HermanAsthmaMaternal GrandmotherPat chloe/ [place] CarrBreast cancer Maternal GrandmotherPat chloe/ [place] CarrHeart failureMaternal GrandmotherPat chloe/ [place] CarrOvarian cancerMaternal GrandmotherPat chloe/ [place] CarrDown syndromeSonRelationNameStatusCommentsMaternal GrandfatherDavid Chloe/ Joel HermanAliveMaternal GrandmotherPat chloe/ Kim CarrAliveSon Social History Tobacco UseTypesPacks/DayYears UsedDateSmoking Tobacco: NeverSmokeless Tobacco: Never Tobacco Cessation:Counseling Given: Not Answered Alcohol UseStandard Drinks/WeekCommentsNot Currently0 (1 standard drink = 0.6 oz pure alcohol)Estimated Date of QakshguwXxockedrQfy02/08/2026ased on UltrasoundSex and Gender InformationValueDate RecordedSex Assigned at BirthNot on fileLegal AyfSoffbh54/15/2023 7:23 PM EDTGender IdentityNot on fileSexual OrientationNot on file Last Filed Vital Signs Vital SignReadingTime TakenCommentsBlood Stwdtaja151/8409/11/2025 8:51 AM EST Pulse--Temperature--Respiratory Rate--Oxygen Saturation--Inhaled Oxygen Concentration--Fzrusy42.6 kg (182 lb)09/11/2025 8:51 AM XPBCcgkng158 cm (5' 3 ) 04/02/2023 3:14 PM EDTBody Mass Index32.2407 3:14 PM EDT Plan of Treatment Not on file Procedures Procedure NamePriorityDate/TimeAssociated DiagnosisCommentsPOCT URINALYSIS ZYEONNLJSbilfey70/22/2025 8:56 AM EST Third trimester ([facility]) 37 weeks gestation of ([facility]) POCT URINALYSIS LAHPKUKVVnsxfbq81/15/2025 9:21 AM EST Third trimester ([facility]) STREP GP B CULTURE+PJBZHjzuvki36/08/2025 3:30 PM EST POCT URINALYSIS SBORYYYPXzlqhmi76/08/2025 3:15 PM EST 35 weeks gestation of ([facility]) US OB FOLLOW UP TRANSABDOMINAL NVWRXVXGKivtuwo67/08/2025 2:20 PM EST Excessive growth affecting management of , antepartum, single or unspecified fetus ([facility]) POCT URINALYSIS VPBNYWVQNkbujti76/02/2025 10:32 AM EST 34 weeks gestation of ([facility]) POCT URINALYSIS MURFNWEZAxsnuay61/18/2025 11:39 AM EST 32 weeks gestation of ([facility]) Third trimester ([facility]) POCT URINALYSIS NHCSVAANUhpgakw29/04/2025 9:21 AM EST Third trimester ([facility]) POCT URINALYSIS XQIFIUIZZyhrbzw01/21/2025 9:37 AM EDT Third trimester ([facility]) US OB FOLLOW UP TRANSABDOMINAL ZRCFUMIOHiisuig02/21/2025 9:17 AM EDT size inconsistent with dates ([facility]) POCT URINALYSIS HGOGLRXFBkzazhr03/10/2025 9:52 AM EDT 27 weeks gestation of ([facility]) Second trimester ([facility]) RECURRENT VAGINITIS (HTRX)Lymfjox5506/30/2025 12:00 AM EDT AFP, SERUM, OPEN SPINA VEEFKJPscwppk93/30/2025 9:48 AM EDT GLUCOSE 1 QPQVGuitlpl77/30/2025 9:48 AM EDT ALL CBC WITH AUTO RYRWBxkmjvx66/30/2025 9:48 AM EDT RECURRENT VAGINITIS (HTRX)Wvvyvgx3306/13/2025 11:06 AM EDT POCT URINALYSIS XAJCWTQKAznybit79/23/2025 10:30 AM EDT Well woman exam with routine gynecological exam care in second trimester, unspecified ([facility]) 24 weeks gestation of ([facility]) IGP,APTIMA HPV,AGE WCNTZoggdbu06/23/2025 9:59 AM EDT PAP JIOFYRwxxpek09/23/2025 12:00 AM EDTfrom Last 3 Months Results * (ABNORMAL) POCT urinalysis dipstick manually resulted (09/11/2025 8:56 AM EST) Only the most recent of9 resultswithin the time period is included. ComponentValueRef RangeTest MethodAnalysis TimePerformed AtPathologist Signature Color, UAYellowClarity, UAClearGlucose, UANegativeNegative - 2000(110) ++++ mg/dLBilirubin, UANegativeNegative - 4(70) +++ mg/dLKetones, UANegativeNegative - 160(16) ++++ mg/dLSpec Grav, UA1.0251 - 1.03Blood, UANegativeNegative - 50 Tim/mcLpH, UA6.05 - 9Protein, UATraceNegative - 2000(20) ++++ mg/dLUrobilinogen, UA1.00.2 - 12 mg/dLLeukocytes, UAPositiveNegative - 500+++ Genoveva/mcLNitrite, UA NegativeNegative - PositiveSpecimen (Source)Anatomical Location / Laterality Collection Method / VolumeCollection TimeReceived NtynMsizd07/22/2025 8:56 AM EST Narrative Authorizing ProviderResult TypeResult StatusCorey Anthony DOPOINT OF CARE TEST ENTER/EDIT ORDERABLESFinal Result * STREP GP B CULTURE+RFLX (08/28/2025 3:30 PM EST)ComponentValueRef RangeTest MethodAnalysis TimePerformed AtPathologist SignatureSTREP GP B CULTURE+RFLX ??Strep Gp B Culture+Rflx TBHSTREP GP B CULTURE+RFLXNegativeTBHSTREP GP B CULTURE+RFLXCenters for Disease Control and Prevention (CDC) andTBHSTREP GP B CULTURE+RFLXAmerican Congress of Obstetricians and GynecologistsTBHSTREP GP B CULTURE+RFLX(ACOG) guidelines for prevention of group BTBHSTREP GP B CULTURE+RFLXstreptococcal (GBS) disease specify co-collection ofTBHSTREP GP B CULTURE+RFLXa vaginal and rectal swab specimen to maximizeTBHSTREP GP B CULTURE+RFLXsensitivity of GBS detection. Per the CDC and ACOG,TBHSTREP GP B CULTURE+RFLXswabbing both the lower vagina and rectumTBHSTREP GP B CULTURE+RFLXsubstantially increases the yield of detectionTBHSTREP GP B CULTURE+RFLXcompared with sampling the vagina alone.TBH STREP GP B CULTURE+RFLXPenicillin G, ampicillin, or cefazolin are indicatedTBH STREP GP B CULTURE+RFLXfor intrapartum prophylaxis of GBSTBHSTREP GP B CULTURE+RFLXcolonization. Reflex susceptibility testing should beTBHSTREP GP B CULTURE+RFLXperformed prior to use of clindamycin only on GBSTBHSTREP GP B CULTURE+RFLXisolates from penicillin-allergic women who areTBHSTREP GP B CULTURE+RFLXconsidered a high risk for anaphylaxis. Treatment withTBHSTREP GP B CULTURE+RFLXvancomycin without additional testing is warranted ifTBHSTREP GP B CULTURE+RFLXresistance to clindamycin is noted.TBHSTREP GP B CULTURE+RFLX Performed at: [facility]TBHSTREP GP B CULTURE+HCJD[address] [place], [place] [id number] GP B CULTURE+RFLXLab Director: Willis Diane PhD, Phone: [phone] (Source)Anatomical Location / Laterality Collection Method / VolumeCollection TimeReceived Time08/28/2025 3:30 PM EST 08/28/2025 7:41 PM EST Narrative [facility] - 09/02/2025 6:08 PM EST Authorizing ProviderResult TypeResult StatusCorey Anthony DOLAB BLOOD ORDERABLES Final ResultPerforming OrganizationAddressCity/State/ZIP CodePhone Number [facility] * US OB follow up transabdominal approach (08/28/2025 2:20 PM EST) Only the most recent of2 resultswithin the time period is included. Anatomical RegionLateralityModalityBodyUltrasoundSpecimen (Source)Anatomical Location / LateralityCollection Method / VolumeCollection TimeReceived Time 09/07/2025 4:45 PM EST Impressions 09/07/2025 4:52 PM [...] Hess DO Authorizing ProviderResult TypeResult StatusCorey Anthony DOIMG OB US PROCEDURES Final Result * (ABNORMAL) RECURRENT VAGINITIS (HTRX) (06/30/2025 12:00 AM EDT) Only the most recent of2 resultswithin the time period is included. ComponentValueRef RangeTest MethodAnalysis TimePerformed AtPathologist Signature ATOPOBIUM ICLJTEU009.961 - 24.689 ppm07/01/2025 8:54 AM EDTHealthTrackRx at [facility] HospitalATOPOBIUM VAGINAENot Vtuywvrb87.961 - 24.689 ppm07/01/2025 8:54 AM EDT [facility] HospitalBVAB 2,3 (BACTERIAL VAGINOSIS ASSOCIATED BACTERIA 2, 3); MOBILUNCUS SPP27.926(A)19.961 - 24.689 ppm07/01/2025 8:54 AM EDTHealthTrackRx at [facility]Ind[facility] HospitalBVAB 2,3 (BACTERIAL VAGINOSIS ASSOCIATED BACTERIA 2, 3); MOBILUNCUS SPP Detected(A)19.961 - 24.689 ppm07/01/2025 8:54 AM EDTHealthTrackRx at [facility] YO ALBICANS, PARAPSILOSIS, EFNSVLDCNF823.000 - 30.347 ppm07/01/2025 8:54 AM EDTHealthTrackRx at [facility] ManorPortCANDIDA ALBICANS, PARAPSILOSIS, TROPICALISNot Zclujpnj02.000 - 30.347 ppm07/01/2025 8:54 AM EDTHealthTrackRx at [facility]Ind[facility] HospitalCANDIDA OPNAAZKH857.000 - 31.618 ppm07/01/2025 8:54 AM EDTHealthTrackRx at LabPort YO GLABRATANot Rbeipaqj64.000 - 31.618 ppm07/01/2025 8:54 AM EDT [facility] LabPortCANDIDA APKSUW446.000 - 30.873 ppm07/01/2025 8:54 AM EDT [facility] LabPortCANDIDA KRUSEINot Zhcowuwb87.000 - 30.873 ppm07/01/2025 8:54 AM EDTHealthTrackRx at LabPortCHLAMYDIA ZKACLSUVNJX557.000 - 31.586 ppm 07/01/2025 8:54 AM EDTHealthTrackRx at LabInd[facility] HospitalCHLAMYDIA TRACHOMATISNot Detected 23.000 - 31.586 ppm07/01/2025 8:54 AM EDTHealthTrackRx at [facility] HospitalGARDNERELLA AHFGTTYTB860.961 - 24.689 ppm07/01/2025 8:54 AM EDTHealthTrackRx at LabPort GARDNERELLA VAGINALISNot Wzfpkdwp72.961 - 24.689 ppm07/01/2025 8:54 AM EDT [facility] at LabPortMEGASPHAERA (TYPES 1, 2)019.961 - 24.689 ppm07/01/2025 8:54 AM EDTHealthTrackRx at LabPortMEGASPHAERA (TYPES 1, 2)Not Hkwtdawp37.961 - 24.689 ppm07/01/2025 8:54 AM EDTHealthTrackRx at LabPortNEISSERIA GONORRHOEAE0 23.000 - 32.587 ppm07/01/2025 8:54 AM EDTHealthTrackRx at LabPortNEISSERIA GONORRHOEAENot Estczkiu69.000 - 32.587 ppm07/01/2025 8:54 AM EDTHealthTrackRx at LabPortTRICHOMONAS QPNNVPKEQ574.000 - 31.995 ppm07/01/2025 8:54 AM EDT [facility] HospitalTRICHOMONAS VAGINALISNot Kyfamcqb07.000 - 31.995 ppm 07/01/2025 8:54 AM EDTHealthTrackRx at [facility] HospitalMYCOPLASMA TIKUSGTLDN651.961 - 24.689 ppm07/01/2025 8:54 AM EDTHealthTrackRx at [facility] HospitalMYCOPLASMA GENITALIUMNot Stthmyxx95.961 - 24.689 ppm07/01/2025 8:54 AM EDTHealthTrackRx at [facility] Specimen (Source)Anatomical Location / LateralityCollection Method / Volume Collection TimeReceived JnmzRqtqsw06 4:39 AM EDT Narrative Authorizing ProviderResult TypeResult StatusAmy Mahad PALAB BLOOD ORDERABLES Final ResultPerforming OrganizationAddressCity/State/ZIP CodePhone Number [facility] [address] [place] [address] * GLUCOSE 1 HOUR (06/20/2025 9:48 AM EDT)ComponentValueRef RangeTest Method Analysis TimePerformed AtPathologist SignatureGLUCOSE 1 LCXW307<130 mg/dLTBH Specimen (Source)Anatomical Location / LateralityCollection Method / Volume Collection TimeReceived Time06/20/2025 9:48 AM EDT06/20/2025 9:50 AM EDT Narrative [facility] - 06/20/2025 10:24 AM EDT Authorizing ProviderResult TypeResult StatusCorey Anthony DOLAB BLOOD ORDERABLES Final ResultPerforming OrganizationAddressCity/State/ZIP CodePhone Number [facility] * AFP, SERUM, OPEN SPINA BIFIDA (06/20/2025 9:48 AM EDT)ComponentValueRef Range Test MethodAnalysis TimePerformed AtPathologist SignatureRESULTSReport.TBHTEST RESULTS:See interpretation..TBHGEST. AGE ON COLLECTION DATE25.7. weeksTBH GESTAT. AGE BASED ONUltrasound.TBHComment: ?16.0 on 04/13/2025 Recalculations are not recommended when gestational dating by LMP and ultrasound are within 10 days. MATERNAL AGE AT EDD27.1. yrTBHRACECaucasian.NSQLSXVVP487. lbsTBHINSULIN DEP DIABETESNo.TBHMULTIPLE GESTATIONNo.TBHAFP ONPSY602.4. ng/mLTBHAFP MOMSee interpretation..TBHOSBR RISK 1 INSee interpretation..TBHINTERPRETATIONComment. TBHComment: Interpretation: An interpretation CANNOT be provided for this patient due to one of the following reasons: 1. Gestational age is <15 weeks. Please submit a ?second sample at the optimum gestational age for ?screening (16-18 weeks). OR ? 2. ??Gestational age is greater than 23 weeks. COMMENT:Comment.TBHComment: Kanika Mancia, Ph.D., [facility] Director References: Available Upon Request. Multiples Of Median Cutoffs ?For AFP Elevations Dangelo ?? 2.5 ? Black ?2.8 IDD ? 2.0 ? Twins ?4.5 ?Abbreviation Definitions IDD - Insulin Dep Diabetes OSBR - Open Spina Bifida Risk For further inquiries contact [facility] at [phone]. This test was developed and its performance characteristics determined by [employer]. It has not been cleared or approved by the Food and Drug Administration. Performed at: ??[facility] [address] [place], [place] ??[id number] Surgical Instrument Mechanic: Goldy Meyers [facility], Phone: ??[phone] Specimen (Source)Anatomical Location / LateralityCollection Method / Volume Collection TimeReceived Time06/20/2025 9:48 AM EDT06/20/2025 9:50 AM EDT Narrative [facility] - 06/23/2025 12:09 AM EDT N N ULTRASOUND [id number] 0 16 N 1 148 N N Y N N White/ Authorizing ProviderResult TypeResult StatusCorey [facility] BLOOD ORDERABLES Final ResultPerforming OrganizationAddressCity/State/ZIP CodePhone Number [facility] * (ABNORMAL) ALL CBC WITH AUTO DIFF (06/20/2025 9:48 AM EDT)ComponentValueRef RangeTest MethodAnalysis TimePerformed AtPathologist SignatureTBH WBC7.34.0 - 11.0 10 3/uLTBHTBH RBC3.77(L)4.20 - 5.40 10 6/uLTBHTBH HGB11.9(L)12.0 - 16.0 g/dLTBHTBH HCT34.2(L)36.0 - 48.0 %TBHTBH MCV90.781.0 - 99.0 fLTBHTBH MCH31.6 26.7 - 34.0 pgTBHTBH MCHC34.829.9 - 35.2 g/dLTBHTBH RDW13.211.0 - 15.0 %TBHTBH ZLF463208 - 450 10 3/uLTBHTBH MPV8.7(L)9.5 - 13.5 fLTBHNEUTROPHILS PERCENT AUTO68.943.0 - 75.0 %TBHLYMPHOCYTES PERCENT AUTO21.620.5 - 60.0 %TBHMONOCYTES PERCENT AUTO6.81.7 - 12.0 %TBHTBH EO %2.00.9 - 7.0 %TBHBASOPHILS PERCENT AUTO 0.40.2 - 2.0 %TBHIMMATURE GRANULOCYTES PCT AUTO0.30.0 - 0.5 %TBHNEUTROPHILS ABSOLUTE AUTO5.01.4 - 6.5 10 3/uLTBHLYMPHOCYTES ABSOLUTE AUTO1.61.2 - 3.8 10 3/uLTBHMONOCYTES ABSOLUTE AUTO0.50.3 - 0.8 10 3/uLTBHTBH EO #0.20.0 - 0.7 10 3/uLTBHBASOPHILS ABSOLUTE AUTO0.00.0 - 0.1 10 3/uLTBHIMMATURE GRANULOCYTES ABS AUTO0.020.00 - 0.03 10 3/uLTBHSpecimen (Source)Anatomical Location / LateralityCollection Method / VolumeCollection TimeReceived Time06/20/2025 9:48 AM EDT06/20/2025 9:50 AM EDT Narrative [facility] - 06/20/2025 10:17 AM EDT Authorizing ProviderResult TypeResult StatusCorehilton Cruz DOCLINISYNCFinal Result Performing OrganizationAddressCity/State/ZIP CodePhone Number [facility] * IGP,APTIMA HPV,AGE GDLN (06/13/2025 9:59 AM EDT)ComponentValueRef RangeTest MethodAnalysis TimePerformed AtPathologist SignatureAGE GDLN ACOG TESTINGNote. TBHComment: ?? TESTS ? RESULT ??FLAG ??UNITS ?REF RANGE ??LAB ?? Clinician Provided Cytology Information ?? Source.............Cervix ?? Other.............. ?? No. of containers..01 ThinPrep Vial Age Algo ACOG Wen... ??21-29 ? 01 ?FLAG LEGEND: ?L-Low Normal,H-High Normal,LL-Alert Low,HH-Alert High <-Panic Low,>-Panic High,A-Abnormal,AA-Critical Abnormal Performed at: 01 =G ?[facility] ?? [address] [place] ??[address] ?? Jeimy Abebe MD, IGP, RFX APTIMA HPV ASCUNote.TBHComment: ?? TESTS ? RESULT ??FLAG ??UNITS ?REF RANGE ??LAB DIAGNOSIS: ?02 ?? NEGATIVE FOR INTRAEPITHELIAL LESION OR MALIGNANCY. Specimen adequacy: ?02 ?? Satisfactory for evaluation. No endocervical component is identified. Performed by: ? 02 ?? James Beaver, Scalemaker (ASCP) . ? 02 Note: ? Note ?02 ?? The Pap smear is a screening test designed to aid in the ?? detection of premalignant and malignant conditions of the ?? uterine cervix. ??It is not a diagnostic procedure and ?? should not be used as the sole means of detecting cervical ?? cancer. ??Both false-positive and false-negative reports do ?? occur. Test Methodology: ? Note ?02 ?? This liquid based ThinPrep(R) pap test was screened with ?? the use of an image guided system. . ? 02 ?? The HPV DNA reflex criteria were not met with this specimen ?? result therefore, no HPV testing was performed. ?FLAG LEGEND: ?L-Low Normal,H-High Normal,LL-Alert Low,HH-Alert High <-Panic Low,>-Panic High,A-Abnormal,AA-Critical Abnormal Performed at: 02 WB ?[facility] ?? [address], [place] ??[address] ?? Jeimy Abebe MD, Performed at: ??=G - [facility] [address], [place] ??[id number] Surgical Instrument Mechanic: Jeimy Abebe MD, Phone: ??[phone] Performed at: ??WB - [facility] [address] ??[id number] Surgical Instrument Mechanic: Jeimy Abebe MD, Phone: ??[phone] Specimen (Source)Anatomical Location / LateralityCollection Method / Volume Collection TimeReceived Time06/13/2025 9:59 AM EDT06/13/2025 12:22 PM EDT Narrative [facility] - 06/19/2025 11:08 AM EDT SPATULA-ALONE CERVIX Authorizing ProviderResult TypeResult StatusCorey Anthony DOLAB BLOOD ORDERABLES Final ResultPerforming OrganizationAddressCity/State/ZIP CodePhone Number [facility] * Pap Smear (06/13/2025 12:00 AM EDT)Specimen (Source)Anatomical Location / LateralityCollection Method / VolumeCollection TimeReceived TimeSwabCervical swab / Unknown Narrative Authorizing ProviderResult TypeResult StatusCorey Anthony DOLAB CYTOLOGY ORDERABLESFinal ResultPerforming OrganizationAddressCity/State/ZIP CodePhone Number EXTERNAL LAB from Last 3 Months Insurance Care Teams Team MemberRelationshipSpecialtyStart Date Burton Richardson MD [address] [place] [address] PCP - GeneralFamily Medicine04/02/23
--- OUTSIDE RECORDS SUMMARY | 2025-09-11 09:37 | XMS_ITS | Encounter Summary ---
Author Organization [facility] Address [address] [facility] [place] [address] Care Team Providers Care Cs Associate Name Role Phone Burton Richardson MD Primary Care Provider [phone] Encounter Details DateTypeDepartmentCare Team (Latest Contact Info)Fiintbodvla79/08/2025Clinisync Result Encounter [facility] Unsolicited Davide Cruz, DO [address] [facility] [address] [facility] [address] [place] [id number] Social History Tobacco UseTypesPacks/DayYears UsedDateSmoking Tobacco: NeverSmokeless Tobacco: NeverAlcohol UseStandard Drinks/WeekCommentsNot Currently0 (1 standard drink = 0.6 oz pure alcohol)Estimated Date of KtvbrbmqJchjmmmqLir29/08/2026Based on UltrasoundSex and Gender InformationValueDate RecordedSex Assigned at Not on fileLegal BfdRxsndk10/15/2023 7:23 PM EDTGender IdentityNot on fileSexual OrientationNot on filedocumented as of this encounter Plan of Treatment Not on file documented as of this encounter Procedures Procedure NamePriorityDate/TimeAssociated DiagnosisCommentsSTREP GP B CULTURE+AJZDRtzkosf57/08/2025 3:30 PM EST documented in this encounter Results * STREP GP B CULTURE+RFLX (08/28/2025 3:30 [...] is noted.TBHSTREP GP B CULTURE+RFLX Performed at: - [facility]+[id number] [place], [place] [id number] GP B CULTURE+RFLXLab Director: Willis Diane PhD, Phone: [phone] (Source)Anatomical Location / Laterality Collection Method / VolumeCollection TimeReceived Time08/28/2025 3:30 PM EST 08/28/2025 7:41 PM EST Narrative [facility] - 09/02/2025 6:08 PM EST Authorizing ProviderResult TypeResult StatusCorey Anthony DOLAB BLOOD ORDERABLES Final ResultPerforming OrganizationAddressCity/State/ZIP CodePhone Number [facility] TB documented in this encounter Visit Diagnoses Not on filedocumented in this encounter Care Teams Team MemberRelationshipSpecialtyStart DateEnd Date Burton Richardson MD [address] [place] [address] PCP - GeneralFamily Medicine04/02/23documented as of this encounter
--- OUTSIDE RECORDS SUMMARY | 2025-09-11 09:37 | XMS_ITS | Encounter Summary ---
Author Organization [facility] Address [address] [place] [address] Care Team Providers Care Sound Installation Worker Name Role Phone Burton Richardson MD Primary Care Provider [phone] Encounter Details DateTypeDepartmentCare Team (Latest Contact Info)Kguhdxgqkiz87/09/2025Travel Social History Tobacco UseTypesPacks/DayYears UsedDateSmoking Tobacco: NeverSmokeless Tobacco: NeverAlcohol UseStandard Drinks/WeekCommentsNot Currently0 (1 standard drink = 0.6 oz pure alcohol)Estimated Date of OqsblorbYibsalgcCkd74/08/2026Based on UltrasoundSex and Gender InformationValueDate RecordedSex Assigned at Not on fileLegal GhcKxeces57/15/2023 7:23 PM EDTGender IdentityNot on fileSexual OrientationNot on filedocumented as of this encounter Plan of Treatment Not on file documented as of this encounter Visit Diagnoses Not on filedocumented in this encounter Care Teams Team MemberRelationshipSpecialtyStart DateEnd Date Burton Richardson MD [address] [place] [address] PCP - GeneralFamily Medicine04/02/23documented as of this encounter
--- OUTSIDE RECORDS SUMMARY | 2025-09-11 09:38 | XMS_ITS | Encounter Summary ---
Author Organization [facility] Address [address] [facility] [place] [address] Care Team Providers Care Bulk Plant Manager Name Role Phone Burton Richardson MD Primary Care Provider [phone] Encounter Details DateTypeDepartmentCare Team (Latest Contact Info)Hiwzteocpjl27/15/2025Bamboo flowsheet [facility] [address] [place] [address] Jaz Tobin PA [address] [place], [facility] Social History Tobacco UseTypesPacks/DayYears UsedDateSmoking Tobacco: NeverSmokeless Tobacco: NeverAlcohol UseStandard Drinks/WeekCommentsNot Currently0 (1 standard drink = 0.6 oz pure alcohol)Estimated Date of HqttvloaQdcffsbhIol37/08/2026Based on UltrasoundSex and Gender InformationValueDate RecordedSex Assigned at Not on fileLegal BevGuvlha13/15/2023 7:23 PM EDTGender IdentityNot on fileSexual OrientationNot on filedocumented as of this encounter Plan of Treatment Not on file documented as of this encounter Visit Diagnoses Not on filedocumented in this encounter Care Teams Team MemberRelationshipSpecialtyStart DateEnd Date Burton Richardson MD [address] [facility] [place] [address] PCP - GeneralFamily Medicine04/02/23documented as of this encounter
--- OUTSIDE RECORDS SUMMARY | 2025-09-11 09:38 | XMS_ITS | Encounter Summary ---
Author Organization [facility] Address [address] [place] [address] Care Team Providers Care Bulking Machine Operator Name Role Phone Burton Richardson MD Primary Care Provider [phone] Encounter Details DateTypeDepartmentCare Team (Latest Contact Info)Kppcrkygnjj20/14/2025Travel Social History Tobacco UseTypesPacks/DayYears UsedDateSmoking Tobacco: NeverSmokeless Tobacco: NeverAlcohol UseStandard Drinks/WeekCommentsNot Currently0 (1 standard drink = 0.6 oz pure alcohol)Estimated Date of SjqrabjqSshmjxsaNlz14/08/2026Based on UltrasoundSex and Gender InformationValueDate RecordedSex Assigned at Not on fileLegal DhiIpzeqg47/15/2023 7:23 PM EDTGender IdentityNot on fileSexual OrientationNot on filedocumented as of this encounter Plan of Treatment Not on file documented as of this encounter Visit Diagnoses Not on filedocumented in this encounter Care Teams Team MemberRelationshipSpecialtyStart DateEnd Date Burton Richardson MD [address] [place] [address] PCP - GeneralFamily Medicine04/02/23documented as of this encounter
--- OUTSIDE RECORDS SUMMARY | 2025-09-11 09:38 | XMS_ITS | Encounter Summary ---
Author Organization [facility] Address [address] [facility] [place] [address] Care Team Providers Care Sport Psychologist Name Role Phone Burton Richardson MD Primary Care Provider [phone] Encounter Details DateTypeDepartmentCare Team (Latest Contact Info)Gshgjkrltht41/18/2025Telephone [facility] [address] [phone] Davide Cruz DO [address] [place], [facility]11 Social History Tobacco UseTypesPacks/DayYears UsedDateSmoking Tobacco: NeverSmokeless Tobacco: NeverAlcohol UseStandard Drinks/WeekCommentsNot Currently0 (1 standard drink = 0.6 oz pure alcohol)Estimated Date of GzhcrrjkIbarwjqzUue36/08/2026Based on UltrasoundSex and Gender InformationValueDate RecordedSex Assigned at Not on fileLegal NulKfdxtb35/15/2023 7:23 PM EDTGender IdentityNot on fileSexual OrientationNot on filedocumented as of this encounter Miscellaneous Notes * Telephone Encounter - Shanika SENG Cormier - 09/07/2025 9:26 AM EST Caroline, this is Angelique from [facility]. Calling through a recorded line. These calls in reference to a reading prescription with the date of service on march 09 2025. The patient's first name is Mimi, the last name is Fletcher. The date of is 2000. Please call us [phone] refer to a home number [phone]. If you have received a copy of this prescription request, shama hazel fax Web [phone] at the earliest convenience. Thank you. Called and spoke with Sebas at [facility] and he is looking into this. He states that patient did received the breast pump and they are not needing anything for us but order or not. Advised if needing anything to send orders to office. documented in this encounter Plan of Treatment Not on file documented as of this encounter Visit Diagnoses Not on filedocumented in this encounter Care Teams Team MemberRelationshipSpecialtyStart DateEnd Date Burton Richardson MD [address] [place] [address] [phone] PCP - GeneralFamily Medicine04/02/23documented as of this encounter
--- OUTSIDE RECORDS SUMMARY | 2025-09-11 09:38 | XMS_ITS | Encounter Summary ---
Author Organization [facility] Address [address] [facility] [place] [address] Care Team Providers Care Catalogue Illustrator Name Role Phone Burton Richardson MD Primary Care Provider [phone] Encounter Details DateTypeDepartmentCare Team (Latest Contact Info)Hlyutttyiwe32/22/2025Bamboo flowsheet [facility] [address] [place] [address] Davide Cruz DO [address] [facility] [place] [address] Social History Tobacco UseTypesPacks/DayYears UsedDateSmoking Tobacco: NeverSmokeless Tobacco: NeverAlcohol UseStandard Drinks/WeekCommentsNot Currently0 (1 standard drink = 0.6 oz pure alcohol)Estimated Date of LsqewxruXvvcqpvzMqm30/08/2026Based on UltrasoundSex and Gender InformationValueDate RecordedSex Assigned at Not on fileLegal StzUyuqbb35/15/2023 7:23 PM EDTGender IdentityNot on fileSexual OrientationNot on filedocumented as of this encounter Plan of Treatment Not on file documented as of this encounter Visit Diagnoses Not on filedocumented in this encounter Care Teams Team MemberRelationshipSpecialtyStart DateEnd Date Burton Richardson MD [address] [facility] [place] [address] PCP - GeneralFamily Medicine04/02/23documented as of this encounter
--- OUTSIDE RECORDS SUMMARY | 2025-09-11 09:38 | XMS_ITS | Encounter Summary ---
Author Organization [facility] Address [address] [place] [address] Care Team Providers Care Camera Technician Name Role Phone Burton Richardson MD Primary Care Provider [phone] Encounter Details DateTypeDepartmentCare Team (Latest Contact Info)Hvpsklohfyk12/16/2025Travel Social History Tobacco UseTypesPacks/DayYears UsedDateSmoking Tobacco: NeverSmokeless Tobacco: NeverAlcohol UseStandard Drinks/WeekCommentsNot Currently0 (1 standard drink = 0.6 oz pure alcohol)Estimated Date of PktyuasrErsqcgnnCrd90/08/2026Based on UltrasoundSex and Gender InformationValueDate RecordedSex Assigned at Not on fileLegal EwxOgwjvb08/15/2023 7:23 PM EDTGender IdentityNot on fileSexual OrientationNot on filedocumented as of this encounter Plan of Treatment Not on file documented as of this encounter Visit Diagnoses Not on filedocumented in this encounter Care Teams Team MemberRelationshipSpecialtyStart DateEnd Date Burton Richardson MD [address] [place] [address] PCP - GeneralFamily Medicine04/02/23documented as of this encounter
--- OUTSIDE RECORDS SUMMARY | 2025-09-11 09:38 | XMS_ITS | Encounter Summary ---
Author Organization [facility] Address [address] [place] [address] Care Team Providers Care Medical Laboratory Technical Officer Name Role Phone Burton Richardson MD Primary Care Provider [phone] Encounter Details DateTypeDepartmentCare Team (Latest Contact Info)Rdxrhrqkope27/21/2025Travel Social History Tobacco UseTypesPacks/DayYears UsedDateSmoking Tobacco: NeverSmokeless Tobacco: NeverAlcohol UseStandard Drinks/WeekCommentsNot Currently0 (1 standard drink = 0.6 oz pure alcohol)Estimated Date of XadbupmuApsrjkpgCey79/08/2026Based on UltrasoundSex and Gender InformationValueDate RecordedSex Assigned at Not on fileLegal WxtZhibnj50/15/2023 7:23 PM EDTGender IdentityNot on fileSexual OrientationNot on filedocumented as of this encounter Plan of Treatment Not on file documented as of this encounter Visit Diagnoses Not on filedocumented in this encounter Care Teams Team MemberRelationshipSpecialtyStart DateEnd Date Burton Richardson MD [address] [place] [address] PCP - GeneralFamily Medicine04/02/23documented as of this encounter
[2025-09-11 10:35] LABS: Hematocrit 30.0 % (36.0-48.0); Hemoglobin 10.2 g/dL (12.0-16.0); Mean Corpuscular HGB Conc 34.0 g/dL (29.9-35.2); Mean Corpuscular Hemoglobin 29.9 pg (26.7-34.0); Mean Corpuscular Volume 88.0 fL (81.0-99.0); Platelet Count 256 10^3/uL (150-450); Red Blood Count 3.41 10^6/uL (4.20-5.40); White Blood Count 7.0 10^3/uL (4.0-11.0)
[2025-09-11 10:53] LABS: Cannabinoid Screen Urine NEGATIVE (NEGATIVE); Methamphetamines Screen Urine NEGATIVE (NEGATIVE); Tricyclic Antidepressant Urine NEGATIVE (NEGATIVE)
[2025-09-11] MEDS: 0.9 % SODIUM CHLORIDE 1,000 ML 1000 ML IV (19:36)
[2025-09-11] MEDS: OXYTOCIN/0.9 % SODIUM CHLORIDE 10 UNITS/500 ML PLAST..BAG 6 UNIT IV (20:44)
[2025-09-11] MEDS: ROPIVACAINE HCL/PF 400 MG/200 ML PREMIX 6 MG EPIDURAL (22:04)
[2025-09-11] MEDS: 0.9 % SODIUM CHLORIDE 1,000 ML 125 ML IV (22:05)
[2025-09-12] VITALS (33 sets, daily range): BP systolic 98–194; BP diastolic 51–84; PULSE 63–112; TEMP 36.7–36.8
[2025-09-12] MEDS: 0.9 % SODIUM CHLORIDE 1,000 ML 125 ML IV (03:52)
[2025-09-12] MEDS: OXYTOCIN/0.9 % SODIUM CHLORIDE 20 UNITS/1,000 ML PLAST..BAG 999 UNIT IV (07:08)
--- NOTE | 2025-09-12 07:14 | PM.OBPRCVD ---
Procedure Intrapartal events: None Induction method: none Delivery augmentation: rupture of membranes and pitocin Delivery monitor: external FHT and external uterine Route of delivery: Episiotomy Description: none L&D Laceration Description: none Estimated blood loss (mL): 50 Anesthesia type: Epidural Disposition: floor Infant Delivery date: 09/12/25 Gender: female presentation: vertex Placental delivery description: Spontaneous cord description: 3 Vessels and Nuchal Cord
[2025-09-12] MEDS: BENZOCAINE/MENTHOL 85 GRAM SPRAY BOTTLE 1 APPLIC TOPICAL (07:48)
[2025-09-12] MEDS: GLYCERIN/WITCH HAZEL PADS 1 PAD TOPICAL (07:48)
[2025-09-12] MEDS: ACETAMINOPHEN 325 MG TABLET 650 MG PO (07:48)
[2025-09-12] MEDS: IBUPROFEN 600 MG TABLET PO ×3 (07:49→23:16)
[2025-09-13 06:01] LABS: Hematocrit 26.6 % (36.0-48.0); Hemoglobin 8.8 g/dL (12.0-16.0); Immature Granulocytes Abs Auto 0.04 10^3/uL (0.00-0.03); Immature Granulocytes Pct Auto 0.4 % (0.0-0.5); Lymphocytes Absolute Auto 2.5 10^3/uL (1.2-3.8); Mean Corpuscular HGB Conc 33.1 g/dL (29.9-35.2); Mean Corpuscular Hemoglobin 29.6 pg (26.7-34.0); Mean Corpuscular Volume 89.6 fL (81.0-99.0); Platelet Count 210 10^3/uL (150-450); Red Blood Count 2.97 10^6/uL (4.20-5.40); White Blood Count 10.6 10^3/uL (4.0-11.0)
[2025-09-13] MEDS: IBUPROFEN 600 MG TABLET PO (06:30)
--- NOTE | 2025-09-13 06:50 | PM.OBPN ---
OB - PN: Subj Subjective Patient comments: no complaints and pain well controlled status: doing well Exam Constitutional Vital Signs, click to edit/add: Last Vital Signs Temp 98.2 F 09/12/25 23:15 Pulse 67 09/12/25 23:09 Resp 15 09/12/25 23:15 BP 127/73 09/12/25 23:09 O2 Del Method Room Air 09/12/25 23:15 Documenting provider has reviewed patient's vital signs: yes Common normals: no apparent distress Respiratory Common normals: normal respiratory effort and clear to auscultation bilaterally Cardio Common normals: regular rate and regular rhythm GI Common normals: Normal to inspection, nondistended, normoactive bowel sounds present Extremity Common normals: no clubbing, cyanosis or edema and no calf tenderness Results Labs Labs: Short CBC 09/13/25 Range/Units 05:46 WBC 10.6 (4.0-11.0) 10^3/uL Hgb 8.8 L (12.0-16.0) g/dL Hct 26.6 L (36.0-48.0) % Plt Count 210 (150-450) 10^3/uL Urinary Catheter Management Urinary Catheter Management Urethral: Cath placed during this visit: yes Urethral indwelling: No Insertion date: 09/11/25 Insertion time: 23:10 OB - PN: A/P Plan - Vaginal Delivery day: 1 Plan: routine care, discharge home and follow up 6 weeks Time Spent with Patient Time: Total time spent is greater than 50% in coordination of care (as documented) at patient's floor/unit and/or counseling patient: Total time spent with greater than 50% in coordination of care (as documented) at patient's floor/unit and/or counseling patient: less than 15 minutes
[2025-09-13 08:02] VITALS: BP 131/78; PULSE 64
[2025-09-13 08:05] VITALS: TEMP 36.9
== END 2025-09-13 10:05 | disposition home or self-care (01) | DRG 560 ==
PROVIDERS: Admitting Provider Obstetrics & Gynecology; Visit Provider Obstetrics & Gynecology
DX: O69.81X0 Labor and delivery complicated by cord around neck, without compression, not applicable or unspecified (principal); Z3A.37 37 weeks gestation of pregnancy; Z37.0 Single live birth
CPT/HCPCS: 36415; 51702; 59050; 59410; 80307; 84112; 85025; 85027; 86850; 86900; 86901; J2795